=== PATIENT | male | born 1950 | race Caucasian/White ===

== ENCOUNTER 2019-03-14 21:42 | Inpatient (IN) ==
[2019-03-14] MEDS ORDERED: NITROGLYCERIN SL 0.4 MG/TAB TAB SL STA (22:10)
[2019-03-14] MEDS ORDERED: ASPIRIN 81 MG CHEW PO STA (22:10)
[2019-03-14] MEDS ORDERED: MoRPHine SULFATE 4 MG/ML 1 ML CARP\\VIAL IV STA (22:10)
[2019-03-14 22:29] LABS: Basophils # (auto) 0.03 K/uL (0-0.2); Basophils % (auto) 0.4 %; Eosinophils # (auto) 0.14 K/uL (0-0.5); Hematocrit (blood only) 42.4 % (42-52); Hemoglobin 14.8 g/dL (14.0-18.0); Immature Granulocytes # (auto) 0.02 K/uL (0.00-0.02); Immature Granulocytes % (auto) 0.3 %; Lymphocytes # (auto) 2.22 K/uL (1.2-3.4); Lymphocytes % (auto) 31.9 %; Mean Corpuscular Hgb Conc 34.9 g/dL (32-36); Mean Corpuscular Volume 91.8 fL (80-100); Mean Platelet Volume 9.1 fL (7.4-10.4); Monocytes # (auto) 0.91 K/uL (0.11-0.59); Monocytes % (auto) 13.1 %; Neutrophils # (auto) 3.63 K/uL (1.4-6.5); Neutrophils % (auto) 52.3 %; Platelet Count 190 K/uL (130-400); RDW Coefficient of Variation 12.3 % (11.5-14.5); RDW Standard Deviation 40.8 fL (36.4-46.3); Red Blood Count 4.62 M/uL (4.7-6.1); White Blood Count 6.95 K/uL (4.8-10.8)
--- NOTE | 2019-03-14 22:30 | XRay Report ---
XR chest 1V portable CLINICAL HISTORY: Atypical chest pain COMPARISON STUDY: 03/29/2012 FINDINGS: There are postsurgical changes of a midline sternotomy. The heart is borderline enlarged. T here is no focal pulmonary consolidation. There is no overt failure. There are no pleural effusions. Subtle increased basilar markings are likely atelectatic.[ IMPRESSION: No active disease in the chest. Electronically signed by: Fawad Byrd M.D. 03/14/2019 10:28 PM
[2019-03-14] MEDS ORDERED: fentaNYL citrate 100 MCG/2 ML VIAL IV STA (22:37)
[2019-03-14] MEDS ORDERED: ONDANSETRON INJ 2 MG/ML 2 ML VIAL IV STA (22:37)
[2019-03-14 22:38] LABS: iSTAT Hemoglobin 13.6 g/dl (14.0-18.0); iSTAT Ionized Calcium 1.15 mmol/l (1.12-1.32); iSTAT Potassium 3.8 mEq/L (3.3-5.0)
[2019-03-14] MEDS ORDERED: fentaNYL citrate 100 MCG/2 ML VIAL ONE (22:39)
[2019-03-14] MEDS ORDERED: ONDANSETRON INJ 2 MG/ML 2 ML VIAL ONE (22:39)
[2019-03-14] MEDS ORDERED: SODIUM CHLORIDE 0.9% 1000ML 1,000 ML IV SCH (22:45)
[2019-03-14 22:46] LABS: Alanine Aminotransferase 21 U/L (12-78); Albumin Level 3.6 gm/dl (3.4-5.0); Amylase 141 U/L (25-115); Aspartate Aminotransferase 13 U/L (15-37); BUN Creatinine Ratio 17.3 (10-20); Blood Urea Nitrogen 20 mg/dl (7-18); Calcium 9.3 mg/dl (8.5-10.1); Carbon Dioxide 25 mmol/L (21-32); Chloride 104 mmol/L (98-107); Creatinine Clr Calc Pharmacy 59.4 ml/min; Est GFR (African American) 77.5; Est GFR (Non-African American) 66.9; Glucose 188 mg/dl (70-99); Lipase 1093 U/L (73-393); Magnesium 1.9 mg/dl (1.8-2.4); Potassium 3.8 mmol/L (3.5-5.1); Sodium 136 mmol/L (136-145)
--- NOTE | 2019-03-14 22:47 | Emergency Department Note ---
History of Present Illness General Chief Complaint: Chest Pain Stated Complaint: CHEST AND BACK PAIN Time Seen by Provider: 03/14/19 22:02 History of Present Illness Maximum Pain Intensity: 8 This is a 68-year-old male that presents to the emergency department via private vehicle accompanied by with complaints of "chest and back pain". The patient states that he has a history of hypercholesterolemia, diabetes and hypertension. He also has a history of double bypass in 2003. He has a history of WA. He states that yesterday he began with some chest and back discomfort. He also notes a history of pancreatitis. He has been off of his aspirin since 11 March as he was scheduled to undergo procedure tomorrow. He states that the pain is a 6/10. He does not necessarily exertional. He points to the substernal region and epigastric region as a location of pain. Pain is worse with palpation of the abdomen. No identified alleviating factors. Home Medications Home Medications Medication Instructions Recorded Confirmed Type aspirin [Aspir-81] 81 mg PO DAILY 03/14/19 03/14/19 History canagliflozin [Invokana] 100 mg PO DAILY 03/14/19 03/14/19 History cyanocobalamin (vitamin B-12) 1,000 mcg PO DAILY 03/14/19 03/14/19 History glipizide 5 mg PO DAILY 03/14/19 03/14/19 History lisinopril 20 mg PO DAILY 03/14/19 03/14/19 History metformin 1,000 mg PO BIDM 03/14/19 03/14/19 History metoprolol tartrate 25 mg PO QPM 03/14/19 03/14/19 History metoprolol tartrate 50 mg PO QAM 03/14/19 03/14/19 History multivitamin [Multiple Vitamins] 1 tab PO DAILY 03/14/19 03/14/19 History nitroglycerin [Nitrostat] 0.4 mg SUBLINGUAL UD PRN 03/14/19 03/14/19 History pantoprazole 40 mg PO DAILY 03/14/19 03/14/19 History rosuvastatin 20 mg PO DAILY 03/14/19 03/14/19 History Allergies Allergy/AdvReac Type Severity Reaction Status Date / Time adhesive AdvReac Mild BLISTERS Verified 03/14/19 23:12 hydrochlorothiazide AdvReac Unknown HX Verified 03/14/19 23:12 PANCREATITIS Past Med/Surg History Medical History History of hypertension Hx of diabetes mellitus Hx of hypercholesterolemia Surgical History Hx of CABG Social History Preferred Language: Paraguayan Feels Safe at Home: Yes Smoking Status: Never smoker Review of Systems A total of 10 systems reviewed and were otherwise negative Physical Exam Vital Signs Vital Signs - 24 hr 03/14/19 21:44 03/14/19 22:07 03/14/19 22:24 Temperature 36.7 C Temperature Source Oral Pulse Rate 80 91 H Pulse Rate [Finger] Pulse Rhythm Regular Pulse Rhythm [Finger] Pulse Strength [Finger] Respiratory Rate 18 22 Respiratory Effort / Characteristics Non-Labored Respiratory Depth Normal Respiratory Pattern Blood Pressure 176/81 H Blood Pressure [Right Arm] Blood Pressure Mean 112 Blood Pressure Mean [Right Arm] Blood Pressure Position [Right Arm] Pulse Oximetry 94 95 Oxygen Delivery Method Room Air Room Air Room Air Oxygen Flow Rate Sepsis Recent Fever Within 48 Hours No Sepsis Action Taken by Nursing No Action Required 03/14/19 23:04 03/15/19 00:09 Temperature Temperature Source Pulse Rate Pulse Rate [Finger] 70 69 Pulse Rhythm Pulse Rhythm [Finger] Regular Regular Pulse Strength [Finger] Normal Normal Respiratory Rate 22 18 Respiratory Effort / Characteristics Non-Labored Spontaneous Non-Labored Spontaneous Respiratory Depth Normal Normal Respiratory Pattern Regular Regular Blood Pressure Blood Pressure [Right Arm] 129/59 L 112/58 L Blood Pressure Mean Blood Pressure Mean [Right Arm] 82 76 Blood Pressure Position [Right Arm] Lying Pulse Oximetry 97 96 Oxygen Delivery Method Room Air Nasal Cannula Nasal Cannula Oxygen Flow Rate 2 2 Sepsis Recent Fever Within 48 Hours Sepsis Action Taken by Nursing VITAL SIGNS - Vital signs and nursing notes were reviewed. Stable and afebrile. GENERAL -68-year-old male appearing his stated age who is in no acute distress. Communicates well with provider and answers questions appropriately. SKIN - Without rashes. No meningeal or petechial rash. No diaphoresis. HEAD - NC/AT. EYES - PERRL with EOMI bilaterally. Sclera anicteric. EARS - No deformities of external structures noted on gross examination bilaterally NOSE - Midline and without cyanosis. No epistaxis or purulent drainage noted. MOUTH/OROPHARYNX - Without perioral cyanosis. LUNGS - Chest wall symmetric without accessory muscle use, intercostals retractions, or central cyanosis. Normal vesicular breath sounds CTA B/L. No wheezes, rales, or rhonchi appreciated. CARDIAC - RRR with S1/S2. No murmur, rubs, or gallops appreciated. ABDOMEN - Abdominal contour normal without pulsations or visible masses. BS normoactive all four quadrants. There is epigastric abdominal tenderness noted on examination. No palpable masses, hepatosplenomegaly, or ascites noted. EXTREMITIES - No clubbing or peripheral cyanosis. +5/5 strength noted in UE/LE bilaterally. NEUROLOGIC - Cranial nerves II through XII grossly intact. PSYCH - A&Ox3 and cooperates fully with examiner. Pt is very pleasant and interacts well with examiner. Course Administered Medications Ioversol (Optiray 320 125ml) 119 ml IV ONCE PRN PRN Reason: Interaction Checking Stop: 03/18/19 22:50 Last Admin: 03/14/19 22:51 Dose: 119 ml Documented by: [id number] Discontinued Medications Aspirin (Aspirin Chew) 324 mg PO NOW STA Stop: 03/14/19 22:11 Last Admin: 03/14/19 22:18 Dose: 324 mg Documented by: [id number] Fentanyl Citrate (Fentanyl Citrate) 50 mcg IV NOW STA Stop: 03/14/19 22:38 Last Admin: 03/14/19 22:40 Dose: 50 mcg Documented by: [id number] Fentanyl Citrate (Fentanyl Citrate) Confirm Administered Dose 100 mcg .ROUTE .STK-MED ONE Stop: 03/14/19 22:40 Last Admin: 03/14/19 22:42 Dose: Not Given Documented by: [id number] Sodium Chloride (Nss 1000ml) 1,000 mls @ 999 mls/hr IV .Q1H1M RADHA Stop: 03/14/19 23:45 Last Infusion: 03/15/19 00:08 Dose: 0 mls/hr Documented by: [id number] Admin: 03/14/19 22:49 Dose: 999 mls/hr Documented by: [id number] Morphine Sulfate (Morphine Sulfate) 4 mg IV NOW STA Stop: 03/14/19 22:11 Last Admin: 03/14/19 22:18 Dose: 4 mg Documented by: [id number] Nitroglycerin (Nitrostat) 0.4 mg SL NOW STA Stop: 03/14/19 22:11 Last Admin: 03/14/19 22:19 Dose: 0.4 mg Documented by: [id number] Ondansetron HCl (Zofran) 4 mg IV NOW STA Stop: 03/14/19 22:38 Last Admin: 03/14/19 22:40 Dose: 4 mg Documented by: [id number] Ondansetron HCl (Zofran) Confirm Administered Dose 4 mg .ROUTE .STK-MED ONE Stop: 03/14/19 22:40 Last Admin: 03/14/19 22:42 Dose: Not Given Documented by: [id number] Medical Decision Making Laboratory Data Result diagrams: 03/14/19 22:15 03/14/19 22:15 Lab Results 03/14/19 03/14/19 03/14/19 Range/Units 22:15 22:15 22:15 WBC 6.95 (4.8-10.8) K/uL RBC 4.62 L (4.7-6.1) M/uL Hgb 14.8 (14.0-18.0) g/dL POC Hgb (14.0-18.0) g/dl Hct 42.4 (42-52) % POC Hct (42-52) % MCV 91.8 (80-100) fL MCH 32.0 (25-34) pg MCHC 34.9 (32-36) g/dL RDW Std Deviation 40.8 (36.4-46.3) fL RDW Coeff of Rodolfo 12.3 (11.5-14.5) % Plt Count 190 (130-400) K/uL MPV 9.1 (7.4-10.4) fL Immature Gran % (Auto) 0.3 % Neut % (Auto) 52.3 % Lymph % (Auto) 31.9 % Ashe % (Auto) 13.1 % Eos % (Auto) 2.0 % Baso % (Auto) 0.4 % Immature Gran # (Auto) 0.02 (0.00-0.02) K/uL Neut # (Auto) 3.63 (1.4-6.5) K/uL Lymph # (Auto) 2.22 (1.2-3.4) K/uL Ashe # (Auto) 0.91 H (0.11-0.59) K/uL Eos # (Auto) 0.14 (0-0.5) K/uL Baso # (Auto) 0.03 (0-0.2) K/uL PT 9.5 (9.0-12.0) Seconds INR 0.9 (0.9-1.1) APTT 24.3 (21.0-31.0) Seconds PTT Ratio 0.9 POC Sodium (135-144) mEq/L Sodium 136 (136-145) mmol/L POC Potassium (3.3-5.0) mEq/L Potassium 3.8 (3.5-5.1) mmol/L POC Chloride (101-112) mEq/L Chloride 104 (98-107) mmol/L Carbon Dioxide 25 (21-32) mmol/L POC Total CO2 (24-31) mEq/l Anion Gap 7.0 (3-11) POC Anion Gap (16-25) mmol/L POC BUN (7-18) mg/dl BUN 20 H (7-18) mg/dl Creatinine 1.13 (0.6-1.4) mg/dl POC Creatinine (0.6-1.3) mg/dl Est Cr Clr Drug Dosing 59.4 ml/min Est GFR ( Amer) 77.5 Est GFR (Non-Af Amer) 66.9 BUN/Creatinine Ratio 17.3 (10-20) Glucose 188 H (70-99) mg/dl POC Glucose (other) (70-99) mg/dl Calcium 9.3 (8.5-10.1) mg/dl POC Ioniz Calcium Cori (1.12-1.32) mmol/l Magnesium 1.9 (1.8-2.4) mg/dl Total Bilirubin 0.3 (0.2-1) mg/dl AST 13 L (15-37) U/L ALT 21 (12-78) U/L Alkaline Phosphatase 64 (45-117) U/L Troponin I < 0.015 (0-0.045) ng/ml Total Protein 7.5 (6.4-8.2) gm/dl Albumin 3.6 (3.4-5.0) gm/dl Globulin 3.9 (2.5-4.0) gm/dl Albumin/Globulin Ratio 0.9 (0.9-2) Amylase 141 H (25-115) U/L Lipase 1093 H (73-393) U/L Urine Color Urine Appearance (Clear) Urine pH (4.5-7.5) Ur Specific Lincoln (1.000-1.030) Urine Protein (Negative) Urine Glucose (UA) (Negative) Urine Ketones (Negative) Urine Blood (Negative) Urine Nitrite (Negative) Urine Bilirubin (Negative) Urine Urobilinogen (Negative) Ur Leukocyte Esterase (Negative) 03/14/19 03/15/19 Range/Units 22:26 00:15 WBC (4.8-10.8) K/uL RBC (4.7-6.1) M/uL Hgb (14.0-18.0) g/dL POC Hgb 13.6 L (14.0-18.0) g/dl Hct (42-52) % POC Hct 40 L (42-52) % MCV (80-100) fL MCH (25-34) pg MCHC (32-36) g/dL RDW Std Deviation (36.4-46.3) fL RDW Coeff of Rodolfo (11.5-14.5) % Plt Count (130-400) K/uL MPV (7.4-10.4) fL Immature Gran % (Auto) % Neut % (Auto) % Lymph % (Auto) % Ashe % (Auto) % Eos % (Auto) % Baso % (Auto) % Immature Gran # (Auto) (0.00-0.02) K/uL Neut # (Auto) (1.4-6.5) K/uL Lymph # (Auto) (1.2-3.4) K/uL Ashe # (Auto) (0.11-0.59) K/uL Eos # (Auto) (0-0.5) K/uL Baso # (Auto) (0-0.2) K/uL PT (9.0-12.0) Seconds INR (0.9-1.1) APTT (21.0-31.0) Seconds PTT Ratio POC Sodium 136 (135-144) mEq/L Sodium (136-145) mmol/L POC Potassium 3.8 (3.3-5.0) mEq/L Potassium (3.5-5.1) mmol/L POC Chloride 104 (101-112) mEq/L Chloride (98-107) mmol/L Carbon Dioxide (21-32) mmol/L POC Total CO2 24 (24-31) mEq/l Anion Gap (3-11) POC Anion Gap 13.0 L (16-25) mmol/L POC BUN 19 H (7-18) mg/dl BUN (7-18) mg/dl Creatinine (0.6-1.4) mg/dl POC Creatinine 1.0 (0.6-1.3) mg/dl Est Cr Clr Drug Dosing ml/min Est GFR ( Amer) Est GFR (Non-Af Amer) BUN/Creatinine Ratio (10-20) Glucose (70-99) mg/dl POC Glucose (other) 192 H (70-99) mg/dl Calcium (8.5-10.1) mg/dl POC Ioniz Calcium Croi 1.15 (1.12-1.32) mmol/l Magnesium (1.8-2.4) mg/dl Total Bilirubin (0.2-1) mg/dl AST (15-37) U/L ALT (12-78) U/L Alkaline Phosphatase (45-117) U/L Troponin I (0-0.045) ng/ml Total Protein (6.4-8.2) gm/dl Albumin (3.4-5.0) gm/dl Globulin (2.5-4.0) gm/dl Albumin/Globulin Ratio (0.9-2) Amylase (25-115) U/L Lipase (73-393) U/L Urine Color Yellow Urine Appearance Clear (Clear) Urine pH 5.0 (4.5-7.5) Ur Specific Lincoln <= 1.005 (1.000-1.030) Urine Protein Negative (Negative) Urine Glucose (UA) 3+ H (Negative) Urine Ketones Negative (Negative) Urine Blood Negative (Negative) Urine Nitrite Negative (Negative) Urine Bilirubin Negative (Negative) Urine Urobilinogen Negative (Negative) Ur Leukocyte Esterase Negative (Negative) Imaging Data Chest x-ray: Radiologist's impression: XR chest 1V portable CLINICAL HISTORY: Atypical chest pain COMPARISON STUDY: 03/29/2012 FINDINGS: There are postsurgical changes of a midline sternotomy. The heart is borderline enlarged. There is no focal pulmonary consolidation. There is no overt failure. There are no pleural effusions. Subtle increased basilar markings are likely atelectatic.[ IMPRESSION: No active disease in the chest. Electronically signed by: Fawad Byrd M.D. 03/14/2019 10:[address] scan - abdomen: Radiologist's impression: CTA ABDOMEN & PELVIS With Contrast: Mild stranding about the head and uncinate process of the pancreas may represent acute pancreatitis, correlate with lipase Abdominal aorta within limits without aneurysm or dissection Aortoiliac atherosclerotic change Celiac, SMA, renal arteries and BUTCH fill with contrast Status post cholecystectomy No bowel dilation or free air Normal caliber appendix without secondary signs Punctate non-obstructing stone upper pole left kidney Left renal cyst No free fluid Radiologist: Kyle Sierra M.D. Study ready at 23:09 and initial results transmitted at 23:43 CT scan - chest: Radiologist's impression: CTA CHEST: Thoracic aorta within limits without aneurysm or dissection or evidence of intramural hematoma Status post CABG No pericardial or pleural effusion Motion artifact without evidence of filling defect to suggest pulmonary embolism Central airways are patent without focal consolidation Basilar atelectasis Radiologist: Kyle Sierra M.D. Study ready at 23:14 and initial results transmitted at 23:40 [facility] Narrative Patient was seen and evaluated as above in room a 11b. Review was performed of nursing notes and vital signs. After obtaining a thorough history and physical examination the above work up was performed. He presents to us today with significant chest/epigastric abdominal pain and back pain. He has a significant cardiac history and is status post CABG. EKG was obtained and per my interpretation reveals sinus rhythm with first-degree AV block at a rate of 80 bpm. There is evidence of T wave inversion in leads III, aVF and V1. There is some flattening of the T waves in V2. A repeat EKG was obtained during resurgence of pain and revealed normal sinus rhythm at a rate of 71 bpm. This is similar to previous. There is no evidence of ST segment elevation myocardial infarction. QTc on both of these were 410, and 399 respectively. When compared to previous EKGs no significant change was found. Chest x-ray was negative. Given the patient's cardiac history, initial focus was to rule out cardiac etiology. He was given nitroglycerin, morphine, and aspirin. Upon evaluation after receiving these meds he became hypotensive, was diaphoretic and was pale. Although this could certainly be just from medication, given his history there was concern for possible dissection and he went to the CT scanner and underwent CTA of the chest, abdomen and pelvis. Results of these are as above. There is no dissection. There is evidence though of pancreatitis. Patient does have a history of this. He was given fluids. I do believe that further evaluation and management is warranted in the inpatient setting secondary to his pancreatitis as well as his cardiac history. Case discussed with the hospitalist. Please refer to further documentation regarding his stay. CBC reveals no leukocytosis or concerning anemia. No emergent metabolic disturbance. Troponin is negative. Amylase at 141 with lipase at 1093. Urinalysis does not reveal any evidence of infection. Case was discussed with the attending physician. I attest that I have personally reviewed the patient medication list. I attest that I have reviewed the patient's blood pressure and it was found to be elevated on arrival. GCS: 15 In the evaluation and treatment of this patient, the following differential diagnoses were considered: WA, ASC, Dysrhythmia, Angina, Mediastinitis, GERD, Esophagitis, PE, Pneumonia, pancreatitis, dissection, bronchitis, Costochondritis, Rib Fracture, Zoster. Impression & Plan Acute pancreatitis, Chest pain, Back pain, Epigastric abdominal pain, Hx of CABG, History of pancreatitis Discharge Plan Visit Data Chief Complaint: Chest Pain Stated Complaint: CHEST AND BACK PAIN ED Provider: Erick Holloway ED Midlevel Provider: M[facility] [place] Discharge Problem: Acute pancreatitis, Chest pain, Back pain, Epigastric abdominal pain, Hx of CABG, History of pancreatitis Patient Disposition: Admitted As Inpatient Condition: Good
[2019-03-14 22:51] LABS: Albumin Globulin Ratio 0.9 (0.9-2); Alkaline Phosphatase 64 U/L (45-117); Bilirubin,Total 0.3 mg/dl (0.2-1); Globulin 3.9 gm/dl (2.5-4.0); INR 0.9 (0.9-1.1); Partial Thromboplastin Ratio 0.9; Partial Thromboplastin Time 24.3 Seconds (21.0-31.0); Prothrombin Time 9.5 Seconds (9.0-12.0); Total Protein 7.5 gm/dl (6.4-8.2); Troponin I < 0.015 ng/ml (0-0.045)
[2019-03-14] MEDS ORDERED: OPTIRAY 320 125ml IV PRN (22:51)
--- NOTE | 2019-03-15 00:23 | Emergency Department Note ---
Entered by Sandee Hannah acting as a scribe for Erick Holloway ED Visit Note The patient was seen and examined by myself in conjunction with ALEX Alicea, advanced care provider. I agree with the history, physical and findings as documented. Please see the note for disposition and details. The scribe's documentation has been prepared under my direction and personally reviewed by me in its entirety. I confirm that the note above accurately reflects all work, treatment, procedures, and medical decision making performed by me.
--- NOTE | 2019-03-15 01:06 | History & Physical Report ---
Date of Service March 15, 2019 Assessment & Plan (1) Acute pancreatitis: Recurrent pancreatitis chronic systolic heart failure secondary to ischemic cardiomyopathy (TTE 45 - 50% in 2018), patient euvolemic coronary artery disease status post CABG hypertension, stable DM2 on oral meds, reasonable control at hemoglobin A1c of 7.8 last November 2018 Past tobacco abuse GMF Bowel rest IVF, analgesia GI consult RE recurrent pancreatitis Basal insulin adjusted for diet, ISS BG goal [id number], update hemoglobin A1c Prophylaxis. Lovenox subcu Full code Patient's requesting updates from providers. Ms. Leandra Cannon, contact #[phone]. History of Present Illness Chief Complaint: Chest/abdominal pain Primary Care Provider: Artur Chambers MD History obtained from patient, family, and records. Medical history significant for chronic systolic heart failure secondary to ischemic cardiomyopathy (TTE 45 - 50% in 2018),coronary artery disease status post CABG, hypertension, hyperlipidemia, DM2 on oral meds, GERD, recurrent pancreatitis. Recent confinement January 2013 for post ERCP abdominal discomfort. Yesterday afternoon patient noted achy mid chest pain going to his back associated with belching, nausea, usual loose stools. Discomfort reminiscent of pancreatitis attack. Patient had chili for lunch which is not unusual for him. No recent alcohol intake. Patient brought to the ER for evaluation. MEDICAL HISTORY: As above. SURGICAL HISTORY: CABG, Cholecystectomy, knee surgery, hernia repair, hand surgery FAMILY HISTORY: There is a family history of colon cancer and diabetes. PERSONAL AND SOCIAL HISTORY: Nonsmoker. No chronic intake of alcoholic beverages. 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 Allergies Allergy/AdvReac Type Severity Reaction Status Date / Time adhesive AdvReac Mild BLISTERS Verified 03/14/19 23:12 hydrochlorothiazide AdvReac Unknown HX Verified 03/14/19 23:12 PANCREATITIS Home Medications Home Medications Medication Instructions Recorded Confirmed Type aspirin [Aspir-81] 81 mg PO DAILY 03/14/19 03/14/19 History canagliflozin [Invokana] 100 mg PO DAILY 03/14/19 03/14/19 History cyanocobalamin (vitamin B-12) 1,000 mcg PO DAILY 03/14/19 03/14/19 History glipizide 5 mg PO DAILY 03/14/19 03/14/19 History lisinopril 20 mg PO DAILY 03/14/19 03/14/19 History metformin 1,000 mg PO BIDM 03/14/19 03/14/19 History metoprolol tartrate 25 mg PO QPM 03/14/19 03/14/19 History metoprolol tartrate 50 mg PO QAM 03/14/19 03/14/19 History multivitamin [Multiple Vitamins] 1 tab PO DAILY 03/14/19 03/14/19 History nitroglycerin [Nitrostat] 0.4 mg SUBLINGUAL UD PRN 03/14/19 03/14/19 History pantoprazole 40 mg PO DAILY 03/14/19 03/14/19 History rosuvastatin 20 mg PO DAILY 03/14/19 03/14/19 History Past Med/Surg History Medical History History of hypertension Hx of diabetes mellitus Hx of hypercholesterolemia Surgical History Hx of CABG Social History Preferred Language: Turkish Communication Ability: Effective Admin Asst Required: No Beliefs That Will Affect Care: None Current Living Situation: Spouse Feels Safe at Home: Yes Safety Concerns: Feels Safe At This Time Smoking Status: Never smoker Hx Alcohol Use: No Hx Substance Use: No Review of Systems Review of Systems: As per HPI, all 10 systems reviewed, all other ROS negative Physical Exam Physical Exam: GENERAL: Comfortable, slightly uncomfortable, no respiratory distress SKIN: Normal color, warm HEENT: Alopecia, bespectacled, pink palpebral conjunctivae, no ptosis, dry buccal mucosa NECK : Supple, no tenderness CHEST : CTA, no tenderness HEART : RRR, no obvious murmurs ABDOMEN: Some distention, epigastric tenderness EXTREMITIES : No LE swelling/tenderness, no other conspicuous deformities noted NEUROLOGIC : Coherent, no facial asymmetry, no other gross focality Results & Data Vital Signs (Past 12 Hours) Vital Signs Temp Pulse Pulse Resp BP BP Pulse Ox 03/15/19 00:09 69 18 112/58 L 96 03/14/19 23:04 70 22 129/59 L 97 03/14/19 22:24 91 H 22 95 03/14/19 21:44 36.7 C 80 18 176/81 H 94 Laboratory Results Laboratory Results WBC 6.95 K/uL (4.8-10.8) 03/14/19 22:15 RBC 4.62 M/uL (4.7-6.1) L 03/14/19 22:15 Hgb 14.8 g/dL (14.0-18.0) 03/14/19 22:15 POC Hgb 13.6 g/dl (14.0-18.0) L 03/14/19 22:26 Hct 42.4 % (42-52) 03/14/19 22:15 POC Hct 40 % (42-52) L 03/14/19 22:26 MCV 91.8 fL (80-100) 03/14/19 22:15 MCH 32.0 pg (25-34) 03/14/19 22:15 MCHC 34.9 g/dL (32-36) 03/14/19 22:15 RDW Std Deviation 40.8 fL (36.4-46.3) 03/14/19 22:15 RDW Coeff of Rodolfo 12.3 % (11.5-14.5) 03/14/19 22:15 Plt Count 190 K/uL (130-400) 03/14/19 22:15 MPV 9.1 fL (7.4-10.4) 03/14/19 22:15 Immature Gran % (Auto) 0.3 % 03/14/19 22:15 Neut % (Auto) 52.3 % 03/14/19 22:15 Lymph % (Auto) 31.9 % 03/14/19 22:15 Steele % (Auto) 13.1 % 03/14/19 22:15 Eos % (Auto) 2.0 % 03/14/19 22:15 Baso % (Auto) 0.4 % 03/14/19 22:15 Immature Gran # (Auto) 0.02 K/uL (0.00-0.02) 03/14/19 22:15 Neut # (Auto) 3.63 K/uL (1.4-6.5) 03/14/19 22:15 Lymph # (Auto) 2.22 K/uL (1.2-3.4) 03/14/19 22:15 Steele # (Auto) 0.91 K/uL (0.11-0.59) H 03/14/19 22:15 Eos # (Auto) 0.14 K/uL (0-0.5) 03/14/19 22:15 Baso # (Auto) 0.03 K/uL (0-0.2) 03/14/19 22:15 PT 9.5 Seconds (9.0-12.0) 03/14/19 22:15 INR 0.9 (0.9-1.1) 03/14/19 22:15 APTT 24.3 Seconds (21.0-31.0) 03/14/19 22:15 PTT Ratio 0.9 03/14/19 22:15 POC Sodium 136 mEq/L (135-144) 03/14/19 22:26 Sodium 136 mmol/L (136-145) 03/14/19 22:15 POC Potassium 3.8 mEq/L (3.3-5.0) 03/14/19 22:26 Potassium 3.8 mmol/L (3.5-5.1) 03/14/19 22:15 POC Chloride 104 mEq/L (101-112) 03/14/19 22:26 Chloride 104 mmol/L (98-107) 03/14/19 22:15 Carbon Dioxide 25 mmol/L (21-32) 03/14/19 22:15 POC Total CO2 24 mEq/l (24-31) 03/14/19 22:26 Anion Gap 7.0 (3-11) 03/14/19 22:15 POC Anion Gap 13.0 mmol/L (16-25) L 03/14/19 22:26 POC BUN 19 mg/dl (7-18) H 03/14/19 22:26 BUN 20 mg/dl (7-18) H 03/14/19 22:15 Creatinine 1.13 mg/dl (0.6-1.4) 03/14/19 22:15 POC Creatinine 1.0 mg/dl (0.6-1.3) 03/14/19 22:26 Est Cr Clr Drug Dosing 59.4 ml/min 03/14/19 22:15 Est GFR ( Amer) 77.5 03/14/19 22:15 Est GFR (Non-Af Amer) 66.9 03/14/19 22:15 BUN/Creatinine Ratio 17.3 (10-20) 03/14/19 22:15 Glucose 188 mg/dl (70-99) H 03/14/19 22:15 POC Glucose (other) 192 mg/dl (70-99) H 03/14/19 22:26 Calcium 9.3 mg/dl (8.5-10.1) 03/14/19 22:15 POC Ioniz Calcium Cori 1.15 mmol/l (1.12-1.32) 03/14/19 22:26 Magnesium 1.9 mg/dl (1.8-2.4) 03/14/19 22:15 Total Bilirubin 0.3 mg/dl (0.2-1) 03/14/19 22:15 AST 13 U/L (15-37) L 03/14/19 22:15 ALT 21 U/L (12-78) 03/14/19 22:15 Alkaline Phosphatase 64 U/L (45-117) 03/14/19 22:15 Troponin I < 0.015 ng/ml (0-0.045) 03/14/19 22:15 Total Protein 7.5 gm/dl (6.4-8.2) 03/14/19 22:15 Albumin 3.6 gm/dl (3.4-5.0) 03/14/19 22:15 Globulin 3.9 gm/dl (2.5-4.0) 03/14/19 22:15 Albumin/Globulin Ratio 0.9 (0.9-2) 03/14/19 22:15 Amylase 141 U/L (25-115) H 03/14/19 22:15 Lipase 1093 U/L (73-393) H 03/14/19 22:[address] chest initial read : no thoracic aortic dissection/intramural hematoma. Status post CABG. no pulmonary embolism. CT abdomen pelvis initial read: Acute pancreatitis. Status post cholecystectomy. No free fluid. EKG as per my interpretation: Rate 70, NSR, normal axis, T wave abnormalities in the inferior and anteroseptal leads
[2019-03-15 01:24] LABS: Appearance Urine Clear (Clear); Bilirubin Urine Negative (Negative); Blood Urine Negative (Negative); Color Urine Yellow; Glucose Urine UA 3+ (Negative); Ketones Urine Negative (Negative); Leukocyte Esterase Urine Negative (Negative); Nitrite Urine Negative (Negative); Protein Urine Negative (Negative); Specific Gravity Urine <= 1.005 (1.000-1.030); Urobilinogen Urine Negative (Negative)
[2019-03-15] MEDS ORDERED: CARBOHYDRATES FOR HYPOGLYCEMIA PO PRN (01:59)
[2019-03-15] MEDS ORDERED: GLUCAGON FOR INJ 1 MG VIAL SQ PRN (01:59)
[2019-03-15] MEDS ORDERED: MoRPHine SULFATE 4 MG/ML 1 ML CARP\\VIAL IV PRN (01:59)
[2019-03-15] MEDS ORDERED: DEXTROSE 50% 50 ML SYRINGE IV PRN (01:59)
[2019-03-15] MEDS ORDERED: GLUCOSE 10 TABS/TUBE PO PRN (01:59)
[2019-03-15] MEDS ORDERED: GLUCOSE 40% GEL 15 GM TUBE PO PRN (01:59)
[2019-03-15] MEDS ORDERED: INSULIN GLARGINE SOLOSTAR 100 UNITS/ML 3 ML PEN SC STA (01:59)
[2019-03-15] MEDS ORDERED: PROMETHAZINE HCL 12.5 MG in SODIUM CHLORIDE 0.9% 50 ML IV PRN (01:59)
[2019-03-15] MEDS ORDERED: INSULIN ASPART 100 UNITS/ML 3 ML PEN SC SCH (01:59)
[2019-03-15] MEDS ORDERED: LORazepam 0.25 MG/0.5 ML VIAL IV PRN (01:59)
[2019-03-15] MEDS ORDERED: TRAMADOL HCL 50 MG TABLET PO PRN (01:59)
[2019-03-15] MEDS: LACTATED RINGER'S 1,000 ML IV SCH ×3 (02:18→15:49)
[2019-03-15] MEDS ORDERED: Nursing to Pharmacy Communication ONE ×2 (02:32→23:08)
[2019-03-15] MEDS: INSULIN ASPART 100 UNITS/ML 3 ML PEN SC SCH ×3 (06:04→18:53)
[2019-03-15 06:23] LABS: Basophils # (auto) 0.02 K/uL (0-0.2); Basophils % (auto) 0.4 %; Eosinophils % (auto) 2.1 %; Hematocrit (blood only) 39.1 % (42-52); Hemoglobin 13.5 g/dL (14.0-18.0); Lymphocytes # (auto) 1.59 K/uL (1.2-3.4); Lymphocytes % (auto) 32.7 %; Mean Corpuscular Hemoglobin 31.9 pg (25-34); Mean Corpuscular Hgb Conc 34.5 g/dL (32-36); Mean Corpuscular Volume 92.4 fL (80-100); Mean Platelet Volume 9.1 fL (7.4-10.4); Monocytes % (auto) 12.3 %; Neutrophils # (auto) 2.55 K/uL (1.4-6.5); Neutrophils % (auto) 52.5 %; Platelet Count 170 K/uL (130-400); RDW Coefficient of Variation 12.3 % (11.5-14.5); RDW Standard Deviation 41.5 fL (36.4-46.3); Red Blood Count 4.23 M/uL (4.7-6.1); White Blood Count 4.86 K/uL (4.8-10.8)
[2019-03-15 06:59] LABS: Albumin Globulin Ratio 0.8 (0.9-2); BUN Creatinine Ratio 18.2 (10-20); Bilirubin,Total 0.5 mg/dl (0.2-1); Calcium 8.6 mg/dl (8.5-10.1); Creatinine Clr Calc Pharmacy 74.1 ml/min; Est GFR (African American) 100.7; Est GFR (Non-African American) 86.9; Globulin 3.8 gm/dl (2.5-4.0); Total Protein 6.8 gm/dl (6.4-8.2)
[2019-03-15 07:28] LABS: Potassium 3.9 mmol/L (3.5-5.1)
--- NOTE | 2019-03-15 07:38 | CT Scan Report ---
CT OF THE ABDOMEN WITHOUT CONTRAST AND CT ANGIOGRAPHY OF THE ABDOMEN AND PELVIS CLINICAL HISTORY: Abdominal pain radiating to back. History pancreatitis. COMPARISON STUDY: CT of the abdomen and pelvis and MRCP March 29, 2012. TECHNIQUE: Unenhanced axial images of the abdomen were obtained. Arterial phase imaging of the abdome n and pelvis was performed following intravenous injection of 119 cc Optiray 320 IV. Sagittal coronal reconstructed reviewed as well as maximal intensity projections on an independent 3-D workstation. A utomated exposure control was utilized for the study. A dose lowering technique was utilized adherin g to the principles of ALARA. FINDINGS: Please note that the chest will be reported separately. There is no abdominal aortic dissec tion or aneurysm. There is moderate plaque of the abdominal aorta and branch vessels. Arterial phase images of the liver, spleen and adrenal glands are unremarkable. There is no biliary ductal dilatatio n status post cholecystectomy. There is mild infiltration adjacent to the uncinate process of the camejo creas. No pancreatic ductal dilatation. No peripancreatic fluid collection is present. A few left debbie al cysts are present. A 3 mm left renal calculus is noted. There are no ureteral calculi. There is no hydronephrosis. There is no evidence for a bowel obstruction. The appendix is normal. No suspicious osseous lesions are noted. IMPRESSION: 1. Mild infiltration adjacent to the uncinate process of the pancreas consistent with acute pancreati tis. No peripancreatic fluid collection. No biliary ductal dilatation status post cholecystectomy. 2. No abdominal aortic dissection. Moderate atherosclerotic plaque. 3. 3 mm left renal calculus. Electronically signed by: Brandon Goode M.D. 03/15/2019 7:36 AM
--- NOTE | 2019-03-15 07:40 | CT Scan Report ---
CHEST CTA for AORTIC DISSECTION CT DOSE: HISTORY: chest pain into back, hx mi, hx pancreatitis TECHNIQUE: Multiaxial CT images of the chest were performed both before and after the intravenous adm inistration of contrast to evaluate the aorta. Maximal intensity projection images were also obtained . A dose lowering technique was utilized adhering to the principles of ALARA. COMPARISON STUDY: Chest CTA 11/14/2010. FINDINGS: Noncontrast imaging through the chest shows no evidence for an intramural hematoma within t he thoracic aorta. Normal caliber thoracic aorta with no evidence for dissection. The heart is mildly enlarged. The main pulmonary arteries are patent. Poststernotomy changes. No pleural or pericardial effusions. The esophagus is normal in course and caliber. No mediastinal or hilar lymphadenopathy. Th e central airways are patent. No pneumothorax. A small right azygos lobe is again noted. Respiratory motion artifact. A few small bibasilar linear densities consistent with subsegmental atelectasis. IMPRESSION: No evidence for an aortic dissection. Electronically signed by: Cody Kirk M.D. 03/15/2019 7:38 AM
[2019-03-15] MEDS: ACETAMINOPHEN 325 MG TAB PO PRN ×2 (09:45→15:51)
[2019-03-15] MEDS: PANTOprazole 40 MG TAB PO SCH (09:46)
[2019-03-15] MEDS: ENOXAPARIN INJ 30 MG/0.3 ML SYR SQ SCH (09:46)
[2019-03-15] MEDS: METOPROLOL TARTRATE 50 MG TAB PO SCH (09:46)
[2019-03-15] MEDS: lisinopriL 20 MG TAB PO SCH (09:47)
[2019-03-15] MEDS: MULTIVITAMIN TAB PO SCH (09:47)
--- NOTE | 2019-03-15 11:00 | Gastrointestinal Consultation ---
Date of Consultation March 15, 2019 Assessment & Plan (1) Acute pancreatitis: Pt is a 68 y/o male currently seen for acute pancreatitis w/o signs of abscess or necrosis. Hx of pancreatitis in 2011, 2012. He is s/p cholecystectomy. He underwent ERCP w biliary sphincte[place] [address] Gabriela Verde, debris found and swept in biliary duct. He did have a beer a few weeks ago, denies regular ETOH consumption, no tobacco or illicit drugs. TG 132. Wonder if acute pancreatitis is related to recent increase of his Invokana. - Continue LR IVF support - Start CL diet - Gas X prn gas/bloating - Symptomatic management with antiemetics and analgesics prn otherwise - Consider repeat ERCP to extend biliary sphincterectomy once he recovers from this episode of pancreatitis Supervising Physician Co-Signing Physician Notes I have performed a history and physical examination of this patient and reviewed the electronic medical record. Specifically, on physical examination there is minimal epigastric tenderness. Patient should follow up with Dr. Verde as an outpatient. I have discussed the case with SWAPNIL Canela. The above note reflects my findings, conclusions, and recommendations. Willie Larios MD History of Present Illness Reason for Consultation: Pancreatitis Requesting Physician: Dr. Tanvir Dhaliwal Attending Physician: Dr. Willie Larios History of Present Illness Pt is a 68 y/o male who presented to ED yesterday w c/o pain across his chest radiating downwards to epigastric area then wrapping upper abd to back. He describe pain as gassy in nature. He denies any fever, chills, n/v. He denies any changes in bowel habits. He was eating chili when this happened. He was evaluated in ED and noted to have elevated lipase w normal LFTs. CTA abd/pelvis w/o contrast showed infiltration of uncinate process of pancreas consistent w acute pancreatitis. He is s/p cholecystectomy, no signs biliary and pancreatic ductal dilation or fluid collection. Overnight he's kept NPO and started on LR IVF for pancreatitis. His abd pain is much improved. He denies any n/v. Scheller he needs to pass gas but can't seem to pass well He admits to have 1 beer a couple of weeks ago otherwise denies regular ETOH intake. He denies tobacco uses since 2003. Denies illicit drugs including marijuana. Triglyceride level 132 (11/04/18 [facility]). He did note that he was on Invokana 100mg for a while and recently dose increased to 300mg daily He did have ERCP by Dr. Gabriela Verde in 2013 for abd pain, recurrent pancreatitis (2011, 2012). Debris swept from biliary duct and biliary sphincterectomy was done. Allergies Allergy/AdvReac Type Severity Reaction Status Date / Time adhesive AdvReac Mild BLISTERS Verified 03/14/19 23:12 hydrochlorothiazide AdvReac Unknown HX Verified 03/14/19 23:12 PANCREATITIS Home Medications Home Medications Medication Instructions Recorded Confirmed Type aspirin [Aspir-81] 81 mg PO DAILY 03/14/19 03/14/19 History canagliflozin [Invokana] 100 mg PO DAILY 03/14/19 03/14/19 History cyanocobalamin (vitamin B-12) 1,000 mcg PO DAILY 03/14/19 03/14/19 History glipizide 5 mg PO DAILY 03/14/19 03/14/19 History lisinopril 20 mg PO DAILY 03/14/19 03/14/19 History metformin 1,000 mg PO BIDM 03/14/19 03/14/19 History metoprolol tartrate 25 mg PO QPM 03/14/19 03/14/19 History metoprolol tartrate 50 mg PO QAM 03/14/19 03/14/19 History multivitamin [Multiple Vitamins] 1 tab PO DAILY 03/14/19 03/14/19 History nitroglycerin [Nitrostat] 0.4 mg SUBLINGUAL UD PRN 03/14/19 03/14/19 History pantoprazole 40 mg PO DAILY 03/14/19 03/14/19 History rosuvastatin 20 mg PO DAILY 03/14/19 03/14/19 History Patient History Medical History History of hypertension Hx of diabetes mellitus Hx of hypercholesterolemia Surgical History Hx of CABG Social History Preferred Language: Paragu[place] Communication Ability: Effective 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[employer] Required: No Beliefs That Will Affect Care: None Current Living Situation: Spouse Feels Safe at Home: Yes Safety Concerns: Feels Safe At This Time Smoking Status: Never smoker Hx Alcohol Use: No Hx Substance Use: No Review of Systems Review of Systems: All systems reviewed & are unremarkable except as noted in HPI & below Physical Exam Constitutional: WD/WN, vitals as above well groomed, cooperative and comfortable Eyes: PERRL, conjunctivae normal, anicteric sclerae ENMT: external ear and nose normal, oropharynx normal Respiratory: no respiratory distress, no labored breathing and does not use accessory muscles Auscultation: + diminished lung sounds Cardiovascular: RRR, no murmur, no edema Gastrointestinal (Abdomen): normal bowel sounds, soft, nontender, no hepatosplenomegaly Skin: no rashes, warm and dry no jaundice Neurologic: Motor/Sensory: no asterixis Psychiatric: A+Ox3, euthymic affect Lymphatic: no lymphedema Results & Data Vital Signs (Past 12 Hours) Vital Signs Temp Pulse Resp BP Pulse Ox 03/15/19 07:27 36.8 C 72 18 124/66 96 03/15/19 01:53 36.6 C 68 16 145/71 H 93 03/15/19 00:09 69 18 112/58 L 96 03/14/19 23:04 70 22 129/59 L 97
--- NOTE | 2019-03-15 14:02 | Hospitalist Progress Note ---
Date of Service March 15, 2019 Assessment & Plan (1) Acute pancreatitis: Recurrent pancreatitis --CT ABD:Mild infiltration adjacent to the uncinate process of the pancreas consistent with acute pancreatitis. No peripancreatic fluid collection. No biliary ductal dilatation status post cholecystectomy. No abdominal aortic dissection. Moderate atherosclerotic plaque. 3 mm left renal calculus. --Likely pancreatitis due to Invokana --Continue IV fluids --Clear liquid diet --Consider ERCP to extend biliary sphincterotomy as per GI --Appreciate GI input --Pain control --We will discontinue Invokana upon discharge Chronic systolic heart failure H/O Ischemic cardiomyopathy No signs of exacerbation Not on any home diuretics Monitor volume status while on IV fluids H/O CAD S/P CABG Continue aspirin, metoprolol, statin, lisinopril Hypertension stable Continue current medications DM II Hold oral meds Last hemoglobin A1c 7.8 Plan to discontinue Invokana upon discharge likely causing recurrent pancreatitis Continue insulin therapy while hospitalized Monitor blood glucose levels Past tobacco abuse DVT Px: Lovenox SQ Code Status Full code Disposition Expected discharge home when medically stable Ms. Leandra Cannon, contact #[phone]. Subjective Patient is seen and examined at bedside Abdominal pain is slightly better today Denies any nausea, vomiting, diarrhea, chest pain, shortness of breath, dizziness Discussed with gastroenterology today Offers no other complaints Plan to be started on clear liquid diet today Review of Systems Review of Systems: All systems reviewed & are unremarkable except as noted in HPI & below Physical Exam Physical Exam: Physical Exam: Vitals signs as noted above General Appearance:Moderately built and nourished, no apparent distress Head: normocephalic, Atraumatic Eyes: normal inspection, EOMI Neck: supple, Trachea midline Respiratory/Chest: Decreased breath sounds, CTA Cardiovascular: S1, S2, No murmur Abdomen/GI:Soft,tender to gastric predominantly, mild voluntary guarding, bowel sounds present Extremities/Musculoskelatal:normal inspection, no edema Neurologic/Psych:AAOX3, grossly no focal neurological deficits Skin: normal color, warm Results & Data Vital Signs (Past 12 Hours) Vital Signs Temp Pulse Resp BP Pulse Ox 03/15/19 07:27 36.8 C 72 18 124/66 96 03/15/19 01:53 36.6 C 68 16 145/71 H 93 Laboratory Results Short CBC 03/14/19 03/15/19 Range/Units 22:15 05:53 WBC 6.95 4.86 (4.8-10.8) K/uL Hgb 14.8 13.5 L (14.0-18.0) g/dL Hct 42.4 39.1 L (42-52) % Plt Count 190 170 (130-400) K/uL BMP 03/14/19 03/15/19 03/15/19 22:15 05:53 07:06 Sodium 136 138 Potassium 3.8 3.9 Chloride 104 106 Carbon Dioxide 25 28 BUN 20 H 17 Creatinine 1.13 0.91 Glucose 188 H 146 H Calcium 9.3 8.6 Cardiac Enzymes 03/14/19 Range/Units 22:15 Troponin I < 0.015 (0-0.045) ng/ml Liver Function 03/14/19 03/15/19 03/15/19 Range/Units 22:15 05:53 07:06 Total Bilirubin 0.3 0.5 (0.2-1) mg/dl AST 13 L 9 L (15-37) U/L ALT 21 20 (12-78) U/L Alkaline Phosphatase 64 56 (45-117) U/L Albumin 3.6 3.0 L (3.4-5.0) gm/dl Urine 03/15/19 Range/Units 00:15 Urine Color Yellow Urine Appearance Clear (Clear) Urine pH 5.0 (4.5-7.5) Ur Specific Zirconia <= 1.005 (1.000-1.030) Urine Protein Negative (Negative) Urine Glucose (UA) 3+ H (Negative)
[2019-03-15] MEDS: METOPROLOL TARTRATE 25 MG TAB PO SCH (21:00)
[2019-03-16 07:43] LABS: Hemoglobin 14.9 g/dL (14.0-18.0); Mean Corpuscular Hemoglobin 31.8 pg (25-34); Mean Corpuscular Hgb Conc 34.7 g/dL (32-36); Mean Corpuscular Volume 91.9 fL (80-100); Mean Platelet Volume 9.4 fL (7.4-10.4); Platelet Count 169 K/uL (130-400); RDW Coefficient of Variation 12.3 % (11.5-14.5); RDW Standard Deviation 41.2 fL (36.4-46.3); Red Blood Count 4.68 M/uL (4.7-6.1); White Blood Count 4.29 K/uL (4.8-10.8)
[2019-03-16 08:23] LABS: BUN Creatinine Ratio 13.8 (10-20); Calcium 9.2 mg/dl (8.5-10.1); Creatinine Clr Calc Pharmacy 84.3 ml/min; Est GFR (African American) 107.1; Est GFR (Non-African American) 92.4; Potassium 3.8 mmol/L (3.5-5.1)
[2019-03-16] MEDS: INSULIN ASPART 100 UNITS/ML 3 ML PEN SC SCH ×4 (08:50→21:05)
[2019-03-16] MEDS: INSULIN GLARGINE SOLOSTAR 100 UNITS/ML 3 ML PEN SQ SCH (08:50)
[2019-03-16] MEDS: PANTOprazole 40 MG TAB PO SCH (08:52)
[2019-03-16] MEDS: MULTIVITAMIN TAB PO SCH (08:52)
[2019-03-16] MEDS: lisinopriL 20 MG TAB PO SCH (08:53)
[2019-03-16] MEDS: ENOXAPARIN INJ 30 MG/0.3 ML SYR SQ SCH (08:53)
[2019-03-16] MEDS: METOPROLOL TARTRATE 50 MG TAB PO SCH (08:53)
--- NOTE | 2019-03-16 09:51 | Gastroenterology Progress Note ---
Date of Service March 16, 2019 Assessment & Plan (1) Acute pancreatitis: Pt is a 68 y/o male currently seen for acute pancreatitis w/o signs of abscess or necrosis. Hx of pancreatitis in 2011, 2012. He is s/p cholecystectomy. He underwent ERCP w biliary sphincterectomy [place] [address] Tamir Verde, debris found and swept in biliary duct. He did have a beer a few weeks ago, denies regular ETOH consumption, no tobacco or illicit drugs. TG 132. Wonder if acute pancreatitis is related to recent increase of his Invokana. - Advanced to low fat, diabetic and heart healthy diet - Gas X prn gas/bloating - Symptomatic management with antiemetics and analgesics prn otherwise - Consider repeat ERCP to extend biliary sphincterectomy once he recovers from this episode of pancreatitis - Pls recall GI prn Supervising Physician Co-Signing Physician Notes I have performed a history and physical examination of this patient and reviewed the electronic medical record. Specifically, on physical examination there is no abdominal tenderness. I have discussed the case with SWAPNIL Canela. The above note reflects my findings, conclusions, and recommendations. Willie Larios MD Subjective Pt feels well, denies any abd pain, n/v, fever, chills, CP, SOB overnight. Tolerating CL diet well. IVF DC'd Review of Systems Review of Systems: All systems reviewed & are unremarkable except as noted in HPI & below Physical Exam Constitutional: WD/WN, vitals as above well groomed, cooperative and comfortable Eyes: PERRL, conjunctivae normal, anicteric sclerae ENMT: external ear and nose normal, oropharynx normal Respiratory: no respiratory distress, no labored breathing and does not use accessory muscles Auscultation: + diminished lung sounds Cardiovascular: RRR, no murmur, no edema Gastrointestinal (Abdomen): normal bowel sounds, soft, nontender, no hepatosplenomegaly Skin: no rashes, warm and dry no jaundice Psychiatric: A+Ox3, euthymic affect Lymphatic: no lymphedema Results & Data Vital Signs (Past 12 Hours) Vital Signs Temp Pulse Resp BP Pulse Ox 03/16/19 08:48 92 03/16/19 07:39 36.5 C 20 132/74 03/15/19 23:17 36.7 C 73 15 132/72 96
[2019-03-16] MEDS: METOPROLOL TARTRATE 25 MG TAB PO SCH (21:06)
--- NOTE | 2019-03-16 21:59 | Hospitalist Progress Note ---
Date of Service March 16, 2019 Assessment & Plan (1) Acute pancreatitis: Presented with epigastric/back pain. CTA of chest and abdomen negative for aortic dissection. Moderate atherosclerotic plaque of the abdominal aorta was noted. CT of abdomen demonstrated mild infiltration adjacent to the uncinate process of the pancreas consistent with acute pancreatitis. Serum lipase was 1093. Radiographic and biochemical findings felt to be consistent with acute pancreatitis. Prior history of pancreatitis, status post cholecystectomy and ERCP. GI consulted. Managed with bowel rest, IV fluids, analgesics with improvement. Advance diet as tolerated. Canagliflozin could be etiology of pancreatitis and will be discontinued. Follow-up ERCP with sphincterotomy as an outpatient recommended. (2) Coronary artery disease: History of coronary artery disease, status post CABG. No anginal symptoms. Continue aspirin, metoprolol, lisinopril, statin. (3) CHF (congestive heart failure): History of chronic left ventricular systolic heart failure secondary ischemic heart disease. Compensated. Continue lisinopril. (4) Hypertension: Continue metoprolol and lisinopril. (5) Diabetes mellitus type 2 with complications: History of diabetes mellitus type 2 managed with metformin, glipizide, and canagliflozin. Oral agents held during hospital stay. Hemoglobin A1c performed in clinic on 02/08/2019 was 7.4. Receiving Lantus/NovoLog per protocol. Fasting blood sugar today = 132. Canagliflozin could be etiology of pancreatitis and will be discontinued. Anticipate discharge to home on metformin and glipizide. Ongoing management per [facility] and PCP. (6) Dyslipidemia: Rosuvastatin currently on hold. Resume at time of discharge. (7) DVT prophylaxis: SQ enoxaparin. Ambulate. (8) Discharge planning issues: Anticipated discharge to home. Internal Medicine follow-up with Dr. Chambers. Subjective Recheck for pancreatitis and other problems. Patient seen in their room around 1330. visiting. Feels better. Epigastric pain improved, but still has some discomfort. Also feels somewhat nauseated. Patient does not feel like he is ready for discharge yet. Review of Systems: Constitutional- no fever. Cardiac- no chest pain. Pulmonary- no cough or SOB. GI- as noted above. - no urinary symptoms. Otherwise, as noted above. Physical Exam Constitutional: no acute distress Eyes: + anicteric sclerae Respiratory: no respiratory distress Auscultation: lungs clear to auscultation bilaterally Cardiovascular: Rate/Rhythm: regular rate and regular rhythm Heart Sounds: no gallop, no murmur and no cardiac rub Vessels: no JVD Extremities: no calf tenderness and no edema Gastrointestinal (Abdomen): Inspection/Auscultation: normal bowel sounds Percussion/Palpation: + abdomen tender (moderate epigastric) and abdomen soft Skin: no rashes, warm and dry Psychiatric: Orientation: alert and oriented x 3 Results & Data Vital Signs (Past 12 Hours) Vital Signs Temp Pulse Resp BP Pulse Ox 03/16/19 15:17 36.7 C 67 18 120/63 93 Laboratory Results Laboratory Results - last 24 hr 03/16/19 03/16/19 03/16/19 07:02 07:02 08:21 WBC 4.29 L RBC 4.68 L Hgb 14.9 Hct 43.0 MCV 91.9 MCH 31.8 MCHC 34.7 RDW Std Deviation 41.2 RDW Coeff of Rodolfo 12.3 Plt Count 169 MPV 9.4 Sodium 140 Potassium 3.8 Chloride 108 H Carbon Dioxide 24 Anion Gap 8.0 BUN 11 Creatinine 0.80 Est Cr Clr Drug Dosing 84.3 Est GFR ( Amer) 107.1 Est GFR (Non-Af Amer) 92.4 BUN/Creatinine Ratio 13.8 Glucose 128 H POC Glucose 132 H Calcium 9.2 Lipase 142 03/16/19 03/16/19 03/16/19 11:56 17:11 20:56 WBC RBC Hgb Hct MCV MCH MCHC RDW Std Deviation RDW Coeff of Rodolfo Plt Count MPV Sodium Potassium Chloride Carbon Dioxide Anion Gap BUN Creatinine Est Cr Clr Drug Dosing Est GFR ( Amer) Est GFR (Non-Af Amer) BUN/Creatinine Ratio Glucose POC Glucose 123 H 127 H 156 H Calcium Lipase
[2019-03-17] MEDS ORDERED: POLYETHYLENE (MIRALAX) 17 GM PACK PO PRN (07:34)
[2019-03-17] MEDS ORDERED: POLYETHYLENE (MIRALAX) 17 GM PACK PO ONE (08:00)
[2019-03-17] MEDS: INSULIN ASPART 100 UNITS/ML 3 ML PEN SC SCH ×2 (08:42→12:57)
[2019-03-17] MEDS: INSULIN GLARGINE SOLOSTAR 100 UNITS/ML 3 ML PEN SQ SCH (08:43)
[2019-03-17] MEDS: MULTIVITAMIN TAB PO SCH (08:47)
[2019-03-17] MEDS: lisinopriL 20 MG TAB PO SCH (08:47)
[2019-03-17] MEDS: PANTOprazole 40 MG TAB PO SCH (08:47)
[2019-03-17] MEDS: METOPROLOL TARTRATE 50 MG TAB PO SCH (08:47)
[2019-03-17] MEDS: ENOXAPARIN INJ 30 MG/0.3 ML SYR SQ SCH (08:48)
--- NOTE | 2019-03-17 09:31 | Gastroenterology Progress Note ---
Date of Service March 17, 2019 Assessment & Plan (1) Acute pancreatitis: Pt is a 68 y/o male currently seen for acute pancreatitis w/o signs of abscess or necrosis. Hx of pancreatitis in 2011, 2012. He is s/p cholecystectomy. He underwent ERCP w biliary sphincterectomy [place] [address] Tamir Verde, debris found and swept in biliary duct. He did have a beer a few weeks ago, denies regular ETOH consumption, no tobacco or illicit drugs. TG 132. Wonder if acute pancreatitis is related to recent increase of his Invokana. - Advanced to low fat, diabetic and heart healthy diet - Gas X prn gas/bloating - Symptomatic management with antiemetics and analgesics prn otherwise - Consider repeat ERCP to extend biliary sphincterectomy once he recovers from this episode of pancreatitis; will help assist in scheduling in 4-6 week's time - GI to sign off; pls recall GI prn Subjective Pt reports some bloating and gassiness but is passing flatus, no BMs x 3 days now. He denies any n/v, tolerating solid meals. No fever, chills, CP, SOB. Review of Systems Review of Systems: All systems reviewed & are unremarkable except as noted in HPI & below Physical Exam Constitutional: WD/WN, vitals as above well groomed, cooperative and comfortable Eyes: PERRL, conjunctivae normal, anicteric sclerae ENMT: external ear and nose normal, oropharynx normal Respiratory: normal respiratory effort, lungs clear to auscultation Auscultation: + diminished lung sounds Cardiovascular: RRR, no murmur, no edema Gastrointestinal (Abdomen): normal bowel sounds, soft, nontender, no hepatosplenomegaly Skin: no rashes, warm and dry no jaundice Psychiatric: A+Ox3, euthymic affect Lymphatic: no lymphedema Results & Data Vital Signs (Past 12 Hours) Vital Signs Temp Pulse Pulse Resp BP Pulse Ox 03/17/19 07:26 36.5 C 68 18 129/72 95 03/16/19 23:11 36.6 C 65 18 144/77 H 96
--- NOTE | 2019-03-17 12:08 | Hospitalist Progress Note ---
Date of Service March 17, 2019 Assessment & Plan (1) Acute pancreatitis: Presented with epigastric/back pain. CTA of chest and abdomen negative for aortic dissection. Moderate atherosclerotic plaque of the abdominal aorta was noted. CT of abdomen demonstrated mild infiltration adjacent to the uncinate process of the pancreas consistent with acute pancreatitis. Serum lipase was 1093. Radiographic and biochemical findings felt to be consistent with acute pancreatitis. Prior history of pancreatitis, status post cholecystectomy and ERCP. GI consulted. Managed with bowel rest, IV fluids, analgesics with improvement. Diet advanced and tolerated. Canagliflozin could be etiology of pancreatitis and will be discontinued. Follow-up ERCP with sphincterotomy as an outpatient recommended. (2) Coronary artery disease: History of coronary artery disease, status post CABG. No anginal symptoms. Continue aspirin, metoprolol, lisinopril, statin. (3) CHF (congestive heart failure): History of chronic left ventricular systolic heart failure secondary ischemic heart disease. Compensated. Continue lisinopril. (4) Hypertension: Continue metoprolol and lisinopril. (5) Diabetes mellitus type 2 with complications: History of diabetes mellitus type 2 managed with metformin, glipizide, and canagliflozin. Oral agents held during hospital stay. Hemoglobin A1c performed in clinic on 02/08/2019 was 7.4. Receiving Lantus/NovoLog per protocol. Fasting blood sugar today = 153. Canagliflozin could be etiology of pancreatitis and will be discontinued. Anticipate discharge to home on metformin and glipizide. Ongoing management per [facility] and PCP. (6) Dyslipidemia: Continue rosuvastatin. (7) DVT prophylaxis: SQ enoxaparin. Ambulate. (8) Discharge planning issues: Discharge to home. Internal Medicine follow-up with Dr. Chambers. Subjective Doing well. No abdominal pain, nausea, vomiting. Passing flatus and stool. Ready to go home. Physical Exam Constitutional: no acute distress Eyes: + anicteric sclerae Respiratory: no respiratory distress Auscultation: lungs clear to auscultation bilaterally Cardiovascular: Rate/Rhythm: regular rate and regular rhythm Heart Sounds: no gallop, no murmur and no cardiac rub Vessels: no JVD Extremities: no calf tenderness and no edema Gastrointestinal (Abdomen): normal bowel sounds, soft, nontender, no hepatosplenomegaly Skin: no rashes, warm and dry Psychiatric: Orientation: alert and oriented x 3 Results & Data Vital Signs (Past 12 Hours) Vital Signs Temp Pulse Resp BP Pulse Ox 03/17/19 07:26 36.5 C 68 18 129/72 95
--- NOTE | 2019-03-18 04:48 | Discharge Summary ---
Date of Service Date of Admission: 03/15/19 Date of Discharge: 03/17/19 Admission HPI Per Admitting Provider History obtained from patient, family, and records. Medical history significant for chronic systolic heart failure secondary to ischemic cardiomyopathy (TTE 45 - 50% in 2018),coronary artery disease status post CABG, hypertension, hyperlipidemia, DM2 on oral meds, GERD, recurrent pancreatitis. Recent confinement January 2013 for post ERCP abdominal discomfort. Yesterday afternoon patient noted achy mid chest pain going to his back associated with belching, nausea, usual loose stools. Discomfort reminiscent of pancreatitis attack. Patient had chili for lunch which is not unusual for him. No recent alcohol intake. Patient brought to the ER for evaluation. Principal Diagnosis acute pancreatitis Discharge Data Allergies Allergy/AdvReac Type Severity Reaction Status Date / Time adhesive AdvReac Mild BLISTERS Verified 03/14/19 23:12 hydrochlorothiazide AdvReac Unknown HX Verified 03/14/19 23:12 PANCREATITIS Consultations 03/14/19 23:49 ED Decision to Admit Stat 03/15/19 01:59 Consult Gastroenterology Routine Ordered Studies 03/14/19 22:37 CT angio chest dissec wo/w con Urgent 03/14/19 22:43 CT angio abdomen pelvis w con Urgent Hospital Course (1) Acute pancreatitis: Presented with epigastric/back pain. CTA of chest and abdomen negative for aortic dissection. Moderate atherosclerotic plaque of the abdominal aorta was noted. CT of abdomen demonstrated mild infiltration adjacent to the uncinate process of the pancreas consistent with acute pancreatitis. Serum lipase was 1093. Radiographic and biochemical findings consistent with acute pancreatitis. Prior history of pancreatitis, status post cholecystectomy and ERCP. GI consulted. Managed with bowel rest, IV fluids, analgesics with improvement. Diet advanced and tolerated. Canagliflozin could be etiology of pancreatitis and was discontinued. Follow-up ERCP with sphincterotomy as an outpatient recommended. (2) Coronary artery disease: History of coronary artery disease, status post CABG. No anginal symptoms. Continue aspirin, metoprolol, lisinopril, statin. (3) CHF (congestive heart failure): History of chronic left ventricular systolic heart failure secondary ischemic heart disease. Compensated. Continue lisinopril. (4) Hypertension: Continue metoprolol and lisinopril. (5) Diabetes mellitus type 2 with complications: History of diabetes mellitus type 2 managed with metformin, glipizide, and canagliflozin. Oral agents held during hospital stay. Hemoglobin A1c performed in clinic on 02/08/2019 was 7.4. Receiving Lantus/NovoLog per protocol. Fasting blood sugar day of discharge was 153. Canagliflozin could be etiology of pancreatitis and was discontinued. Discharge to home on metformin and glipizide. Ongoing management per [facility] and PCP. (6) Dyslipidemia: Continue rosuvastatin. (7) DVT prophylaxis: Received SQ enoxaparin. Ambulating. (8) Discharge planning issues: Discharged to home. Internal Medicine follow-up with Dr. Chambers. Total Time Total Time Spent Total Time Spent (In Minutes): 40 Discharge Plan Discharge Items Patient Disposition: Home - Self-Care Reason For Visit: abdominal pain Discharge Diagnosis: pancreatitis Condition on Discharge: Good Activity: Resume your previous activity Non-emergency contact: Primary Care Provider, Hospitalist and Microbiology Instructor Call non-emergency contact if: you have any medication questions, your symptoms worsen and your temperature is above 101 Follow-up/Referrals: Artur Chambers MD [Primary Care Provider] - (03/22/2019 1:00 PM Artur Chambers MD ) Diet: Carb Consistent or DM2, Heart Healthy and Low Fat Addtl Attending Provider Instructions: MEDICATION CHANGES: Stop canagliflozin (Invokana) - it can sometimes cause pancreatitis. SUMMARY OF TEST RESULTS: CT scan showed inflammation of the pancreas. There was a small kidney stone in the left kidney, but it was not causing any blockage or other problems. RECOMMENDATIONS FOR FOLLOW-UP: Continue to work with [facility] clinic for diabetes management. Check your blood sugars and keep a diary. GI team recommends follow-up ERCP to check bile duct. They will contact you with appointment. OTHER INSTRUCTIONS: Seek medical attention if you have: * temperature above 101 * chest pain or trouble breathing * abdominal pain, nausea, vomiting * diarrhea, dark stools or bloody stools * any unanswered questions or concerns Call [phone] if symptoms are severe. Please take good care of yourself. Call if you have any questions or problems. You can reach a [facility] hospitalist on duty at [facility] 24 hours a day by calling [phone]. My cell # is [phone]. Pending Studies at Discharge: No Stand-Alone Forms: Call Back Authorization, [facility], Smoking Cessation Medications and DC Order Prescriptions: Continued metformin 1,000 mg tablet 1,000 mg PO BIDM RF: 0 metoprolol tartrate 50 mg tablet 50 mg PO QAM RF: 0 aspirin [Aspir-81] 81 mg Tablet,Delayed Release (Dr/Ec) 81 mg PO DAILY RF: 0 cyanocobalamin (vitamin B-12) 1,000 mcg Tablet 1,000 mcg PO DAILY RF: 0 glipizide 5 mg tablet 5 mg PO DAILY RF: 0 lisinopril 20 mg tablet 20 mg PO DAILY RF: 0 metoprolol tartrate 50 mg tablet 25 mg PO QPM RF: 0 multivitamin [Multiple Vitamins] Tablet 1 tab PO DAILY RF: 0 nitroglycerin [Nitrostat] 0.4 mg Tablet, Sublingual 0.4 mg sublingual UD PRN (Reason: Chest Pain) RF: 0 pantoprazole 40 mg tablet,delayed release (DR/EC) 40 mg PO DAILY RF: 0 rosuvastatin 20 mg tablet 20 mg PO DAILY RF: 0 Discontinued Invokana 100 mg tablet 100 mg PO DAILY RF: 0 Discharge Orders: Discharge Order (Routine); Ordered 03/17/19 Ordered By: John Pat/Other Patient Handouts: Pancreatitis, Pancreatitis Acute Dc Admission Data Admit Date/Time: 03/15/19 01:08 Attending Provider: John Carbajal Admit Provider: Gilbert Marquez Primary Care Provider: Artur Chambers Other Providers: Gilbert Marquez ; Gabriela Verde ; Tanvir Dhaliwal Other Interventions: Discharge Summary Assessment (RN) Last Done: 03/17/19 12:18 DC Date/Time DO NOT enter until pt leaves facility: 03/17/19 13:56
== END 2019-03-17 13:56 | disposition home or self-care (01) | DRG 439 ==
LOC: ED 21:42 → 3N 03-15 01:08 → SUATTDRO 03-15 01:08 → 3N 03-15 01:46

== ENCOUNTER 2019-06-05 05:11 | Observation (INO) ==
--- OUTSIDE RECORDS SUMMARY | 2019-06-05 05:13 | External Medical Summary | Continuity of Care Document ---
:1950 Author Name Jorje Dhaliwal, Provider Address Unavailable Unavailable , Care Team Providers Name Role Phone Flaco Dhaliwal, Madan Unavailable [email or web address] [email or web address], [email or web address] Unavailable Unavailable Problems Active medical history not documented Allergies and Adverse Reactions Allergy history not documented Medications Medications not documented Procedures Procedures not documented Immunizations Immunizations not documented Plan of Treatment Planned Observations Planned Goals not documented Results No Known Results Results not documented
[2019-06-05 05:34] LABS: Basophils # (auto) 0.04 K/uL (0-0.2); Basophils % (auto) 0.6 %; Eosinophils # (auto) 0.14 K/uL (0-0.5); Hematocrit (blood only) 42.7 % (42-52); Hemoglobin 14.9 g/dL (14.0-18.0); Immature Granulocytes # (auto) 0.02 K/uL (0.00-0.02); Immature Granulocytes % (auto) 0.3 %; Lymphocytes # (auto) 2.22 K/uL (1.2-3.4); Lymphocytes % (auto) 31.4 %; Mean Corpuscular Hemoglobin 32.4 pg (25-34); Mean Corpuscular Hgb Conc 34.9 g/dL (32-36); Mean Corpuscular Volume 92.8 fL (80-100); Mean Platelet Volume 9.4 fL (7.4-10.4); Monocytes # (auto) 0.83 K/uL (0.11-0.59); Monocytes % (auto) 11.7 %; Neutrophils # (auto) 3.83 K/uL (1.4-6.5); Platelet Count 224 K/uL (130-400); RDW Coefficient of Variation 12.2 % (11.5-14.5); RDW Standard Deviation 41.1 fL (36.4-46.3); White Blood Count 7.08 K/uL (4.8-10.8)
[2019-06-05] MEDS ORDERED: HYDROmorphone INJ 1 MG/ML SYRINGE IV STA (05:36)
[2019-06-05 05:45] LABS: INR 0.9 (0.9-1.1); Prothrombin Time 9.4 Seconds (9.0-12.0)
[2019-06-05 05:52] LABS: Alanine Aminotransferase 30 U/L (12-78); Albumin Level 3.8 gm/dl (3.4-5.0); Aspartate Aminotransferase 21 U/L (15-37); BUN Creatinine Ratio 17.2 (10-20); Bilirubin Direct < 0.1 mg/dl (0-0.2); Blood Urea Nitrogen 17 mg/dl (7-18); Calcium 9.1 mg/dl (8.5-10.1); Carbon Dioxide 26 mmol/L (21-32); Chloride 106 mmol/L (98-107); Creatinine Clr Calc Pharmacy 39.1 ml/min; Est GFR (African American) 94.4; Est GFR (Non-African American) 81.5; Glucose 188 mg/dl (70-99); Lipase 212 U/L (73-393); Magnesium 1.7 mg/dl (1.8-2.4); Potassium 3.8 mmol/L (3.5-5.1); Sodium 137 mmol/L (136-145)
[2019-06-05 05:58] LABS: Alkaline Phosphatase 62 U/L (45-117); Bilirubin,Total 0.3 mg/dl (0.2-1); Total Protein 8.2 gm/dl (6.4-8.2); Troponin I < 0.015 ng/ml (0-0.045)
[2019-06-05] MEDS ORDERED: ASPIRIN CHEW 324 MG PO STA (06:18)
[2019-06-05] MEDS ORDERED: NITROGLYCERIN SL 0.4 MG/TAB TAB SL STA (06:29)
--- NOTE | 2019-06-05 06:39 | XRay Report ---
XR knee RT 3V HISTORY: 68 years-old Male right knee pain s/p exercise acute right knee pain status post trauma COMPARISON: None TECHNIQUE: 3 views of the right knee FINDINGS: Mild patellofemoral osteoarthritis. No significant degenerative changes of the medial and lateral com partment identified. No acute fracture, dislocation or loose body. Trace joint effusion. IMPRESSION: 1. Trace joint effusion without acute fracture or dislocation. 2. Mild patellofemoral osteoarthritis. ACT 112: Negative or not required by law. The above report was generated using voice recognition software. It may contain grammatical, syntax o r spelling errors. Electronically signed by: Carl Omer M.D. 06/05/2019 6:37 AM
--- NOTE | 2019-06-05 06:42 | Ultrasound Report ---
US venous doppler LE RT HISTORY: 68 years-old Male right calf pain acute pain of the right lower extremity COMPARISON: Right knee radiographs of same day TECHNIQUE: Multiple real-time sonographic images of the right lower extremity deep venous structures were obtained assessing grayscale appearance, color and spectral flow FINDINGS: Normal flow, compressibility, phasicity and augmentation of the right lower extremity deep venous str uctures. IMPRESSION: No sonographic evidence of deep venous thrombosis. ACT 112: Negative or not required by law. The above report was generated using voice recognition software. It may contain grammatical, syntax o r spelling errors. Electronically signed by: Carl Omer M.D. 06/05/2019 6:41 AM
--- NOTE | 2019-06-05 07:01 | Emergency Department Note ---
Entered by Kami Benton acting as a scribe for ED Provider Note Name: VARUN CHOW SR Age: 68 Arrives Via: Walk-In Informant: Patient CC: Chest pain HPI: The patient is a 68 year old male who arrives for evaluation of an episode of chest pain that started 1.5 hours ago. The patient states that his pain was so severe that is woke him up from his sleep. The patient states that the pain radiates across his chest and up to his neck. The patient notes that he also is nauseas and having difficulty breathing. The patient notes that he can hear his heartbeat in his ear. The patient notes that he take aspirin daily. The patient notes that he was walking on a treadmill 3 days ago and started to get right knee pain that radiated down into his calf and inner foot. The patient denies hip pain but states that his pain is exacerbated by bending his leg. ROS: See above HPI for pertinent positives & negatives. A total of 10 systems reviewed and were otherwise negative. Past Medical History:DMII, HTN, CHF, DLP, CAD Past Surgical History:CABG Family History:See Below Social History:Non smoker, lives with , no alcohol use. Home Medications:See Below Allergies:Adhesives, hctz Vitals:BP: 197/88, P: 82, RR: 19, T: 37.0 , O2 Sat: 99 on room air. Physical Exam: GENERAL: Patient is severely anxious appearing and in moderate distress. EYES: No scleral icterus, unremarkable pupils. ENT: Mucous membranes moist, no nasal congestion. NECK: No masses appreciated, nomeningismus, trachea is midline. RESPIRATORY: No dyspnea. Clear to auscultation and equal bilaterally. No wheeze, no rhonchi. CARDIOVASCULAR: Regular rate and rhythm.No murmurs, rubs, gallops appreciated. GASTROINTESTINAL: Abdomen soft, non-tender, no peritonitis.Bowel sounds positive.No masses appreciated. BACK: No midline tenderness, no CVA tenderness EXTREMITIES: Normal motion all extremities, no cyanosis, no edema. NEUROLOGIC: Alert and oriented, no acute motor or sensory deficits, no focal weakness, cranial nerves grossly intact. SKIN: No rash, no jaundice, no diaphoresis. ED Course: Prior Medical Record, Triage/Nursing Notes, Medications, Allergies reviewed by Me Vital Signs: reviewed and remarkable for HTN Labs:Reviewed and remarkable for no significant abnormalities Interventions: saline lock, nss bolus, dilaudid 1mg IV, asa 324mg Po Imaging:X ray results are stated below per my interpretation: Chest: 1 view: No infiltrate, no effusion, normal cardiac border. Knee Right: 3 view: no acute findings EKG:Per My Interpretation: Indication Chest Pain: Sinus 1st av block RBBB 82 bpm, qtc 399. No Ectopy. No Ischemia. Compared to EKG 03/14/18, no significant changes. Cardiac Monitoring: An Order was placed for continuous cardiac monitoring. The monitor shows a rate of 70 with a normal sinus rhythm. Reassessments/Times: 0531: Past medical records reviewed. The patient was evaluated in room A02. A complete history and physical exam was performed. 616: I discussed the patient's case with Dr. Queta Jackson, Hospitalist. He will evaluate the patient for further management. Blood pressure:Elevated - Referred to Hospitalist Disposition:Hospialization Differentials: Etiologies such as shingles, musculoskeletal pain, pericarditis, myocarditis, cardiac ischemia, pericardial tamponade, pneumonia, pneumothorax, pleural effusion, hemothorax, pleurisy, aortic pathology, pulmonary embolism, intra- abdominal process, DVT, arthritis amongst other pathologies. Medical Decision Makin yr old male with substernal chest pain radiating to epigastrium as well as right knee and calf pain. Knee and calf pain likely from strain with working out a few days ago. Xrays unremarkable and us doppler right leg negative for dvt. EKG similar to previous and trop negative. However pain only began in chest an hour prior to arrival, he has extensive cardiac history and I do not feel dc would be appropriate at this time. Furthermore pain started to return while here. SLNTG being given along with ASA 324mg PO. He does have history of pancreatitis and this could be that, though currently he has normal lipase. Hospitalist in to evaluate further. Impression: Substernal chest pain, Right knee pain The scribe's documentation has been prepared under my direction and personally reviewed by me in its entirety. I confirm that the note above accurately reflects all work, treatment, procedures, and medical decision making performed by me. Juan Espinoza MD Impression & Plan Substernal chest pain, Right knee pain Past Med/Surg History Medical History (Updated 06/05/19 @ 06:31 by Kami Benton) CHF (congestive heart failure) Coronary artery disease Diabetes mellitus type 2 with complications Dyslipidemia History of hypertension History of pancreatitis Hx of diabetes mellitus Hypertension Surgical History (Updated 03/18/19 @ 00:03 by Laurent Crook) Status post cholecystectomy Status post coronary artery bypass grafting Status post hernia repair Social History Preferred Language: Icelandic Communication Ability: Effective Biostatistics Professor Required: No Beliefs That Will Affect Care: None Current Living Situation: Spouse Feels Safe at Home: Yes Smoking Status: Never smoker Hx Alcohol Use: No Hx Substance Use: No Results & Data Vital Signs Vital Signs - 24 hr 06/05/19 05:23 06/05/19 05:30 06/05/19 06:00 Temperature 37.0 C Temperature Source Oral Pulse Rate 82 85 78 Pulse Rate from SpO2 Sensor 85 Respiratory Rate 19 20 20 Respiratory Depth Normal Blood Pressure 197/88 H 162/86 H 132/75 Blood Pressure Mean 124 105 98 Pulse Oximetry 99 97 96 Oxygen Delivery Method Room Air Room Air Room Air Sepsis Recent Fever Within 48 Hours No Sepsis New/Unexplained Change in Mental Status No Sepsis Action Taken by Nursing No Action Required 06/05/19 06:30 Temperature Temperature Source Pulse Rate 69 Pulse Rate from SpO2 Sensor 70 Respiratory Rate 20 Respiratory Depth Blood Pressure 145/64 H Blood Pressure Mean 101 Pulse Oximetry 92 Oxygen Delivery Method Room Air Sepsis Recent Fever Within 48 Hours Sepsis New/Unexplained Change in Mental Status Sepsis Action Taken by Nursing Laboratory Data Result diagrams: 06/05/19 05:25 06/05/19 05:25 Lab Results 06/05/19 06/05/19 06/05/19 Range/Units 05:25 05:25 05:25 WBC 7.08 (4.8-10.8) K/uL RBC 4.60 L (4.7-6.1) M/uL Hgb 14.9 (14.0-18.0) g/dL Hct 42.7 (42-52) % MCV 92.8 (80-100) fL MCH 32.4 (25-34) pg MCHC 34.9 (32-36) g/dL RDW Std Deviation 41.1 (36.4-46.3) fL RDW Coeff of Rodolfo 12.2 (11.5-14.5) % Plt Count 224 (130-400) K/uL MPV 9.4 (7.4-10.4) fL Immature Gran % (Auto) 0.3 % Neut % (Auto) 54.0 % Lymph % (Auto) 31.4 % [place] % (Auto) 11.7 % Eos % (Auto) 2.0 % Baso % (Auto) 0.6 % Immature Gran # (Auto) 0.02 (0.00-0.02) K/uL Neut # (Auto) 3.83 (1.4-6.5) K/uL Lymph # (Auto) 2.22 (1.2-3.4) K/uL [place] # (Auto) 0.83 H (0.11-0.59) K/uL Eos # (Auto) 0.14 (0-0.5) K/uL Baso # (Auto) 0.04 (0-0.2) K/uL PT 9.4 (9.0-12.0) Seconds INR 0.9 (0.9-1.1) Sodium 137 (136-145) mmol/L Potassium 3.8 (3.5-5.1) mmol/L Chloride 106 (98-107) mmol/L Carbon Dioxide 26 (21-32) mmol/L Anion Gap 5.0 (3-11) BUN 17 (7-18) mg/dl Creatinine 0.96 (0.6-1.4) mg/dl Est Cr Clr Drug Dosing 39.1 ml/min Est GFR ( Amer) 94.4 Est GFR (Non-Af Amer) 81.5 BUN/Creatinine Ratio 17.2 (10-20) Glucose 188 H (70-99) mg/dl Calcium 9.1 (8.5-10.1) mg/dl Magnesium 1.7 L (1.8-2.4) mg/dl Total Bilirubin 0.3 (0.2-1) mg/dl Direct Bilirubin < 0.1 (0-0.2) mg/dl AST 21 (15-37) U/L ALT 30 (12-78) U/L Alkaline Phosphatase 62 (45-117) U/L Troponin I < 0.015 (0-0.045) ng/ml Total Protein 8.2 (6.4-8.2) gm/dl Albumin 3.8 (3.4-5.0) gm/dl Lipase 212 (73-393) U/L Administered Medications Discontinued Medications Aspirin (Aspirin) 324 mg PO NOW STA Stop: 06/05/19 06:19 Last Admin: 06/05/19 06:22 Dose: 324 mg Documented by: [id number] Hydromorphone HCl (Dilaudid) 1 mg IV NOW STA Stop: 06/05/19 05:37 Last Admin: 06/05/19 05:43 Dose: 1 mg Documented by: [id number] Nitroglycerin (Nitrostat) 0.4 mg SL NOW STA Stop: 06/05/19 06:30 Last Admin: 06/05/19 06:33 Dose: 0.4 mg Documented by: [id number] Discharge Plan Visit Data Chief Complaint: Cardiac Assessment Stated Complaint: RT LEG AND ACROSS CHEST PAIN ED Provider: Juan Espinoza Discharge Problem: Substernal chest pain, Right knee pain Patient Disposition: Being Evaluated by Hospitalist Forms Stand Alone Forms: [facility] [place] Prescriptions Prescriptions: No Action metformin 1,000 mg tablet 1,000 mg PO BIDM RF: 0 metoprolol tartrate 50 mg tablet 50 mg PO QAM RF: 0 aspirin [Aspir-81] 81 mg Tablet,Delayed Release (Dr/Ec) 81 mg PO DAILY RF: 0 cyanocobalamin (vitamin B-12) 1,000 mcg Tablet 1,000 mcg PO DAILY RF: 0 glipizide 5 mg tablet 5 mg PO DAILY RF: 0 lisinopril 20 mg tablet 20 mg PO DAILY RF: 0 metoprolol tartrate 50 mg tablet 25 mg PO QPM RF: 0 multivitamin [Multiple Vitamins] Tablet 1 tab PO DAILY RF: 0 nitroglycerin [Nitrostat] 0.4 mg Tablet, Sublingual 0.4 mg sublingual UD PRN (Reason: Chest Pain) RF: 0 pantoprazole 40 mg tablet,delayed release (DR/EC) 40 mg PO DAILY RF: 0 rosuvastatin 20 mg tablet 20 mg PO DAILY RF: 0 sodium chloride [Gilliam Nasal] 0.65 % Aerosol,Dwight 2 spray INTRANASAL DIRECTED PRN (Reason: congestion/dryness) RF: 0 Referrals Referrals: Artur Chambers MD [Primary Care Provider] - Discharge Problem: Right knee pain Qualifiers: Chronicity: unspecified Qualified Code(s): M25.561 - Pain in right knee The scribe's documentation has been prepared under my direction and personally reviewed by me in its entirety. I confirm that the note above accurately reflects all work, treatment, procedures, and medical decision making performed by me.
--- NOTE | 2019-06-05 07:02 | History & Physical Report ---
Date of Service June 05, 2019 Assessment & Plan (1) Atypical chest pain: Right-sided chest pain not relieved by nitroglycerin Musculoskeletal component given direct reproducibility Rule out rib fracture Rule out recurrent pancreatitis given concomitant abdominal pain complaints chronic systolic heart failure secondary to ischemic cardiomyopathy (TTE 45 - 50% in 2018), patient euvolemic to dry coronary artery disease status post CABG hypertension, slightly elevated upon arrival at the ER DM2 on oral meds, suboptimal control as of recent outpatient hemoglobin A1c of 8.14 May 2019 Right knee pain secondary to exercise OBS PCU Rib x-ray series CT abdomen pelvis RE abdominal pain TTE RE chest pain Further management pending work-up results N.p.o. for now until CT abdomen pelvis results known Orthopedics consult right knee pain (Patient known to Dr. Nava) Basal insulin adjusted for n.p.o. status for now, ISS BG goal [id number] DVT prophylaxis. Lovenox subcu if no bleeding on CAT scan Full code Text document was generated using [employer] voice recognition software. It may contain grammatical or spelling errors. Kindly contact undersigned for clarification of any documentation item in question. History of Present Illness Chief Complaint: Chest pain, worsening right leg pain Primary Care Provider: Artur Chambers MD History obtained from patient, family, and records. Medical history significant for chronic systolic heart failure secondary to ischemic cardiomyopathy (TTE 45 - 50% in 2018), coronary artery disease status post CABG, hypertension, hyperlipidemia, DM2 on oral meds, GERD, recurrent pancreatitis. Recent confinement March 2019 for recurrent pancreatitis. The last week, patient increasing treadmill workout level to lose weight for better diabetes control. Patient noted right knee pain spreading throughout his right leg a few days ago. Incomplete relief with OTC NSAIDs. This morning patient noted sharp pleuritic right-sided chest discomfort with some shortness of breath. No unusual cough symptoms. Patient also noted epigastric achy discomfort. Patient not sure if abdominal pain related to chest pain. No diarrhea/constipation/uti symptoms No relief with nitroglycerin at the ER. MEDICAL HISTORY: As above. 04/2019 EGD was normal. SURGICAL HISTORY: CABG, Cholecystectomy, knee surgery, hernia repair, hand surgery FAMILY HISTORY: There is a family history of colon cancer and diabetes. PERSONAL AND SOCIAL HISTORY: Nonsmoker. No chronic intake of alcoholic beverages. 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 Allergies Allergy/AdvReac Type Severity Reaction Status Date / Time adhesive AdvReac Mild BLISTERS Verified 06/05/19 06:10 hydrochlorothiazide AdvReac Unknown HX Verified 06/05/19 06:10 PANCREATITIS Home Medications Home Medications Medication Instructions Recorded Confirmed Type aspirin [Aspir-81] 81 mg PO DAILY 03/14/19 06/05/19 History cyanocobalamin (vitamin B-12) 1,000 mcg PO DAILY 03/14/19 06/05/19 History glipizide 5 mg PO DAILY 03/14/19 06/05/19 History lisinopril 20 mg PO DAILY 03/14/19 06/05/19 History metformin 1,000 mg PO BIDM 03/14/19 06/05/19 History metoprolol tartrate 25 mg PO QPM 03/14/19 06/05/19 History metoprolol tartrate 50 mg PO QAM 03/14/19 06/05/19 History multivitamin [Multiple Vitamins] 1 tab PO DAILY 03/14/19 06/05/19 History nitroglycerin [Nitrostat] 0.4 mg SUBLINGUAL UD PRN 03/14/19 06/05/19 History pantoprazole 40 mg PO DAILY 03/14/19 06/05/19 History rosuvastatin 20 mg PO DAILY 03/14/19 06/05/19 History sodium chloride [Bradley Nasal] 2 spray INTRANASAL DIRECTED PRN 06/05/19 06/05/19 History Past Med/Surg History Medical History (Updated 06/05/19 @ 08:52 by Gilbert Marquez MD) CHF (congestive heart failure) Coronary artery disease Diabetes mellitus type 2 with complications Dyslipidemia History of hypertension History of pancreatitis Hx of diabetes mellitus Hypertension Surgical History (Updated 03/18/19 @ 00:03 by Laurent Crook) Status post cholecystectomy Status post coronary artery bypass grafting Status post hernia repair Social History Preferred Language: Mexican Communication Ability: Effective 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 Beliefs That Will Affect Care: None Current Living Situation: Spouse Other Information That Helps Us Care for You: No Feels Safe at Home: Yes Safety Concerns: Feels Safe At This Time Smoking Status: Never smoker Hx Alcohol Use: Yes Alcohol type: beer Hx Substance Use: No Review of Systems Review of Systems: As per HPI, all 10 systems reviewed, all other ROS negative Physical Exam Physical Exam: GENERAL: uncomfortable, no respiratory distress SKIN: Normal color, warm HEENT: Alopecia, pink palpebral conjunctivae, no ptosis, dry buccal mucosa NECK : Supple, short neck, no tenderness CHEST : CTA, anterior/right-sided chest wall tenderness HEART : RRR, no obvious murmurs ABDOMEN: Some distention, minimal epigastric tenderness EXTREMITIES : Right knee tenderness with some limitation in motion, no other c onspicuous deformities noted NEUROLOGIC : Coherent, no facial asymmetry, no other gross focality Results & Data Vital Signs (Past 12 Hours) Vital Signs Temp Pulse Resp BP Pulse Ox 06/05/19 06:30 69 20 145/64 H 92 06/05/19 06:00 78 20 132/75 96 06/05/19 05:30 85 20 162/86 H 97 06/05/19 05:23 37.0 C 82 19 197/88 H 99 Laboratory Results Laboratory Results WBC 7.08 K/uL (4.8-10.8) 06/05/19 05:25 RBC 4.60 M/uL (4.7-6.1) L 06/05/19 05:25 Hgb 14.9 g/dL (14.0-18.0) 06/05/19 05:25 Hct 42.7 % (42-52) 06/05/19 05:25 MCV 92.8 fL (80-100) 06/05/19 05:25 MCH 32.4 pg (25-34) 06/05/19 05:25 MCHC 34.9 g/dL (32-36) 06/05/19 05:25 RDW Std Deviation 41.1 fL (36.4-46.3) 06/05/19 05:25 RDW Coeff of Rodolfo 12.2 % (11.5-14.5) 06/05/19 05:25 Plt Count 224 K/uL (130-400) 06/05/19 05:25 MPV 9.4 fL (7.4-10.4) 06/05/19 05:25 Immature Gran % (Auto) 0.3 % 06/05/19 05:25 Neut % (Auto) 54.0 % 06/05/19 05:25 Lymph % (Auto) 31.4 % 06/05/19 05:25 [place] % (Auto) 11.7 % 06/05/19 05:25 Eos % (Auto) 2.0 % 06/05/19 05:25 Baso % (Auto) 0.6 % 06/05/19 05:25 Immature Gran # (Auto) 0.02 K/uL (0.00-0.02) 06/05/19 05:25 Neut # (Auto) 3.83 K/uL (1.4-6.5) 06/05/19 05:25 Lymph # (Auto) 2.22 K/uL (1.2-3.4) 06/05/19 05:25 [place] # (Auto) 0.83 K/uL (0.11-0.59) H 06/05/19 05:25 Eos # (Auto) 0.14 K/uL (0-0.5) 06/05/19 05:25 Baso # (Auto) 0.04 K/uL (0-0.2) 06/05/19 05:25 PT 9.4 Seconds (9.0-12.0) 06/05/19 05:25 INR 0.9 (0.9-1.1) 06/05/19 05:25 Sodium 137 mmol/L (136-145) 06/05/19 05:25 Potassium 3.8 mmol/L (3.5-5.1) 06/05/19 05:25 Chloride 106 mmol/L (98-107) 06/05/19 05:25 Carbon Dioxide 26 mmol/L (21-32) 06/05/19 05:25 Anion Gap 5.0 (3-11) 06/05/19 05:25 BUN 17 mg/dl (7-18) 06/05/19 05:25 Creatinine 0.96 mg/dl (0.6-1.4) 06/05/19 05:25 Est Cr Clr Drug Dosing 39.1 ml/min 06/05/19 05:25 Est GFR ( Amer) 94.4 06/05/19 05:25 Est GFR (Non-Af Amer) 81.5 06/05/19 05:25 BUN/Creatinine Ratio 17.2 (10-20) 06/05/19 05:25 Glucose 188 mg/dl (70-99) H 06/05/19 05:25 Calcium 9.1 mg/dl (8.5-10.1) 06/05/19 05:25 Magnesium 1.7 mg/dl (1.8-2.4) L 06/05/19 05:25 Total Bilirubin 0.3 mg/dl (0.2-1) 06/05/19 05:25 Direct Bilirubin < 0.1 mg/dl (0-0.2) 06/05/19 05:25 AST 21 U/L (15-37) 06/05/19 05:25 ALT 30 U/L (12-78) 06/05/19 05:25 Alkaline Phosphatase 62 U/L (45-117) 06/05/19 05:25 Troponin I < 0.015 ng/ml (0-0.045) 06/05/19 05:25 Total Protein 8.2 gm/dl (6.4-8.2) 06/05/19 05:25 Albumin 3.8 gm/dl (3.4-5.0) 06/05/19 05:25 Lipase 212 U/L (73-393) 06/05/19 05:25 Diagnostic Findings Chest x-ray as per my interpretation no infiltrate EKG as per my interpretation : Rate 80, NSR, 1 AVB, normal axis, T wave abnormalities inferior leads, and septal leads, NH WP Right knee x-ray: 1. Trace joint effusion without acute fracture or dislocation. 2. Mild patellofemoral osteoarthritis. Ultrasound venous RLE initial read no DVT
[2019-06-05 07:04] LABS: D Dimer 410 ug/L FEU (0-500); Partial Thromboplastin Ratio 0.9; Partial Thromboplastin Time 24.4 Seconds (21.0-31.0)
--- NOTE | 2019-06-05 07:05 | XRay Report ---
XR chest 1V portable HISTORY: 68 years-old Male Chest pain acute atypical chest pain COMPARISON: Chest radiograph 03/14/2019 TECHNIQUE: Portable AP view of the chest FINDINGS: Prior median sternotomy and CABG. Cardiomediastinal and hilar silhouettes are unchanged. Mild chronic interstitial coarsening of the lung bases. No pneumothorax, pleural effusion or overt pulmonary marcela a. No airspace consolidation typical for pneumonia. The bones appear grossly intact. IMPRESSION: No acute process. ACT 112: Negative or not required by law. The above report was generated using voice recognition software. It may contain grammatical, syntax o r spelling errors. Electronically signed by: Carl Omer M.D. 06/05/2019 7:04 AM
[2019-06-05] MEDS ORDERED: KETOROLAC TROMETHAMINE 15 MG/ML VIAL IV ONE (07:06)
[2019-06-05] MEDS ORDERED: IOVERSOL 100ml IV PRN (08:43)
[2019-06-05] MEDS ORDERED: ACETAMINOPHEN 325 MG TAB PO PRN (09:04)
[2019-06-05] MEDS ORDERED: GLUCOSE 10 TABS/TUBE PO PRN (09:04)
[2019-06-05] MEDS ORDERED: LORazepam 0.25 MG/0.5 ML VIAL IV PRN (09:04)
[2019-06-05] MEDS ORDERED: DEXTROSE 50% 50 ML SYRINGE IV PRN (09:04)
[2019-06-05] MEDS ORDERED: PROMETHAZINE HCL 12.5 MG in SODIUM CHLORIDE 0.9% 50 ML IV PRN (09:04)
[2019-06-05] MEDS ORDERED: GLUCAGON FOR INJ 1 MG VIAL SQ PRN (09:04)
[2019-06-05] MEDS ORDERED: CARBOHYDRATES FOR HYPOGLYCEMIA PO PRN (09:04)
[2019-06-05] MEDS ORDERED: GLUCOSE 40% GEL 15 GM TUBE PO PRN (09:04)
[2019-06-05] MEDS ORDERED: TRAMADOL HCL 50 MG TABLET PO PRN (09:04)
[2019-06-05] MEDS ORDERED: INSULIN GLARGINE SOLOSTAR 100 UNITS/ML 3 ML PEN SC STA (09:04)
--- NOTE | 2019-06-05 09:06 | CT Scan Report ---
ABDOMEN AND PELVIS CT WITH IV CONTRAST CT DOSE: 644.56 mGy.cm HISTORY: Acute generalized abdominal pain abd pain TECHNIQUE: Multiaxial CT images of the abdomen and pelvis were performed following the IV administrat ion of 94 cc of Optiray 320, A dose lowering technique was utilized adhering to the principles of [place] CHARLIE. COMPARISON STUDY: CT abdomen and pelvis 03/14/2019, 03/29/2012 FINDINGS: Prior median sternotomy. Mild cardiomegaly with papillary muscle calcifications of the left ventricle . Coronary artery calcifications are also noted. Left greater than right bibasilar opacities suggest scarring/atelectasis. There is no pneumatosis or pneumoperitoneum. The spleen, pancreas and adrenal g lands are unremarkable. Cholecystectomy. No biliary ductal dilation. Mild intrahepatic pneumobilia, l ikely secondary to prior sphincterotomy. Liver is otherwise unremarkable. Patent hepatic and portal v eins. Mild nonspecific bilateral perinephric stranding. Probable cyst of the interpolar left kidney posteri perfecto, 2.3 cm. 10 mm hypodensity of the superior pole left kidney also suggests probable cyst. 4 x 2 m m calculus of the left ureterovesicular junction is noted without significant associated obstructive uropathy. The right kidney and ureter are unremarkable. Mild urinary bladder wall thickening with par tial distention. Extensive mixed plaque of the aorta without aneurysm. Unremarkable IVC. No adenopath y. Suggestion of a tiny hiatal hernia with mild distal esophageal wall thickening. No bowel obstruction or bowel wall thickening. Terminal ileum and appendix are unremarkable. Heterogeneous increased densi ty tissue measuring up to 2.3 x 1.8 cm is noted within the periumbilical tissues suggestive of prior hernia repair. Degenerative changes of the spine, pelvis and hips. Transitional lumbosacral anatomy. IMPRESSION: 1. 4 x 2 mm calculus of the left ureterovesicular junction without associated appreciable obstructive uropathy. 2. No bowel obstruction or bowel wall thickening. Normal appendix. 3. Cholecystectomy with mild pneumobilia suggestive of prior sphincterotomy. 4. Additional findings as above. ACT 112: Negative or not required by law. The above report was generated using voice recognition software. It may contain grammatical, syntax o r spelling errors. Electronically signed by: Carl Omer M.D. 06/05/2019 9:04 AM
--- NOTE | 2019-06-05 09:08 | XRay Report ---
XR ribs RT min 2V HISTORY: 68 years-old Male R cp acute right-sided chest pain COMPARISON: CT abdomen and pelvis of same day, chest radiograph 06/05/2019 TECHNIQUE: 5 views of the right ribs FINDINGS: Prior median sternotomy. Cholecystectomy. Contrast noted within the bilateral renal collecting system s. No acute displaced rib fracture identified. IMPRESSION: No acute displaced rib fracture. ACT 112: Negative or not required by law. The above report was generated using voice recognition software. It may contain grammatical, syntax o r spelling errors. Electronically signed by: Carl Omer M.D. 06/05/2019 9:06 AM
[2019-06-05] MEDS ORDERED: MoRPHine SULFATE 2 MG/ML CARP IV PRN (09:27)
[2019-06-05] MEDS: ENOXAPARIN INJ 30 MG/0.3 ML SYR SQ SCH (10:20)
[2019-06-05] MEDS: lisinopriL 20 MG TAB PO SCH (10:21)
[2019-06-05] MEDS: METOPROLOL TARTRATE 50 MG TAB PO SCH (10:22)
[2019-06-05] MEDS: ROSUVASTATIN CALCIUM 20 MG TAB PO SCH (10:23)
[2019-06-05] MEDS: MULTIVITAMIN TAB PO SCH (10:23)
[2019-06-05] MEDS: PANTOprazole 40 MG TAB PO SCH (10:24)
[2019-06-05] MEDS: ASPIRIN 81 MG ECTAB PO SCH (10:35)
[2019-06-05] MEDS: NSS + 20MEQ KCL 20 MEQ/1,000 ML BAG IV SCH (11:39)
[2019-06-05] MEDS: INSULIN ASPART 100 UNITS/ML 3 ML PEN SC SCH ×3 (12:26→21:14)
--- NOTE | 2019-06-05 12:55 | Electrocardiogram Report ---
Test Reason : Blood Pressure : / mmHG Vent. Rate : 082 BPM Atrial Rate : 082 BPM P-R Int : 232 ms QRS Dur : 108 ms QT Int : 342 ms P-R-T Axes : 048 079 000 degrees QTc Int : 399 ms Sinus rhythm with 1st degree A-V block Non-specific intra-ventricular conduction delay T wave abnormality, consider inferior ischemia Abnormal ECG When compared with ECG of 14-MAR-2019 23:00, No significant change was found Confirmed by Mason Bravo ([id number]) on 06/05/2019 12:55:04 PM Referred By: REFERRED SELF Confirmed By:Mason Bravo
[2019-06-05 14:46] LABS: Appearance Urine Clear (Clear); Bilirubin Urine Negative (Negative); Blood Urine Negative (Negative); Color Urine Yellow; Glucose Urine UA Trace (Negative); Ketones Urine Negative (Negative); Leukocyte Esterase Urine Negative (Negative); Nitrite Urine Negative (Negative); Protein Urine Negative (Negative); Specific Gravity Urine > 1.045 (1.000-1.030); Urobilinogen Urine Negative (Negative)
--- NOTE | 2019-06-05 17:00 | Communication Note ---
Date of Service: June 05, 2019 seen resting in bedside chair, comfortable reports discomfort was in the RUQ, now completely resolved denies nausea, chest pain, SOB, palpitations, dizziness no other symptoms Lipase negative CT abdomen: no pancreatitis RIb xray: no fracture trop negative x 2 EKG no acute ischemia Echo: no change compared to 2018 Atypical chest pain: -- Right-sided chest pain not relieved by nitroglycerin -- Musculoskeletal component given direct reproducibility continue to monitor Adebayo Lim MD
[2019-06-05] MEDS ORDERED: METOPROLOL TARTRATE 25 MG TAB PO SCH (21:00)
[2019-06-06 07:10] LABS: Basophils # (auto) 0.03 K/uL (0-0.2); Basophils % (auto) 0.6 %; Eosinophils # (auto) 0.14 K/uL (0-0.5); Eosinophils % (auto) 2.7 %; Hematocrit (blood only) 39.6 % (42-52); Hemoglobin 13.8 g/dL (14.0-18.0); Lymphocytes # (auto) 1.81 K/uL (1.2-3.4); Lymphocytes % (auto) 35.2 %; Mean Corpuscular Hemoglobin 31.8 pg (25-34); Mean Corpuscular Hgb Conc 34.8 g/dL (32-36); Mean Corpuscular Volume 91.2 fL (80-100); Mean Platelet Volume 9.3 fL (7.4-10.4); Monocytes # (auto) 0.62 K/uL (0.11-0.59); Monocytes % (auto) 12.1 %; Neutrophils # (auto) 2.54 K/uL (1.4-6.5); Neutrophils % (auto) 49.4 %; Platelet Count 204 K/uL (130-400); RDW Coefficient of Variation 12.2 % (11.5-14.5); RDW Standard Deviation 41.1 fL (36.4-46.3); Red Blood Count 4.34 M/uL (4.7-6.1); White Blood Count 5.14 K/uL (4.8-10.8)
[2019-06-06] MEDS: MULTIVITAMIN TAB PO SCH (07:29)
[2019-06-06] MEDS: ROSUVASTATIN CALCIUM 20 MG TAB PO SCH (07:29)
[2019-06-06] MEDS: ASPIRIN 81 MG ECTAB PO SCH (07:29)
[2019-06-06] MEDS: lisinopriL 20 MG TAB PO SCH (07:30)
[2019-06-06] MEDS: METOPROLOL TARTRATE 50 MG TAB PO SCH (07:30)
[2019-06-06 07:36] LABS: BUN Creatinine Ratio 16.3 (10-20); Calcium 8.6 mg/dl (8.5-10.1); Est GFR (Non-African American) 90.6; Potassium 3.9 mmol/L (3.5-5.1)
[2019-06-06] MEDS: ENOXAPARIN INJ 30 MG/0.3 ML SYR SQ SCH (08:12)
[2019-06-06] MEDS: INSULIN ASPART 100 UNITS/ML 3 ML PEN SC SCH ×3 (08:14→17:14)
[2019-06-06] MEDS: PANTOprazole 40 MG TAB PO SCH (08:16)
[2019-06-06] MEDS ORDERED: INSULIN GLARGINE SOLOSTAR 100 UNITS/ML 3 ML PEN SC SCH (09:00)
[2019-06-06] MEDS: NSS + 20MEQ KCL 20 MEQ/1,000 ML BAG IV SCH (09:53)
--- NOTE | 2019-06-06 11:12 | Consultation Report ---
DATE OF CONSULTATION: 06/06/2019 ORTHOPEDIC CONSULT HISTORY OF PRESENT ILLNESS: The patient is a 68-year-old gentleman admitted for atypical chest pain by the Medicine Service. He is currently being worked up for this, but also had complaints of right knee pain. An Orthopedics consult was asked for. The patient states his knee pain began on , 06/02/2019. He states he did his usual walking on his treadmill at home without incident. He denies a change in his walking routine. He states his knee was somewhat sore that day and evening; however, when he woke up Thursday morning, he had significant pain and disability with weightbearing. He states he did not observe any significant swelling about the knee. He is treated locally at home until his admission to the hospital yesterday. Currently, he is lying in bed, in no acute distress. He is alert and oriented. He does state that he had a knee arthroscopy by Dr. Nava in approximately 1999. He does not recall exactly what was done, but just called it a "cleanup job." PHYSICAL EXAMINATION: He has no effusion. He has full range of motion. He has no pain about the hip or groin with log rolling. He has greater medial joint line tenderness than lateral joint line tenderness. He has pain with hyperflexion about the knee. X-RAYS: X-rays were reviewed and showed no acute abnormality and no significant degenerative changes. ASSESSMENT: A 68-year-old male with 4 days of right knee pain, which seems to be improving with local treatment of moist heat and pain medications. PLAN: Above discussed with the patient. I told him if he feels it is getting better, nothing needs to be done at this time. Also, we could consider an intra-articular corticosteroid injection. I also told him if he continues to have pain and disability, he should call Dr. Nava for an appointment as an outpatient and possible consideration for MRI to rule out medial meniscus tear. The patient states at this time his knee pain appears to be improving and he would rather just wait and see how it does before committing to an injection. I told him if it worsens prior to his discharge, again consideration for corticosteroid injection. Otherwise, follow up with Dr. Nava as needed. Attending addendum: Patient seen and examined, agree with above assessment and plan. Patient pain significantly improved and will continue with conservative treatments at this time. Will contact office for follow up appointment if symptoms persist or worsen. Thank you for the consultation BELTRAN
[2019-06-06] MEDS ORDERED: Nursing to Pharmacy Communication ONE (16:21)
--- NOTE | 2019-06-08 13:16 | Hospitalist Progress Note ---
Date of Service delayed entry date of service 06/06/19 June 08, 2019 Assessment & Plan (1) Atypical chest pain: Right-sided chest pain not relieved by nitroglycerin Musculoskeletal component given direct reproducibility coronary artery disease status post CABG - Lipase negative CT abdomen: no pancreatitis RIb xray: no fracture trop negative x 2 EKG no acute ischemia Echo: no change compared to 2018 - likely costochondritis pain improving Tramadol PRN prescribed ff up with PCP in 1 week chronic systolic heart failure secondary to ischemic cardiomyopathy (TTE 45 - 50% in 2018), patient euvolemic to dry - euvolemic hypertension - continue usual medications DM2 on oral meds, suboptimal control as of recent outpatient hemoglobin A1c of 8.14 May 2019 - continue ff up with PCP Right knee pain secondary to exercise - knee xray: IMPRESSION: 1. Trace joint effusion without acute fracture or dislocation. 2. Mild patellofemoral osteoarthritis. - Doppler US: no DVT - evaluated by Ortho no intervention recommended Disposition d/c home ff up with PCP in 1 week plan of care discussed with patient and his at length all questions answered he is understanding, agreeable, comfortable with the plan of care Adebayo Lim MD Admission and Anticipated Discharge Date Admission Date: June 05, 2019 Subjective ff up for chest pain seen resting in bed, comfortable, sitting up ,in good spirits states discomfort is located in the lower costochondral region, sharp but pain is much better no dyspnea, palpitations, dizziness no other symptoms states he is ready and would like to be discharged Review of Systems Review of Systems: All systems reviewed & are unremarkable except as noted in HPI & below Physical Exam Physical Exam: General- oriented x 3, not in distress, speaks in sentences with no effort or accessory muscle use Head- atraumatic Eyes- PERRL, EOMI, anicteric ENT- oropharynx clear Neck- supple, no JVD, no adenopathy, no thyromegaly; carotids +2/2, no bruits appreciated Lungs- clear to auscultation bilaterally, no rales/wheezes Heart- normal rate, regular rhythm; no murmur, no gallop, no rub appreciated (+) mild tenderness on palpation, right lower costochondral region Abdomen- normal bowel sounds, nondistended, soft, nontender, no masses or hepatosplenomegaly Extremities- no pretibial edema, no calf tenderness; peripheral pulses intact Neuro- alert, oriented x 3; CN 2-12 grossly intact; motor 5/5 bilaterally;sensation 100% on all extremities; no other gross focal neurologic deficits Skin- warm & dry Results & Data ([facility]) Laboratory Results all noted and reviewed
--- NOTE | 2019-06-08 13:20 | Discharge Summary ---
Date of Service June 08, 2019 Admission HPI Per Admitting Provider History obtained from patient, family, and records. Medical history significant for chronic systolic heart failure secondary to ischemic cardiomyopathy (TTE 45 - 50% in 2018), coronary artery disease status post CABG, hypertension, hyperlipidemia, DM2 on oral meds, GERD, recurrent pancreatitis. Recent confinement March 2019 for recurrent pancreatitis. The last week, patient increasing treadmill workout level to lose weight for better diabetes control. Patient noted right knee pain spreading throughout his right leg a few days ago. Incomplete relief with OTC NSAIDs. This morning patient noted sharp pleuritic right-sided chest discomfort with some shortness of breath. No unusual cough symptoms. Patient also noted epigastric achy discomfort. Patient not sure if abdominal pain related to chest pain. No diarrhea/constipation/uti symptoms No relief with nitroglycerin at the ER. MEDICAL HISTORY: As above. 04/2019 EGD was normal. SURGICAL HISTORY: CABG, Cholecystectomy, knee surgery, hernia repair, hand surgery FAMILY HISTORY: There is a family history of colon cancer and diabetes. PERSONAL AND SOCIAL HISTORY: Nonsmoker. No chronic intake of alcoholic beverages. 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 Admission Exam Per Admitting Provider GENERAL: uncomfortable, no respiratory distress SKIN: Normal color, warm HEENT: Alopecia, pink palpebral conjunctivae, no ptosis, dry buccal mucosa NECK : Supple, short neck, no tenderness CHEST : CTA, anterior/right-sided chest wall tenderness HEART : RRR, no obvious murmurs ABDOMEN: Some distention, minimal epigastric tenderness EXTREMITIES : Right knee tenderness with some limitation in motion, no other conspicuous deformities noted NEUROLOGIC : Coherent, no facial asymmetry, no other gross focality Principal Diagnosis RIGHT SIDED CHEST PAIN Discharge Exam General- oriented x 3, not in distress, speaks in sentences with no effort or accessory muscle use Head- atraumatic Eyes- PERRL, EOMI, anicteric ENT- oropharynx clear Neck- supple, no JVD, no adenopathy, no thyromegaly; carotids +2/2, no bruits appreciated Lungs- clear to auscultation bilaterally, no rales/wheezes Heart- normal rate, regular rhythm; no murmur, no gallop, no rub appreciated (+) mild tenderness on palpation, right lower costochondral region Abdomen- normal bowel sounds, nondistended, soft, nontender, no masses or hepatosplenomegaly Extremities- no pretibial edema, no calf tenderness; peripheral pulses intact Neuro- alert, oriented x 3; CN 2-12 grossly intact; motor 5/5 bilaterally;sensation 100% on all extremities; no other gross focal neurologic deficits Skin- warm & dry Discharge Data Allergies Allergy/AdvReac Type Severity Reaction Status Date / Time adhesive AdvReac Mild BLISTERS Verified 06/05/19 06:10 hydrochlorothiazide AdvReac Unknown HX Verified 06/05/19 06:10 PANCREATITIS Consultations 06/05/19 06:17 ED Decision to Admit Stat 06/05/19 08:13 Consult Orthopedic Surgery Routine Ordered Studies CXR: FINDINGS: Prior median sternotomy and CABG. Cardiomediastinal and hilar silhouettes are unchanged. Mild chronic interstitial coarsening of the lung bases. No pneumothorax, pleural effusion or overt pulmonary edema. No airspace consolidation typical for pneumonia. The bones appear grossly intact. IMPRESSION: No acute process. 06/05/19 05:36 US venous doppler LE RT Urgent IMPRESSION: No sonographic evidence of deep venous thrombosis. 06/05/19 07:11 CT abd pelvis IV con only Urgent COMPARISON STUDY: CT abdomen and pelvis 03/14/2019, 03/29/2012 FINDINGS: Prior median sternotomy. Mild cardiomegaly with papillary muscle calcifications of the left ventricle. Coronary artery calcifications are also noted. Left greater than right bibasilar opacities suggest scarring/atelectasis. There is no pneumatosis or pneumoperitoneum. The spleen, pancreas and adrenal glands are unremarkable. Cholecystectomy. No biliary ductal dilation. Mild intrahepatic pneumobilia, likely secondary to prior sphincterotomy. Liver is otherwise unremarkable. Patent hepatic and portal veins. Mild nonspecific bilateral perinephric stranding. Probable cyst of the interpolar left kidney posteriorly, 2.3 cm. 10 mm hypodensity of the superior pole left kidney also suggests probable cyst. 4 x 2 mm calculus of the left ureterovesicular junction is noted without significant associated obstructive uropathy. The right kidney and ureter are unremarkable. Mild urinary bladder wall thickening with partial distention. Extensive mixed plaque of the aorta without aneurysm. Unremarkable IVC. No adenopathy. Suggestion of a tiny hiatal hernia with mild distal esophageal wall thickening. No bowel obstruction or bowel wall thickening. Terminal ileum and appendix are unremarkable. Heterogeneous increased density tissue measuring up to 2.3 x 1.8 cm is noted within the periumbilical tissues suggestive of prior hernia repair. Degenerative changes of the spine, pelvis and hips. Transitional lumbosacral anatomy. IMPRESSION: 1. 4 x 2 mm calculus of the left ureterovesicular junction without associated appreciable obstructive uropathy. 2. No bowel obstruction or bowel wall thickening. Normal appendix. 3. Cholecystectomy with mild pneumobilia suggestive of prior sphincterotomy. 4. Additional findings as above. Hospital Course (1) Atypical chest pain: Right-sided chest pain not relieved by nitroglycerin Musculoskeletal component given direct reproducibility coronary artery disease status post CABG - Lipase negative CT abdomen: no pancreatitis RIb xray: no fracture trop negative x 2 EKG no acute ischemia Echo: no change compared to 2018 - likely costochondritis pain improving Tramadol PRN prescribed ff up with PCP in [address] Findings - please refer to full report as noted above - Mild nonspecific bilateral perinephric stranding. Probable cyst of the interpolar left kidney posteriorly, 2.3 cm. 10 mm hypodensity of the superior pole left kidney also suggests probable cyst. 4 x 2 mm calculus of the left ureterovesicular junction is noted without significant associated obstructive uropathy. The right kidney and ureter are unremarkable. Mild urinary bladder wall thickening with partial distention. - further work up and follow up as outpatient chronic systolic heart failure secondary to ischemic cardiomyopathy (TTE 45 - 50% in 2018), patient euvolemic to dry - euvolemic hypertension - continue usual medications DM2 on oral meds, suboptimal control as of recent outpatient hemoglobin A1c of 8.14 May 2019 - continue ff up with PCP Right knee pain secondary to exercise - knee xray: IMPRESSION: 1. Trace joint effusion without acute fracture or dislocation. 2. Mild patellofemoral osteoarthritis. - Doppler US: no DVT - evaluated by Ortho no intervention recommended Disposition d/c home ff up with PCP in 1 week plan of care discussed with patient and his at length all questions answered they are understanding, agreeable, comfortable with the plan of care Adebayo Lim MD Total Time Total Time Spent Total Time Spent (In Minutes): >30 minutes Discharge Plan Discharge Items Patient Disposition: Home - Self-Care Reason For Visit: cp Discharge Diagnosis: Right-sided chest pain, likely costochondritis Activity: As commented below Activity Comment: Resume activity as tolerated, no heavy exertion Lifting: Wait until after follow-up appointment Exercise/Sports: Wait until after follow-up appointment Driving/Machine Use: No driving until reevaluated and allowed by primary care physician, no driving while taking tramadol Non-emergency contact: Primary Care Provider Call non-emergency contact if: you have any medication questions, your symptoms worsen, your pain is not controlled, your pain is worsening, your pain is unusual for you, your pain is concerning for you and you have a fever Follow-up/Referrals: Artur Chambers MD [Primary Care Provider] - 06/10/19 8:20 am Diet: Carb Consistent or DM2 and Heart Healthy Addtl Attending Provider Instructions: Your new medication is tramadol for pain. Do not drive if you are taking tramadol. Because you received IV contrast dye, do not take metformin today and tomorrow. Resume taking metformin on Thursday, June 08, 2019. Stay well-hydrated. Drink plenty of water every day. Call your primary care physician or return to the ER immediately if with worsening of symptoms. Please follow-up with primary care physician Dr. Dilcia Demarco on Monday June 10, 2019 at 8:00am. Pending Studies at Discharge: No Stand-Alone Forms: My [facility] [employer], Smoking Cessation Medications and DC Order Prescriptions: New tramadol 50 mg Tablet 25 - 50 mg PO Q4H PRN (Reason: pain) Qty: 14 RF: 0 Continued metoprolol tartrate 50 mg tablet 50 mg PO QAM RF: 0 aspirin [Aspir-81] 81 mg Tablet,Delayed Release (Dr/Ec) 81 mg PO DAILY RF: 0 cyanocobalamin (vitamin B-12) 1,000 mcg Tablet 1,000 mcg PO DAILY RF: 0 glipizide 5 mg tablet 5 mg PO DAILY RF: 0 lisinopril 20 mg tablet 20 mg PO DAILY RF: 0 metoprolol tartrate 50 mg tablet 25 mg PO QPM RF: 0 multivitamin [Multiple Vitamins] Tablet 1 tab PO DAILY RF: 0 nitroglycerin [Nitrostat] 0.4 mg Tablet, Sublingual 0.4 mg sublingual UD PRN (Reason: Chest Pain) RF: 0 pantoprazole 40 mg tablet,delayed release (DR/EC) 40 mg PO DAILY RF: 0 rosuvastatin 20 mg tablet 20 mg PO DAILY RF: 0 sodium chloride [[place] Nasal] 0.65 % Aerosol,[place] 2 spray INTRANASAL DIRECTED PRN (Reason: congestion/dryness) RF: 0 metformin 1,000 mg tablet 1,000 mg PO BIDM Qty: 0 RF: 0 Discharge Orders: Discharge Order (Routine); Ordered 06/06/19 Ordered By: Adebayo Lim Admission Data Admit Date/Time: 06/05/19 07:10 Attending Provider: Adebayo Lim Admit Provider: Gilbert Marquez Primary Care Provider: Artur Chambers Other Providers: Gilbert Marquez ; Arnoldo Nava Other Interventions: Discharge Summary Assessment (RN) Last Done: 06/06/19 17:48 DC Date/Time DO NOT enter until pt leaves facility: 06/06/19 17:58
== END 2019-06-06 17:58 | disposition home or self-care (01) ==
LOC: ED 05:11 → 2S 05:11

== ENCOUNTER 2019-08-16 16:38 | Inpatient (IN) ==
[2019-08-16] MEDS ORDERED: ONDANSETRON INJ 2 MG/ML 2 ML VIAL IV STA (17:03)
[2019-08-16] MEDS ORDERED: PANTOprazole 40 MG in SYRINGE 0 ML IV ONE (17:03)
--- NOTE | 2019-08-16 17:12 | Emergency Department Note ---
Impression & Plan Pancreatitis, Abdominal pain ED Provider Note NAME: VARUN CHOW SR AGE: 69 SEX: M : 1950 ARRIVES VIA: Walk-In INFORMANT: Patient, ED PROVIDER(S): Willie Bautista DO CHIEF COMPLAINT: Epigastric pain HPI: The patient is a 69-year-old male who has a history of pancreatitis who presented to the emergency department for an evaluation of epigastric pain. The patient describes active epigastric pain which began today. He is also noticed some epigastric pain over the last few days. The patient does have a history of pancreatitis. He also has a history of diabetes. Initially it was thought that his medications for diabetes were causing his epigastric pain. The patient states that he began having problems with pancreatitis proximally 4 years ago. He has no definite cause for his pancreatitis. He denies having history of gallbladder problems. The patient denies having any heavy alcohol use. He does drink alcohol occasionally. He denies having any chest pain but does complain of epigastric pain which goes to his back. He denies having any hematemesis or melena. His pain is moderate to severe. The pain is worsened with any food or movement. The patient did not see his family doctor for this discomfort. ROS: See above HPI for pertinent positives & negatives. A total of 10 systems reviewed and were otherwise negative. PAST MEDICAL HISTORY: See Below PAST SURGICAL HISTORY: See Below FAMILY HISTORY: See Below SOCIAL HISTORY: See Below HOME MEDICATIONS: See Below ALLERGIES: See Below VITALS: See Below PHYSICAL EXAMINATION: GENERAL: Patient is awake alert in no acute distress patient is resting comfortably and showing no signs of anxiety EYES: The conjunctivae are clear. The pupils are round and reactive. EARS, NOSE, MOUTH AND THROAT: The nose is without any evidence of any deformity. Mucous membranes are moist. Tongue is midline. NECK: The neck is nontender and supple. RESPIRATORY: Normal respiratory effort is noted there is no evidence of wheezing rhonchi or rales CARDIOVASCULAR: Regular rate and rhythm noted there no murmurs rubs or gallops normal S1 normal S2. GASTROINTESTINAL: The abdomen is moderately distended and diffusely tender. There is specific tenderness in epigastric region but no guarding or rigidity. MUSCULOSKELETAL/EXTREMITIES: There is no evidence of gross deformity full range of motion is noted in the hips and shoulders. SKIN: There is no obvious evidence of any rash. There are no petechiae, pallor or cyanosis noted. NEUROLOGIC: Patient is awake alert and oriented x3 strength is symmetric patellar reflexes are 2+ bilaterally MEDICAL DECISION MAKING: The patient is a 69-year-old male who presented to the emergency department for an evaluation of epigastric pain. The patient has a history of pancreatitis. He has had similar episodes in the past. The patient was having nausea but no vomiting at this time. He was treated with IV fluids IV pain medication and IV antiemetics. He was also treated with IV proton pump inhibitors. On subsequent reevaluation he was only having minimal pain relief. His lipase was normal and for this reason further radiographic studies were obtained including a CT the abdomen and pelvis. The CT did show signs of pancreatitis and I do feel this fits with the patient's overall clinical condition. Because he was having very little pain relief with my interventions [facility] have agreed to evaluate the patient in the emergency department for further management and disposition. The patient was agreeable with this plan. Triage Nursing notes reviewed. Prior medical records reviewed Vital Signs: reviewed and remarkable for no significant abnormalities Differential diagnosis: Etiologies such as appendicitis, diverticulitis, obstruction, inflammatory bowel disease, renal colic, PUD, biliary pathology, pancreatitis, mesenteric ischemia, aortic pathology, infections, genitourinary, UTI, perforated viscus, as well as others were entertained. ER treatment provided: See below Diagnostics interpreted by me: ECG: EKG was obtained in the emergency department. My interpretation is sinus rhythm at 87 bpm. PVCs were noted. There was diffuse T wave abnormalities noted. An incomplete right bundle branch block pattern was suggested. This was compared to a tracing from June 042019. No significant change was noted. Cardiac Monitoring: An order was placed for continuous cardiac monitoring. The m onitor shows a rate of 88 with sinus rhythm. Laboratory studies: As stated above and show below. Imaging studies: See below Consultation(s): 1830: I discussed this case with Dr. Choudhary who [facility] He is agreed to evaluate the patient in the emergency department for further management and disposition. 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 Beliefs That Will Affect Care: None Current Living Situation: Spouse Feels Safe at Home: Yes Smoking Status: Never smoker Hx Alcohol Use: Yes Alcohol type: beer Hx Substance Use: No Allergies Allergies Allergy/AdvReac Type Severity Reaction Status Date / Time adhesive AdvReac Mild BLISTERS Verified 08/16/19 18:06 hydrochlorothiazide AdvReac Unknown Pancreatitis Verified 08/16/19 18:06 history Home Meds Home Medications Medication Instructions Recorded Confirmed aspirin [Aspir-81] 81 mg PO DAILY 03/14/19 08/16/19 cyanocobalamin (vitamin B-12) 1,000 mcg PO DAILY 03/14/19 08/16/19 glipizide 10 mg PO BIDM 03/14/19 08/16/19 lisinopril 20 mg PO DAILY 03/14/19 08/16/19 metoprolol tartrate 25 mg PO QPM 03/14/19 08/16/19 metoprolol tartrate 50 mg PO QAM 03/14/19 08/16/19 multivitamin [Multiple Vitamins] 1 tab PO DAILY 03/14/19 08/16/19 nitroglycerin [Nitrostat] 0.4 mg SUBLINGUAL DIRECTED PRN 03/14/19 08/16/19 rosuvastatin 20 mg PO DAILY 03/14/19 08/16/19 sodium chloride [Phelps Nasal] 2 spray INTRANASAL DIRECTED PRN 06/05/19 08/16/19 Previous Rx's Medication Instructions Recorded metformin 1,000 mg PO BIDM #0 tab 06/06/19 Results & Data (ED) Vital Signs Vital Signs - 24 hr 08/16/19 16:40 08/16/19 17:11 08/16/19 19:00 Temperature 37.1 C Temperature Source Oral Pulse Rate 92 H Pulse Rate [Right Finger] 84 Respiratory Rate 20 16 Respiratory Depth Normal Blood Pressure 173/82 H Blood Pressure [Right Arm] 162/87 H Blood Pressure Mean 112 Blood Pressure Mean [Right Arm] 112 Blood Pressure Position [Right Arm] Lying Pulse Oximetry 93 97 98 Oxygen Delivery Method Room Air Room Air Room Air Sepsis Recent Fever Within 48 Hours No Sepsis New/Unexplained Change in Mental Status No Sepsis Action Taken by Nursing No Action Required Home Medications Current Medication List: was personally reviewed by me Laboratory Data Attestation: I reviewed the patient's lab results. Result diagrams: 08/16/19 17:10 08/16/19 17:10 Lab Results 08/16/19 08/16/19 08/16/19 Range/Units 17:10 17:10 18:21 WBC 7.72 (4.8-10.8) K/uL RBC 4.32 L (4.7-6.1) M/uL Hgb 13.9 L (14.0-18.0) g/dL Hct 39.8 L (42-52) % MCV 92.1 (80-100) fL MCH 32.2 (25-34) pg MCHC 34.9 (32-36) g/dL RDW Std Deviation 41.3 (36.4-46.3) fL RDW Coeff of Rodolfo 12.2 (11.5-14.5) % Plt Count 212 (130-400) K/uL MPV 9.6 (7.4-10.4) fL Immature Gran % (Auto) 0.3 % Neut % (Auto) 65.4 % Lymph % (Auto) 21.9 % [place] % (Auto) 10.2 % Eos % (Auto) 1.9 % Baso % (Auto) 0.3 % Immature Gran # (Auto) 0.02 (0.00-0.02) K/uL Neut # (Auto) 5.05 (1.4-6.5) K/uL Lymph # (Auto) 1.69 (1.2-3.4) K/uL [place] # (Auto) 0.79 H (0.11-0.59) K/uL Eos # (Auto) 0.15 (0-0.5) K/uL Baso # (Auto) 0.02 (0-0.2) K/uL Sodium 137 (136-145) mmol/L Potassium 3.8 (3.5-5.1) mmol/L Chloride 105 (98-107) mmol/L Carbon Dioxide 25 (21-32) mmol/L Anion Gap 7.0 (3-11) BUN 17 (7-18) mg/dl Creatinine 1.03 (0.6-1.4) mg/dl Est Cr Clr Drug Dosing 65.1 ml/min Est GFR ( Amer) 86.1 Est GFR (Non-Af Amer) 74.3 BUN/Creatinine Ratio 16.2 (10-20) Glucose 215 H (70-99) mg/dl Calcium 8.8 (8.5-10.1) mg/dl Total Bilirubin 0.3 (0.2-1) mg/dl AST 15 (15-37) U/L ALT 26 (12-78) U/L Alkaline Phosphatase 69 (45-117) U/L Troponin I < 0.015 (0-0.045) ng/ml Total Protein 7.7 (6.4-8.2) gm/dl Albumin 3.6 (3.4-5.0) gm/dl Globulin 4.1 H (2.5-4.0) gm/dl Albumin/Globulin Ratio 0.9 (0.9-2) Lipase 164 (73-393) U/L Urine Color Yellow Urine Appearance Cloudy A (Clear) Urine pH 6.0 (4.5-7.5) Ur Specific [place] 1.011 (1.000-1.030) Urine Protein Negative (Negative) Urine Glucose (UA) 1+ H (Negative) Urine Ketones Negative (Negative) Urine Blood Negative (Negative) Urine Nitrite Negative (Negative) Urine Bilirubin Negative (Negative) Urine Urobilinogen Negative (Negative) Ur Leukocyte Esterase Negative (Negative) Urine WBC (Auto) 0 (0-5) /hpf Urine RBC (Auto) 0-4 (0-4) /hpf U Hyaline Cast (Auto) 0 (0-5) /lpf U Epithel Cells (Auto) 0-5 (0-5) /lpf Urine Bacteria (Auto) Negative (Negative) Administered Medications Ioversol (Optiray 320 100ml) 94 ml IV ONCE PRN PRN Reason: Interaction Checking Stop: 08/20/19 19:08 Last Admin: 08/16/19 19:10 Dose: 94 ml Documented by: [id number] Morphine Sulfate (Morphine Sulfate) 4 mg IV Q15M PRN PRN Reason: Pain Stop: 08/30/19 17:02 Last Admin: 08/16/19 19:55 Dose: 4 mg Documented by: [id number] Admin: 08/16/19 17:44 Dose: 4 mg Documented by: [id number] Discontinued Medications Pantoprazole Sodium 40 mg/ (Syringe) 10 mls @ 5 mls/min IV NOW ONE Stop: 08/16/19 17:04 Last Admin: 08/16/19 18:11 Dose: 5 mls/min Documented by: [id number] Sodium Chloride (Nss 1000ml) 1,000 mls @ 999 mls/hr IV .Q1H1M RADHA Stop: 08/16/19 18:15 Last Infusion: 08/16/19 18:42 Dose: 0 mls/hr Documented by: [id number] Admin: 08/16/19 17:44 Dose: 999 mls/hr Documented by: [id number] Ondansetron HCl (Zofran) 4 mg IV NOW STA Stop: 08/16/19 17:04 Last Admin: 08/16/19 17:44 Dose: 4 mg Documented by: [id number] Imaging Data Radiologist's Impression: CT OF THE ABDOMEN AND PELVIS WITH CONTRAST CLINICAL HISTORY: Epigastric pain. COMPARISON STUDY: CT of the abdomen and pelvis June 05, 2019. KUB performed earlier today. TECHNIQUE: Following IV administration of 94 mL of Optiray-320, axial images of the abdomen and pelvis were obtained from the lung bases to the proximal femurs. Images were reviewed in the axial, sagittal, and coronal planes. IV contrast was administered without complication. Automated exposure control was utilized for the study. A dose lowering technique was utilized adhering to the principles of ALARA. CT DOSE: 748.07 mGycm FINDINGS: No pneumatosis, free air or portal venous gas is present. There is no biliary ductal dilatation status post cholecystectomy. A few left renal cysts are noted. There is no hydronephrosis. Note is made of mild infiltration adjacent to the uncinate process of the pancreas. No peripancreatic fluid colle ction is present. No pancreatic ductal dilatation. No pancreatic lesion is identified by CT. Major vasculature is patent. Caliber and wall thickness of small and large bowel are normal. The appendix is normal. There are no suspicious osseous lesions. No lymphadenopathy is present. There are postoper ative findings suggestive of umbilical hernia repair. A small amount of fluid is noted. The postoperative appearance is unchanged. IMPRESSION: 1. Mild infiltration adjacent to the uncinate process of the pancreas suggestive of acute pancreatitis. No peripancreatic fluid collection. 2. No biliary ductal dilatation status post cholecystectomy. 3. Normal appendix. No bowel obstruction. ACT 112: Negative or not required by law. Electronically signed by: Brandon Goode M.D. 08/16/2019 7:39 PM Dictated: 08/16/191930 Transcribed: 08/16/191930 XR chest 1V portable CLINICAL HISTORY: Pain. COMPARISON STUDY: Chest radiograph and right rib series June 05, 2019. FINDINGS: Lung volumes are normal. Lungs are clear. There is no pneumothorax or pleural effusion. Mild cardiomegaly is unchanged. Mediastinal contours are normal. There is no evidence for pulmonary edema. Blunting of left costophrenic angle is chronic. IMPRESSION: No acute cardiopulmonary findings. No change in appearance of the chest. ACT 112: Negative or not required by law. Electronically signed by: Brandon Goode M.D. 08/16/2019 5:32 PM Dictated: 08/16/191720 Transcribed: 08/16/191720 XR KUB/Abdomen 1 view CLINICAL HISTORY: Epigastric pain COMPARISON STUDY: No previous studies for comparison. FINDINGS: There are surgical clips in the right upper quadrant consistent with a prior cholecystectomy. There is no pathologic bowel dilatation. There are no calcifications suspicious for renal calculi. Pelvic basin calcifications likely represent phleboliths. IMPRESSION: Nonobstructive bowel gas pattern. ACT 112: Negative or not required by law. Electronically signed by: Fawad Byrd M.D. 08/16/2019 5:33 PM Dictated: 08/16/19 173 Transcribed: 08/16/191731 Blood Pressure Blood Pressure Findings: Elevated blood pressure Blood Pressure Disposition: further management by hospitalist Discharge Plan Visit Data Chief Complaint: Abdominal Pain Stated Complaint: ABD PAIN, PANCREATITIS ED Provider: Willie Bautista Discharge Problem: Pancreatitis, Abdominal pain Patient Disposition: Being Evaluated by Hospitalist Condition: Good Forms Stand Alone Forms: [facility] Prescriptions Prescriptions: No Action metoprolol tartrate 50 mg tablet 50 mg PO QAM RF: 0 aspirin [Aspir-81] 81 mg Tablet,Delayed Release (Dr/Ec) 81 mg PO DAILY RF: 0 cyanocobalamin (vitamin B-12) 1,000 mcg Tablet 1,000 mcg PO DAILY RF: 0 glipizide 5 mg tablet 10 mg PO BIDM RF: 0 lisinopril 20 mg tablet 20 mg PO DAILY RF: 0 metoprolol tartrate 50 mg tablet 25 mg PO QPM RF: 0 multivitamin [Multiple Vitamins] Tablet 1 tab PO DAILY RF: 0 nitroglycerin [Nitrostat] 0.4 mg Tablet, Sublingual 0.4 mg sublingual DIRECTED PRN (Reason: Chest Pain) RF: 0 rosuvastatin 20 mg tablet 20 mg PO DAILY RF: 0 sodium chloride [Phelps Nasal] 0.65 % Aerosol,[place] 2 spray INTRANASAL DIRECTED PRN (Reason: Nasal Congestion/Dryness) RF: 0 metformin 1,000 mg tablet 1,000 mg PO BIDM Qty: 0 RF: 0 Referrals Referrals: Artur Chambers MD [Primary Care Provider] -
[2019-08-16] MEDS ORDERED: SODIUM CHLORIDE 0.9% 1000ML 1,000 ML IV SCH (17:15)
[2019-08-16 17:20] LABS: Basophils # (auto) 0.02 K/uL (0-0.2); Basophils % (auto) 0.3 %; Eosinophils # (auto) 0.15 K/uL (0-0.5); Eosinophils % (auto) 1.9 %; Hematocrit (blood only) 39.8 % (42-52); Hemoglobin 13.9 g/dL (14.0-18.0); Immature Granulocytes # (auto) 0.02 K/uL (0.00-0.02); Immature Granulocytes % (auto) 0.3 %; Lymphocytes # (auto) 1.69 K/uL (1.2-3.4); Lymphocytes % (auto) 21.9 %; Mean Corpuscular Hemoglobin 32.2 pg (25-34); Mean Corpuscular Hgb Conc 34.9 g/dL (32-36); Mean Corpuscular Volume 92.1 fL (80-100); Mean Platelet Volume 9.6 fL (7.4-10.4); Monocytes # (auto) 0.79 K/uL (0.11-0.59); Monocytes % (auto) 10.2 %; Neutrophils # (auto) 5.05 K/uL (1.4-6.5); Neutrophils % (auto) 65.4 %; Platelet Count 212 K/uL (130-400); RDW Coefficient of Variation 12.2 % (11.5-14.5); RDW Standard Deviation 41.3 fL (36.4-46.3); Red Blood Count 4.32 M/uL (4.7-6.1); White Blood Count 7.72 K/uL (4.8-10.8)
--- NOTE | 2019-08-16 17:33 | XRay Report ---
XR chest 1V portable CLINICAL HISTORY: Pain. COMPARISON STUDY: Chest radiograph and right rib series June 05, 2019. FINDINGS: Lung volumes are normal. Lungs are clear. There is no pneumothorax or pleural effusion. Mil d cardiomegaly is unchanged. Mediastinal contours are normal. There is no evidence for pulmonary marcela a. Blunting of left costophrenic angle is chronic. IMPRESSION: No acute cardiopulmonary findings. No change in appearance of the chest. ACT 112: Negative or not required by law. Electronically signed by: Brandon Goode M.D. 08/16/2019 5:32 PM
--- NOTE | 2019-08-16 17:34 | XRay Report ---
XR KUB/Abdomen 1 view CLINICAL HISTORY: Epigastric pain COMPARISON STUDY: No previous studies for comparison. FINDINGS: There are surgical clips in the right upper quadrant consistent with a prior cholecystectom y. There is no pathologic bowel dilatation. There are no calcifications suspicious for renal calculi. Pelvic basin calcifications likely represent phleboliths. IMPRESSION: Nonobstructive bowel gas pattern. ACT 112: Negative or not required by law. Electronically signed by: Fawad Byrd M.D. 08/16/2019 5:33 PM
[2019-08-16 17:43] LABS: Alanine Aminotransferase 26 U/L (12-78); Albumin Level 3.6 gm/dl (3.4-5.0); Aspartate Aminotransferase 15 U/L (15-37); BUN Creatinine Ratio 16.2 (10-20); Blood Urea Nitrogen 17 mg/dl (7-18); Calcium 8.8 mg/dl (8.5-10.1); Carbon Dioxide 25 mmol/L (21-32); Chloride 105 mmol/L (98-107); Creatinine Clr Calc Pharmacy 65.1 ml/min; Est GFR (African American) 86.1; Est GFR (Non-African American) 74.3; Glucose 215 mg/dl (70-99); Lipase 164 U/L (73-393); Potassium 3.8 mmol/L (3.5-5.1); Sodium 137 mmol/L (136-145)
[2019-08-16] MEDS: MoRPHine SULFATE 4 MG/ML 1 ML CARP\\VIAL IV PRN ×3 (17:44→21:18)
[2019-08-16 17:48] LABS: Albumin Globulin Ratio 0.9 (0.9-2); Alkaline Phosphatase 69 U/L (45-117); Bilirubin,Total 0.3 mg/dl (0.2-1); Globulin 4.1 gm/dl (2.5-4.0); Total Protein 7.7 gm/dl (6.4-8.2); Troponin I < 0.015 ng/ml (0-0.045)
[2019-08-16 18:32] LABS: Appearance Urine Cloudy (Clear); Bacteria Urine Automated Negative (Negative); Bilirubin Urine Negative (Negative); Blood Urine Negative (Negative); Cast Urine Automated 0 /lpf (0-5); Color Urine Yellow; Epithelial Cell Urine Auto 0-5 /lpf (0-5); Glucose Urine UA 1+ (Negative); Ketones Urine Negative (Negative); Leukocyte Esterase Urine Negative (Negative); Nitrite Urine Negative (Negative); Protein Urine Negative (Negative); RBC Urine Automated 0-4 /hpf (0-4); Specific Gravity Urine 1.011 (1.000-1.030); Urobilinogen Urine Negative (Negative); WBC Urine Automated 0 /hpf (0-5)
[2019-08-16] MEDS ORDERED: IOVERSOL 100ml IV PRN (19:09)
--- NOTE | 2019-08-16 19:40 | CT Scan Report ---
CT OF THE ABDOMEN AND PELVIS WITH CONTRAST CLINICAL HISTORY: Epigastric pain. COMPARISON STUDY: CT of the abdomen and pelvis June 05, 2019. KUB performed earlier today. TECHNIQUE: Following IV administration of 94 mL of Optiray-320, axial images of the abdomen and pelvi s were obtained from the lung bases to the proximal femurs. Images were reviewed in the axial, sagitt al, and coronal planes. IV contrast was administered without complication. Automated exposure contro l was utilized for the study. A dose lowering technique was utilized adhering to the principles of A DENISE. CT DOSE: 748.07 mGycm FINDINGS: No pneumatosis, free air or portal venous gas is present. There is no biliary ductal dilata tion status post cholecystectomy. A few left renal cysts are noted. There is no hydronephrosis. Note is made of mild infiltration adjacent to the uncinate process of the pancreas. No peripancreatic flui d collection is present. No pancreatic ductal dilatation. No pancreatic lesion is identified by CT. M ajor vasculature is patent. Caliber and wall thickness of small and large bowel are normal. The appen jorge is normal. There are no suspicious osseous lesions. No lymphadenopathy is present. There are post operative findings suggestive of umbilical hernia repair. A small amount of fluid is noted. The posto perative appearance is unchanged. IMPRESSION: 1. Mild infiltration adjacent to the uncinate process of the pancreas suggestive of acute pancreatiti s. No peripancreatic fluid collection. 2. No biliary ductal dilatation status post cholecystectomy. 3. Normal appendix. No bowel obstruction. ACT 112: Negative or not required by law. Electronically signed by: Brandon Goode M.D. 08/16/2019 7:39 PM
--- NOTE | 2019-08-16 21:25 | History & Physical Report ---
Date of Service August 16, 2019 Assessment & Plan (1) Pancreatitis: -Patient presented with abdominal pain, epigastric/upper abdominal quadrants -History of recurrent pancreatitis, etiology unclear -Currently lipase negative however CT abdomen findings consistent with pancreatitis -Patient denies any significant alcohol consumption, says he had a drink on Thursday -Status post cholecystectomy -Received 1 L of normal saline in the emergency room and IV morphine -We will keep patient n.p.o. except for medications -We will give LR at 150 cc/h due to history of CHF, will closely monitor fluid status -Pain control (2) Coronary artery disease: (3) CHF (congestive heart failure): -Patient has a history of CAD, acute inferior TX with right ventricular involvement in 2003, complicated by V. fib cardiac arrest, status post coronary artery bypass in 2003 -Follows with Dr. Nando Roach -Last echo obtained in June 2019 when patient presented here with an atypical chest pain -Last echo did not show significant change from prior done in 2018, EF about 50%, abnormal septal wall motion consistent with postoperative state. Moderate hypokinesis of the basal inferior and inferoseptal mehta and mid inferior wall. Grade 1 diastolic dysfunction. Mild aortic regurg and mild mitral regurg. -Patient does not take any diuretics, denies any history of fluid overload -We will closely watch fluid status, as we need to treat pancreatitis with IV fluids -Currently patient denies any chest pain, shortness of breath, dizziness or palpitations -We will monitor on telemetry (4) Hypertension: -For now we will hold lisinopril (5) Diabetes mellitus type 2 in obese: -At home on metformin and glipizide -Recently glipizide dose was increased due to hemoglobin A1c not being at goal -We will hold oral medications, and will start SSI -We will continue to closely monitor (6) Dyslipidemia: -For now will hold statin DVT prophylaxis: SCDs and ambulation CODE STATUS : Full code Disposal: Likely home in next 2 days History of Present Illness Chief Complaint: Abdominal pain Primary Care Provider: Artur Chambers MD 69-year-old gentleman with history of diabetes mellitus type 2 (not on insulin), CAD with old inferior TX, status post CABG in 2003, CHF, hypertension, recurrent pancreatitis, who presents with abdominal pain. Evaluation in the ED included CT of the abdomen which was consistent with mild pancreatitis, lipase negative. Patient denies any chest pain, shortness of breath, nausea or vomiting, palpitations, dizziness. He denies any fevers or chills. Troponin was also obtained in ED and was negative, UA negative. Chest x-ray unremarkable. Pt states that his abdominal pain started few days ago but at that time he thought that he may be just pulled a muscle because he was moving heavier things. However then his pain was getting worse and more centralized in his abdomen and it felt like his previous episodes of pancreatitis, says that at t his time he wanted to come earlier so it would not get worse. He received 1 L of normal saline in ED and also IV morphine. He states that his pain is still quite bothersome. He is little frustrated as there seems to be no etiology to his pancreatitis known. He reports having a drink on Thursday but denies any regular or heavy alcohol use. He is status post cholecystectomy. He follows with Dr. Verde with GI. For his cardiac history, he follows with Dr. Nando Roach. He was recently admitted to the hospital due to atypical chest pain, at that time he was evaluated and echocardiogram was obtained, echo at that time was essentially unchanged from previous in 2007. Patient denies any history of fluid overload/shortness of breath due to CHF. Allergies Allergy/AdvReac Type Severity Reaction Status Date / Time adhesive AdvReac Mild BLISTERS Verified 08/16/19 18:06 hydrochlorothiazide AdvReac Unknown Pancreatitis Verified 08/16/19 18:06 history Home Medications Home Medications Medication Instructions Recorded Confirmed Type aspirin [Aspir-81] 81 mg PO DAILY 03/14/19 08/16/19 History cyanocobalamin (vitamin B-12) 1,000 mcg PO DAILY 03/14/19 08/16/19 History glipizide 10 mg PO BIDM 03/14/19 08/16/19 History lisinopril 20 mg PO DAILY 03/14/19 08/16/19 History metoprolol tartrate 25 mg PO QPM 03/14/19 08/16/19 History metoprolol tartrate 50 mg PO QAM 03/14/19 08/16/19 History multivitamin [Multiple Vitamins] 1 tab PO DAILY 03/14/19 08/16/19 History nitroglycerin [Nitrostat] 0.4 mg SUBLINGUAL DIRECTED PRN 12/09/19 05/12/20 History rosuvastatin 20 mg PO DAILY 03/14/19 08/16/19 History sodium chloride [[place] Nasal] 2 spray INTRANASAL DIRECTED PRN 06/05/19 08/16/19 History metformin 1,000 mg PO BIDM #0 tab 06/06/19 08/16/19 Rx Past Med/Surg History Medical History CHF (congestive heart failure) Coronary artery disease Diabetes mellitus type 2 with complications Dyslipidemia History of hypertension History of pancreatitis Hx of diabetes mellitus Hypertension Surgical History Status post cholecystectomy Status post coronary artery bypass grafting Status post hernia repair Family History (Updated 08/16/19 @ 21:28 by Jose Guadalupe Teran MD) Other Colorectal cancer Diabetes Social History Preferred Language: Fijian Communication Ability: Effective Roving Marker Required: No Beliefs That Will Affect Care: None Current Living Situation: Spouse Feels Safe at Home: Yes Smoking Status: Never smoker Hx Alcohol Use: Yes Alcohol type: beer Hx Substance Use: No Review of Systems Review of Systems: All systems reviewed & are unremarkable except as noted in HPI & below Constitutional: no fever and no chills Eyes: no problem reported Ear, Nose, Mouth, Throat: no problem reported Respiratory: no cough, no dyspnea and no pain on inspiration Cardiovascular: no chest pain and no palpitations Gastrointestinal: + abdominal pain (epigastric, upper abdom. quadrants); no nausea, no vomiting, no diarrhea/loose stools, no blood in stools and no melena Genitourinary: no problem reported Musculoskeletal: no problem reported Integumentary: no problem reported Neurologic: no problem reported Psychiatric: no problem reported Endocrine: no problem reported Hematologic / Lymphatic: no problem reported Allergy / Immunological: no problem reported Physical Exam Physical Exam: Elderly male lying in bed, in mild distress due to abdominal pain, breathing comfortably on room air Constitutional: WD/WN, vitals as above + acute distress (Mild distress due to pain) Eyes: PERRL, conjunctivae normal, anicteric sclerae EOM intact bilaterally ENMT: external ear and nose normal, oropharynx normal Neck: normal visual inspection Supple Respiratory: normal respiratory effort, lungs clear to auscultation no cough Auscultation: no crackles, no rales, no rhonchi and no wheezes Cardiovascular: RRR, no murmur, no edema Chest (Breasts): Chest: normal inspection of chest Gastrointestinal (Abdomen): Inspection/Auscultation: abdomen normal to inspection and normal bowel sounds; abdomen not distended Percussion/Palpation: + abdomen tender (To palpation in upper abdominal quadrants) and abdomen soft; no guarding and abdomen not rigid Musculoskeletal: no cyanosis or clubbing, extremities motor strength 5/5 Head/Neck/Chest: normocephalic, head atraumatic and neck supple Extremities: extremities normal to inspection Skin: no rashes, warm and dry Neurologic: PERRL, EOMI, accommodation nl, no face palsy, no dysarthria moves all extremities; no focal motor deficits Psychiatric: A+Ox3, euthymic affect Genitourinary: no CVA tenderness Lymphatic: no cervical or axillary lymphadenopathy Results & Data Results & Data ([facility]) Vital Signs (Past 12 Hours) Vital Signs Temp Pulse Pulse Resp BP BP Pulse Ox 08/16/19 19:00 84 16 162/87 H 98 08/16/19 17:11 97 08/16/19 16:40 37.1 C 92 H 20 173/82 H 93 Laboratory Results 08/16/19 08/16/19 08/16/19 Range/Units 18:21 17:10 17:10 WBC 7.72 (4.8-10.8) K/uL RBC 4.32 L (4.7-6.1) M/uL Hgb 13.9 L (14.0-18.0) g/dL Hct 39.8 L (42-52) % MCV 92.1 (80-100) fL MCH 32.2 (25-34) pg MCHC 34.9 (32-36) g/dL RDW Std Deviation 41.3 (36.4-46.3) fL RDW Coeff of Rodolfo 12.2 (11.5-14.5) % Plt Count 212 (130-400) K/uL MPV 9.6 (7.4-10.4) fL Immature Gran % (Auto) 0.3 % Neut % (Auto) 65.4 % Lymph % (Auto) 21.9 % [place] % (Auto) 10.2 % Eos % (Auto) 1.9 % Baso % (Auto) 0.3 % Immature Gran # (Auto) 0.02 (0.00-0.02) K/uL Neut # (Auto) 5.05 (1.4-6.5) K/uL Lymph # (Auto) 1.69 (1.2-3.4) K/uL [place] # (Auto) 0.79 H (0.11-0.59) K/uL Eos # (Auto) 0.15 (0-0.5) K/uL Baso # (Auto) 0.02 (0-0.2) K/uL Sodium 137 (136-145) mmol/L Potassium 3.8 (3.5-5.1) mmol/L Chloride 105 (98-107) mmol/L Carbon Dioxide 25 (21-32) mmol/L Anion Gap 7.0 (3-11) BUN 17 (7-18) mg/dl Creatinine 1.03 (0.6-1.4) mg/dl Est Cr Clr Drug Dosing 65.1 ml/min Est GFR ( Amer) 86.1 Est GFR (Non-Af Amer) 74.3 BUN/Creatinine Ratio 16.2 (10-20) Glucose 215 H (70-99) mg/dl Calcium 8.8 (8.5-10.1) mg/dl Total Bilirubin 0.3 (0.2-1) mg/dl AST 15 (15-37) U/L ALT 26 (12-78) U/L Alkaline Phosphatase 69 (45-117) U/L Troponin I < 0.015 (0-0.045) ng/ml Total Protein 7.7 (6.4-8.2) gm/dl Albumin 3.6 (3.4-5.0) gm/dl Globulin 4.1 H (2.5-4.0) gm/dl Albumin/Globulin Ratio 0.9 (0.9-2) Lipase 164 (73-393) U/L Urine Color Yellow Urine Appearance Cloudy A (Clear) Urine pH 6.0 (4.5-7.5) Ur Specific [place] 1.011 (1.000-1.030) Urine Protein Negative (Negative) Urine Glucose (UA) 1+ H (Negative) Urine Ketones Negative (Negative) Urine Blood Negative (Negative) Urine Nitrite Negative (Negative) Urine Bilirubin Negative (Negative) Urine Urobilinogen Negative (Negative) Ur Leukocyte Esterase Negative (Negative) Urine WBC (Auto) 0 (0-5) /hpf Urine RBC (Auto) 0-4 (0-4) /hpf U Hyaline Cast (Auto) 0 (0-5) /lpf U Epithel Cells (Auto) 0-5 (0-5) /lpf Urine Bacteria (Auto) Negative (Negative) Diagnostic Findings CXR:IMPRESSION: No acute cardiopulmonary findings. No change in appearance of the chest. KUB:IMPRESSION: Nonobstructive bowel gas pattern. CT abdomen pelvis:IMPRESSION: 1. Mild infiltration adjacent to the uncinate process of the pancreas suggestive of acute pancreatitis. No peripancreatic fluid collection. 2. No biliary ductal dilatation status post cholecystectomy. 3. Normal appendix. No bowel obstruction. (1) Pancreatitis Acute pancreatitis complication: unspecified Chronicity: acute Pancreatitis type: unspecified pancreatitis type Qualified Code(s): K85.90 - Acute pancreatitis without necrosis or infection, unspecified
[2019-08-16] MEDS ORDERED: MoRPHine SULFATE 2 MG/ML CARP IV PRN ×2 (21:37→22:32)
[2019-08-16] MEDS ORDERED: GLUCOSE 10 TABS/TUBE PO PRN (22:32)
[2019-08-16] MEDS ORDERED: CARBOHYDRATES FOR HYPOGLYCEMIA PO PRN (22:32)
[2019-08-16] MEDS ORDERED: GLUCOSE 40% GEL 15 GM TUBE PO PRN (22:32)
[2019-08-16] MEDS ORDERED: NITROGLYCERIN SL 0.4 MG/TAB TAB SL PRN (22:32)
[2019-08-16] MEDS ORDERED: DEXTROSE 50% 50 ML SYRINGE IV PRN (22:32)
[2019-08-16] MEDS ORDERED: GLUCAGON FOR INJ 1 MG VIAL SQ PRN (22:32)
[2019-08-16] MEDS ORDERED: LACTATED RINGER'S 1,000 ML IV SCH (22:32)
[2019-08-16] MEDS: LACTATED RINGER'S 1,000 ML IV SCH (23:54)
[2019-08-17] MEDS: LACTATED RINGER'S 1,000 ML IV SCH ×2 (06:44→13:39)
[2019-08-17] MEDS: ASPIRIN 81 MG ECTAB PO SCH (08:43)
[2019-08-17] MEDS: METOPROLOL TARTRATE 50 MG TAB PO SCH (08:43)
[2019-08-17] MEDS ORDERED: ACETAMINOPHEN 325 MG TAB PO ONE (08:45)
[2019-08-17] MEDS: INSULIN ASPART 100 UNITS/ML 3 ML PEN SC SCH ×4 (09:41→21:21)
[2019-08-17] MEDS ORDERED: ACETAMINOPHEN 325 MG TAB PO PRN (09:46)
--- NOTE | 2019-08-17 16:25 | Electrocardiogram Report ---
Test Reason : Blood Pressure : / mmHG Vent. Rate : 087 BPM Atrial Rate : 087 BPM P-R Int : 214 ms QRS Dur : 110 ms QT Int : 350 ms P-R-T Axes : 060 081 002 degrees QTc Int : 421 ms Sinus rhythm with 1st degree A-V block with occasional Premature ventricular complexes and Fusion com plexes Incomplete right bundle branch block T wave abnormality, consider inferior ischemia Abnormal ECG When compared with ECG of 05-JUN-2019 05:23, Fusion complexes are now Present Premature ventricular complexes are now Present Confirmed by Russel Calhoun ([id number]) on 08/17/2019 4:25:11 PM Referred By: REFERRED SELF Confirmed By:Russel Calhoun
--- NOTE | 2019-08-17 16:25 | Hospitalist Progress Note ---
Date of Service August 17, 2019 Assessment & Plan (1) Pancreatitis: acute pancreatitis -Patient presented with abdominal pain, epigastric/upper abdominal quadrants -History of recurrent pancreatitis, etiology unclear -Patient denies any significant alcohol consumption, says he had a drink on Thursday on admission lipase level normal CT abdomen findings consistent with pancreatitis -Status post cholecystectomy -GI symptoms has improved , ordered for clears will advance diet to low fat in am (2) Coronary artery disease: (3) CHF (congestive heart failure): -Chronic diastolic heart failure ( HFpEF ) no evidence of decompensation Patient has a history of CAD, acute inferior TX with right ventricular involvement in 2004, complicated by V. fib cardiac arrest, status post coronary artery bypass in 2003 -Follows with Dr. Nando Roach -Last echo obtained in June 2019 when patient presented here with an atypical chest pain -Last echo did not show significant change from prior done in 2018, EF about 50%, abnormal septal wall motion consistent with postoperative state. Moderate hypokinesis of the basal inferior and inferoseptal mehta and mid inferior wall. Grade 1 diastolic dysfunction. Mild aortic regurg and mild mitral regurg. - given IV fluid for acute pancreatitis follow vol status (4) Hypertension: -resume lisinopril (5) Diabetes mellitus type 2 in obese: -At home on metformin and glipizide -Recently glipizide dose was increased due to hemoglobin A1c not being at goal -We will hold oral medications, and will start SSI -We will continue to closely monitor (6) Dyslipidemia: -For now will hold statin DVT prophylaxis: SCDs and ambulation CODE STATUS : Full code Disposal: Likely home tomorrow if tolerating diet Admission and Anticipated Discharge Date Admission Date: August 16, 2019 Subjective no complain of abdominal pain no nausea or vomiting diet advanced to clears Review of Systems Review of Systems: All systems reviewed & are unremarkable except as noted in HPI & below Gastrointestinal: no abdominal pain, no nausea and no vomiting Physical Exam Constitutional: WD/WN, vitals as above Eyes: PERRL, conjunctivae normal, anicteric sclerae ENMT: external ear and nose normal, oropharynx normal Neck: trachea midline, no thyromegaly Respiratory: normal respiratory effort, lungs clear to auscultation Cardiovascular: RRR, no murmur, no edema Gastrointestinal (Abdomen): Percussion/Palpation: abdomen soft; abdomen nontender Musculoskeletal: no cyanosis or clubbing, extremities motor strength 5/5 Skin: no rashes, warm and dry Neurologic: PERRL, EOMI, accommodation nl, no face palsy, no dysarthria Psychiatric: A+Ox3, euthymic affect Results & Data Results & Data ([facility]) Vital Signs (Past 12 Hours) Vital Signs Temp Pulse Pulse Resp BP Pulse Ox 08/17/19 14:57 36.5 C 78 20 130/68 96 08/17/19 11:19 36.7 C 69 20 111/63 92 08/17/19 07:30 36.9 C 80 20 114/64 93 08/17/19 07:18 73 08/17/19 04:56 85 (1) Pancreatitis Acute pancreatitis complication: unspecified Chronicity: acute Pancreatitis type: unspecified pancreatitis type Qualified Code(s): K85.90 - Acute pancreatitis without necrosis or infection, unspecified
[2019-08-17] MEDS ORDERED: METOPROLOL TARTRATE 25 MG TAB PO SCH (21:00)
[2019-08-18] MEDS: INSULIN ASPART 100 UNITS/ML 3 ML PEN SC SCH ×2 (08:52→13:22)
[2019-08-18] MEDS: ASPIRIN 81 MG ECTAB PO SCH (08:53)
[2019-08-18] MEDS: METOPROLOL TARTRATE 50 MG TAB PO SCH (08:53)
[2019-08-18] MEDS ORDERED: lisinopriL 20 MG TAB PO SCH (09:00)
[2019-08-18] MEDS ORDERED: MULTIVITAMIN TAB PO SCH (09:00)
--- NOTE | 2019-08-18 12:53 | Hospitalist Progress Note ---
Date of Service August 18, 2019 Assessment & Plan (1) Pancreatitis: acute pancreatitis etiology unknown / pt asked to stop taking statin : < 1% association with pancreatits GI symptoms has resolved able to tolerate solid diet -Patient presented with abdominal pain, epigastric/upper abdominal quadrants -History of recurrent pancreatitis, etiology unclear -Patient denies any significant alcohol consumption, says he had a drink on Thursday on admission lipase level normal CT abdomen findings consistent with pancreatitis -Status post cholecystectomy follows with [facility] GI team , (2) Coronary artery disease: (3) CHF (congestive heart failure): -Chronic diastolic heart failure ( HFpEF ) no evidence of decompensation Patient has a history of CAD, acute inferior [place] with right ventricular involvement in 2003, complicated by V. fib cardiac arrest, status post coronary artery bypass in 2003 -Follows with Dr. Nando Roach -Last echo obtained in June 2019 when patient presented here with an atypical chest pain -no significant change from prior done in 2018, EF about 50%, abnormal septal wall motion consistent with postoperative state. Moderate hypokinesis of the basal inferior and inferoseptal mehta and mid inferior wall. Grade 1 diastolic dysfunction. Mild aortic regurg and mild mitral regurg. - given IV fluid for acute pancreatitis ; IVF d/isidra as pt is able to tolerate diet stable vol status (4) Hypertension: -on lisinopril (5) Diabetes mellitus type 2 in obese: -At home on metformin and glipizide -Recently glipizide dose was increased due to hemoglobin A1c not being at goal (6) Dyslipidemia: d/c statin for possible cause of pancreatitis ( < 1% association ) DVT prophylaxis: SCDs and ambulation CODE STATUS : Full code Disposal: stable to be discharged home today Admission and Anticipated Discharge Date Admission Date: August 16, 2019 Subjective feels fine diet advanced to low fat -finished lunch with no GI symptoms no abdominal pain or discomfort stable to be discharged home today Review of Systems Review of Systems: All systems reviewed & are unremarkable except as noted in HPI & below Gastrointestinal: no abdominal pain, no nausea and no vomiting Physical Exam Constitutional: WD/WN, vitals as above Eyes: PERRL, conjunctivae normal, anicteric sclerae ENMT: external ear and nose normal, oropharynx normal Neck: trachea midline, no thyromegaly Respiratory: normal respiratory effort, lungs clear to auscultation Cardiovascular: RRR, no murmur, no edema Gastrointestinal (Abdomen): Percussion/Palpation: abdomen soft; abdomen nontender Musculoskeletal: no cyanosis or clubbing, extremities motor strength 5/5 Skin: no rashes, warm and dry Neurologic: PERRL, EOMI, accommodation nl, no face palsy, no dysarthria Psychiatric: A+Ox3, euthymic affect Results & Data Results & Data ([facility]) Vital Signs (Past 12 Hours) Vital Signs Temp Pulse Pulse Resp BP Pulse Ox 08/18/19 12:08 36.9 C 65 18 154/74 H 95 08/18/19 07:19 91 H 08/18/19 07:17 36.8 C 70 18 140/45 L 96 08/18/19 05:31 37.0 C 81 21 156/73 H 95 08/18/19 00:58 68 (1) Pancreatitis Acute pancreatitis complication: unspecified Chronicity: acute Pancreatitis type: unspecified pancreatitis type Qualified Code(s): K85.90 - Acute pancreatitis without necrosis or infection, unspecified
--- NOTE | 2019-08-18 13:01 | Discharge Summary ---
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 Evaluation in the ED included CT of the abdomen which was consistent with mild pancreatitis, lipase negative. Patient denies any chest pain, shortness of breath, nausea or vomiting, palpitations, dizziness. He denies any fevers or chills. Troponin was also obtained in ED and was negative, UA negative. Chest x-ray unremarkable. Pt states that his abdominal pain started few days ago but at that time he thought that he may be just pulled a muscle because he was moving heavier things. However then his pain was getting worse and more centralized in his abdomen and it felt like his previous episodes of pancreatitis, says that at this time he wanted to come earlier so it would not get worse. He received 1 L of normal saline in ED and also IV morphine. He states that his pain is still quite bothersome. He is little frustrated as there seems to be no etiology to his pancreatitis known. He reports having a drink on Thursday but denies any regular or heavy alcohol use. He is status post cholecystectomy. He follows with Dr. Verde with GI. For his cardiac history, he follows with Dr. Nando Roach. He was recently admitted to the hospital due to atypical chest pain, at that time he was evaluated and echocardiogram was obtained, echo at that time was essentially unchanged from previous in 2007. Patient denies any history of fluid overload/shortness of breath due to CHF. Principal Diagnosis ACUTE PANCREATITIS Discharge Exam Constitutional WD/WN, vitals as above Eyes PERRL, conjunctivae normal, anicteric sclerae ENMT external ear and nose normal, oropharynx normal Neck trachea midline, no thyromegaly Respiratory normal respiratory effort, lungs clear to auscultation Cardiovascular RRR, no murmur, no edema Gastrointestinal (Abdomen) Percussion/Palpation: abdomen soft; abdomen nontender Musculoskeletal no cyanosis or clubbing, extremities motor strength 5/5 Skin no rashes, warm and dry Neurologic PERRL, EOMI, accommodation nl, no face palsy, no dysarthria Psychiatric A+Ox3, euthymic affect Discharge Data Allergies Allergy/AdvReac Type Severity Reaction Status Date / Time adhesive AdvReac Mild BLISTERS Verified 08/16/19 18:06 hydrochlorothiazide AdvReac Unknown Pancreatitis Verified 08/16/19 18:06 history Consultations 08/16/19 20:25 ED Decision to Admit Stat Ordered Studies 08/16/19 18:43 CT abd pelvis IV con only Stat Hospital Course (1) Pancreatitis: acute pancreatitis etiology unknown / pt asked to stop taking statin : < 1% association with pancreatits GI symptoms has resolved able to tolerate solid diet -Patient presented with abdominal pain, epigastric/upper abdominal quadrants -History of recurrent pancreatitis, etiology unclear -Patient denies any significant alcohol consumption, says he had a drink on Thursday on admission lipase level normal CT abdomen findings consistent with pancreatitis -Status post cholecystectomy follows with [facility] GI team , (2) Coronary artery disease: (3) CHF (congestive heart failure): -Chronic diastolic heart failure ( HFpEF ) no evidence of decompensation Patient has a history of CAD, acute inferior GA with right ventricular involvement in 2003, complicated by V. fib cardiac arrest, status post coronary artery bypass in 2003 -Follows with Dr. Nando Roach -Last echo obtained in June 2019 when patient presented here with an atypical chest pain -no significant change from prior done in 2018, EF about 50%, abnormal septal wall motion consistent with postoperative state. Moderate hypokinesis of the basal inferior and inferoseptal mehta and mid inferior wall. Grade 1 diastolic dysfunction. Mild aortic regurg and mild mitral regurg. - given IV fluid for acute pancreatitis ; IVF d/isidra as pt is able to tolerate diet stable vol status (4) Hypertension: -on lisinopril (5) Diabetes mellitus type 2 in obese: -At home on metformin and glipizide -Recently glipizide dose was increased due to hemoglobin A1c not being at goal (6) Dyslipidemia: d/c statin for possible cause of pancreatitis ( < 1% association ) DVT prophylaxis: SCDs and ambulation CODE STATUS : Full code Disposal: stable to be discharged home today Total Time Total Time Spent Total Time Spent (In Minutes): 35 MINS Total Time Includes: Examination of the Patient, Discharge Planning and Medication Reconciliation Discharge Plan Discharge Items Patient Disposition: Home - Self-Care Reason For Visit: PANCREATITIS Discharge Diagnosis: ACUTE PANCREATITIS Condition on Discharge: Good Activity: Resume your previous activity Non-emergency contact: Primary Care Provider Call non-emergency contact if: you have any medication questions Follow-up/Referrals: Artur Chambers MD [Primary Care Provider] - 08/23/19 10:45 am Diet: Low Fat Addtl Attending Provider Instructions: DO NOT TAKE ROSUVASTATIN THERE IS LESS THAN < 1% ASSOCIATION WITH THIS MEDICATION WITH PANCREATITIS Pending Studies at Discharge: No Stand-Alone Forms: My [facility], Smoking Cessation Medications and DC Order Prescriptions: Continued metoprolol tartrate 50 mg tablet 50 mg PO QAM RF: 0 aspirin [Aspir-81] 81 mg Tablet,Delayed Release (Dr/Ec) 81 mg PO DAILY RF: 0 cyanocobalamin (vitamin B-12) 1,000 mcg Tablet 1,000 mcg PO DAILY RF: 0 glipizide 5 mg tablet 10 mg PO BIDM RF: 0 lisinopril 20 mg tablet 20 mg PO DAILY RF: 0 metoprolol tartrate 50 mg tablet 25 mg PO QPM RF: 0 multivitamin [Multiple Vitamins] Tablet 1 tab PO DAILY RF: 0 nitroglycerin [Nitrostat] 0.4 mg Tablet, Sublingual 0.4 mg sublingual DIRECTED PRN (Reason: Chest Pain) RF: 0 sodium chloride [[place] Nasal] 0.65 % Aerosol,[place] 2 spray INTRANASAL DIRECTED PRN (Reason: Nasal Congestion/Dryness) RF: 0 metformin 1,000 mg tablet 1,000 mg PO BIDM Qty: 0 RF: 0 Discontinued rosuvastatin 20 mg tablet 20 mg PO DAILY RF: 0 Discharge Orders: Discharge Order (Routine); Ordered 08/18/19 Ordered By: Karla Elam Admission Data Admit Date/Time: 08/16/19 21:25 Attending Provider: Karla Elam Admit Provider: Jose Guadalupe Teran Primary Care Provider: Artur Chambers Other Providers: Gilbert Marquez Other Interventions: Discharge Summary Assessment (RN) Last Done: 08/18/19 12:57
== END 2019-08-18 14:01 | disposition home or self-care (01) | DRG 439 ==
LOC: ED 16:38 → 2N 21:25

== ENCOUNTER 2020-03-06 19:02 | Inpatient (IN) ==
[2020-03-06] MEDS ORDERED: MoRPHine SULFATE 10 MG/ML CARP/VIAL IV STA (19:29)
[2020-03-06] MEDS ORDERED: ONDANSETRON INJ 2 MG/ML 2 ML VIAL IV STA (19:29)
[2020-03-06] MEDS ORDERED: SODIUM CHLORIDE 0.9% 1000ML 1,000 ML IV SCH (19:30)
[2020-03-06] MEDS ORDERED: MoRPHine SULFATE 4 MG/ML 1 ML CARP\\VIAL ONE (19:34)
--- NOTE | 2020-03-06 19:36 | Emergency Department Note ---
History of Present Illness General Chief complaint: Abdominal Pain Stated complaint: BACK AND ABDOMINAL PAIN Time Seen by Provider: 03/06/20 19:16 Source: patient Mode of arrival: ambulatory Limitations: no limitations History of Present Illness Provider complaint: upper abdominal pain Onset (ago): hour(s) Radiation: back and abdomen Severity: moderate Pain Consistency: + constant Maximum Pain Intensity: 10 Quality: + constant Relieved By: + none Exacerbated By: + none Associated symptoms: no chest pain, no fever/chills and no nausea/vomiting Treatments prior to arrival: none This is a 69-year-old male who presents due to worsening upper abdominal pain that began this afternoon. Patient states symptoms feel similar to 3 previous episodes of pancreatitis. Patient has had a prior cholecystectomy, denies use of alcohol, and has had prior ERCP with sphincterotomy according to the EMR. Patient states he has not had an episode since August of this year. Patient denies any recent change in diet or medication. Patient states he began having some mild left flank pain 4 to 5 days ago which she thought was from moving his bSafe tree to decorate for the holidays. States then this afternoon the p ain radiated around and came across his upper abdomen from the left upper quadrant to the right upper quadrant. Patient states due to this worsening pain and it feeling similar to prior episodes of pancreatitis he came to the emergency room. Patient denies fevers or chills, nausea or vomiting, change in bowel or bladder function. Patient denies any URI symptoms. Patient states the pain does make it feel like it slightly difficult to breathe. Patient denies cough, chest pain. Pt seen during a time of high acuity and national emergency pandemic while wearing PPE. Home Medications Medication Instructions Recorded Confirmed Type cyanocobalamin (vitamin B-12) 1,000 mcg PO QAM 03/14/19 03/06/20 History lisinopril 20 mg PO QAM 03/14/19 03/06/20 History metoprolol tartrate 75 mg PO BID 03/14/19 03/06/20 History multivitamin [Multiple Vitamins] 1 tab PO QAM 03/14/19 03/06/20 History nitroglycerin [Nitrostat] 0.4 mg SUBLINGUAL DIRECTED PRN 03/14/19 03/06/20 History sodium chloride [Foot Of Ten Nasal] 2 spray INTRANASAL DIRECTED PRN 06/05/19 03/06/20 History metformin 1,000 mg PO BIDM #0 tab 06/06/19 03/06/20 Rx aspirin [Aspirin Low Dose] 81 mg PO QAM 03/06/20 03/06/20 History glipizide See Rx Instructions .ROUTE .COMPLEX 03/06/20 03/06/20 History Allergies Allergy/AdvReac Type Severity Reaction Status Date / Time adhesive AdvReac Mild BLISTERS Verified 03/06/20 22:18 hydrochlorothiazide AdvReac Unknown Pancreatitis Verified 03/06/20 22:18 history pantoprazole AdvReac Unknown HX Verified 03/06/20 22:18 PANCREATITIS rosuvastatin [From Crestor] AdvReac Unknown HX Verified 03/06/20 22:18 PANCREATITIS Past Med/Surg History Medical History (Updated 03/08/20 @ 23:33 by Bianca Puckett DO) CHF (congestive heart failure) Euvolemia noted on cardio visit 09/19 Coronary artery disease s/p CO and Vfib arrest 2003 s/p CABG x 2 2003 Diabetes mellitus type 2 with complications On oral meds Dyslipidemia GERD (gastroesophageal reflux disease) History of pancreatitis Hypertension Myocardial Infarction 06/16/2003, complicated by Vfib arrest. S/P CABG (DAVILA-LAD, SVG-PDA) Follows with Dr. Roach ([facility]). Surgical History History of colonoscopy History of ERCP History of esophagogastroduodenoscopy (EGD) Status post cholecystectomy Status post coronary artery bypass grafting 2 VESSELS-06/2003 Status post hernia repair Family History Mother Diabetes Brother Colorectal cancer Social History Smoking Status: Never smoker Second Hand Exposure: No; Do You Dip or Chew Tobacco: No; Tobacco Cessation Education Requested by Patient: No Hx Alcohol Use: Yes Alcohol type: beer Hx Substance Use: No Preferred Language: Icelandic Communication Ability: Effective Chemistry Tutor Required: No Beliefs That Will Affect Care: None marital status: Current Living Situation: Spouse Other Information That Helps Us Care for You: No Feels Safe at Home: Yes Safety Concerns: Feels Safe At This Time Assistive Devices: None Review of Systems See HPI for pertinent positives & negatives. and A total of 10 systems reviewed and were otherwise negative Physical Exam Vital Signs Vital Signs - 24 hr 03/06/20 19:07 03/06/20 21:10 Temperature 37.1 C Temperature Source Oral Pulse Rate 88 74 Pulse Rate from SpO2 Sensor 74 Respiratory Rate 18 22 Respiratory Effort / Characteristics Non-Labored Respiratory Depth Normal Blood Pressure 179/88 H 146/77 H Blood Pressure Mean 118 94 Pulse Oximetry 97 94 Oxygen Delivery Method Room Air Sepsis Recent Fever Within 48 Hours No Sepsis New/Unexplained Change in Mental Status No Sepsis Action Taken by Nursing No Action Required GENERAL: alert, uncomfortable appearing, well nourished, no distress, non-toxic EYE EXAM: normal conjunctiva, PERRL and EOM's grossly intact OROPHARYNX: no exudate, no erythema, lips, buccal mucosa, and tongue normal and mucous membranes are moist NECK: supple, no nuchal rigidity, no adenopathy, non-tender LUNGS: Clear to auscultation. Normal chest wall mechanics, no w/r/r HEART: no murmurs, S1 normal and S2 normal ABDOMEN: abdomen soft, epigastric and bilateral costal margin tenderness with palpation, normo-active bowel sounds, no masses, no rebound or guarding. BACK: Back is symmetrical on inspection and there is no deformity, no midline tenderness, no CVA tenderness. SKIN: no rashes and no bruising UPPER EXTREMITIES: upper extremities are grossly normal. FROM, nml pulses b/l. LOWER EXTREMITIES: No pitting edema. FROM, nml pulses b/l. NEURO EXAM: Normal sensorium, cranial nerves II-XII grossly intact, normal speech, no gross weakness of arms, no gross weakness of legs. Gross sensation intact. Course Course 2144: Patient updated on results. I did offer patient discharged with pain medication, nausea medication, on a clear liquid diet. Patient states given the amount of pain he is having and that the pain medication does not seem to hold him for long enough, he does not feel he could safely go home with enough pain control. We again discussed potential etiology, patient denies any use of alcohol, denies any recent use of NSAIDs, denies any other dietary changes. 2199: Discussed with Dr. Mccoy. Administered Medications Discontinued Medications Aspirin (Aspirin 81 Mg Ectab) [facility] [place] Stop: 04/06/20 08:59 Last Admin: 12/03/20 08:56 Dose: 81 mg Documented by: [id number] Admin: 03/07/20 09:08 Dose: 81 mg Documented by: [id number] Cyanocobalamin (Cyanocobalamin 500 Mcg Tablet (Vitamin B-12)) 1,000 mcg PO QAM [facility] [place] Stop: 04/06/20 08:59 Last Admin: 03/08/20 08:56 Dose: 1,000 mcg Documented by: [id number] Admin: 03/07/20 09:08 Dose: 1,000 mcg Documented by: [id number] Hydromorphone HCl (Hydromorphone Inj 0.5 Mg/0.5 Ml Syr) 0.5 mg IV Q3H PRN PRN Reason: Pain Stop: 03/21/20 02:09 Last Admin: 03/07/20 07:19 Dose: 0.5 mg Documented by: [id number] Hydromorphone HCl (Hydromorphone Inj 0.5 Mg/0.5 Ml Syr) Confirm Administered Dose 0.5 mg .ROUTE .STK-MED ONE Stop: 03/07/20 02:16 Last Admin: 03/07/20 02:16 Dose: 0.5 mg Documented by: [id number] Sodium Chloride (Nss 1000ml) 1,000 mls @ 125 mls/hr IV .Q8H RADHA Stop: 04/05/20 19:29 Last Infusion: 03/06/20 22:00 Dose: 0 mls/hr Documented by: [id number] Admin: 03/06/20 19:43 Dose: 125 mls/hr Documented by: [id number] Magnesium Sulfate/Dextrose (Magnesium Sulfate / D5w) 1 gm in 100 mls @ 100 mls/hr IV NOW STA Stop: 03/06/20 21:39 Last Infusion: 03/06/20 22:05 Dose: 0 mls/hr Documented by: [id number] Admin: 03/06/20 21:12 Dose: 100 mls/hr Documented by: [id number] Acetaminophen (Ofirmev) 1,000 mg in 100 mls @ 400 mls/hr IV NOW STA Stop: 03/06/20 21:27 Last Infusion: 03/06/20 22:05 Dose: 0 mls/hr Documented by: [id number] Admin: 03/06/20 21:25 Dose: 400 mls/hr Documented by: [id number] Famotidine 20 mg/ Syringe 5 mls @ 2.5 mls/min IV BID [facility] [place] Stop: 04/06/20 08:59 Last Admin: 03/08/20 09:02 Dose: 2.5 mls/min Documented by: [id number] Admin: 03/07/20 20:34 Dose: 2.5 mls/min Documented by: [id number] Admin: 03/07/20 09:08 Dose: 2.5 mls/min Documented by: [id number] Lactated Ringer's (Lr) 1,000 mls @ 50 mls/hr IV .Q20H [facility] [place] Stop: 04/06/20 02:09 Last Infusion: 03/08/20 14:51 Dose: 0 mls/hr Documented by: [id number] Admin: 03/08/20 10:54 Dose: 125 mls/hr Documented by: [id number] Infusion: 03/08/20 10:54 Dose: 125 mls/hr Documented by: [id number] Admin: 03/08/20 02:54 Dose: 125 mls/hr Documented by: [id number] Infusion: 03/08/20 02:54 Dose: 125 mls/hr Documented by: [id number] Admin: 03/07/20 19:05 Dose: 125 mls/hr Documented by: [id number] Infusion: 03/07/20 19:05 Dose: 125 mls/hr Documented by: [id number] Infusion: 03/07/20 17:29 Dose: 125 mls/hr Documented by: [id number] Infusion: 03/07/20 16:29 Dose: 0 mls/hr Documented by: [id number] Admin: 03/07/20 10:09 Dose: 125 mls/hr Documented by: [id number] Infusion: 03/07/20 10:09 Dose: 125 mls/hr Documented by: [id number] Admin: 03/07/20 02:50 Dose: 125 mls/hr Documented by: [id number] Insulin Aspart (Insulin Aspart 100 Units/Ml 3 Ml Pen) 0 units SC Q6 [facility] [place] Stop: 04/06/20 05:59 Last Admin: 03/07/20 18:20 Dose: 1 units Documented by: [id number] Cosigned by: [id number] Admin: 03/07/20 13:06 Dose: Not Given Documented by: [id number] Cosigned by: [id number] Admin: 03/07/20 06:11 Dose: Not Given Documented by: [id number] Cosigned by: [id number] Insulin Aspart (Insulin Aspart 100 Units/Ml 3 Ml Pen) 0 units SC ACHS [facility] [place] Stop: 04/06/20 20:59 Last Admin: 03/08/20 13:28 Dose: 2 units Documented by: [id number] Cosigned by: [id number] Admin: 03/08/20 09:00 Dose: 4 units Documented by: [id number] Cosigned by: [id number] Admin: 03/07/20 20:41 Dose: 1 units Documented by: [id number] Cosigned by: [id number] Ioversol (Ioversol 100ml) 93 ml IV ONCE ONE Stop: 03/06/20 20:39 Last Admin: 03/06/20 20:38 Dose: 1 ml Documented by: [id number] Lisinopril (Lisinopril 20 Mg Tab) 20 mg PO QAM [facility] [place] Stop: 04/06/20 08:59 Last Admin: 03/08/20 08:56 Dose: 20 mg Documented by: [id number] Admin: 03/07/20 09:08 Dose: 20 mg Documented by: [id number] Metoprolol Tartrate (Metoprolol Tartrate 25 Mg Tab) 75 mg PO BID [facility] [place] Stop: 04/06/20 08:59 Last Admin: 03/08/20 08:56 Dose: 75 mg Documented by: [id number] Admin: 03/07/20 20:34 Dose: 75 mg Documented by: [id number] Admin: 03/07/20 09:08 Dose: 75 mg Documented by: [id number] Morphine Sulfate (Morphine Sulfate 10 Mg/Ml Carp/Vial) 6 mg IV NOW STA Stop: 03/06/20 19:30 Last Admin: 03/06/20 19:43 Dose: 6 mg Documented by: [id number] Morphine Sulfate (Morphine Sulfate 4 Mg/Ml 1 Ml Carp\Vial) Confirm Administered Dose 4 mg .ROUTE .STK-MED ONE Stop: 03/06/20 19:35 Last Admin: 03/06/20 19:43 Dose: Not Given Documented by: [id number] Morphine Sulfate (Morphine Sulfate 2 Mg/Ml Carp) Confirm Administered Dose 2 mg .ROUTE .STK-MED ONE Stop: 03/06/20 19:36 Last Admin: 03/06/20 20:20 Dose: Not Given Documented by: [id number] Morphine Sulfate (Morphine Sulfate 4 Mg/Ml 1 Ml Carp\Vial) 4 mg IV NOW STA Stop: 03/06/20 21:14 Last Admin: 03/06/20 21:25 Dose: 4 mg Documented by: [id number] Morphine Sulfate (Morphine Sulfate 2 Mg/Ml Carp) 2 mg IV Q3H PRN PRN Reason: Pain Stop: 03/21/20 09:47 Last Admin: 03/07/20 19:11 Dose: 2 mg Documented by: [id number] Admin: 03/07/20 14:11 Dose: 2 mg Documented by: [id number] Admin: 03/07/20 10:10 Dose: 2 mg Documented by: [id number] Multivitamins (Multivitamin Tab) 1 tab PO QAM RADHA Stop: 04/06/20 08:59 Last Admin: 03/08/20 08:56 Dose: 1 tab Documented by: [id number] Admin: 03/07/20 09:08 Dose: 1 tab Documented by: [id number] Ondansetron HCl (Ondansetron Inj 2 Mg/Ml 2 Ml Vial) 4 mg IV NOW STA Stop: 03/06/20 19:30 Last Admin: 03/06/20 19:43 Dose: 4 mg Documented by: [id number] Ondansetron HCl (Ondansetron Inj 2 Mg/Ml 2 Ml Vial) 4 mg IV Q6H PRN PRN Reason: Nausea Stop: 04/06/20 02:09 Last Admin: 03/07/20 14:11 Dose: 4 mg Documented by: [id number] Medical Decision Making Differential Diagnosis Differential diagnoses includes but is not limited to gastritis, peptic ulcer disease, GERD, gallbladder disease, pancreatitis, small bowel obstruction, acute coronary syndrome, pericarditis, ischemic bowel, irritable bowel disease, irritable bowel syndrome, appendicitis, diverticulitis, malignancy, hernia, urinary tract infection, torsion, [/ectopic (if female)], perforation, trauma, infectious. Medical Records Attestation: I reviewed the patient's medical records. Home Medications Current Medication List: was personally reviewed by me Laboratory Data Attestation: I reviewed the patient's lab results. Result diagrams: 03/08/20 06:28 03/08/20 06:28 Lab Results 03/06/20 03/06/20 03/06/20 Range/Units 19:27 19:27 19:27 WBC 9.01 (4.8-10.8) K/uL RBC 4.18 L (4.7-6.1) M/uL Hgb 13.4 L (14.0-18.0) g/dL Hct 38.9 L (42-52) % MCV 93.1 (80-100) fL MCH 32.1 (25-34) pg MCHC 34.4 (32-36) g/dL RDW Std Deviation 41.8 (36.4-46.3) fL RDW Coeff of Rodolfo 12.3 (11.5-14.5) % Plt Count 221 (130-400) K/uL MPV 9.6 (7.4-10.4) fL Immature Gran % (Auto) 0.1 % Neut % (Auto) 63.9 % Lymph % (Auto) 22.6 % [place] % (Auto) 11.0 % Eos % (Auto) 2.1 % Baso % (Auto) 0.3 % Neut # (Auto) 5.75 (1.4-6.5) K/uL Lymph # (Auto) 2.04 (1.2-3.4) K/uL [place] # (Auto) 0.99 H (0.11-0.59) K/uL Eos # (Auto) 0.19 (0-0.5) K/uL Baso # (Auto) 0.03 (0-0.2) K/uL Immature Gran # (Auto) 0.01 (0.00-0.02) K/uL PT 10.0 (9.0-12.0) Seconds INR 0.9 (0.9-1.1) Sodium 138 (136-145) mmol/L Potassium 4.0 (3.5-5.1) mmol/L Chloride 106 (98-107) mmol/L Carbon Dioxide 26 (21-32) mmol/L Anion Gap 6.0 (3-11) BUN 22 H (7-18) mg/dl Creatinine 0.97 (0.6-1.4) mg/dl Est Cr Clr Drug Dosing 69.6 ml/min Est GFR ( Amer) 92.6 Est GFR (Non-Af Amer) 79.9 BUN/Creatinine Ratio 22.2 H (10-20) Glucose 180 H (70-99) mg/dl Lactate (0.4-2.0) mmol/L Calcium 9.1 (8.5-10.1) mg/dl Magnesium 1.7 L (1.8-2.4) mg/dl Total Bilirubin 0.2 (0.2-1) mg/dl AST 14 L (15-37) U/L ALT 25 (12-78) U/L Alkaline Phosphatase 73 (45-117) U/L Troponin I < 0.015 (0-0.045) ng/ml Total Protein 7.7 (6.4-8.2) gm/dl Albumin 3.5 (3.4-5.0) gm/dl Globulin 4.2 H (2.5-4.0) gm/dl Albumin/Globulin Ratio 0.8 L (0.9-2) Lipase 450 H (73-393) U/L SARS-CoV-2 Ag (Rapid) (Negative) 03/06/20 03/06/20 Range/Units 21:21 22:27 WBC (4.8-10.8) K/uL RBC (4.7-6.1) M/uL Hgb (14.0-18.0) g/dL Hct (42-52) % MCV (80-100) fL MCH (25-34) pg MCHC (32-36) g/dL RDW Std Deviation (36.4-46.3) fL RDW Coeff of Rodolfo (11.5-14.5) % Plt Count (130-400) K/uL MPV (7.4-10.4) fL Immature Gran % (Auto) % Neut % (Auto) % Lymph % (Auto) % [place] % (Auto) % Eos % (Auto) % Baso % (Auto) % Neut # (Auto) (1.4-6.5) K/uL Lymph # (Auto) (1.2-3.4) K/uL [place] # (Auto) (0.11-0.59) K/uL Eos # (Auto) (0-0.5) K/uL Baso # (Auto) (0-0.2) K/uL Immature Gran # (Auto) (0.00-0.02) K/uL PT (9.0-12.0) Seconds INR (0.9-1.1) Sodium (136-145) mmol/L Potassium (3.5-5.1) mmol/L Chloride (98-107) mmol/L Carbon Dioxide (21-32) mmol/L Anion Gap (3-11) BUN (7-18) mg/dl Creatinine (0.6-1.4) mg/dl Est Cr Clr Drug Dosing ml/min Est GFR ( Amer) Est GFR (Non-Af Amer) BUN/Creatinine Ratio (10-20) Glucose (70-99) mg/dl Lactate 1.4 (0.4-2.0) mmol/L Calcium (8.5-10.1) mg/dl Magnesium (1.8-2.4) mg/dl Total Bilirubin (0.2-1) mg/dl AST (15-37) U/L ALT (12-78) U/L Alkaline Phosphatase (45-117) U/L Troponin I (0-0.045) ng/ml Total Protein (6.4-8.2) gm/dl Albumin (3.4-5.0) gm/dl Globulin (2.5-4.0) gm/dl Albumin/Globulin Ratio (0.9-2) Lipase (73-393) U/L SARS-CoV-2 Ag (Rapid) Negative (Negative) Imaging Data Radiologist's Impression: ABDOMEN AND PELVIS CT WITH IV CONTRAST CT DOSE: 550.89 mGy.cm HISTORY: Acute upper abdominal pain in patient with history of pancreatitis upper abd pain, hx pancreatitis TECHNIQUE: Multiaxial CT images of the abdomen and pelvis were performed following the IV administration of 93 cc of Optiray 320, A dose lowering technique was utilized adhering to the principles of ALARA. COMPARISON STUDY: CT abdomen and pelvis 08/16/2019 FINDINGS: Cardiomegaly. Coronary artery and papillary muscle calcifications. Prior median sternotomy. Mild subsegmental scarring/atelectasis of the left lung base. No pneumatosis or pneumoperitoneum. The spleen and adrenal glands are unremarkable. Cholecystectomy. Probable hepatic steatosis. Patency of the hepatic and portal veins. There is mild interstitial and peripancreatic stranding involving the uncinate process and pancreatic tail. No peripancreatic fluid collection. No pancreatic ductal dilation or lesion identified. Cysts of the posterior interpolar left kidney, 2.6 cm. No hydronephrosis. Unremarkable urinary bladder. Prostate is upper limits of normal in size. Mixed plaque of the abdominal aorta without aneurysm. There is no adenopathy. No bowel obstruction or bowel wall thickening. Terminal ileum and appendix are unremarkable. Postoperative changes of prior umbilical hernia repair unchanged small amount of periumbilical fluid. Unremarkable soft tissues. Bones appear intact. No acute fracture or suspicious bone lesion. Transitional lumbosacral anatomy. IMPRESSION: 1. Findings compatible with subtle acute uncomplicated pancreatitis. No pancreatic ductal dilation or peripancreatic fluid collection. 2. No bowel obstruction or bowel wall thickening. Normal appendix. 3. Cholecystectomy. ACT 112: Negative or not required by law. The above report was generated using voice recognition software. It may contain grammatical, syntax or spelling errors. Electronically signed by: Carl Omer M.D. 03/06/2020 9:17 PM Blood Pressure Blood Pressure Findings: Elevated blood pressure Blood Pressure Disposition: further management by hospitalist MDM Narrative Pt here with abdominal pain similar to prior episodes of pancreatitis. No clear etiology of prior episodes and pt states several medications were considered. Labs sent and pt sent for CT imaging. Mild elevation of lipase but other labs reassuring. Ct did show evidence of mild pancreatitis. Pt received several doses of pain medication. I did offer discharge home with close f/u with pain and nausea meds on a clear liquid diet and pt declined stating he feels unsafe doing this because of how much pain he is having and knowing how his prior courses with this have gone. VS stable. Case discussed with hospitalist. No evidence of sepsis, gi bleed, infarction, or pseudocyst. An order was placed for continuous cardiac monitoring. The monitor shows a rate of 80_ with _normal sinus rhythm. Impression & Plan Abdominal pain, Pancreatitis Discharge Plan Visit Data Chief Complaint: Abdominal Pain Stated Complaint: BACK AND ABDOMINAL PAIN ED Provider: Bianca Puckett Discharge Problem: Abdominal pain, Pancreatitis Patient Disposition: Admitted As Inpatient Discharge Instructions Interventions: ED Discharge Assessment Last Done: 03/07/20 01:27 Discharge Problem: Abdominal pain Qualifiers: Abdominal location: upper abdomen, unspecified Qualified Code(s): R10.10 - Upper abdominal pain, unspecified Pancreatitis Qualifiers: Chronicity: acute Pancreatitis type: unspecified pancreatitis type Acute pancreatitis complication: no infection or necrosis Qualified Code(s): K85.90 - Acute pancreatitis without necrosis or infection, unspecified
[2020-03-06] MEDS: MoRPHine SULFATE 2 MG/ML CARP ONE ×2 (19:43→20:20)
[2020-03-06 19:46] LABS: Basophils # (auto) 0.03 K/uL (0-0.2); Basophils % (auto) 0.3 %; Eosinophils # (auto) 0.19 K/uL (0-0.5); Eosinophils % (auto) 2.1 %; Hematocrit (blood only) 38.9 % (42-52); Hemoglobin 13.4 g/dL (14.0-18.0); Immature Granulocytes # (auto) 0.01 K/uL (0.00-0.02); Immature Granulocytes % (auto) 0.1 %; Lymphocytes # (auto) 2.04 K/uL (1.2-3.4); Lymphocytes % (auto) 22.6 %; Mean Corpuscular Hemoglobin 32.1 pg (25-34); Mean Corpuscular Hgb Conc 34.4 g/dL (32-36); Mean Corpuscular Volume 93.1 fL (80-100); Mean Platelet Volume 9.6 fL (7.4-10.4); Monocytes # (auto) 0.99 K/uL (0.11-0.59); Neutrophils # (auto) 5.75 K/uL (1.4-6.5); Neutrophils % (auto) 63.9 %; Platelet Count 221 K/uL (130-400); RDW Coefficient of Variation 12.3 % (11.5-14.5); RDW Standard Deviation 41.8 fL (36.4-46.3); Red Blood Count 4.18 M/uL (4.7-6.1); White Blood Count 9.01 K/uL (4.8-10.8)
[2020-03-06 19:57] LABS: INR 0.9 (0.9-1.1)
[2020-03-06 20:09] LABS: Alanine Aminotransferase 25 U/L (12-78); Albumin Level 3.5 gm/dl (3.4-5.0); Aspartate Aminotransferase 14 U/L (15-37); BUN Creatinine Ratio 22.2 (10-20); Blood Urea Nitrogen 22 mg/dl (7-18); Calcium 9.1 mg/dl (8.5-10.1); Carbon Dioxide 26 mmol/L (21-32); Chloride 106 mmol/L (98-107); Creatinine Clr Calc Pharmacy 69.6 ml/min; Est GFR (African American) 92.6; Est GFR (Non-African American) 79.9; Glucose 180 mg/dl (70-99); Lipase 450 U/L (73-393); Magnesium 1.7 mg/dl (1.8-2.4); Sodium 138 mmol/L (136-145)
[2020-03-06 20:14] LABS: Albumin Globulin Ratio 0.8 (0.9-2); Alkaline Phosphatase 73 U/L (45-117); Bilirubin,Total 0.2 mg/dl (0.2-1); Globulin 4.2 gm/dl (2.5-4.0); Total Protein 7.7 gm/dl (6.4-8.2); Troponin I < 0.015 ng/ml (0-0.045)
[2020-03-06] MEDS ORDERED: IOVERSOL 100ml IV ONE (20:38)
[2020-03-06] MEDS ORDERED: MAGNESIUM SULFATE / D5W 1 GM/100 ML BAG IV STA (20:40)
[2020-03-06] MEDS ORDERED: MoRPHine SULFATE 4 MG/ML 1 ML CARP\\VIAL IV STA (21:13)
[2020-03-06] MEDS ORDERED: ACETAMINOPHEN 1,000 MG/100 ML VIAL IV STA (21:13)
--- NOTE | 2020-03-06 21:18 | CT Scan Report ---
ABDOMEN AND PELVIS CT WITH IV CONTRAST CT DOSE: 550.89 mGy.cm HISTORY: Acute upper abdominal pain in patient with history of pancreatitis upper abd pain, hx pancr eatitis TECHNIQUE: Multiaxial CT images of the abdomen and pelvis were performed following the IV administrat ion of 93 cc of Optiray 320, A dose lowering technique was utilized adhering to the principles of [place] CHARLIE. COMPARISON STUDY: CT abdomen and pelvis 08/16/2019 FINDINGS: Cardiomegaly. Coronary artery and papillary muscle calcifications. Prior median sternotomy. Mild subs egmental scarring/atelectasis of the left lung base. No pneumatosis or pneumoperitoneum. The spleen a nd adrenal glands are unremarkable. Cholecystectomy. Probable hepatic steatosis. Patency of the hepat ic and portal veins. There is mild interstitial and peripancreatic stranding involving the uncinate p rocess and pancreatic tail. No peripancreatic fluid collection. No pancreatic ductal dilation or lesi on identified. Cysts of the posterior interpolar left kidney, 2.6 cm. No hydronephrosis. Unremarkable urinary bladde r. Prostate is upper limits of normal in size. Mixed plaque of the abdominal aorta without aneurysm. There is no adenopathy. No bowel obstruction or bowel wall thickening. Terminal ileum and appendix are unremarkable. Postoper ative changes of prior umbilical hernia repair unchanged small amount of periumbilical fluid. Unremar kable soft tissues. Bones appear intact. No acute fracture or suspicious bone lesion. Transitional lainey mbosacral anatomy. IMPRESSION: 1. Findings compatible with subtle acute uncomplicated pancreatitis. No pancreatic ductal dilation or peripancreatic fluid collection. 2. No bowel obstruction or bowel wall thickening. Normal appendix. 3. Cholecystectomy. ACT 112: Negative or not required by law. The above report was generated using voice recognition software. It may contain grammatical, syntax o r spelling errors. Electronically signed by: Carl Omer M.D. 03/06/2020 9:17 PM
[2020-03-07] MEDS ORDERED: ACETAMINOPHEN 325 MG TAB PO PRN (02:10)
[2020-03-07] MEDS ORDERED: ONDANSETRON INJ 2 MG/ML 2 ML VIAL IV PRN (02:10)
[2020-03-07] MEDS ORDERED: SODIUM CHLORIDE 0.65% NA SOLN 45 ML (OCEAN) PRN (02:10)
[2020-03-07] MEDS ORDERED: HYDROmorphone INJ 0.5 MG/0.5 ML SYR IV PRN (02:10)
[2020-03-07] MEDS ORDERED: NITROGLYCERIN SL 0.4 MG/TAB TAB SL PRN (02:10)
[2020-03-07] MEDS ORDERED: HYDROmorphone INJ 0.5 MG/0.5 ML SYR ONE (02:15)
--- NOTE | 2020-03-07 02:17 | History and Physical Report ---
DATE OF ADMISSION: 03/06/2020 CHIEF COMPLAINT: Abdominal pain. HISTORY OF PRESENT ILLNESS: A 69-year-old male with past medical history significant for recurrent pancreatitis, history of type 2 diabetes, CAD status post CABG in 2003, history of diastolic CHF, hypertension, vitamin B12 deficiency, nonallergic rhinitis, hyperlipidemia, GERD, who comes because of abdominal pain. The patient says prior to , he noticed some left flank pain. He thought because of his trying to put a Gayathri tree, he must have pulled a muscle, but today the pain was radiating into the upper abdomen and is radiating to his ribs, lower part of ribcage, and he thought it is mostly pancreatitis coming back and he came to the hospital. When he came in, pain was 10/10 in severity. No nausea, vomiting. When he was having pain, he was short of breath. He thought there was one point in the chest where he also had pain. With the pain medication, the chest pain got resolved. He still has mild discomfort in the abdomen. His CAT scan is showing again pancreatitis and lipase levels are 450. Currently resting comfortably and hemodynamically stable. 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 Denies any headache. No blurred visions, no earache, no loss of sense of smell or taste. Appetite is good. No diarrhea or constipation, no blood in stools or black stools. Normal bladder movements. No swelling in the legs, no rash. ALLERGIES: ADHESIVES, HYDROCHLOROTHIAZIDE, PROTONIX, CRESTOR. PAST MEDICAL HISTORY: As mentioned above. PAST SURGICAL HISTORY: CABG, colonoscopy, EGD with endoscopic ultrasounds, multiple ERCPs, knee arthroscopy, laparoscopic cholecystectomy, repair of inguinal hernia, repair of index and middle finger of left hand tendon sheath incision, umbilical hernia repair. MEDICATIONS: The patient is on aspirin 81 mg p.o. daily, cyanocobalamin 1000 mcg p.o. daily, glipizide 10 mg before breakfast and 20 mg before dinner as directed, lisinopril 20 mg p.o. daily, metformin 1000 mg p.o. b.i.d., metoprolol 75 mg p.o. b.i.d., multivitamins 1 tablet p.o. a.m., nitroglycerin 0.4 mg sublingual p.r.n., sodium chloride nasal spray as directed. FAMILY HISTORY: Significant for brother had colon cancer, father had of unknown cancer at age of 44, mother had diabetes. SOCIAL HISTORY: . No smoking. Snuffs tobacco for many years. Alcohol rarely. No drug use. REVIEW OF SYSTEMS: As per HPI. Rest of the review of systems negative. PHYSICAL EXAMINATION: GENERAL: The patient is of moderate build, not in acute distress. VITAL SIGNS: Temperature 37.1, pulse 67, respiratory rate 18, blood pressure 142/89, oxygen 94% on room air. HEENT: Pupils equal, round, and reactive to light. Oral mucosa moist. NECK: No neck masses seen. CARDIOVASCULAR: S1, S2 heard. Regular rate and rhythm. No murmur, no gallop. RESPIRATORY SYSTEM: Normal AP diameter. No accessory muscle use. No wheezing, no crackles. ABDOMEN: Soft. Mild right upper quadrant, epigastric abdominal discomfort. No guarding, no rigidity, no distention. CENTRAL NERVOUS SYSTEM: Cranial nerves II-XII grossly intact, nonfocal. EXTREMITIES: No edema, no erythema. LABORATORY DATA: WBC 9, hemoglobin 13.4, hematocrit 38.9, platelets 221. PT 10, INR 0.9. Sodium 138, potassium 4, chloride 106, bicarbonate 26, BUN 22, creatinine 0.9, serum glucose 180, lactate 1.4, calcium 9.1, magnesium 1.7, total bilirubin 0.2, AST 14, ALT 25, alkaline phosphatase 73, troponin I less than 0.015. Lipase 450, SARS-CoV-2 rapid test negative. IMAGING DATA: CT of the abdomen and pelvis shows finding compatible with subtle acute uncomplicated pancreatitis. No pancreatic ductal dilatation or peripancreatic fluid collection. No bowel obstruction. Cholecystectomy. EKG: Shows sinus rhythm with first-degree AV block at a rate of 81, no acute ST changes seen. ASSESSMENT AND PLAN: This is a 69-year-old male who presents with recurrent acute pancreatitis. 1. Recurrent acute pancreatitis, the fourth episode of this year, last was in August. He had an ERCP done in September of 2019. At that time, prior biliary sphincterotomy, appeared stenosed and narrowed . Again, biliary sphincterotomy was performed and biliary tree was swept and sludge was found. Since then, he is doing okay. Again this episode happened. Some of the medications were also changed last admission. We will keep him n.p.o., IV fluids at 125 mL per hour as the patient has a history of congestive heart failure. IV pain meds p.r.n., IV antiemetics p.r.n. Consult GI in the a.m. for further recommendations. 2. History of coronary artery disease status post coronary artery bypass graft. Continue home medication of beta blockers, statin, aspirin, and lisinopril. 3. Diabetes. Holding his glipizide and metformin. Placed on insulin sliding scale. Follow the blood sugar. Currently n.p.o. 4. Diastolic congestive heart failure, not on any diuretics. Getting fluids. Will monitor for any volume overload. 5. Hyperlipidemia. Continue statin. 6. Deep vein thrombosis prophylaxis, sequential compression devices. DISPOSITION: Closely monitor in the medical floor. Level 1 full code. MTDD
[2020-03-07] MEDS ORDERED: DEXTROSE 50% 50 ML SYRINGE IV PRN (02:45)
[2020-03-07] MEDS ORDERED: CARBOHYDRATES FOR HYPOGLYCEMIA PO PRN (02:45)
[2020-03-07] MEDS ORDERED: GLUCOSE 40% GEL 15 GM TUBE PO PRN (02:45)
[2020-03-07] MEDS ORDERED: GLUCOSE 10 TABS/TUBE PO PRN (02:45)
[2020-03-07] MEDS ORDERED: GLUCAGON FOR INJ 1 MG VIAL IM PRN (02:45)
[2020-03-07] MEDS: LACTATED RINGER'S 1,000 ML IV SCH ×3 (02:50→19:05)
[2020-03-07] MEDS: INSULIN ASPART 100 UNITS/ML 3 ML PEN SC SCH ×4 (06:11→20:41)
[2020-03-07 06:22] LABS: Basophils # (auto) 0.03 K/uL (0-0.2); Basophils % (auto) 0.4 %; Eosinophils # (auto) 0.16 K/uL (0-0.5); Eosinophils % (auto) 2.2 %; Hematocrit (blood only) 36.9 % (42-52); Hemoglobin 12.6 g/dL (14.0-18.0); Immature Granulocytes # (auto) 0.01 K/uL (0.00-0.02); Immature Granulocytes % (auto) 0.1 %; Lymphocytes # (auto) 1.91 K/uL (1.2-3.4); Lymphocytes % (auto) 26.5 %; Mean Corpuscular Hemoglobin 32.3 pg (25-34); Mean Corpuscular Hgb Conc 34.1 g/dL (32-36); Mean Corpuscular Volume 94.6 fL (80-100); Mean Platelet Volume 9.4 fL (7.4-10.4); Monocytes # (auto) 0.88 K/uL (0.11-0.59); Monocytes % (auto) 12.2 %; Neutrophils # (auto) 4.22 K/uL (1.4-6.5); Neutrophils % (auto) 58.6 %; Platelet Count 206 K/uL (130-400); RDW Coefficient of Variation 12.5 % (11.5-14.5); White Blood Count 7.21 K/uL (4.8-10.8)
[2020-03-07 06:39] LABS: BUN Creatinine Ratio 21.5 (10-20); Creatinine Clr Calc Pharmacy 76.9 ml/min; Est GFR (African American) 102.8; Est GFR (Non-African American) 88.7; Magnesium 1.9 mg/dl (1.8-2.4); Potassium 4.4 mmol/L (3.5-5.1)
--- NOTE | 2020-03-07 08:49 | Gastrointestinal Consultation ---
Date of Consultation March 07, 2020 Assessment & Plan (1) Pancreatitis: 69 year old male w/ history of T2DM, dyslipidemia, HTN, GERD, recurrent pancreatitis, CAD w/ prior ID in 2003 complicated by VFib cardiac arrest s/p CABG 2003 admitted through the ED w/ abdominal pain He uses ETOH in moderation, about 4-6 beers in the past 1 month time frame Otherwise denies regular ETOH intake. No tobacco use since early . Noillicit drugs including marijuana. No new meds Triglyceride level 132 in 2018. He did have ERCP by Dr. Gabriela Verde in 2012, 2019 - debris swept from biliary duct and biliary sphincterectomy was done, thought his recurrent panc was related to SOD. NPO LR 150/200 mL/hr but watch closely for s/s of fluid overload Antietmics PRN Analgesia PRN Strict ETOH cessation Check triglycerides Medications - Metformin (class-3) - Lisinopril (class-3) Will discuss with Dr. Verde given prior ERCP for SOD Thank you for allowing us to participate in the care of this patient. Please call with any acute changes, questions or concerns. Please see addendum below with additional recommendation from my supervising physician. Supervising Physician Co-Signing Physician Notes I have seen and examined the patient and discussed the management with Cecille. 69 yo male admitted with pancreatitis, prior ercp done by Dr. Verde with a sphincterotomy. Still with mild abdominal pain. Denies recent etoh use, taking some type of supplement with bee something in it for allergies he states for the last 1 month. Continue with IV fluids for now, and obtain an mrcp. History of Present Illness Reason for Consultation: pancreatitis Requesting Physician: Isra Attending Physician: Tanvir Dhaliwal MD History of Present Illness 69 year old male w/ history of T2DM, dyslipidemia, HTN, GERD, recurrent pancreatitis, CAD w/ prior ID in 2003 complicated by VFib cardiac arrest s/p CABG 2003 admitted through the ED w/ abdominal pain - GI asked to evaluate for pancreatitis. Pt was seen and evaluated, chart reviewed. Endorses onset of pain about 1-2 weeks ago. Was doing some labor around the house and thought he had pulled a muscle at first. However, the pain had persisted and yesterday became more severe and identical to prior episodes of pancreatitis. RUQ in location to start w/ radiation to his back followed by a bandlike discomfort. Constant. Worse at random. There has been no nausea/vomiting. No worsening GERD. Denies black/bloody stools. He uses ETOH in moderation, about 4-6 beers in the past 1 month time frame Otherwise denies regular ETOH intake. No tobacco use since early . Noillicit drugs including marijuana. No new meds Triglyceride level 132 in 2019. He did have ERCP by Dr. Gabriela Verde in 2012, 2019 for abd pain, recurrent pancreatitis (2011, 2012, 2018). Debris swept from biliary duct and biliary sphincterectomy was done, thought his recurrent panc was related to SOD. Lipase 450 Liver function tests normal CTAP 2019: Findings compatible with subtle acute uncomplicated pancreatitis. No pancreatic ductal dilation or peripancreatic fluid collection. No bowel obstruction or bowel wall thickening. Normal appendix. Cholecystectomy. ERCP 2019: Prior biliary sphincterotomy appeared stenosed or narrowed. - The examination was suspicious for sludge. - A biliary sphincterotomy was performed. - The biliary tree was swept and sludge was found. - Indomethacin given to decrease risk of post-ERCP pancreatitis. EGD 2019: No endoscopic esophageal abnormality to explain patient's dysphagia. Esophagus dilated to 54 Fr. - Z-line regular, 38 cm from the incisors. - Normal stomach. - Normal examined duodenum. - No specimens collected EUS 2019: There was no sign of significant pathology in the ampulla. - There was no sign of significant pathology in the common bile duct. - Hyperechoic material suggestive of air was visualized in the common bile duct. - There was abnormal echogenicity in the visualized portion of the liver. This was hyperechoic. Tissue has not been obtained. However, the endosonographic appearance is consistent with fatty infiltration. - Pancreatic parenchymal abnormalities consisting of diffuse echogenicity were noted in the entire pancreas. - Endosonographic images of the left adrenal gland were unremarkable. - No specimens collected Colonoscopy 2017: Granularity in the transverse colon. Biopsied. EGD 2018: No endoscopic esophageal abnormality to explain patient's dysphagia. Esophagus dilated to 54 Fr today. - Small hiatal hernia. - Normal stomach. - Normal examined duodenum. - No specimens collected. ERCP 2012: The major papilla appeared normal. - Biliary papillary stenosis, benign. Allergies Allergy/AdvReac Type Severity Reaction Status Date / Time adhesive AdvReac Mild BLISTERS Verified 03/06/20 22:18 hydrochlorothiazide AdvReac Unknown Pancreatitis Verified 03/06/20 22:18 history pantoprazole AdvReac Unknown HX Verified 03/06/20 22:18 PANCREATITIS rosuvastatin [From Crestor] AdvReac Unknown HX Verified 03/06/20 22:18 PANCREATITIS Home Medications Medication Instructions Recorded Confirmed Type cyanocobalamin (vitamin B-12) 1,000 mcg PO QAM 03/14/19 03/06/20 History lisinopril 20 mg PO QAM 03/14/19 03/06/20 History metoprolol tartrate 75 mg PO BID 03/14/19 03/06/20 History multivitamin [Multiple Vitamins] 1 tab PO QAM 03/14/19 03/06/20 History nitroglycerin [Nitrostat] 0.4 mg SUBLINGUAL DIRECTED PRN 03/14/19 03/06/20 History sodium chloride [[place] Nasal] 2 spray INTRANASAL DIRECTED PRN 06/05/19 03/06/20 History metformin 1,000 mg PO BIDM #0 tab 06/06/19 03/06/20 Rx aspirin [Aspirin Low Dose] 81 mg PO QAM 03/06/20 03/06/20 History glipizide See Rx Instructions .ROUTE .COMPLEX 03/06/20 03/06/20 History Patient History Medical History CHF (congestive heart failure) Euvolemia noted on cardio visit 09/19 Coronary artery disease s/p ID and Vfib arrest 2003 s/p CABG x 2 2003 Diabetes mellitus type 2 with complications On oral meds Dyslipidemia GERD (gastroesophageal reflux disease) History of pancreatitis Hypertension Myocardial Infarction 06/16/2003, complicated by Vfib arrest. S/P CABG (DAVILA-LAD, SVG-PDA) Follows with Dr. Roach ([facility] Surgical History History of colonoscopy History of ERCP History of esophagogastroduodenoscopy (EGD) Status post cholecystectomy Status post coronary artery bypass grafting 2 VESSELS-06/2003 Status post hernia repair Family History Mother Diabetes Brother Colorectal cancer Social History Smoking Status: Never smoker Second Hand Exposure: No; Do You Dip or Chew Tobacco: No; Tobacco Cessation Education Requested by Patient: No Hx Alcohol Use: Yes Alcohol type: beer Hx Substance Use: No Preferred Language: Macanese Communication Ability: Effective First Assistant Required: No Beliefs That Will Affect Care: None marital status: Current Living Situation: Spouse Other Information That Helps Us Care for You: No Feels Safe at Home: Yes Safety Concerns: Feels Safe At This Time Assistive Devices: None Review of Systems Constitutional: no fever, no chills and no fatigue Respiratory: no cough and no dyspnea Cardiovascular: no chest pain and no dyspnea Gastrointestinal: + abdominal pain; no nausea, no coffee ground emesis, no blood in stools and no melena Physical Exam Constitutional: WD/WN, vitals as above Neck: trachea midline Respiratory: normal respiratory effort; no respiratory distress and no labored breathing Cardiovascular: RRR, no murmur, no edema Gastrointestinal (Abdomen): Inspection/Auscultation: abdomen not distended Percussion/Palpation: + abdomen tender and abdomen soft; no guarding and abdomen not rigid Skin: no rashes, warm and dry Results & Data ([facility]) Vital Signs (Past 12 Hours) Vital Signs Temp Pulse Pulse Resp BP BP Pulse Ox 03/07/20 07:15 36.6 C 69 18 133/72 94 03/07/20 01:55 36.4 C L 75 18 149/72 H 95 03/07/20 01:20 59 L 14 140/85 91 03/07/20 01:10 53 L 14 93 03/07/20 01:00 63 16 93 03/07/20 00:50 58 L 15 92 03/07/20 00:40 59 L 17 92 03/07/20 00:30 58 L 15 93 03/07/20 00:20 60 16 90 03/07/20 00:10 58 L 14 93 03/07/20 00:00 59 L 17 92 03/06/20 23:50 60 16 91 03/06/20 23:40 67 18 94 03/06/20 23:30 59 L 15 92 03/06/20 23:20 61 17 93 03/06/20 23:10 59 L 16 93 03/06/20 23:00 60 16 93 03/06/20 22:50 61 17 92 03/06/20 22:40 62 19 92 03/06/20 22:30 57 L 17 93 03/06/20 22:20 59 L 21 92 03/06/20 22:18 64 20 92 03/06/20 22:17 66 24 142/89 H 95 03/06/20 21:10 74 22 146/77 H 94 Laboratory Results 03/07/20 03/07/20 03/07/20 Range/Units 06:08 06:00 06:00 WBC (4.8-10.8) K/uL RBC (4.7-6.1) M/uL Hgb (14.0-18.0) g/dL Hct (42-52) % MCV (80-100) fL MCH (25-34) pg MCHC (32-36) g/dL RDW Std Deviation (36.4-46.3) fL RDW Coeff of Rodolfo (11.5-14.5) % Plt Count (130-400) K/uL MPV (7.4-10.4) fL Immature Gran % (Auto) % Neut % (Auto) % Lymph % (Auto) % [place] % (Auto) % Eos % (Auto) % Baso % (Auto) % Neut # (Auto) (1.4-6.5) K/uL Lymph # (Auto) (1.2-3.4) K/uL [place] # (Auto) (0.11-0.59) K/uL Eos # (Auto) (0-0.5) K/uL Baso # (Auto) (0-0.2) K/uL Immature Gran # (Auto) (0.00-0.02) K/uL PT (9.0-12.0) Seconds INR (0.9-1.1) Sodium 139 (136-145) mmol/L Potassium 4.4 (3.5-5.1) mmol/L Chloride 107 (98-107) mmol/L Carbon Dioxide 28 (21-32) mmol/L Anion Gap 3.0 (3-11) BUN 19 H (7-18) mg/dl Creatinine 0.87 (0.6-1.4) mg/dl Est Cr Clr Drug Dosing 76.9 ml/min Est GFR ( Amer) 102.8 Est GFR (Non-Af Amer) 88.7 BUN/Creatinine Ratio 21.5 H (10-20) Glucose 113 H (70-99) mg/dl POC Glucose 113 H (70-99) mg/dl Estimat Average Glucose Pending Hemoglobin A1c Pending Lactate (0.4-2.0) mmol/L Calcium 9.0 (8.5-10.1) mg/dl Magnesium 1.9 (1.8-2.4) mg/dl Total Bilirubin (0.2-1) mg/dl AST (15-37) U/L ALT (12-78) U/L Alkaline Phosphatase (45-117) U/L Troponin I (0-0.045) ng/ml Total Protein (6.4-8.2) gm/dl Albumin (3.4-5.0) gm/dl Globulin (2.5-4.0) gm/dl Albumin/Globulin Ratio (0.9-2) Lipase (73-393) U/L SARS-CoV-2 Ag (Rapid) (Negative) 03/07/20 03/06/20 03/06/20 Range/Units 06:00 22:27 21:21 WBC 7.21 (4.8-10.8) K/uL RBC 3.90 L (4.7-6.1) M/uL Hgb 12.6 L (14.0-18.0) g/dL Hct 36.9 L (42-52) % MCV 94.6 (80-100) fL MCH 32.3 (25-34) pg MCHC 34.1 (32-36) g/dL RDW Std Deviation 43.0 (36.4-46.3) fL RDW Coeff of Rodolfo 12.5 (11.5-14.5) % Plt Count 206 (130-400) K/uL MPV 9.4 (7.4-10.4) fL Immature Gran % (Auto) 0.1 % Neut % (Auto) 58.6 % Lymph % (Auto) 26.5 % [place] % (Auto) 12.2 % Eos % (Auto) 2.2 % Baso % (Auto) 0.4 % Neut # (Auto) 4.22 (1.4-6.5) K/uL Lymph # (Auto) 1.91 (1.2-3.4) K/uL [place] # (Auto) 0.88 H (0.11-0.59) K/uL Eos # (Auto) 0.16 (0-0.5) K/uL Baso # (Auto) 0.03 (0-0.2) K/uL Immature Gran # (Auto) 0.01 (0.00-0.02) K/uL PT (9.0-12.0) Seconds INR (0.9-1.1) Sodium (136-145) mmol/L Potassium (3.5-5.1) mmol/L Chloride (98-107) mmol/L Carbon Dioxide (21-32) mmol/L Anion Gap (3-11) BUN (7-18) mg/dl Creatinine (0.6-1.4) mg/dl Est Cr Clr Drug Dosing ml/min Est GFR ( Amer) Est GFR (Non-Af Amer) BUN/Creatinine Ratio (10-20) Glucose (70-99) mg/dl POC Glucose (70-99) mg/dl Estimat Average Glucose Hemoglobin A1c Lactate 1.4 (0.4-2.0) mmol/L Calcium (8.5-10.1) mg/dl Magnesium (1.8-2.4) mg/dl Total Bilirubin (0.2-1) mg/dl AST (15-37) U/L ALT (12-78) U/L Alkaline Phosphatase (45-117) U/L Troponin I (0-0.045) ng/ml Total Protein (6.4-8.2) gm/dl Albumin (3.4-5.0) gm/dl Globulin (2.5-4.0) gm/dl Albumin/Globulin Ratio (0.9-2) Lipase (73-393) U/L SARS-CoV-2 Ag (Rapid) Negative (Negative) 03/06/20 03/06/20 03/06/20 Range/Units 19:27 19:27 19:27 WBC 9.01 (4.8-10.8) K/uL RBC 4.18 L (4.7-6.1) M/uL Hgb 13.4 L (14.0-18.0) g/dL Hct 38.9 L (42-52) % MCV 93.1 (80-100) fL MCH 32.1 (25-34) pg MCHC 34.4 (32-36) g/dL RDW Std Deviation 41.8 (36.4-46.3) fL RDW Coeff of Rodolfo 12.3 (11.5-14.5) % Plt Count 221 (130-400) K/uL MPV 9.6 (7.4-10.4) fL Immature Gran % (Auto) 0.1 % Neut % (Auto) 63.9 % Lymph % (Auto) 22.6 % [place] % (Auto) 11.0 % Eos % (Auto) 2.1 % Baso % (Auto) 0.3 % Neut # (Auto) 5.75 (1.4-6.5) K/uL Lymph # (Auto) 2.04 (1.2-3.4) K/uL [place] # (Auto) 0.99 H (0.11-0.59) K/uL Eos # (Auto) 0.19 (0-0.5) K/uL Baso # (Auto) 0.03 (0-0.2) K/uL Immature Gran # (Auto) 0.01 (0.00-0.02) K/uL PT 10.0 (9.0-12.0) Seconds INR 0.9 (0.9-1.1) Sodium 138 (136-145) mmol/L Potassium 4.0 (3.5-5.1) mmol/L Chloride 106 (98-107) mmol/L Carbon Dioxide 26 (21-32) mmol/L Anion Gap 6.0 (3-11) BUN 22 H (7-18) mg/dl Creatinine 0.97 (0.6-1.4) mg/dl Est Cr Clr Drug Dosing 69.6 ml/min Est GFR ( Amer) 92.6 Est GFR (Non-Af Amer) 79.9 BUN/Creatinine Ratio 22.2 H (10-20) Glucose 180 H (70-99) mg/dl POC Glucose (70-99) mg/dl Estimat Average Glucose Hemoglobin A1c Lactate (0.4-2.0) mmol/L Calcium 9.1 (8.5-10.1) mg/dl Magnesium 1.7 L (1.8-2.4) mg/dl Total Bilirubin 0.2 (0.2-1) mg/dl AST 14 L (15-37) U/L ALT 25 (12-78) U/L Alkaline Phosphatase 73 (45-117) U/L Troponin I < 0.015 (0-0.045) ng/ml Total Protein 7.7 (6.4-8.2) gm/dl Albumin 3.5 (3.4-5.0) gm/dl Globulin 4.2 H (2.5-4.0) gm/dl Albumin/Globulin Ratio 0.8 L (0.9-2) Lipase 450 H (73-393) U/L SARS-CoV-2 Ag (Rapid) (Negative)
[2020-03-07] MEDS: MULTIVITAMIN TAB PO SCH (09:08)
[2020-03-07] MEDS: lisinopril 20 MG TAB PO SCH (09:08)
[2020-03-07] MEDS: ASPIRIN 81 MG ECTAB PO SCH (09:08)
[2020-03-07] MEDS: FAMOTIDINE 20 MG in SYRINGE 3 ML IV SCH ×2 (09:08→20:34)
[2020-03-07] MEDS: METOPROLOL TARTRATE 25 MG TAB PO SCH ×2 (09:08→20:34)
[2020-03-07] MEDS: CYANOCOBALAMIN 500 MCG TABLET (VITAMIN B-12) PO SCH (09:08)
[2020-03-07] MEDS ORDERED: oxyCODONE/ACETAMINOPHEN 5mg/325mg TAB PO PRN (09:22)
[2020-03-07 09:28] LABS: Estimated Average Glucose 169 mg/dl; Hemoglobin A1C 7.5 % (4.5-5.6)
[2020-03-07] MEDS: MoRPHine SULFATE 2 MG/ML CARP IV PRN ×3 (10:10→19:11)
--- NOTE | 2020-03-07 12:59 | Electrocardiogram Report ---
Test Reason : Blood Pressure : / mmHG Vent. Rate : 081 BPM Atrial Rate : 081 BPM P-R Int : 220 ms QRS Dur : 104 ms QT Int : 378 ms P-R-T Axes : 064 080 038 degrees QTc Int : 439 ms Sinus rhythm with 1st degree A-V block Otherwise normal ECG When compared with ECG of 16-AUG-2019 16:45, Fusion complexes are no longer Present Premature ventricular complexes are no longer Present Confirmed by Tristan Miranda ([id number]) on 03/07/2020 12:58:44 PM Referred By: REFERRED SELF Confirmed By:Dinesh Miarnda
--- NOTE | 2020-03-07 17:57 | Magnetic Resonance Report ---
MRCP CLINICAL HISTORY: Recurrent pancreatitis. COMPARISON STUDY: Abdominal CT dated 03/06/2020. TECHNIQUE: Abdominal MRCP is performed utilizing various T2-weighted sequences in the axial coronal p lanes. 3-D reformats are created and assessed. IV contrast was not administered for this examination. FINDINGS: The gallbladder is surgically absent. There is no intra or extrahepatic biliary ductal dilatation. Th e common bile duct is normal in caliber measuring up to 5 mm diameter. No filling defects are seen to suggest choledocholithiasis. The pancreatic duct is normal in caliber. Pancreas divisum is suspected (best seen on coronal MRCP image #50). The liver is enlarged measuring 18.7 cm in length. Steatosis was shown by CT. The unenhanced spleen a nd adrenal glands are grossly normal. The kidneys demonstrate mild cortical atrophy and are without h ydronephrosis. A 2.6 cm cyst is noted in the left kidney. The abdominal aorta is normal in caliber. T here is no abdominal ascites. A small hiatal hernia is noted. No bowel obstruction is seen. The pancr eas is normal in size. Mild stranding and trace fluid are seen around the pancreatic tail. This is co nsistent with mild acute pancreatitis. There are 2 subcentimeter cystic lesions in the body of the pa ncreas which measure up to 8 mm. These are best seen on coronal high-resolution MRCP images #32 and # 42. 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 The heart is enlarged. Midline sternotomy wires ar e noted. There is no pleural effusion. The bony structures are intact as imaged. IMPRESSION: 1. The gallbladder is surgically absent. 2. No choledocholithiasis. 3. Suspect pancreas divisum. 4. There is evidence of mild acute pancreatitis involving the pancreatic tail. 5. Additional findings as above. Electronically signed by: Demetrius Hurd M.D. 03/07/2020 5:55 PM
[2020-03-07] MEDS ORDERED: Nursing to Pharmacy Communication SCH (19:15)
--- NOTE | 2020-03-07 20:32 | Hospitalist Progress Note ---
Date of Service March 07, 2020 Assessment & Plan (1) Pancreatitis: Patient is a 69-year-old male with history of recurrent pancreatitis presents with abdominal pain. Recurrent acute pancreatitis S/P biliary sphincterotomy -CT ABD:Findings compatible with subtle acute uncomplicated pancreatitis. No pancreatic ductal dilation or peripancreatic fluid collection. No bowel obstruction or bowel wall thickening. Normal appendix. Cholecystectomy. -MRCP: The gallbladder is surgically absent. No choledocholithiasis. Suspect pancreas divisum. There is evidence of mild acute pancreatitis involving the pancreatic tail. -Advised complete cessation of alcohol use -Continue IV fluids Pain control Appreciate GI input Advance diet as tolerated Coronary artery disease S/P CABG Continue aspirin, metoprolol,Lisinopril DM II Hold p.o. medications Continue insulin therapy while hospitalized Monitor BGs Diastolic congestive heart failure Not on any diuretics at home Monitor volume status Dyslipidemia Previously on Crestor Crestor discontinued secondary to possible cause for pancreatitis during prior admission DVT Px: SCDs CODE STATUS Full code Disposition Expected discharge home when medically stable Admission and Anticipated Discharge Date Admission Date: March 06, 2020 Subjective Patient is seen and examined at bedside Complains of epigastric abdominal pain Denies nausea, vomiting, dizziness, chest pain, shortness of breath Discussed with gastroenterology today Offers no other complaints Review of Systems Review of Systems: All systems reviewed & are unremarkable except as noted in HPI & below Physical Exam Physical Exam: Physical Exam: Vitals signs as noted above General Appearance:Moderately built and nourished, no apparent distress Head: normocephalic, Atraumatic Eyes: normal inspection, EOMI, PERRL Neck: supple, Trachea midline Respiratory/Chest: Normal breath sounds, CTA, No accessory muscle use Cardiovascular: S1, S2, No murmur Abdomen/GI:Soft, Epigastric tender, Bowel sounds present Extremities/Musculoskelatal:normal inspection, no edema Neurologic/Psych:AAOX3, grossly no focal neurological deficits Skin: normal color, warm Results & Data Results & Data ([facility]) Vital Signs (Past 12 Hours) Vital Signs Temp Pulse Resp BP Pulse Ox 03/07/20 15:40 36.9 C 85 20 134/75 94 03/07/20 14:17 83 20 172/82 H 95 Laboratory Results Short CBC 03/07/20 Range/Units 06:00 WBC 7.21 (4.8-10.8) K/uL Hgb 12.6 L (14.0-18.0) g/dL Hct 36.9 L (42-52) % Plt Count 206 (130-400) K/uL BMP 03/07/20 06:00 Sodium 139 Potassium 4.4 Chloride 107 Carbon Dioxide 28 BUN 19 H Creatinine 0.87 Glucose 113 H Calcium 9.0
[2020-03-08] MEDS: LACTATED RINGER'S 1,000 ML IV SCH ×2 (02:54→10:54)
[2020-03-08 06:59] LABS: Hematocrit (blood only) 37.4 % (42-52); Hemoglobin 12.6 g/dL (14.0-18.0); Mean Corpuscular Hemoglobin 31.6 pg (25-34); Mean Corpuscular Hgb Conc 33.7 g/dL (32-36); Mean Corpuscular Volume 93.7 fL (80-100); Mean Platelet Volume 9.6 fL (7.4-10.4); Platelet Count 205 K/uL (130-400); RDW Coefficient of Variation 12.1 % (11.5-14.5); RDW Standard Deviation 41.2 fL (36.4-46.3); Red Blood Count 3.99 M/uL (4.7-6.1); White Blood Count 6.28 K/uL (4.8-10.8)
[2020-03-08 07:35] LABS: BUN Creatinine Ratio 12.9 (10-20); Calcium 9.1 mg/dl (8.5-10.1); Creatinine Clr Calc Pharmacy 86.9 ml/min; Est GFR (African American) 108.1; Est GFR (Non-African American) 93.2; Magnesium 1.8 mg/dl (1.8-2.4)
--- NOTE | 2020-03-08 08:33 | Gastroenterology Progress Note ---
Date of Service March 08, 2020 Assessment & Plan (1) Pancreatitis: 69 year old male w/ history of T2DM, dyslipidemia, HTN, GERD, recurrent pancreatitis, CAD w/ prior MA in 2004 complicated by VFib cardiac arrest s/p CABG 2003 admitted through the ED w/ abdominal pain He uses ETOH in moderation, about 4-6 beers in the past 1 month time frame Otherwise denies regular ETOH intake. No tobacco use since early . Noillicit drugs including marijuana. No new meds Triglyceride level 132 in 2018. He did have ERCP by Dr. Gabriela Verde in 2012, 2019 - debris swept from biliary duct and biliary sphincterectomy was done, thought his recurrent panc was related to SOD. MRCP yesterday w/ question of pancreatic divisum. Clinically improving, less abd pain, tolerating clears and has not required narcotic analgesia since yesterday at 1900. Clear liquids this AM --> if tolerating can advance to low fat diet LR 150/200 mL/hr but watch closely for s/s of fluid overload, can D/C if tolerating diet today Antietmics PRN Analgesia PRN Strict ETOH cessation Check triglycerides Medications - Metformin (class-3) - Lisinopril (class-3) Will update Dr. Verde via TT given prior ERCP for SOD, MR for ?panc div and IPMN Thank you for allowing us to participate in the care of this patient. Please call with any acute changes, questions or concerns. Please see addendum below with additional recommendation from my supervising physician. Admission and Anticipated Discharge Date Admission Date: March 06, 2020 Supervising Physician Co-Signing Physician Notes I have seen and examined the patient and discussed the management with SWAPNIL Flower. Pain improving. PE unchanged - well nourished male looking more alert today, soft nt nd +bs, Labs reviewed Agree with further plan of care as per Cecille's assessment and plan. Subjective Pt was seen and evaluated, chart reviewed. Abd pain improving Has not required analgesia since 7 pm Mild upper pain, fullness No nausea, vomiting. Feels constipated, requesting prune juice. MRCP: gallbladder is surgically absent. No choledocholithiasis. Suspect pancreas divisum. ?IPMN There is evidence of mild acute pancreatitis involving the pancreatic tail. Review of Systems Constitutional: no fever, no chills and no fatigue Respiratory: no cough and no dyspnea Cardiovascular: no chest pain Gastrointestinal: + abdominal pain (improving) Physical Exam Constitutional: well developed and well nourished; no acute distress and not ill appearing Neck: trachea midline Respiratory: normal respiratory effort Gastrointestinal (Abdomen): Inspection/Auscultation: normal bowel sounds Percussion/Palpation: abdomen soft; no guarding and abdomen not rigid Skin: no rashes, warm and dry Results & Data ([facility]) Vital Signs (Past 12 Hours) Vital Signs Temp Pulse Pulse Resp BP Pulse Ox 03/08/20 08:20 36.7 C 83 16 152/69 H 93 03/07/20 23:40 36.7 C 82 18 152/71 H 94 03/07/20 20:31 89 150/76 H
[2020-03-08] MEDS: CYANOCOBALAMIN 500 MCG TABLET (VITAMIN B-12) PO SCH (08:56)
[2020-03-08] MEDS: lisinopril 20 MG TAB PO SCH (08:56)
[2020-03-08] MEDS: MULTIVITAMIN TAB PO SCH (08:56)
[2020-03-08] MEDS: METOPROLOL TARTRATE 25 MG TAB PO SCH (08:56)
[2020-03-08] MEDS: ASPIRIN 81 MG ECTAB PO SCH (08:56)
[2020-03-08] MEDS: INSULIN ASPART 100 UNITS/ML 3 ML PEN SC SCH ×2 (09:00→13:28)
[2020-03-08] MEDS: FAMOTIDINE 20 MG in SYRINGE 3 ML IV SCH (09:02)
--- NOTE | 2020-03-08 14:46 | Hospitalist Progress Note ---
Date of Service March 08, 2020 Assessment & Plan (1) Pancreatitis: Patient is a 69-year-old male with history of recurrent pancreatitis presents with abdominal pain. Recurrent acute pancreatitis S/P biliary sphincterotomy -CT ABD:Findings compatible with subtle acute uncomplicated pancreatitis. No pancreatic ductal dilation or peripancreatic fluid collection. No bowel obstruction or bowel wall thickening. Normal appendix. Cholecystectomy. -MRCP: The gallbladder is surgically absent. No choledocholithiasis. Suspect pancreas divisum. There is evidence of mild acute pancreatitis involving the pancreatic tail. -Advised complete cessation of alcohol use -Received IV fluids Pain control Appreciate GI input Tolerated low-fat diet Abdominal pain resolved Counseled to avoid alcohol use Plan for ERCP as outpatient with Dr. Verde Coronary artery disease S/P CABG Continue aspirin, metoprolol,Lisinopril DM II Hold p.o. medications Continue insulin therapy while hospitalized Monitor BGs Diastolic congestive heart failure Not on any diuretics at home Monitor volume status Dyslipidemia Previously on Crestor Crestor discontinued secondary to possible cause for pancreatitis during prior admission DVT Px: SCDs CODE STATUS Full code Disposition Plan to discharge home today. Admission and Anticipated Discharge Date Admission Date: March 06, 2020 Subjective Patient is seen and examined at bedside States feeling much better today Abdominal pain resolved Tolerated low-fat diet Discussed with gastroenterology today Denies chest pain, shortness of been, dizziness, nausea Offers no other complaints Review of Systems Review of Systems: All systems reviewed & are unremarkable except as noted in HPI & below Physical Exam Physical Exam: Physical Exam: Vitals signs as noted above General Appearance:Moderately built and nourished, no apparent distress Head: normocephalic, Atraumatic Eyes: normal inspection, EOMI Neck: supple, Trachea midline Respiratory/Chest: Normal breath sounds, CTA, No accessory muscle use Cardiovascular: S1, S2, No murmur Abdomen/GI:Soft, non tender, Bowel sounds present Extremities/Musculoskelatal:normal inspection, no edema Neurologic/Psych:AAOX3, grossly no focal neurological deficits Skin: normal color, warm Results & Data Results & Data ([facility]) Vital Signs (Past 12 Hours) Vital Signs Temp Pulse Resp BP Pulse Ox 03/08/20 08:20 36.7 C 83 16 152/69 H 93 Laboratory Results Short CBC 03/08/20 Range/Units 06:28 WBC 6.28 (4.8-10.8) K/uL Hgb 12.6 L (14.0-18.0) g/dL Hct 37.4 L (42-52) % Plt Count 205 (130-400) K/uL [facility] 03/08/20 06:28 Sodium 138 Potassium 4.0 Chloride 107 Carbon Dioxide 26 BUN 10 D Creatinine 0.77 Glucose 128 H Calcium 9.1
--- NOTE | 2020-03-08 15:00 | Discharge Summary ---
Date of Service March 08, 2020 Admission HPI Per Admitting Provider CHIEF COMPLAINT: Abdominal pain. HISTORY OF PRESENT ILLNESS: A 69-year-old male with past medical history significant for recurrent pancreatitis, history of type 2 diabetes, CAD status post CABG in 2003, history of diastolic CHF, hypertension, vitamin B12 deficiency, nonallergic rhinitis, hyperlipidemia, GERD, who comes because of abdominal pain. The patient says prior to , he noticed some left flank pain. 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 When he came in, pain was 10/10 in severity. No nausea, vomiting. When he was having pain, he was short of breath. He thought there was one point in the chest where he also had pain. With the pain medication, the chest pain got resolved. He still has mild discomfort in the abdomen. His CAT scan is showing again pancreatitis and lipase levels are 450. Currently resting comfortably and hemodynamically stable. 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 Denies any headache. No blurred visions, no earache, no loss of sense of smell or taste. Appetite is good. No diarrhea or constipation, no blood in stools or black stools. Normal bladder movements. No swelling in the legs, no rash. Admission Exam Per Admitting Provider PHYSICAL EXAMINATION: GENERAL: The patient is of moderate build, not in acute distress. VITAL SIGNS: Temperature 37.1, pulse 67, respiratory rate 18, blood pressure 142/89, oxygen 94% on room air. HEENT: Pupils equal, round, and reactive to light. Oral mucosa moist. NECK: No neck masses seen. CARDIOVASCULAR: S1, S2 heard. Regular rate and rhythm. No murmur, no gallop. RESPIRATORY SYSTEM: Normal AP diameter. No accessory muscle use. No wheezing, no crackles. ABDOMEN: Soft. Mild right upper quadrant, epigastric abdominal discomfort. No guarding, no rigidity, no distention. CENTRAL NERVOUS SYSTEM: Cranial nerves II-XII grossly intact, nonfocal. EXTREMITIES: No edema, no erythema. Principal Diagnosis Recurrent pancreatitis Discharge Data Allergies Allergy/AdvReac Type Severity Reaction Status Date / Time adhesive AdvReac Mild BLISTERS Verified 03/06/20 22:18 hydrochlorothiazide AdvReac Unknown Pancreatitis Verified 03/06/20 22:18 history pantoprazole AdvReac Unknown HX Verified 03/06/20 22:18 PANCREATITIS rosuvastatin [From Crestor] AdvReac Unknown HX Verified 03/06/20 22:18 PANCREATITIS Consultations 03/06/20 22:05 ED Decision to Admit Stat 03/07/20 02:10 Consult Case Management - Discharge Planning Routine 03/07/20 08:00 Consult Gastroenterology Routine Procedures Performed CT ABD: Cardiomegaly. Coronary artery and papillary muscle calcifications. Prior median sternotomy. Mild subsegmental scarring/atelectasis of the left lung base. No pneumatosis or pneumoperitoneum. The spleen and adrenal glands are unremarkable. Cholecystectomy. Probable hepatic steatosis. Patency of the hepatic and portal veins. There is mild interstitial and peripancreatic stranding involving the uncinate process and pancreatic tail. No peripancreatic fluid collection. No pancreatic ductal dilation or lesion identified. Cysts of the posterior interpolar left kidney, 2.6 cm. No hydronephrosis. Unremarkable urinary bladder. Prostate is upper limits of normal in size. Mixed plaque of the abdominal aorta without aneurysm. There is no adenopathy. No bowel obstruction or bowel wall thickening. Terminal ileum and appendix are unremarkable. Postoperative changes of prior umbilical hernia repair unchanged small amount of periumbilical fluid. Unremarkable soft tissues. Bones appear intact. No acute fracture or suspicious bone lesion. Transitional lumbosacral anatomy. MRCP: he gallbladder is surgically absent. There is no intra or extrahepatic biliary ductal dilatation. The common bile duct is normal in caliber measuring up to 5 mm diameter. No filling defects are seen to suggest choledocholithiasis. The pancreatic duct is normal in caliber. Pancreas divisum is suspected (best seen on coronal MRCP image #50). The liver is enlarged measuring 18.7 cm in length. Steatosis was shown by CT. The unenhanced spleen and adrenal glands are grossly normal. The kidneys demonstrate mild cortical atrophy and are without hydronephrosis. A 2.6 cm cyst is noted in the left kidney. The abdominal aorta is normal in caliber. There is no abdominal ascites. A small hiatal hernia is noted. No bowel obstruction is seen. The pancreas is normal in size. Mild stranding and trace fluid are seen around the pancreatic tail. This is consistent with mild acute pancreatitis. There are 2 subcentimeter cystic lesions in the body of the pancreas which measure up to 8 mm. These are best seen on coronal high-resolution MRCP images #32 and #42. 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 The heart is enlarged. Midline sternotomy wires are noted. There is no pleural effusion. The bony structures are intact as imaged. Ordered Studies 03/06/20 19:29 CT abd pelvis IV con only Stat 03/07/20 10:27 MR MRCP Routine Hospital Course (1) Pancreatitis: Patient is a 69-year-old male with history of recurrent pancreatitis presents with abdominal pain. Recurrent acute pancreatitis S/P biliary sphincterotomy -CT ABD:Findings compatible with subtle acute uncomplicated pancreatitis. No pancreatic ductal dilation or peripancreatic fluid collection. No bowel obstruction or bowel wall thickening. Normal appendix. Cholecystectomy. -MRCP: The gallbladder is surgically absent. No choledocholithiasis. Suspect pancreas divisum. There is evidence of mild acute pancreatitis involving the pancreatic tail. -Advised complete cessation of alcohol use -Received IV fluids Pain control Appreciate GI input Tolerated low-fat diet Abdominal pain resolved Counseled to avoid alcohol use Plan for ERCP as outpatient with Dr. Verde Coronary artery disease S/P CABG Continue aspirin, metoprolol,Lisinopril DM II Hold p.o. medications Continue insulin therapy while hospitalized Monitor BGs Diastolic congestive heart failure Not on any diuretics at home Monitor volume status Dyslipidemia Previously on Crestor Crestor discontinued secondary to possible cause for pancreatitis during prior admission DVT Px: SCDs CODE STATUS Full code Disposition Plan to discharge home today. Total Time Total Time Spent Total Time Spent (In Minutes): 40 minutes Total Time Includes: Examination of the Patient, Discharge Planning, Medication Reconciliation, Communication With Other Providers and Other Discharge Plan Discharge Items Patient Disposition: Home - Self-Care Reason For Visit: ABDOMINAL PAIN Discharge Diagnosis: Recurrent pancreatitis Activity: Resume your previous activity Exercise/Sports: Gradually increase as tolerated Non-emergency contact: Primary Care Provider and Engagement Manager Call non-emergency contact if: you have any medication questions, your symptoms worsen, your pain is not controlled, your pain is worsening, your pain is unusual for you, your pain is concerning for you and you have a fever Follow-up/Referrals: Artur Chambers MD [Primary Care Provider] - 03/13/20 9:00 am Diet: Carb Consistent or DM2 and Low Fat Addtl Attending Provider Instructions: Follow-up with your primary care physician Dr. 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 Discussed with your primary care physician for alternative medications if you have recurrence of pancreatitis again. Seek immediate medical attention if your symptoms reoccur or worsen Pending Studies at Discharge: No Stand-Alone Forms: My [facility] Medications and DC Order Prescriptions: Continued cyanocobalamin (vitamin B-12) 1,000 mcg Tablet 1,000 mcg PO QAM RF: 0 lisinopril 20 mg tablet 20 mg PO QAM RF: 0 metoprolol tartrate 50 mg tablet 75 mg PO BID RF: 0 multivitamin [Multiple Vitamins] Tablet 1 tab PO QAM RF: 0 nitroglycerin [Nitrostat] 0.4 mg Tablet, Sublingual 0.4 mg sublingual DIRECTED PRN (Reason: Chest Pain) RF: 0 sodium chloride [Saline Nasal] 0.65 % Aerosol,[place] 2 spray INTRANASAL DIRECTED PRN (Reason: Nasal Congestion/Dryness) RF: 0 metformin 1,000 mg tablet 1,000 mg PO BIDM Qty: 0 RF: 0 aspirin [Aspirin Low Dose] 81 mg Tablet,Delayed Release (Dr/Ec) 81 mg PO QAM RF: 0 glipizide 5 mg tablet See Rx Instructions .ROUTE .COMPLEX RF: 0 Discharge Orders: Discharge Order (Routine); Ordered 03/08/20 Ordered By: Tanvir Pat/Other Patient Handouts: Managing Type 2 Diabetes Admission Data Admit Date/Time: 03/06/20 23:56 Attending Provider: Tanvir Dhaliwal Admit Provider: Micah Mccoy Primary Care Provider: Artur Chambers Other Providers: Micah Mccoy ; Lisa Yo ; Abbey Marinelli ; Hussein Matthew ; Kaitlyn Valdez ; Balta Olivares ; Gabriela Verde ; Tariq Wolff ; Willie Larios ; Aly Stewart ; Cecille Ibarra ; Maday Hutton ; Jaclyn Wong ; Katie Rush ; Shan Bhagat Other Interventions: Discharge Summary Assessment (RN) Last Done: 03/08/20 15:10
== END 2020-03-08 17:22 | disposition home or self-care (01) | DRG 439 ==
LOC: ED 19:02 → 3N 23:56

== ENCOUNTER 2020-08-09 08:40 | Inpatient (IN) ==
[2020-08-09] MEDS ORDERED: SODIUM CHLORIDE 0.9% 500 ML IV STA (08:51)
[2020-08-09] MEDS ORDERED: ONDANSETRON INJ 2 MG/ML 2 ML VIAL IV STA (08:51)
[2020-08-09] MEDS ORDERED: fentaNYL citrate 100 MCG/2 ML VIAL IV PRN (08:51)
--- NOTE | 2020-08-09 09:10 | Emergency Department Note ---
History of Present Illness General Chief complaint: Abdominal Pain Stated complaint: SEVERE ABDOMINAL PAIN/HAD PROC DONE [place] Time Seen by Provider: 08/09/20 08:53 Source: patient Mode of arrival: ambulatory Limitations: no limitations History of Present Illness Provider complaint: Epigastric abdominal pain Maximum Pain Intensity: 9 This is a 70-year-old male who presents to the ED with a chief complaint of epigastric abdominal pain. The patient had retrograde cholangiopancreatography and stent placement yesterday at [facility] by Shivam Townsend DO. Shortly after the patient arrived home, he began having some epigastric abdominal pain that worsened this morning. It radiates into his back. He denies any nausea or vomiting. No fevers. He states this feels like previous pancreatitis. Home Medications Medication Instructions Recorded Confirmed Type cyanocobalamin (vitamin B-12) 1,000 mcg PO QAM 03/14/19 08/09/20 History lisinopril 20 mg PO QAM 03/14/19 08/09/20 History metoprolol tartrate 75 mg PO BID 03/14/19 08/09/20 History multivitamin [Multiple Vitamins] 1 tab PO QAM 03/14/19 08/09/20 History nitroglycerin [Nitrostat] 0.4 mg SUBLINGUAL DIRECTED PRN 03/14/19 08/09/20 History sodium chloride [[place] Nasal] 2 spray INTRANASAL DIRECTED PRN 06/05/19 08/09/20 History metformin 1,000 mg PO BIDM #0 tab 06/06/19 08/09/20 Rx aspirin [Aspirin Low Dose] 81 mg PO QAM 03/06/20 08/09/20 History glipizide 10 - 20 mg PO DIRECTED 03/06/20 08/09/20 History rosuvastatin 5 mg PO DAILY 08/09/20 08/09/20 History Allergies Allergy/AdvReac Type Severity Reaction Status Date / Time adhesive AdvReac Mild BLISTERS Verified 08/09/20 10:09 acetaminophen [From Percocet] AdvReac Unknown Constipatio Unverified 08/09/20 10:09 n canagliflozin [From Invokana] AdvReac Unknown HX Unverified 08/09/20 10:09 PANCREATITIS hydrochlorothiazide AdvReac Unknown Pancreatitis Verified 08/09/20 10:09 history oxycodone [From Percocet] AdvReac Unknown Constipatio Unverified 08/09/20 10:09 n pantoprazole AdvReac Unknown HX Verified 08/09/20 10:09 PANCREATITIS rosuvastatin [From Crestor] AdvReac Unknown HX Verified 08/09/20 10:09 PANCREATITIS Past Med/Surg History Medical History Asthma A CHILD CHF (congestive heart failure) Preserved LV systolic function per cardio Coronary artery disease s/p CT and Vfib arrest 2003 s/p CABG x 2 2003 Diabetes mellitus, type 2 Dyslipidemia GERD (gastroesophageal reflux disease) History of pancreatitis Hypertension Myocardial Infarction 06/16/2003, complicated by Vfib arrest. S/P CABG (DAVILA-LAD, SVG-PDA) Follows with Dr. Roach ([facility] 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 Beliefs That Will Affect Care: None marital status: Current Living Situation: Spouse Feels Safe at Home: Yes Assistive Devices: None Review of Systems A total of 10 systems reviewed and were otherwise negative Physical Exam Vital Signs Vital Signs - 24 hr 08/09/20 08:44 08/09/20 09:15 Temperature 36.4 C L Temperature Source Temporal Artery Scan Pulse Rate 76 Pulse Rhythm Regular Pulse Strength Normal Respiratory Rate 20 Respiratory Effort / Characteristics Non-Labored Spontaneous Respiratory Depth Normal Respiratory Pattern Regular Blood Pressure 179/70 H Blood Pressure Mean 106 Blood Pressure Position Sitting Pulse Oximetry 98 96 Oxygen Delivery Method Room Air Room Air Sepsis Recent Fever Within 48 Hours No Sepsis New/Unexplained Change in Mental Status No Sepsis Action Taken by Nursing No Action Required CONSTITUTIONAL/VITAL SIGNS: Reviewed / noted above. GENERAL: Non-toxic in appearance. INTEGUMENTARY: Warm, dry, and [place]. HEAD: Normocephalic. EYES: without scleral icterus or trauma. ENT/OROPHARYNX: clear and moist. LYMPHADENOPATHY/NECK: Is supple without lymphadenopathy or meningismus. RESPIRATORY: Lungs clear and equal. CARDIOVASCULAR: Regular rate and rhythm. GI/ABDOMEN: Soft and tender in epigastric area. No organomegaly or pulsatile mass. No rebound or guarding. Normal bowel sounds. EXTREMITIES: Warm and well perfused. BACK: No CVA tenderness. NEUROLOGICAL: Intact without focal deficits. PSYCHIATRIC: normal affect. MUSCULOSKELETAL: Normally developed with good muscle tone. TRIAGE NURSING DOCUMENTATION REVIEWED. Course Administered Medications Fentanyl Citrate (Fentanyl Citrate 100 Mcg/2 Ml Vial) 50 mcg IV Q15M PRN PRN Reason: Pain Stop: 08/23/20 08:50 Last Admin: 08/09/20 09:32 Dose: 50 mcg Documented by: [id number] Discontinued Medications Sodium Chloride (Nss) 500 mls @ 999 mls/hr IV .Q31M STA Stop: 08/09/20 09:21 Last Infusion: 08/09/20 10:24 Dose: 0 mls/hr Documented by: [id number] Admin: 08/09/20 09:32 Dose: 999 mls/hr Documented by: [id number] Ioversol (Optiray 300 100ml) 89 ml IV ONCE ONE Stop: 08/09/20 10:03 Last Admin: 08/09/20 10:02 Dose: 89 ml Documented by: [id number] Ondansetron HCl (Ondansetron Inj 2 Mg/Ml 2 Ml Vial) 4 mg IV NOW STA Stop: 08/09/20 08:52 Last Admin: 08/09/20 09:32 Dose: 4 mg Documented by: [id number] Medical Decision Making Differential Diagnosis Differential considered: pancreatitis, hepatitis, acute cholecystitis, AAA, UTI, pyelonephritis, kidney stones, appendicitis, diverticulitis, shingles, bowel obstruction, mesenteric ischemia, intussusception,hernia, testicular torsion. Medical Records Attestation: I reviewed the patient's medical records. Home Medications Current Medication List: was personally reviewed by me Laboratory Data Attestation: I reviewed the patient's lab results. Result diagrams: 08/09/20 09:22 08/09/20 09:22 Lab Results 0508/09/20 08/09/20 Range/Units 09:22 09:22 09:22 WBC 9.30 (4.8-10.8) K/uL RBC 4.02 L (4.7-6.1) M/uL Hgb 12.7 L (14.0-18.0) g/dL Hct 37.1 L (42-52) % MCV 92.3 (80-100) fL MCH 31.6 (25-34) pg MCHC 34.2 (32-36) g/dL RDW Std Deviation 42.1 (36.4-46.3) fL RDW Coeff of Rodolfo 12.4 (11.5-14.5) % Plt Count 212 (130-400) K/uL MPV 9.3 (7.4-10.4) fL Immature Gran % (Auto) 0.2 % Neut % (Auto) 70.5 % Lymph % (Auto) 18.7 % Payne % (Auto) 9.7 % Eos % (Auto) 0.8 % Baso % (Auto) 0.1 % Neut # (Auto) 6.56 H (1.4-6.5) K/uL Lymph # (Auto) 1.74 (1.2-3.4) K/uL Payne # (Auto) 0.90 H (0.11-0.59) K/uL Eos # (Auto) 0.07 (0-0.5) K/uL Baso # (Auto) 0.01 (0-0.2) K/uL Immature Gran # (Auto) 0.02 (0.00-0.02) K/uL PT 9.5 (9.0-12.0) Seconds INR 0.9 (0.9-1.1) Sodium 142 (136-145) mmol/L Potassium 3.6 (3.5-5.1) mmol/L Chloride 111 H (98-107) mmol/L Carbon Dioxide 26 (21-32) mmol/L Anion Gap 5.0 (3-11) BUN 15 (7-18) mg/dl Creatinine 0.83 (0.6-1.4) mg/dl Est Cr Clr Drug Dosing 80.8 ml/min Est GFR ( Amer) 104.1 Est GFR (Non-Af Amer) 89.8 BUN/Creatinine Ratio 18.5 (10-20) Glucose 144 H (70-99) mg/dl Calcium 8.3 L (8.5-10.1) mg/dl Total Bilirubin 0.5 (0.2-1) mg/dl AST 12 L (15-37) U/L ALT 27 (12-78) U/L Alkaline Phosphatase 55 (45-117) U/L Troponin I < 0.015 (0-0.045) ng/ml Total Protein 6.9 (6.4-8.2) gm/dl Albumin 3.2 L (3.4-5.0) gm/dl Globulin 3.7 (2.5-4.0) gm/dl Albumin/Globulin Ratio 0.9 (0.9-2) Lipase 9724 H (73-393) U/L Imaging Data Radiologist's Impression: Abdomen/Pelvis CT 08/09/20 08:51 CT SCAN OF THE ABDOMEN AND PELVIS WITH IV CONTRAST CLINICAL HISTORY: Epigastric abdominal pain. Reported history of pancreatic stent. COMPARISON STUDY: Abdominal CT dated 03/06/2020. TECHNIQUE: Following the IV administration of 89 cc of Optiray 300, CT scan of the abdomen and pelvis is performed from the lung bases to the proximal femora. Images are reviewed in the axial, sagittal, and coronal planes. IV contrast was administered without complication. A dose lowering technique was utilized adhering to the principles of ALARA. CT DOSE: 887.16 mGycm FINDINGS: Lung bases: The patient is status post midline sternotomy. The heart is mildly enlarged and without pericardial effusion. The coronary arteries are densely calcified. There is a tiny hiatal hernia. The lung bases are clear noting dependent atelectasis. Liver: The contrast-enhanced liver is enlarged, measuring 18.9 cm in length. The liver demonstrates diffusely diminished attenuation consistent with steatosis. There is no intrahepatic biliary ductal dilatation. The hepatic veins and portal veins are patent. Gallbladder: Surgically absent noting clips in the gallbladder fossa. Spleen: Normal in size and attenuation. Pancreas: There is mild glandular atrophy of the pancreas. There is fortunato pancreatic inflammatory stranding and trace fluid consistent with acute pancreatitis. The gland enhances homogeneously. The duct is normal in caliber. A stent is present within the pancreatic head extending into the duodenum. No organized peripancreatic fluid collection is identified. The splenic vein is patent. Adrenal glands: Unremarkable. Kidneys: The contrast enhanced kidneys demonstrate mild cortical atrophy and are without hydronephrosis. The kidneys enhance symmetrically. There is a 2.6 cm left renal cyst. Additional subcentimeter cortical hypodensities also likely represent cysts but are too small for definitive characterization. Abdominal vasculature: The abdominal aorta is normal in course and caliber n oting advanced atherosclerotic calcification. Bowel: There is no bowel obstruction. Mild duodenal wall thickening is likely related to adjacent pancreatitis. The appendix is well-visualized and normal. Peritoneum: There is no intraperitoneal free air or abdominal ascites. There is evidence of previous umbilical hernia repair. Lymphadenopathy: None. Pelvic viscera: The prostate gland is diminutive and heterogeneous. The bladder is normal as visualized. Skeletal structures: There is mild lumbosacral spondylosis. No lytic or blastic lesions are seen. IMPRESSION: 1. Findings are consistent with acute pancreatitis. Correlate with clinical findings and serum amylase/lipase levels. 2. The gland enhances homogeneously and there is no peripancreatic fluid collection. 3. A stent extends from the pancreatic head into the duodenum. 4. Mild duodenal wall thickening is likely related to adjacent pancreatitis. 5. The liver is mildly enlarged and steatotic. 6. Cardiomegaly with advanced coronary artery calcification. 7. Additional findings as above. ACT 112: Negative or not required by law. Electronically signed by: Demetrius Hurd M.D. 08/09/2020 10:36 AM Chest X-Ray 08/09/20 08:51 XR chest 1V portable CLINICAL HISTORY: Pain, radiating to the abdomen. COMPARISON STUDY: 08/16/2019 FINDINGS: The heart is borderline enlarged. There are postsurgical changes of midline sternotomy. There is no failure. There is no focal pulmonary consolidation. There are no pleural effusions. There is no pneumo peritoneum. There are minimal left basilar atelectatic changes.[ IMPRESSION: No active disease in the chest. ACT 112: Negative or not required by law. Electronically signed by: Fawad Byrd M.D. 08/09/2020 9:13 AM ECG Data Attestation: I personally reviewed and interpreted this ECG as follows: Indication: + abdominal pain Rate (beats per minute): 71 ECG Intervals/blocks: + First degree AV block and + Normal QT-c ECG ST segments: no ST elevation ECG Findings: no PVCs MDM Narrative Patient presents with epigastric abdominal pain after a retrograde cholangiopancreatography and stent placement yesterday at [facility]. He states it feels like pancreatitis. His vital signs reveal hypertension. Twelve-lead EKG reveals a sinus rhythm at a rate of 71. CBC and chemistry panel was unremarkable. Lipase is 9721. Chest x-ray did not show acute process. CT scan of the abdomen pelvis shows findings suggestive of acute pancreatitis. The patient was told the results of the test. He was given some IV fluids via normal saline as well as IV Zofran and IV fentanyl. Pain. I did speak with GI, Dr. Up from [facility]. He recommends the patient can stay at [facility] for medical management. He recommends lactated Ringer's at 250 cc/h and DVT prophylaxis and then possibly advance to clear liquids once the patient's symptoms improved in the next day or 2. He does not feel the patient needs to be transferred to [place] for this only requires medical management. Impression & Plan Pancreatitis Discharge Plan Visit Data Chief Complaint: Abdominal Pain Stated Complaint: SEVERE ABDOMINAL PAIN/HAD PROC DONE IN [place] ED Provider: Adis Lee Discharge Problem: Pancreatitis Patient Disposition: Being Evaluated by Hospitalist Forms Stand Alone Forms: My [facility] Prescriptions Prescriptions: No Action cyanocobalamin (vitamin B-12) 1,000 mcg Tablet 1,000 mcg PO QAM RF: 0 lisinopril 20 mg tablet 20 mg PO QAM RF: 0 metoprolol tartrate 50 mg tablet 75 mg PO BID RF: 0 multivitamin [Multiple Vitamins] Tablet 1 tab PO QAM RF: 0 nitroglycerin [Nitrostat] 0.4 mg Tablet, Sublingual 0.4 mg sublingual DIRECTED PRN (Reason: Chest Pain) RF: 0 sodium chloride [Haviland Nasal] 0.65 % Aerosol,Chauncey 2 spray INTRANASAL DIRECTED PRN (Reason: Nasal Congestion/Dryness) RF: 0 metformin 1,000 mg tablet 1,000 mg PO BIDM Qty: 0 RF: 0 aspirin [Aspirin Low Dose] 81 mg Tablet,Delayed Release (Dr/Ec) 81 mg PO QAM RF: 0 glipizide 5 mg tablet 10 - 20 mg PO DIRECTED RF: 0 rosuvastatin 5 mg tablet 5 mg PO DAILY RF: 0 Referrals Referrals: Artur Chambers MD [Primary Care Provider] - Discharge Problem: Pancreatitis Qualifiers: Chronicity: acute Pancreatitis type: other Acute pancreatitis complication: no infection or necrosis Qualified Code(s): K85.80 - Other acute pancreatitis without necrosis or infection
--- NOTE | 2020-08-09 09:14 | XRay Report ---
XR chest 1V portable CLINICAL HISTORY: Pain, radiating to the abdomen. COMPARISON STUDY: 08/16/2019 FINDINGS: The heart is borderline enlarged. There are postsurgical changes of midline sternotomy. The re is no failure. There is no focal pulmonary consolidation. There are no pleural effusions. There is no pneumo peritoneum. There are minimal left basilar atelectatic changes.[ IMPRESSION: No active disease in the chest. ACT 112: Negative or not required by law. Electronically signed by: Fawad Byrd M.D. 08/09/2020 9:13 AM
[2020-08-09 09:34] LABS: Basophils # (auto) 0.01 K/uL (0-0.2); Basophils % (auto) 0.1 %; Eosinophils # (auto) 0.07 K/uL (0-0.5); Eosinophils % (auto) 0.8 %; Hematocrit (blood only) 37.1 % (42-52); Hemoglobin 12.7 g/dL (14.0-18.0); Immature Granulocytes # (auto) 0.02 K/uL (0.00-0.02); Immature Granulocytes % (auto) 0.2 %; Lymphocytes # (auto) 1.74 K/uL (1.2-3.4); Lymphocytes % (auto) 18.7 %; Mean Corpuscular Hemoglobin 31.6 pg (25-34); Mean Corpuscular Hgb Conc 34.2 g/dL (32-36); Mean Corpuscular Volume 92.3 fL (80-100); Mean Platelet Volume 9.3 fL (7.4-10.4); Monocytes % (auto) 9.7 %; Neutrophils # (auto) 6.56 K/uL (1.4-6.5); Neutrophils % (auto) 70.5 %; Platelet Count 212 K/uL (130-400); RDW Coefficient of Variation 12.4 % (11.5-14.5); RDW Standard Deviation 42.1 fL (36.4-46.3); Red Blood Count 4.02 M/uL (4.7-6.1)
[2020-08-09 09:43] LABS: INR 0.9 (0.9-1.1); Prothrombin Time 9.5 Seconds (9.0-12.0)
[2020-08-09 09:54] LABS: Alanine Aminotransferase 27 U/L (12-78); Albumin Level 3.2 gm/dl (3.4-5.0); Aspartate Aminotransferase 12 U/L (15-37); BUN Creatinine Ratio 18.5 (10-20); Blood Urea Nitrogen 15 mg/dl (7-18); Calcium 8.3 mg/dl (8.5-10.1); Carbon Dioxide 26 mmol/L (21-32); Chloride 111 mmol/L (98-107); Creatinine Clr Calc Pharmacy 80.8 ml/min; Est GFR (African American) 104.1; Est GFR (Non-African American) 89.8; Glucose 144 mg/dl (70-99); Potassium 3.6 mmol/L (3.5-5.1); Sodium 142 mmol/L (136-145)
[2020-08-09 09:59] LABS: Albumin Globulin Ratio 0.9 (0.9-2); Alkaline Phosphatase 55 U/L (45-117); Bilirubin,Total 0.5 mg/dl (0.2-1); Globulin 3.7 gm/dl (2.5-4.0); Lipase 9724 U/L (73-393); Total Protein 6.9 gm/dl (6.4-8.2); Troponin I < 0.015 ng/ml (0-0.045)
[2020-08-09] MEDS ORDERED: OPTIRAY 300 100mL IV ONE (10:02)
--- NOTE | 2020-08-09 10:38 | CT Scan Report ---
CT SCAN OF THE ABDOMEN AND PELVIS WITH IV CONTRAST CLINICAL HISTORY: Epigastric abdominal pain. Reported history of pancreatic stent. COMPARISON STUDY: Abdominal CT dated 03/06/2020. TECHNIQUE: Following the IV administration of 89 cc of Optiray 300, CT scan of the abdomen and pelvi s is performed from the lung bases to the proximal femora. Images are reviewed in the axial, sagittal , and coronal planes. IV contrast was administered without complication. A dose lowering technique wa s utilized adhering to the principles of ALARA. CT DOSE: 887.16 mGycm FINDINGS: Lung bases: The patient is status post midline sternotomy. The heart is mildly enlarged and without p ericardial effusion. The coronary arteries are densely calcified. There is a tiny hiatal hernia. The lung bases are clear noting dependent atelectasis. Liver: The contrast-enhanced liver is enlarged, measuring 18.9 cm in length. The liver demonstrates d iffusely diminished attenuation consistent with steatosis. There is no intrahepatic biliary ductal di latation. The hepatic veins and portal veins are patent. Gallbladder: Surgically absent noting clips in the gallbladder fossa. Spleen: Normal in size and attenuation. Pancreas: There is mild glandular atrophy of the pancreas. There is peripancreatic inflammatory stran ding and trace fluid consistent with acute pancreatitis. The gland enhances homogeneously. The duct i s normal in caliber. A stent is present within the pancreatic head extending into the duodenum. No or ganized peripancreatic fluid collection is identified. The splenic vein is patent. Adrenal glands: Unremarkable. Kidneys: The contrast enhanced kidneys demonstrate mild cortical atrophy and are without hydronephros is. The kidneys enhance symmetrically. There is a 2.6 cm left renal cyst. Additional subcentimeter co rtical hypodensities also likely represent cysts but are too small for definitive characterization. Abdominal vasculature: The abdominal aorta is normal in course and caliber noting advanced atheroscle rotic calcification. Bowel: There is no bowel obstruction. Mild duodenal wall thickening is likely related to adjacent camejo creatitis. The appendix is well-visualized and normal. Peritoneum: There is no intraperitoneal free air or abdominal ascites. There is evidence of previous umbilical hernia repair. Lymphadenopathy: None. Pelvic viscera: The prostate gland is diminutive and heterogeneous. The bladder is normal as visualiz ed. Skeletal structures: There is mild lumbosacral spondylosis. No lytic or blastic lesions are seen. IMPRESSION: 1. Findings are consistent with acute pancreatitis. Correlate with clinical findings and serum amylas e/lipase levels. 2. The gland enhances homogeneously and there is no peripancreatic fluid collection. 3. A stent extends from the pancreatic head into the duodenum. 4. Mild duodenal wall thickening is likely related to adjacent pancreatitis. 5. The liver is mildly enlarged and steatotic. 6. Cardiomegaly with advanced coronary artery calcification. 7. Additional findings as above. ACT 112: Negative or not required by law. Electronically signed by: Demetrius Hurd M.D. 08/09/2020 10:36 AM
[2020-08-09] MEDS ORDERED: LACTATED RINGER'S 1,000 ML IV ONE (11:08)
--- NOTE | 2020-08-09 11:29 | Electrocardiogram Report ---
Test Reason : Blood Pressure : / mmHG Vent. Rate : 071 BPM Atrial Rate : 071 BPM P-R Int : 248 ms QRS Dur : 106 ms QT Int : 358 ms P-R-T Axes : 049 079 -10 degrees QTc Int : 389 ms Sinus rhythm with 1st degree A-V block Possible Anterior infarct , age undetermined T wave abnormality, consider inferior ischemia Abnormal ECG When compared with ECG of 06-MAR-2020 19:39, No significant change Confirmed by Roldan Ott ([id number]) on 08/09/2020 11:29:04 AM Referred By: REFERRED SELF Confirmed By:Roldan Ott
--- NOTE | 2020-08-09 11:38 | History & Physical Report ---
Date of Service August 09, 2020 Assessment & Plan (1) Acute pancreatitis after endoscopic retrograde cholangiopancreatography ( ERCP): This is a 70-year-old male with PMH of recurrent pancreatitis, status post ERCP yesterday, CAD status post, CABG x 2 in 2003, type 2 diabetes, hyperlipidemia, chronic diastolic dysfunction, GERD and other medical problems listed below who presents with epigastric pain starting late last evening presents with acute pancreatitis. Underwent ERCP procedure at [place] yesterday in setting of recurrent pancreatitis and pancreatic divisum Presenting this morning with acute pancreatitis clinically and on CT abd/pelvis. Lipase 9,724 Case discussed with aviation mechanic GI from [facility] who recommended conservative mgmt with LR @250 ml/hr if able to tolerate - will decrease to 150ml/hr due to history of diastolic heart failure and monitor volume status closely Bowel rest with possible reintroduction of liquids tomorrow Pain control, antiemetics Case discussed with our GI service (2) Diabetes mellitus type 2 in obese: Hold home agents SSI while in-patient BSG AC HS (3) Coronary artery disease: Status post CABG x2 in 2003 Epigastric pain extending into chest, consistent with pancreatitis but does carry significant h/o CAD EKG with SR with 1st degree block, TWI in III Initial troponin negative Will continue to trend troponin, monitor on tele and repeat EKG in AM Continue aspirin, lisinopril, metoprolol, statin (4) Chronic diastolic heart failure: Appears euvolemic. CXR in AM to assess volume status after IVF in setting of pancreatitis. Continue metoprolol DVT Ppx: SQ heparin Code status: FULL PCP: Trish Dispo: Admitted to [facility] tele Patient seen in collaboration with Dr. Teran. Please see addendum. History of Present Illness Chief Complaint: Epigastric pain Primary Care Provider: Artur Chambers MD This is a 70-year-old male with PMH of recurrent pancreatitis, status post ERCP yesterday, CAD status post, CABG x 2 in 2003, type 2 diabetes, hyperlipidemia, chronic diastolic dysfunction, GERD and other medical problems listed below who presents with epigastric pain starting late last evening. Underwent ERCP procedure at [place] yesterday in setting of recurrent pancreatitis with repeat attempt at ERCP with minor duct sphincterotomy for pancreatic divisum. History of cholecystectomy in the past. Has abstained from alcohol completely since March 2020. [place] well initially following procedure and ate chicken noodle soup and chips in the evening and then developed LUQ and epigastric pain that is sharp and constant with radiation across to RUQ. Denies nausea or vomiting. No fever, chills, lightheadedness, SOB, dysuria, diarrhea or constipation. Took his metoprolol this morning EAR FLAP BINDER. Allergies Allergy/AdvReac Type Severity Reaction Status Date / Time adhesive AdvReac Mild BLISTERS Verified 08/09/20 10:09 acetaminophen [From Percocet] AdvReac Unknown Constipatio Unverified 08/09/20 10:09 n canagliflozin [From Invokana] AdvReac Unknown HX Unverified 08/09/20 10:09 PANCREATITIS hydrochlorothiazide AdvReac Unknown Pancreatitis Verified 08/09/20 10:09 history oxycodone [From Percocet] AdvReac Unknown Constipatio Unverified 08/09/20 10:09 n pantoprazole AdvReac Unknown HX Verified 08/09/20 10:09 PANCREATITIS rosuvastatin [From Crestor] AdvReac Unknown HX Verified 08/09/20 10:09 PANCREATITIS Home Medications Medication Instructions Recorded Confirmed Type cyanocobalamin (vitamin B-12) 1,000 mcg PO QAM 03/14/19 08/09/20 History lisinopril 20 mg PO QAM 03/14/19 08/09/20 History metoprolol tartrate 75 mg PO BID 03/14/19 08/09/20 History multivitamin [Multiple Vitamins] 1 tab PO QAM 03/14/19 08/09/20 History nitroglycerin [Nitrostat] 0.4 mg SUBLINGUAL DIRECTED PRN 03/14/19 08/09/20 History sodium chloride [[place] Nasal] 2 spray INTRANASAL DIRECTED PRN 06/05/19 08/09/20 History metformin 1,000 mg PO BIDM #0 tab 06/06/19 08/09/20 Rx aspirin [Aspirin Low Dose] 81 mg PO QAM 03/06/20 08/09/20 History glipizide 10 - 20 mg PO DIRECTED 03/06/20 08/09/20 History rosuvastatin 5 mg PO DAILY 08/09/20 08/09/20 History Past Med/Surg History Medical History (Updated 08/09/20 @ 12:42 by Shawna Raman PA-C) Asthma A CHILD CHF (congestive heart failure) Preserved LV systolic function per cardio Chronic diastolic heart failure Coronary artery disease s/p [place] and Vfib arrest 2003 s/p CABG x 2 2003 Diabetes mellitus, type 2 Dyslipidemia GERD (gastroesophageal reflux disease) History of pancreatitis Hypertension Myocardial Infarction 06/16/2003, complicated by Vfib arrest. S/P CABG (DAVILA-LAD, SVG-PDA) Follows with Dr. Roach ([facility] Surgical History History of colonoscopy History of ERCP History of esophagogastroduodenoscopy (EGD) History of knee surgery RIGHT-BONE SPUR/TEAR REPAIR Status post cholecystectomy Status post coronary artery bypass grafting 2 VESSELS-06/2003 Status post hernia repair Family History Mother Diabetes Brother Colorectal cancer Diabetes Social History Smoking Status: Never smoker Second Hand Exposure: No; Hx Alcohol Use: Yes Alcohol type: beer Hx Substance Use: No Preferred Language: Swedish Communication Ability: Effective Attending Ambulatory Care Required: No Beliefs That Will Affect Care: None marital status: Current Living Situation: Spouse Feels Safe at Home: Yes Safety Concerns: Feels Safe At This Time Assistive Devices: None Review of Systems Review of Systems: At least ten systems reviewed and negative except as noted in the HPI. Physical Exam Physical Exam: General Appearance: WD/WN, vitals as above, NAD, sitting up in bed, pleasant, conversing easily Head: normocephalic, atraumatic Eyes: normal inspection, PERRL, conjunctivae normal, anicteric sclerae ENT: external ear and nose normal, oropharynx normal Neck: normal visual inspection, trachea midline, no thyromegaly Respiratory: normal respiratory effort, scattered wheezing bilaterally, no rales or rhonchi. No accessory muscle use Cardiovascular: regular rate, rhythm, no murmur, normal peripheral pulses, no BLE edema. Vessels: no JVD Chest: normal inspection of chest Abdomen/GI: normal bowel sounds, soft, LUQ and RUQ TTP, no guarding, no hepatosplenomegaly Extremities/Musculoskeletal: no cyanosis or clubbing, extremities motor strength 5/5 Neurologic: PERRL, EOMI, accommodation nl, no face palsy, no dysarthria, CN's II-XI intact bilaterally and moves all extremities Psychiatric: A+Ox3, euthymic affect Skin: no rashes, normal color, warm/dry Results & Data Results & Data ([facility] [place]) Vital Signs (Past 12 Hours) Vital Signs Temp Pulse Resp BP Pulse Ox 08/09/20 11:27 69 18 133/73 100 08/09/20 09:15 96 08/09/20 08:44 36.4 C L 76 20 179/70 H 98 Laboratory Results Short CBC 08/09/20 Range/Units 09:22 WBC 9.30 (4.8-10.8) K/uL Hgb 12.7 L (14.0-18.0) g/dL Hct 37.1 L (42-52) % Plt Count 212 (130-400) K/uL BMP 08/09/20 09:22 Sodium 142 Potassium 3.6 Chloride 111 H Carbon Dioxide 26 BUN 15 Creatinine 0.83 Glucose 144 H Calcium 8.3 L Cardiac Enzymes 08/09/20 Range/Units 09:22 Troponin I < 0.015 (0-0.045) ng/ml Liver Function 08/09/20 Range/Units 09:22 Total Bilirubin 0.5 (0.2-1) mg/dl AST 12 L (15-37) U/L ALT 27 (12-78) U/L Alkaline Phosphatase 55 (45-117) U/L Albumin 3.2 L (3.4-5.0) gm/dl Diagnostic Findings Abdomen/Pelvis CT 08/09/20 08:51 CT SCAN OF THE ABDOMEN AND PELVIS WITH IV CONTRAST CLINICAL HISTORY: Epigastric abdominal pain. Reported history of pancreatic stent. COMPARISON STUDY: Abdominal CT dated 03/06/2020. TECHNIQUE: Following the IV administration of 89 cc of Optiray 300, CT scan of the abdomen and pelvis is performed from the lung bases to the proximal femora. Images are reviewed in the axial, sagittal, and coronal planes. IV contrast was administered without complication. A dose lowering technique was utilized adhering to the principles of ALARA. CT DOSE: 887.16 mGycm FINDINGS: Lung bases: The patient is status post midline sternotomy. The heart is mildly enlarged and without pericardial effusion. The coronary arteries are densely calcified. There is a tiny hiatal hernia. The lung bases are clear noting dependent atelectasis. Liver: The contrast-enhanced liver is enlarged, measuring 18.9 cm in length. The liver demonstrates diffusely diminished attenuation consistent with steatosis. There is no intrahepatic biliary ductal dilatation. The hepatic veins and portal veins are patent. Gallbladder: Surgically absent noting clips in the gallbladder fossa. Spleen: Normal in size and attenuation. Pancreas: There is mild glandular atrophy of the pancreas. There is peripancreatic inflammatory stranding and trace fluid consistent with acute pancreatitis. The gland enhances homogeneously. The duct is normal in caliber. A stent is present within the pancreatic head extending into the duodenum. No organized peripancreatic fluid collection is identified. The splenic vein is patent. Adrenal glands: Unremarkable. Kidneys: The contrast enhanced kidneys demonstrate mild cortical atrophy and are without hydronephrosis. The kidneys enhance symmetrically. There is a 2.6 cm left renal cyst. Additional subcentimeter cortical hypodensities also likely represent cysts but are too small for definitive characterization. Abdominal vasculature: The abdominal aorta is normal in course and caliber noting advanced atherosclerotic calcification. Bowel: There is no bowel obstruction. Mild duodenal wall thickening is likely related to adjacent pancreatitis. The appendix is well-visualized and normal. Peritoneum: There is no intraperitoneal free air or abdominal ascites. There is evidence of previous umbilical hernia repair. Lymphadenopathy: None. Pelvic viscera: The prostate gland is diminutive and heterogeneous. The bladder is normal as visualized. Skeletal structures: There is mild lumbosacral spondylosis. No lytic or blastic lesions are seen. IMPRESSION: 1. Findings are consistent with acute pancreatitis. Correlate with clinical findings and serum amylase/lipase levels. 2. The gland enhances homogeneously and there is no peripancreatic fluid collection. 3. A stent extends from the pancreatic head into the duodenum. 4. Mild duodenal wall thickening is likely related to adjacent pancreatitis. 5. The liver is mildly enlarged and steatotic. 6. Cardiomegaly with advanced coronary artery calcification. 7. Additional findings as above. ACT 112: Negative or not required by law. Electronically signed by: Demetrius Hurd M.D. 08/09/2020 10:36 AM Chest X-Ray 08/09/20 08:51 XR chest 1V portable CLINICAL HISTORY: Pain, radiating to the abdomen. COMPARISON STUDY: 08/16/2019 FINDINGS: The heart is borderline enlarged. There are postsurgical changes of midline sternotomy. There is no failure. There is no focal pulmonary consolidation. There are no pleural effusions. There is no pneumo peritoneum. There are minimal left basilar atelectatic changes.[ IMPRESSION: No active disease in the chest. ACT 112: Negative or not required by law. Electronically signed by: Fawad Byrd M.D. 08/09/2020 9:13 AM ECG Rhythm: sinus rhythm Findings: + 1st degree AV block and + T-wave inversion (Inferior) Supervising Physician Co-Signing Physician Notes Patient seen and examined by me, care coordinated with Shawna Raman PA-C, please refer to her note above for further detail. Patient is a 70-year-old male, with history of recurrent pancreatitis, follows with Dr. Verde from GI. Hx of CAD, CHF, MD type 2. Pt underwent ERCP yesterday in [place] (Dr. Townsend) and stent was placed in the major pancreatic duct at that time, pt now presents with abdominal pain, lipase of [address] scan consistent with pancreatitis. He was started on IV fluids and case was discussed with Dr. Up from [place] and ED provider. Currently pt is lying in bed, in mild distress due to epigastric pain. He is alert and oriented answering questions appropriately. Lungs are mostly clear to auscultation however there is very mild wheezing. No crackles. Abdomen is obese, soft, tender to palpation in epigastric area, left upper quadrant area and radiating to the right upper quadrant area. There is no lower extremity edema. skin is warm, dry, well-perfused. We will continue IV fluids, will closely monitor fluid status. Antiemetics, pain management. GI consulted for further recommendations. MD Shannan
[2020-08-09 12:24] LABS: Influenza A virus by PCR Negative (Neg); Influenza B virus by PCR Negative (Neg); RSV by PCR Negative (Neg); SARS CoV2 RNA(COVID-19) InHosp NEGATIVE (Negative)
[2020-08-09] MEDS ORDERED: ALBUT/IPRATROP 3MG/0.5MG NEB 3 ML VIAL NEB ONE (13:10)
[2020-08-09] MEDS ORDERED: POLYETHYLENE (MIRALAX) 17 GM PACK PO PRN (13:26)
[2020-08-09] MEDS ORDERED: ALBUT/IPRATROP 3MG/0.5MG NEB 3 ML VIAL NEB PRN (13:26)
[2020-08-09] MEDS ORDERED: DEXTROSE 50% 50 ML SYRINGE IV PRN (13:27)
[2020-08-09] MEDS ORDERED: GLUCOSE 40% GEL 15 GM TUBE PO PRN (13:27)
[2020-08-09] MEDS ORDERED: GLUCAGON FOR INJ 1 MG VIAL SQ PRN (13:27)
[2020-08-09] MEDS ORDERED: CARBOHYDRATES FOR HYPOGLYCEMIA PO PRN (13:27)
[2020-08-09] MEDS ORDERED: GLUCOSE 10 TABS/TUBE PO PRN (13:27)
--- NOTE | 2020-08-09 13:27 | Gastrointestinal Consultation ---
Date of Consultation August 09, 2020 Assessment & Plan (1) Acute pancreatitis after endoscopic retrograde cholangiopancreatography (ERCP): LR Hydration Follow LFTs, Lipase, CBC, CMP daily. Supervising Physician Co-Signing Physician Notes Attg add: Pt with chronc panc, divisum, s/p ERCP yesterday with major PD sphincterotomy and stent, failed attempt at minor sphincterotomy, now admit with Post ERCP pancreatitis. Non toxic appearing, WBC 9, BUN 15, no hemoconcentration. CT shows peripanc edema. Plan hydration, analgesia, diet as tolerated. History of Present Illness Reason for Consultation: Pancreatitis Requesting Physician: Shawna Raman PA-C/Dr. Teran Attending Physician: Jose Guadalupe Teran MD History of Present Illness Mr. Chet Cannon is a 70 yr old male pt of Dr. 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 He carries a hx of prior ERCP's by Dr. Gabriela Verde: 2012, 2019. He underwent ERCP by Dr. Townsend in [place] yesterday with sphincterotomy and stenting of the major pancreatic duct but failed cannulation of the minor papilla. At home yesterday, after the procedure, he developed upper abd pain that is typical of his episodes of pancreatitis. The pain persisted, becoming severe around 11PM, with nausea and some mild dizziness. He presented to the ED early this morning. On arrival, CT with IV contrast is suggestive of pancreatitis. Lipase is elevated at 9724. Cr is 0.8. Hb is 12.7. WBC and LFTs are normal. He is passing gas and passed a BM this morning. He has not had vomiting, diarrhea, fevers, sweats. He is seen and examined while resting in bed and describes pain across the upper abdomen, radiating to the back, between the shoulder blades. He is awake, alert, oriented and hemodynamically stable. Allergies Allergy/AdvReac Type Severity Reaction Status Date / Time adhesive AdvReac Mild BLISTERS Verified 08/09/20 10:09 acetaminophen [From Percocet] AdvReac Unknown Constipatio Unverified 08/09/20 10:09 n canagliflozin [From Invokana] AdvReac Unknown HX Unverified 08/09/20 10:09 PANCREATITIS hydrochlorothiazide AdvReac Unknown Pancreatitis Verified 08/09/20 10:09 history oxycodone [From Percocet] AdvReac Unknown Constipatio Unverified 08/09/20 10:09 n pantoprazole AdvReac Unknown HX Verified 08/09/20 10:09 PANCREATITIS rosuvastatin [From Crestor] AdvReac Unknown HX Verified 08/09/20 10:09 PANCREATITIS Home Medications Medication Instructions Recorded Confirmed Type cyanocobalamin (vitamin B-12) 1,000 mcg PO QAM 03/14/19 08/09/20 History lisinopril 20 mg PO QAM 03/14/19 08/09/20 History metoprolol tartrate 75 mg PO BID 03/14/19 08/09/20 History multivitamin [Multiple Vitamins] 1 tab PO QAM 03/14/19 08/09/20 History nitroglycerin [Nitrostat] 0.4 mg SUBLINGUAL DIRECTED PRN 03/14/19 08/09/20 History sodium chloride [[place] Nasal] 2 spray INTRANASAL DIRECTED PRN 06/05/19 08/09/20 History metformin 1,000 mg PO BIDM #0 tab 06/06/19 08/09/20 Rx aspirin [Aspirin Low Dose] 81 mg PO QAM 03/06/20 08/09/20 History glipizide 10 - 20 mg PO DIRECTED 03/06/20 08/09/20 History rosuvastatin 5 mg PO DAILY 08/09/20 08/09/20 History Patient History Medical History (Updated 08/09/20 @ 12:42 by Shawna Raman PA-C) Asthma A CHILD CHF (congestive heart failure) Preserved LV systolic function per cardio Chronic diastolic heart failure Coronary artery disease s/p CO and Vfib arrest 2003 s/p CABG x 2 2003 Diabetes mellitus, type 2 Dyslipidemia GERD (gastroesophageal reflux disease) History of pancreatitis Hypertension Myocardial Infarction 06/16/2003, complicated by Vfib arrest. S/P CABG (DAVILA-LAD, SVG-PDA) Follows with Dr. Roach ([facility]). Surgical History History of colonoscopy History of ERCP History of esophagogastroduodenoscopy (EGD) History of knee surgery RIGHT-BONE SPUR/TEAR REPAIR Status post cholecystectomy Status post coronary artery bypass grafting 2 VESSELS-06/2003 Status post hernia repair Family History Mother Diabetes Brother Colorectal cancer Diabetes Social History Smoking Status: Never smoker Second Hand Exposure: No; Hx Alcohol Use: Yes Alcohol type: beer Hx Substance Use: No Preferred Language: Nepalese Communication Ability: Effective Chemical Engineering Technologist Required: No Beliefs That Will Affect Care: None marital status: Current Living Situation: Spouse Feels Safe at Home: Yes Safety Concerns: Feels Safe At This Time Assistive Devices: None Review of Systems Review of Systems: ROS: Gen: + mild dizziness, now resolved. Denies weakness, fevers, weight loss Eyes: No eye redness, or pain, no recent vision changes Resp: No SOB, no cough Cardio: No palpitations/irregular beats, no chest pain GI: See HPI, otherwise (-) : Denies pain on urination Skin: No jaundice, itching or new rashes Physical Exam Constitutional: WD/WN, vitals as above Eyes: PERRL, conjunctivae normal, anicteric sclerae ENMT: external ear and nose normal, oropharynx normal Neck: trachea midline, no thyromegaly Respiratory: normal respiratory effort, lungs clear to auscultation Cardiovascular: RRR, no murmur, no edema Gastrointestinal (Abdomen): Inspection/Auscultation: + abdomen distended (mildly) Percussion/Palpation: + abdomen tender (diffusely upper abd more than lower abdomen) and + guarding; abdomen not rigid Musculoskeletal: no cyanosis or clubbing, extremities motor strength 5/5 Skin: no rashes, warm and dry Neurologic: PERRL, EOMI, accommodation nl, no face palsy, no dysarthria Psychiatric: A+Ox3, euthymic affect Lymphatic: no cervical or axillary lymphadenopathy Results & Data ([facility]) Vital Signs (Past 12 Hours) Vital Signs Temp Pulse Resp BP Pulse Ox 08/09/20 13:01 69 18 153/93 H 99 08/09/20 12:30 58 L 18 165/75 H 99 08/09/20 12:00 61 18 151/78 H 98 08/09/20 11:31 64 18 120/78 98 08/09/20 11:27 69 18 133/73 100 08/09/20 09:15 96 08/09/20 08:44 36.4 C L 76 20 179/70 H 98 Laboratory Results WBC 12.7, Hb 12.7, Hct 37.1, Platelets 212, Na 142, K 3.6, BUN 15, Cr 0.83, glucose 144. COVID (-). Diagnostic Findings CT abd/pelvis with IV contrast 08/09/20: 1. Findings are consistent with acute pancreatitis. Correlate with clinical findings and serum amylase/lipase levels. 2. The gland enhances homogeneously and there is no peripancreatic fluid collection. 3. A stent extends from the pancreatic head into the duodenum. 4. Mild duodenal wall thickening is likely related to adjacent pancreatitis. 5. The liver is mildly enlarged and steatotic. 6. Cardiomegaly with advanced coronary artery calcification. 7. Additional findings as above. ERCP 08/08/20: - Failed cannulation of minor papilla despite numerous attempts with clever cut sphincterotome and 3-4-5 tapered catheter as well as externsion of pre-cut minor papilla sphincterotomy. - The ventral pancreatic duct was able to be cannulated. Pancreatogram demonstrating evidence of incomplete divisum with contrast opacifying the minor duct. - A pancreatic duct stricture was found in the region of the confluence of the ventral and dorsal pancreatic ducts. - Major pancreatic duct orifice sphincterotomy performed followed by attempted passage of both 7 F tapered tip dilator and 4 mm dilating balloon both of which failed to be advanced beyond the pancreatic head - One 5 Fr x 3 cm plastic ventral pancreatic duct stent was placed. - Methylene blue with contrast was injected into the pancreatic duct to opacify the dorsal duct. Contrast with dye was seen emanating from the minor papilla orifice. The minor duct was still unable to be cannulated.
--- NOTE | 2020-08-09 13:44 | XRay Report ---
XR chest 1V portable CLINICAL HISTORY: eval volume status COMPARISON STUDY: Chest radiograph August 09, 2020 at 8:56 AM. FINDINGS: There are median sternotomy wires and mediastinal surgical clips. Note is made of moderate cardiomegaly without evidence for pulmonary edema. Minimal left basilar opacity favors atelectasis an d epicardial fat pad. IMPRESSION: No acute cardiopulmonary findings. ACT 112: Negative or not required by law. Electronically signed by: Brandon Goode M.D. 08/09/2020 1:43 PM
[2020-08-09] MEDS: HYDROmorphone INJ 0.5 MG/0.5 ML SYR IV PRN ×2 (14:43→20:17)
[2020-08-09 14:58] LABS: Appearance Urine Clear (Clear); Bilirubin Urine Negative (Negative); Blood Urine Negative (Negative); Color Urine Yellow; Glucose Urine UA Negative (Negative); Ketones Urine Negative (Negative); Leukocyte Esterase Urine Negative (Negative); Nitrite Urine Negative (Negative); Protein Urine Negative (Negative); Specific Gravity Urine > 1.045 (1.000-1.030); Urobilinogen Urine Negative (Negative); pH Urine 7.5 (4.5-7.5)
[2020-08-09] MEDS: INSULIN ASPART 100 UNITS/ML 3 ML PEN SC SCH ×2 (16:59→21:48)
[2020-08-10] MEDS: HYDROmorphone INJ 0.5 MG/0.5 ML SYR IV PRN (02:26)
[2020-08-10 06:31] LABS: Hematocrit (blood only) 36.3 % (42-52); Hemoglobin 12.8 g/dL (14.0-18.0); Mean Corpuscular Hemoglobin 32.6 pg (25-34); Mean Corpuscular Hgb Conc 35.3 g/dL (32-36); Mean Corpuscular Volume 92.4 fL (80-100); Mean Platelet Volume 9.3 fL (7.4-10.4); Platelet Count 209 K/uL (130-400); RDW Coefficient of Variation 12.5 % (11.5-14.5); RDW Standard Deviation 42.8 fL (36.4-46.3); Red Blood Count 3.93 M/uL (4.7-6.1); White Blood Count 8.27 K/uL (4.8-10.8)
[2020-08-10] MEDS ORDERED: NITROGLYCERIN SL 0.4 MG/TAB TAB SL STA (06:41)
--- NOTE | 2020-08-10 06:43 | Communication Note ---
Date of Service: August 10, 2020 Notified by RN of patient complaints of chest tightness over pancreatitis pain. Some shortness of breath. No relief with nitroglycerin. SBO 160s EKG as per my interpretation:Rate 90, NSR, normal axis, T wave inversion inferior leads, and septal leads, PVCs AP Chest pain Likely extension of pancreatitis pain Anxiety contributory Uncontrolled BP Analgesia, anxiolytic as needed Resume Lopressor Follow troponin Resume home aspirin for secondary CAD prevention Will relay to AM provider.
[2020-08-10] MEDS ORDERED: NITROGLYCERIN SL 0.4 MG/TAB TAB SL PRN ×2 (06:47→09:48)
[2020-08-10 07:13] LABS: Albumin Globulin Ratio 0.9 (0.9-2); Albumin Level 3.1 gm/dl (3.4-5.0); BUN Creatinine Ratio 11.4 (10-20); Bilirubin,Total 0.6 mg/dl (0.2-1); Est GFR (African American) 112.9; Est GFR (Non-African American) 97.4; Globulin 3.6 gm/dl (2.5-4.0); Total Protein 6.7 gm/dl (6.4-8.2)
[2020-08-10] MEDS ORDERED: LORazepam 0.25 MG/0.5 ML VIAL IV PRN (07:27)
[2020-08-10] MEDS: MoRPHine SULFATE 4 MG/ML 1 ML CARP\\VIAL IV PRN ×4 (07:29→23:35)
[2020-08-10] MEDS: METOPROLOL TARTRATE 25 MG TAB PO SCH ×3 (07:29→20:28)
[2020-08-10] MEDS ORDERED: LACTATED RINGER'S 1,000 ML IV ONE (08:50)
--- NOTE | 2020-08-10 08:56 | Gastroenterology Progress Note ---
Date of Service August 10, 2020 Assessment & Plan (1) Acute pancreatitis after endoscopic retrograde cholangiopancreatography ( ERCP): LR Hydration Will start clear liquids po. Follow LFTs, Lipase, CBC, CMP daily. Admission and Anticipated Discharge Date Admission Date: August 09, 2020 Supervising Physician Co-Signing Physician Notes I performed a history and physical examination of the patient today, including specifically on physical exam - soft abdomen. I have discussed the patient's management with the advanced practitioner. Please refer to the nurse practitioner's note for the documented findings and plan of care. Labs improved. Start PO Clear liquid diet and can decrease the rate of IV fluids in view of his CHF. Recall GI if needed. Subjective Hx of acute, recurrent pancreatitis. Admitted yesterday with pancreatitis after ERCP with failed attempt at minor papillary sphincterotomy in [place] yesterday. Had severe pain before arrival then much improved by yesterday afternoon but then had chest pain from 6 AM to 8AM that is typical of his pancreatitis pain. EKG was completed w/o evidence of an event. Pain much improved with morphine IV. Belching. No flatus this morning. Upper abd moderately tender and BS are active on exam. Hb 12.7->12.8. Cr 0.83->0.68 Feels thirsty. Review of Systems Review of Systems: ROS: Gen: + mild dizziness, now resolved. Denies weakness, fevers, weight loss Eyes: No eye redness, or pain, no recent vision changes Resp: No SOB, no cough Cardio: + lower chest pressure moderately painful this morning. See HPI. No palpitations/irregular beats GI: See HPI, otherwise (-) : Denies pain on urination Skin: No jaundice, itching or new rashes Physical Exam Constitutional: WD/WN, vitals as above Eyes: PERRL, conjunctivae normal, anicteric sclerae ENMT: external ear and nose normal, oropharynx normal Neck: trachea midline, no thyromegaly Respiratory: normal respiratory effort, lungs clear to auscultation Cardiovascular: RRR, no murmur, no edema Gastrointestinal (Abdomen): Inspection/Auscultation: + abdomen distended (mildly) and normal bowel sounds Percussion/Palpation: + abdomen tender (diffusely upper abd more than lower abdomen) and + guarding; abdomen not rigid Musculoskeletal: no cyanosis or clubbing, extremities motor strength 5/5 Skin: no rashes, warm and dry Neurologic: PERRL, EOMI, accommodation nl, no face palsy, no dysarthria Psychiatric: A+Ox3, euthymic affect Lymphatic: no cervical or axillary lymphadenopathy Results & Data ([facility]) Vital Signs (Past 12 Hours) Vital Signs Temp Pulse Pulse Pulse Resp BP BP 08/10/20 07:29 36.9 C 87 16 166/73 H 08/10/20 07:24 102 H 18 166/71 H 08/10/20 07:00 103 H 08/10/20 06:42 36.4 C L 87 20 169/71 H 08/10/20 03:17 37.1 C 89 18 139/67 08/10/20 00:27 79 08/09/20 22:51 37.2 C 83 18 122/57 L Pulse Ox 08/10/20 07:29 95 08/10/20 07:24 95 08/10/20 07:00 08/10/20 06:42 91 08/10/20 03:17 91 08/10/20 00:27 08/09/20 22:51 90 Laboratory Results WBC 8.27, Hb 12.8, Hct 36.3, Plts 209, Na 139, K 4.0, Cl 109, CO2 25, BUN 8, Cr0.68 Diagnostic Findings CXR 08/09/20: The heart is borderline enlarged. There are postsurgical changes of midline sternotomy. There is no failure. There is no focal pulmonary consolidation. There are no pleural effusions. There is no pneumo peritoneum. There are minimal left basilar atelectatic changes.[No acute cardiopulmonary findings. 09/10/20 - results pending. CT w IV contrast: 1. Findings are consistent with acute pancreatitis. Correlate with clinical findings and serum amylase/lipase levels. 2. The gland enhances homogeneously and there is no peripancreatic fluid collection. 3. A stent extends from the pancreatic head into the duodenum. 4. Mild duodenal wall thickening is likely related to adjacent pancreatitis. 5. The liver is mildly enlarged and steatotic. 6. Cardiomegaly with advanced coronary artery calcification. 7. Additional findings as above.
[2020-08-10] MEDS ORDERED: LACTATED RINGER'S 250 ML IV ONE (08:59)
[2020-08-10] MEDS ORDERED: LACTATED RINGER'S 1,000 ML IV SCH (09:00)
[2020-08-10] MEDS: ASPIRIN 81 MG ECTAB PO SCH (09:10)
--- NOTE | 2020-08-10 09:15 | XRay Report ---
XR chest 1V portable HISTORY: 70 years-old Male sob acute shortness of breath COMPARISON: Chest radiograph 08/09/2020 TECHNIQUE: Portable AP view of the chest FINDINGS: Cardiac silhouette is enlarged. Prior median sternotomy and CABG. Azygos lobe and fissure. No pneumot horax, large pleural effusion or overt pulmonary edema. Unchanged blunting of the left costophrenic a ngle with left lung base opacities suggestive of atelectasis with prominent epicardial fat pad. Bones appear grossly intact. IMPRESSION: No acute process. ACT 112: Negative or not required by law. The above report was generated using voice recognition software. It may contain grammatical, syntax o r spelling errors. Electronically signed by: Emiliano Omer M.D. 08/10/2020 9:14 AM
[2020-08-10] MEDS: POLYETHYLENE (MIRALAX) 17 GM PACK PO SCH (09:19)
--- NOTE | 2020-08-10 09:24 | Electrocardiogram Report ---
Test Reason : Blood Pressure : / mmHG Vent. Rate : 090 BPM Atrial Rate : 090 BPM P-R Int : 194 ms QRS Dur : 100 ms QT Int : 346 ms P-R-T Axes : 046 086 011 degrees QTc Int : 423 ms Sinus rhythm with Premature atrial complexes with Aberrant conduction Cannot rule out Anterior infarct (cited on or before 09-AUG-2020) T wave abnormality, consider inferior ischemia Abnormal ECG When compared with ECG of 09-AUG-2020 08:53, Aberrant conduction is now Present TX interval has decreased Confirmed by Chai Montenegro ([id number]) on 08/10/2020 9:24:05 AM Referred By: REFERRED SELF Confirmed By:Chai Montenegro
[2020-08-10] MEDS: INSULIN ASPART 100 UNITS/ML 3 ML PEN SC SCH ×4 (09:46→20:53)
[2020-08-10] MEDS: LACTATED RINGER'S 1,000 ML IV SCH ×2 (10:46→18:22)
[2020-08-10] MEDS: traMADol HCL 50 MG TABLET PO PRN (10:46)
[2020-08-10] MEDS: FAMOTIDINE 20 MG in SYRINGE 3 ML IV SCH (10:48)
[2020-08-10] MEDS: lisinopril 20 MG TAB PO SCH (10:48)
[2020-08-10] MEDS: ONDANSETRON INJ 2 MG/ML 2 ML VIAL IV PRN (12:05)
--- NOTE | 2020-08-10 14:27 | Hospitalist Progress Note ---
Date of Service August 10, 2020 Assessment & Plan (1) Acute pancreatitis after endoscopic retrograde cholangiopancreatography ( ERCP): Patient is a 70 yr male with H/O Recurrent pancreatitis, status post ERCP yesterday, CAD status post, CABG x 2 in 2003, type 2 diabetes, hyperlipidemia, chronic diastolic dysfunction, GERD and other medical problems listed below who presents with Acute pancreatitis. Recurrent Pancreatitis Chronic pancreatitis, divisum Had ERCP on 08/09/20 at [facility], --major PD sphincterotomy and stent placement; unsuccessful minor sphincterotomy --CT ABD:Findings are consistent with acute pancreatitis. Correlate with clinical findings and serum amylase/lipase levels. The gland enhances homogeneously and there is no peripancreatic fluid collection. A stent extends from the pancreatic head into the duodenum. Mild duodenal wall thickening is likely related to adjacent pancreatitis. The liver is mildly enlarged and steatotic. Cardiomegaly with advanced coronary artery calcification. --Lipase: 9724> 5149 --Continue IV fluids -Monitor volume status given history of CHF -Appreciate GI input -Clear liquid diet today (2) Diabetes mellitus type 2 in obese: Hold PO medications Last HbA1c 7.5 Continue insulin therapy while hospitalized Monitor BGS (3) Coronary artery disease: CAD S/P CABG x2 in 2003 Troponin negative Continue aspirin, lisinopril, metoprolol Patient currently not taking statin due to pancreatitis (4) Chronic diastolic heart failure: Monitor volume status while on IV fluids Continue home medication DVT Px: Lovenox SQ Code status: FULL CODE Disposition: Expect to discharge home when stable Admission and Anticipated Discharge Date Admission Date: August 09, 2020 Subjective Patient is seen and examined at bedside States having epigastric pain Denies chest pain, dyspnea, dizziness, nausea Offers no other complaints Review of Systems Review of Systems: All systems reviewed & are unremarkable except as noted in HPI & below Physical Exam Physical Exam: Physical Exam: Vitals signs as noted above General Appearance:Moderately built and nourished, no apparent distress Head: normocephalic, Atraumatic Eyes: normal inspection, EOMI Neck: supple, Trachea midline Respiratory/Chest: Normal breath sounds, CTA Cardiovascular: S1, S2, No murmur Abdomen/GI:Soft, Epigastric tender, mildly distended, Bowel sounds present Extremities/Musculoskeletal:normal inspection, no edema Neurologic/Psych:AAOX3, grossly no focal neurological deficits Skin: normal color, warm Results & Data Results & Data ([facility]) Vital Signs (Past 12 Hours) Vital Signs Temp Pulse Pulse Pulse Resp BP BP 08/10/20 11:27 36.8 C 79 16 156/67 H 08/10/20 10:47 81 165/74 H 08/10/20 07:29 36.9 C 87 16 166/73 H 08/10/20 07:24 102 H 18 166/71 H 08/10/20 07:00 103 H 08/10/20 06:42 36.4 C L 87 20 169/71 H 08/10/20 03:17 37.1 C 89 18 139/67 Pulse Ox 08/10/20 11:27 93 08/10/20 10:47 08/10/20 07:29 95 08/10/20 07:24 95 08/10/20 07:00 08/10/20 06:42 91 08/10/20 03:17 91 Laboratory Results Short CBC 08/10/20 Range/Units 06:14 WBC 8.27 (4.8-10.8) K/uL Hgb 12.8 L (14.0-18.0) g/dL Hct 36.3 L (42-52) % Plt Count 209 (130-400) K/uL BMP 08/10/20 06:14 Sodium 139 Potassium 4.0 Chloride 109 H Carbon Dioxide 25 BUN 8 D Creatinine 0.68 Glucose 146 H Calcium 8.0 L Cardiac Enzymes 08/09/20 08/09/20 08/10/20 Range/Units 15:20 20:52 06:14 Troponin I < 0.015 < 0.015 < 0.015 (0-0.045) ng/ml Liver Function 08/10/20 Range/Units 06:14 Total Bilirubin 0.6 (0.2-1) mg/dl AST 10 L (15-37) U/L ALT 25 (12-78) U/L Alkaline Phosphatase 65 (45-117) U/L Albumin 3.1 L (3.4-5.0) gm/dl Urine 08/09/20 Range/Units 13:32 Urine Color Yellow Urine Appearance Clear (Clear) Urine pH 7.5 (4.5-7.5) Ur Specific [place] > 1.045 H (1.000-1.030) Urine Protein Negative (Negative) Urine Glucose (UA) Negative (Negative)
[2020-08-11] MEDS: LACTATED RINGER'S 1,000 ML IV SCH ×4 (00:08→17:53)
[2020-08-11] MEDS: MoRPHine SULFATE 4 MG/ML 1 ML CARP\\VIAL IV PRN ×3 (05:31→19:39)
[2020-08-11] MEDS: ONDANSETRON INJ 2 MG/ML 2 ML VIAL IV PRN ×2 (05:35→19:44)
[2020-08-11 06:02] LABS: Hemoglobin 12.4 g/dL (14.0-18.0); Mean Corpuscular Hemoglobin 31.7 pg (25-34); Mean Corpuscular Hgb Conc 34.4 g/dL (32-36); Mean Corpuscular Volume 92.1 fL (80-100); Mean Platelet Volume 9.2 fL (7.4-10.4); Platelet Count 194 K/uL (130-400); RDW Coefficient of Variation 12.4 % (11.5-14.5); RDW Standard Deviation 41.8 fL (36.4-46.3); Red Blood Count 3.91 M/uL (4.7-6.1); White Blood Count 10.65 K/uL (4.8-10.8)
[2020-08-11 06:29] LABS: Albumin Level 2.8 gm/dl (3.4-5.0); BUN Creatinine Ratio 9.9 (10-20); Calcium 8.5 mg/dl (8.5-10.1); Creatinine Clr Calc Pharmacy 89.4 ml/min; Est GFR (African American) 109.1; Est GFR (Non-African American) 94.1; Magnesium 1.6 mg/dl (1.8-2.4); Potassium 3.9 mmol/L (3.5-5.1)
[2020-08-11 06:35] LABS: Albumin Globulin Ratio 0.7 (0.9-2); Bilirubin,Total 1.2 mg/dl (0.2-1); Globulin 3.9 gm/dl (2.5-4.0); Total Protein 6.7 gm/dl (6.4-8.2)
[2020-08-11] MEDS: lisinopril 20 MG TAB PO SCH (08:06)
[2020-08-11] MEDS: ASPIRIN 81 MG ECTAB PO SCH (08:06)
[2020-08-11] MEDS: METOPROLOL TARTRATE 25 MG TAB PO SCH ×2 (08:06→21:02)
[2020-08-11] MEDS: FAMOTIDINE 20 MG in SYRINGE 3 ML IV SCH (08:06)
[2020-08-11] MEDS: POLYETHYLENE (MIRALAX) 17 GM PACK PO SCH (08:07)
[2020-08-11] MEDS: ENOXAPARIN INJ 40 MG/0.4 ML SYR SQ SCH (08:07)
[2020-08-11] MEDS: INSULIN ASPART 100 UNITS/ML 3 ML PEN SC SCH ×4 (09:06→21:03)
[2020-08-11] MEDS: MAGNESIUM SULFATE / D5W 1 GM/100 ML BAG IV SCH ×2 (09:07→11:12)
[2020-08-11] MEDS ORDERED: DOCUSATE SODIUM 100 MG CAP PO PRN (12:27)
--- NOTE | 2020-08-11 17:12 | Hospitalist Progress Note ---
Date of Service August 11, 2020 Assessment & Plan (1) Acute pancreatitis after endoscopic retrograde cholangiopancreatography ( ERCP): Patient is a 70 yr male with H/O Recurrent pancreatitis, status post ERCP yesterday, CAD status post, CABG x 2 in 2003, type 2 diabetes, hyperlipidemia, chronic diastolic dysfunction, GERD and other medical problems listed below who presents with Acute pancreatitis. Recurrent Pancreatitis Chronic pancreatitis, divisum Had ERCP on 08/09/20 at [facility], --major PD sphincterotomy and stent placement; unsuccessful minor sphincterotomy --CT ABD:Findings are consistent with acute pancreatitis. Correlate with clinical findings and serum amylase/lipase levels. The gland enhances homogeneously and there is no peripancreatic fluid collection. A stent extends from the pancreatic head into the duodenum. Mild duodenal wall thickening is likely related to adjacent pancreatitis. The liver is mildly enlarged and steatotic. Cardiomegaly with advanced coronary artery calcification. --Lipase: 9724> 5149>916 --Continue IV fluids -Monitor volume status given history of CHF -Appreciate GI input -Advance diet as tolerated Hypomagnesemia Replace electrolytes as needed (2) Diabetes mellitus type 2 in obese: Hold PO medications Last HbA1c 7.5 Continue insulin therapy while hospitalized Monitor BGS (3) Coronary artery disease: CAD S/P CABG x2 in 2003 Troponin negative Continue aspirin, lisinopril, metoprolol Patient currently not taking statin due to pancreatitis (4) Chronic diastolic heart failure: Monitor volume status while on IV fluids Continue home medication DVT Px: Lovenox SQ Code status: FULL CODE Disposition: Expect to discharge home when stable Admission and Anticipated Discharge Date Admission Date: August 09, 2020 Subjective Patient is seen and examined at bedside Abdominal pain better today States having nausea but no vomiting Reports having constipation Tolerating clear liquid diet Denies chest pain, dyspnea, dizziness, nausea Review of Systems Review of Systems: All systems reviewed & are unremarkable except as noted in HPI & below Physical Exam Physical Exam: Physical Exam: Vitals signs as noted above General Appearance:Moderately built and nourished, no apparent distress Head: normocephalic, Atraumatic Eyes: normal inspection, EOMI Neck: supple, Trachea midline Respiratory/Chest: Normal breath sounds, CTA Cardiovascular: S1, S2, No murmur Abdomen/GI:Soft, Epigastric tender, mildly distended, Bowel sounds present Extremities/Musculoskeletal:normal inspection, no edema Neurologic/Psych:AAOX3, grossly no focal neurological deficits Skin: normal color, warm Results & Data Results & Data ([facility]) Vital Signs (Past 12 Hours) Vital Signs Temp Pulse Pulse Pulse Resp BP Pulse Ox 08/11/20 15:00 36.7 C 87 83 16 172/78 H 94 08/11/20 11:15 37.1 C 82 16 160/67 H 92 08/11/20 08:05 91 H 164/72 H 08/11/20 07:00 91 H 95 H 18 166/75 H 91 Laboratory Results Short CBC 08/11/20 Range/Units 05:45 WBC 10.65 (4.8-10.8) K/uL Hgb 12.4 L (14.0-18.0) g/dL Hct 36.0 L (42-52) % Plt Count 194 (130-400) K/uL BMP 08/11/20 05:45 Sodium 134 L Potassium 3.9 Chloride 103 Carbon Dioxide 24 BUN 7 Creatinine 0.74 Glucose 153 H Calcium 8.5 Liver Function 08/11/20 Range/Units 05:45 Total Bilirubin 1.2 H D (0.2-1) mg/dl AST 11 L (15-37) U/L ALT 24 (12-78) U/L Alkaline Phosphatase 72 (45-117) U/L Albumin 2.8 L (3.4-5.0) gm/dl
[2020-08-11] MEDS: traMADol HCL 50 MG TABLET PO PRN (21:02)
[2020-08-12] MEDS: LACTATED RINGER'S 1,000 ML IV SCH ×3 (00:52→20:18)
[2020-08-12] MEDS: lisinopril 20 MG TAB PO SCH (08:06)
[2020-08-12] MEDS: METOPROLOL TARTRATE 25 MG TAB PO SCH ×2 (08:06→20:18)
[2020-08-12] MEDS: ENOXAPARIN INJ 40 MG/0.4 ML SYR SQ SCH (08:06)
[2020-08-12] MEDS: FAMOTIDINE 20 MG in SYRINGE 3 ML IV SCH (08:06)
[2020-08-12] MEDS: ASPIRIN 81 MG ECTAB PO SCH (08:07)
[2020-08-12] MEDS: INSULIN ASPART 100 UNITS/ML 3 ML PEN SC SCH ×4 (08:08→20:19)
[2020-08-12] MEDS: POLYETHYLENE (MIRALAX) 17 GM PACK PO SCH (08:09)
[2020-08-12 08:12] LABS: BUN Creatinine Ratio 10.9 (10-20); Calcium 9.2 mg/dl (8.5-10.1); Creatinine Clr Calc Pharmacy 91.8 ml/min; Est GFR (African American) 110.3; Est GFR (Non-African American) 95.2; Magnesium 1.8 mg/dl (1.8-2.4); Potassium 3.4 mmol/L (3.5-5.1)
[2020-08-12] MEDS ORDERED: POTASSIUM CHLORIDE PWD 20 MEQ PACK PO ONE (08:41)
--- NOTE | 2020-08-12 16:31 | Hospitalist Progress Note ---
Date of Service August 12, 2020 Assessment & Plan (1) Acute pancreatitis after endoscopic retrograde cholangiopancreatography ( ERCP): Patient is a 70 yr male with H/O Recurrent pancreatitis, status post ERCP yesterday, CAD status post, CABG x 2 in 2003, type 2 diabetes, hyperlipidemia, chronic diastolic dysfunction, GERD and other medical problems listed below who presents with Acute pancreatitis. Recurrent Pancreatitis Chronic pancreatitis, divisum Had ERCP on 08/09/20 at [facility], --major PD sphincterotomy and stent placement; unsuccessful minor sphincterotomy --CT ABD:Findings are consistent with acute pancreatitis. Correlate with clinical findings and serum amylase/lipase levels. The gland enhances homogeneously and there is no peripancreatic fluid collection. A stent extends from the pancreatic head into the duodenum. Mild duodenal wall thickening is likely related to adjacent pancreatitis. The liver is mildly enlarged and steatotic. Cardiomegaly with advanced coronary artery calcification. --Lipase: 9724> 5149>916 --Decrease IV fluids -Monitor volume status given history of CHF -Appreciate GI input -Advance to regular diet today Hypomagnesemia Hypokalemia Replace electrolytes as needed (2) Diabetes mellitus type 2 in obese: Hold PO medications Last HbA1c 7.5 Continue insulin therapy while hospitalized Monitor BGS (3) Coronary artery disease: CAD S/P CABG x2 in 2003 Troponin negative Continue aspirin, lisinopril, metoprolol Patient currently not taking statin due to pancreatitis (4) Chronic diastolic heart failure: Monitor volume status while on IV fluids Continue home medication DVT Px: Lovenox SQ Code status: FULL CODE Disposition: Expect to discharge home when stable Admission and Anticipated Discharge Date Admission Date: August 09, 2020 Subjective Patient is seen and examined at bedside Abdominal pain continues to improve States having nausea overnight but currently resolved Constipation resolved as well No other complaints Denies chest pain, dyspnea, dizziness, nausea Review of Systems Review of Systems: All systems reviewed & are unremarkable except as noted in HPI & below Results & Data Results & Data ([facility]) Vital Signs (Past 12 Hours) Vital Signs Temp Pulse Pulse Resp BP Pulse Ox 08/12/20 14:42 77 08/12/20 14:00 36.7 C 93 H 20 137/64 94 08/12/20 11:00 37.0 C 71 18 158/76 H 96 08/12/20 07:04 76 08/12/20 07:00 37.0 C 80 18 154/73 H 94 Laboratory Results [facility] 08/12/20 07:14 Sodium 139 Potassium 3.4 L Chloride 105 Carbon Dioxide 25 BUN 8 Creatinine 0.72 Glucose 148 H Calcium 9.2
[2020-08-12] MEDS: traMADol HCL 50 MG TABLET PO PRN (19:04)
[2020-08-12] MEDS ORDERED: ACETAMINOPHEN 325 MG TAB PO PRN (20:43)
[2020-08-12] MEDS ORDERED: diphenhydrAMINE Capsule 25 MG CAP PO ONE (20:45)
[2020-08-13 07:29] LABS: BUN Creatinine Ratio 14.2 (10-20); Calcium 9.1 mg/dl (8.5-10.1); Creatinine Clr Calc Pharmacy 86.9 ml/min; Est GFR (African American) 107.3; Est GFR (Non-African American) 92.6; Magnesium 1.7 mg/dl (1.8-2.4); Potassium 3.6 mmol/L (3.5-5.1)
[2020-08-13] MEDS: ASPIRIN 81 MG ECTAB PO SCH (07:58)
[2020-08-13] MEDS: METOPROLOL TARTRATE 25 MG TAB PO SCH (07:58)
[2020-08-13] MEDS: lisinopril 20 MG TAB PO SCH (07:58)
[2020-08-13] MEDS: POLYETHYLENE (MIRALAX) 17 GM PACK PO SCH (07:59)
[2020-08-13] MEDS: ENOXAPARIN INJ 40 MG/0.4 ML SYR SQ SCH (07:59)
[2020-08-13] MEDS: FAMOTIDINE 20 MG in SYRINGE 3 ML IV SCH (08:01)
[2020-08-13] MEDS: INSULIN ASPART 100 UNITS/ML 3 ML PEN SC SCH ×2 (08:01→12:11)
[2020-08-13] MEDS ORDERED: MAGNESIUM SULFATE / D5W 1 GM/100 ML BAG IV ONE (08:30)
[2020-08-13] MEDS ORDERED: MAGNESIUM CHLORIDE 64MG DELAYED REL TAB PO SCH (09:00)
[2020-08-13] MEDS: LACTATED RINGER'S 1,000 ML IV SCH (12:24)
--- NOTE | 2020-08-13 12:26 | Hospitalist Progress Note ---
Date of Service August 13, 2020 Assessment & Plan (1) Acute pancreatitis after endoscopic retrograde cholangiopancreatography (ERCP): Patient is a 70 yr male with H/O Recurrent pancreatitis, status post ERCP yesterday, CAD status post, CABG x 2 in 2003, type 2 diabetes, hyperlipidemia, chronic diastolic dysfunction, GERD and other medical problems listed below who presents with Acute pancreatitis. Recurrent Pancreatitis Chronic pancreatitis, divisum Had ERCP on 08/09/20 at [facility], --major PD sphincterotomy and stent placement; unsuccessful minor sphincterotomy --CT ABD:Findings are consistent with acute pancreatitis. Correlate with clinical findings and serum amylase/lipase levels. The gland enhances homogeneously and there is no peripancreatic fluid collection. A stent extends from the pancreatic head into the duodenum. Mild duodenal wall thickening is likely related to adjacent pancreatitis. The liver is mildly enlarged and steatotic. Cardiomegaly with advanced coronary artery calcification. --Lipase: 9724> 5149>916 --Received IV fluids -Monitor volume status given history of CHF -Appreciate GI input -Tolerataed regular diet today -Advised to follow-up with GI as outpatient Hypomagnesemia Hypokalemia Replace electrolytes as needed (2) Diabetes mellitus type 2 in obese: Hold PO medications Last HbA1c 7.5 Continue insulin therapy while hospitalized Monitor BGS (3) Coronary artery disease: CAD S/P CABG x2 in 2003 Troponin negative Continue aspirin, lisinopril, metoprolol Patient currently not taking statin due to pancreatitis (4) Chronic diastolic heart failure: Monitor volume status while on IV fluids Continue home medication DVT Px: Lovenox SQ Code status: FULL CODE Disposition: Home Admission and Anticipated Discharge Date Admission Date: August 09, 2020 Subjective Patient is seen and examined at bedside Abdominal pain resolved Tolerating regular diet No new complaints Denies chest pain, dyspnea, dizziness, nausea Review of Systems Review of Systems: All systems reviewed & are unremarkable except as noted in HPI & below Physical Exam Physical Exam: Physical Exam: Vitals signs as noted above General Appearance:Moderately built and nourished, no apparent distress Head: normocephalic, Atraumatic Eyes: normal inspection, EOMI Neck: supple, Trachea midline Respiratory/Chest: Normal breath sounds, CTA Cardiovascular: S1, S2, No murmur Abdomen/GI:Soft, Epigastric tender, mildly distended, Bowel sounds present Extremities/Musculoskeletal:normal inspection, no edema Neurologic/Psych:AAOX3, grossly no focal neurological deficits Skin: normal color, warm Results & Data Results & Data ([facility]) Vital Signs (Past 12 Hours) Vital Signs Temp Pulse Pulse Resp BP BP Pulse Ox 08/13/20 11:00 36.8 C 72 20 171/80 H 95 08/13/20 07:17 63 08/13/20 06:51 36.7 C 81 18 178/84 H 95 08/13/20 02:58 36.8 C 70 18 167/75 H 94 Laboratory Results [facility] 08/13/20 06:46 Sodium 140 Potassium 3.6 Chloride 107 Carbon Dioxide 27 BUN 11 Creatinine 0.77 Glucose 162 H Calcium 9.1
--- NOTE | 2020-08-13 14:31 | Discharge Summary ---
Date of Service August 13, 2020 Admission HPI Per Admitting Provider This is a 70-year-old male with PMH of recurrent pancreatitis, status post ERCP yesterday, CAD status post, CABG x 2 in 2003, type 2 diabetes, hyperlipidemia, chronic diastolic dysfunction, GERD and other medical problems listed below who presents with epigastric pain starting late last evening. Underwent ERCP procedure at [place] yesterday in setting of recurrent pancreatitis with repeat attempt at ERCP with minor duct sphincterotomy for pancreatic divisum. History of cholecystectomy in the past. Has abstained from alcohol completely since March 2020. [place] well initially following procedure and ate chicken noodle soup and chips in the evening and then developed LUQ and epigastric pain that is sharp and constant with radiation across to RUQ. Denies nausea or vomiting. No fever, chills, lightheadedness, SOB, dysuria, diarrhea or constipation. 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 Principal Diagnosis Recurrent Pancreatitis Chronic pancreatitis, divisum Hypomagnesemia Hypokalemia Discharge Data Allergies Allergy/AdvReac Type Severity Reaction Status Date / Time adhesive AdvReac Mild BLISTERS Verified 08/09/20 10:09 canagliflozin [From Invokana] AdvReac Unknown HX Unverified 08/09/20 10:09 PANCREATITIS hydrochlorothiazide AdvReac Unknown Pancreatitis Verified 08/09/20 10:09 history oxycodone [From Percocet] AdvReac Unknown Constipatio Unverified 08/09/20 10:09 n pantoprazole AdvReac Unknown HX Verified 08/09/20 10:09 PANCREATITIS rosuvastatin [From Crestor] AdvReac Unknown HX Verified 08/09/20 10:09 PANCREATITIS Consultations 08/09/20 11:22 ED Decision to Admit Stat 08/09/20 13:23 Consult Gastroenterology Routine Procedures Performed -CT ABD:Findings are consistent with acute pancreatitis. Correlate with clinical findings and serum amylase/lipase levels. The gland enhances homogeneously and there is no peripancreatic fluid collection. A stent extends from the pancreatic head into the duodenum. Mild duodenal wall thickening is likely related to adjacent pancreatitis. The liver is mildly enlarged and steatotic. Cardiomegaly with advanced coronary artery calcification. Ordered Studies 08/09/20 08:51 CT abd pelvis IV con only Stat Hospital Course (1) Acute pancreatitis after endoscopic retrograde cholangiopancreatography (ERCP): Patient is a 70 yr male with H/O Recurrent pancreatitis, status post ERCP yesterday, CAD status post, CABG x 2 in 2003, type 2 diabetes, hyperlipidemia, chronic diastolic dysfunction, GERD and other medical problems listed below who presents with Acute pancreatitis. Recurrent Pancreatitis Chronic pancreatitis, divisum Had ERCP on 08/09/20 at [facility], --major PD sphincterotomy and stent placement; unsuccessful minor sphincterotomy --CT ABD:Findings are consistent with acute pancreatitis. Correlate with clinical findings and serum amylase/lipase levels. The gland enhances homogeneously and there is no peripancreatic fluid collection. A stent extends from the pancreatic head into the duodenum. Mild duodenal wall thickening is likely related to adjacent pancreatitis. The liver is mildly enlarged and steatotic. Cardiomegaly with advanced coronary artery calcification. --Lipase: 9724> 5149>916 --Received IV fluids -Monitor volume status given history of CHF -Appreciate GI input -Tolerataed regular diet today -Advised to follow-up with GI as outpatient Hypomagnesemia Hypokalemia Replace electrolytes as needed (2) Diabetes mellitus type 2 in obese: Hold PO medications Last HbA1c 7.5 Continue insulin therapy while hospitalized Monitor BGS (3) Coronary artery disease: CAD S/P CABG x2 in 2003 Troponin negative Continue aspirin, lisinopril, metoprolol Patient currently not taking statin due to pancreatitis (4) Chronic diastolic heart failure: Monitor volume status while on IV fluids Continue home medication DVT Px: Lovenox SQ Code status: FULL CODE Disposition: Home Total Time Total Time Spent Total Time Spent (In Minutes): 41 minutes Total Time Includes: Examination of the Patient, Discharge Planning, Medication Reconciliation, Communication With Other Providers and Other Discharge Plan Discharge Items Patient Disposition: Home - Self-Care Reason For Visit: ACUTE PANCREATITIS, S/P ERCP YESTERDAY Discharge Diagnosis: Recurrent Pancreatitis Chronic pancreatitis, divisum Hypomagnesemia Hypokalemia Activity: Per Instructions section Exercise/Sports: Gradually increase as tolerated Non-emergency contact: Primary Care Provider and 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 Chambers in 1 week Follow-up with your management rep Dr. Bhagat in 1-2 week as advised Seek immediate medical attention if your symptoms reoccur or worsen Please take all medications as instructed on discharge list below. Please call if you have any questions or problems. You can reach a [facility] hospitalist on duty at [facility] 24 hours a day by calling [phone] Pending Studies at Discharge: No Stand-Alone Forms: My [facility], Smoking Cessation Medications and DC Order Prescriptions: New magnesium chloride [Mag 64] 64 mg Tablet,Delayed Release (Dr/Ec) 64 mg PO BID Qty: 30 RF: 0 Continued cyanocobalamin (vitamin B-12) 1,000 mcg Tablet 1,000 mcg PO QAM RF: 0 lisinopril 20 mg tablet 20 mg PO QAM RF: 0 metoprolol tartrate 50 mg tablet 75 mg PO BID RF: 0 multivitamin [Multiple Vitamins] Tablet 1 tab PO QAM RF: 0 nitroglycerin [Nitrostat] 0.4 mg Tablet, Sublingual 0.4 mg sublingual DIRECTED PRN (Reason: Chest Pain) RF: 0 sodium chloride [[place] Nasal] 0.65 % Aerosol,[place] 2 spray INTRANASAL DIRECTED PRN (Reason: Nasal Congestion/Dryness) RF: 0 metformin 1,000 mg tablet 1,000 mg PO BIDM Qty: 0 RF: 0 aspirin [Aspirin Low Dose] 81 mg Tablet,Delayed Release (Dr/Ec) 81 mg PO QAM RF: 0 glipizide 5 mg tablet 10 - 20 mg PO DIRECTED RF: 0 rosuvastatin 5 mg tablet 5 mg PO DAILY RF: 0 Discharge Orders: Discharge Order (Routine); Ordered 08/13/20 Ordered By: Tanvir Dhaliwal Admission Data Admit Date/Time: 08/09/20 12:47 Attending Provider: Tanvir Dhaliwal Admit Provider: Jose Guadalupe Teran Primary Care Provider: Artur Chambers Other Providers: Jose Guadalupe Teran ; Tariq Wolff Other Interventions: Discharge Summary Assessment (RN) Last Done: 08/13/20 13:11
--- NOTE | 2020-08-13 14:32 | Discharge Summary ---
Date of Service August 13, 2020 Admission HPI Per Admitting Provider This is a 70-year-old male with PMH of recurrent pancreatitis, status post ERCP yesterday, CAD status post, CABG x 2 in 2003, type 2 diabetes, hyperlipidemia, chronic diastolic dysfunction, GERD and other medical problems listed below who presents with epigastric pain starting late last evening. Underwent ERCP procedure at [place] yesterday in setting of recurrent pancreatitis with repeat attempt at ERCP with minor duct sphincterotomy for pancreatic divisum. History of cholecystectomy in the past. Has abstained from alcohol completely since March 2020. [place] well initially following procedure and ate chicken noodle soup and chips in the evening and then developed LUQ and epigastric pain that is sharp and constant with radiation across to RUQ. Denies nausea or vomiting. No fever, chills, lightheadedness, SOB, dysuria, diarrhea or constipation. 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 Admission Exam Per Admitting Provider Physical Exam Physical Exam: General Appearance: WD/WN, vitals as above, NAD, sitting up in bed, pleasant, conversing easily Head: normocephalic, atraumatic Eyes: normal inspection, PERRL, conjunctivae normal, anicteric sclerae ENT: external ear and nose normal, oropharynx normal Neck: normal visual inspection, trachea midline, no thyromegaly Respiratory: normal respiratory effort, scattered wheezing bilaterally, no rales or rhonchi. No accessory muscle use Cardiovascular: regular rate, rhythm, no murmur, normal peripheral pulses, no BLE edema. Vessels: no JVD Chest: normal inspection of chest Abdomen/GI: normal bowel sounds, soft, LUQ and RUQ TTP, no guarding, no hepatosplenomegaly Extremities/Musculoskeletal: no cyanosis or clubbing, extremities motor strength 5/5 Neurologic: PERRL, EOMI, accommodation nl, no face palsy, no dysarthria, CN's II-XI intact bilaterally and moves all extremities Psychiatric: A+Ox3, euthymic affect Skin: no rashes, normal color, warm/dry Principal Diagnosis Recurrent Pancreatitis Chronic pancreatitis, divisum Hypomagnesemia Hypokalemia Discharge Data Allergies Allergy/AdvReac Type Severity Reaction Status Date / Time adhesive AdvReac Mild BLISTERS Verified 08/09/20 10:09 canagliflozin [From Invokana] AdvReac Unknown HX Unverified 08/09/20 10:09 PANCREATITIS hydrochlorothiazide AdvReac Unknown Pancreatitis Verified 08/09/20 10:09 history oxycodone [From Percocet] AdvReac Unknown Constipatio Unverified 08/09/20 10:09 n pantoprazole AdvReac Unknown HX Verified 08/09/20 10:09 PANCREATITIS rosuvastatin [From Crestor] AdvReac Unknown HX Verified 08/09/20 10:09 PANCREATITIS Consultations 08/09/20 11:22 ED Decision to Admit Stat 08/09/20 13:23 Consult Gastroenterology Routine Procedures Performed -CT ABD:Findings are consistent with acute pancreatitis. Correlate with clinical findings and serum amylase/lipase levels. The gland enhances homogeneously and there is no peripancreatic fluid collection. A stent extends from the pancreatic head into the duodenum. Mild duodenal wall thickening is likely related to adjacent pancreatitis. The liver is mildly enlarged and steatotic. Cardiomegaly with advanced coronary artery calcification. Ordered Studies 08/09/20 08:51 CT abd pelvis IV con only Stat Hospital Course (1) Acute pancreatitis after endoscopic retrograde cholangiopancreatography (ERCP): Patient is a 70 yr male with H/O Recurrent pancreatitis, status post ERCP yesterday, CAD status post, CABG x 2 in 2003, type 2 diabetes, hyperlipidemia, chronic diastolic dysfunction, GERD and other medical problems listed below who presents with Acute pancreatitis. Recurrent Pancreatitis Chronic pancreatitis, divisum Had ERCP on 08/09/20 at [facility], --major PD sphincterotomy and stent placement; unsuccessful minor sphincterotomy --CT ABD:Findings are consistent with acute pancreatitis. Correlate with clinical findings and serum amylase/lipase levels. The gland enhances homogeneously and there is no peripancreatic fluid collection. A stent extends from the pancreatic head into the duodenum. Mild duodenal wall thickening is likely related to adjacent pancreatitis. The liver is mildly enlarged and steatotic. Cardiomegaly with advanced coronary artery calcification. --Lipase: 9724> 5149>916 --Received IV fluids -Monitor volume status given history of CHF -Appreciate GI input -Tolerataed regular diet today -Advised to follow-up with GI as outpatient Hypomagnesemia Hypokalemia Replace electrolytes as needed (2) Diabetes mellitus type 2 in obese: Hold PO medications Last HbA1c 7.5 Continue insulin therapy while hospitalized Monitor BGS (3) Coronary artery disease: CAD S/P CABG x2 in 2003 Troponin negative Continue aspirin, lisinopril, metoprolol Patient currently not taking statin due to pancreatitis (4) Chronic diastolic heart failure: Monitor volume status while on IV fluids Continue home medication DVT Px: Lovenox SQ Code status: FULL CODE Disposition: Home Total Time Total Time Spent Total Time Spent (In Minutes): 41 minutes Discharge Plan Discharge Items Patient Disposition: Home - Self-Care Reason For Visit: ACUTE PANCREATITIS, S/P ERCP YESTERDAY Discharge Diagnosis: Recurrent Pancreatitis Chronic pancreatitis, divisum Hypomagnesemia Hypokalemia Activity: Per Instructions section Exercise/Sports: Gradually increase as tolerated Non-emergency contact: Primary Care Provider and Box 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 Chambers in 1 week Follow-up with your patient accounting representative Dr. Bhagat in 1-2 week as advised Seek immediate medical attention if your symptoms reoccur or worsen Please take all medications as instructed on discharge list below. Please call if you have any questions or problems. You can reach a [facility] hospitalist on duty at [facility] 24 hours a day by calling [phone] Pending Studies at Discharge: No Stand-Alone Forms: My [facility], Smoking Cessation Medications and DC Order Prescriptions: New magnesium chloride [Mag 64] 64 mg Tablet,Delayed Release (Dr/Ec) 64 mg PO BID Qty: 30 RF: 0 Continued cyanocobalamin (vitamin B-12) 1,000 mcg Tablet 1,000 mcg PO QAM RF: 0 lisinopril 20 mg tablet 20 mg PO QAM RF: 0 metoprolol tartrate 50 mg tablet 75 mg PO BID RF: 0 multivitamin [Multiple Vitamins] Tablet 1 tab PO QAM RF: 0 nitroglycerin [Nitrostat] 0.4 mg Tablet, Sublingual 0.4 mg sublingual DIRECTED PRN (Reason: Chest Pain) RF: 0 sodium chloride [[place] Nasal] 0.65 % Aerosol,[place] 2 spray INTRANASAL DIRECTED PRN (Reason: Nasal Congestion/Dryness) RF: 0 metformin 1,000 mg tablet 1,000 mg PO BIDM Qty: 0 RF: 0 aspirin [Aspirin Low Dose] 81 mg Tablet,Delayed Release (Dr/Ec) 81 mg PO QAM RF: 0 glipizide 5 mg tablet 10 - 20 mg PO DIRECTED RF: 0 rosuvastatin 5 mg tablet 5 mg PO DAILY RF: 0 Discharge Orders: Discharge Order (Routine); Ordered 08/13/20 Ordered By: Tanvir Dhaliwla Admission Data Admit Date/Time: 08/09/20 12:47 Attending Provider: Tanvir Dhaliwal Admit Provider: Jose Guadalupe Teran Primary Care Provider: Artur Chambers Other Providers: Jose Guadalupe Teran ; Tariq Wolff Other Interventions: Discharge Summary Assessment (RN) Last Done: 08/13/20 13:11
== END 2020-08-13 13:36 | disposition home or self-care (01) | DRG 439 ==
LOC: ED 08:40 → 2N 12:47 → SUATTDRO 12:47 → 2N 13:11

== ENCOUNTER 2024-06-08 22:47 | Inpatient (IN) ==
--- NOTE | 2024-06-08 23:04 | Emergency Department Note ---
Impression & Plan Acute pancreatitis, Elevated lipase, Acute dyspnea, Rhinovirus infection ED Provider Note HISTORY OF PRESENT ILLNESS: Patient is a 73-year-old male presenting with right upper quadrant abdominal pain. Reports that pain started at 1800 this evening. He locates the pain to the epigastric and right upper quadrant and states the pain radiates around his right upper flank and into his right upper back. He reports nausea but denies any vomiting. Denies any diarrhea. He reports this feels similar to his previous episodes of pancreatitis. Denies any fevers. He has an abdominal surgical history significant for hernia repair and cholecystectomy. He reports that he has been on prednisone, amoxicillin and azithromycin recently after having an upper respiratory infection. He states he only has a few pills left of his antibiotics. Denies any dysuria or hematuria. He denies any chest pain. He does report feeling short of breath with his upper respiratory infection has had a cough productive of a white sputum. Patient currently rates his right upper quadrant abdominal pain is 10 out of 10 and reports he tried taking a Tylenol PM earlier this evening with little relief in his symptoms. ROS: as above PHYSICAL EXAM: Constitutional: Patient appears in no acute distress. HENT: Head: Normocephalic and atraumatic. Eyes: EOMI, PERRL Mouth/Throat: Mucous membranes moist. Neck: Trachea midline. Neck supple. Cardiovascular: RRR, No murmurs, rubs or gallops. Intact distal pulses. Pulmonary/Chest: No respiratory distress. Breath sounds clear and equal bilaterally. No wheezes or rales. Abdominal: Abdomen soft, no rebound or guarding. RUQ and epigastric TTP Musculoskeletal: No edema, tenderness or deformity noted. Skin: Warm and dry. No rash, erythema, pallor or cyanosis Psychiatric: Appropriate mood and affect for situation. Neurological: Alert and keenly responsive. CN II-XII grossly intact, moving all extremities equally and fully. MDM: - Vitals signs showed hypertension and tachycardia. - History obtained via patient. History as above. - Chronic conditions affecting care: CAD (s/p CABG); CHF; DM-2 - Differential diagnoses include, but are not limited to: Biliary colic; cholangitis; cholecystitis; hepatitis; right lower lobe pneumonia; pulmonary embolism; pyelonephritis; herpes zoster; perforated duodenal ulcer - Order placed for continuous cardiac monitoring. At this time, monitor showed rate of 68 bpm with normal sinus rhythm, per my interpretation. - External medical records reviewed. Discharge summary dated 08/13/2020 was reviewed. Patient was admitted that time for recurrent pancreatitis. - EKG image interpreted by myself showed normal sinus rhythm. Rate 79 bpm. QT 358. No acute ischemic changes. - Laboratory workup interpreted by myself showed normal WBC; normal PT/INR; stable electrolytes; normal troponin; normal AST/ALT; elevated lipase (124); normal total bilirubin - Patient given 1L NS, 4 mg IV zofran and 4 mg IV morphine on arrival for symptoms. Pain initially abated but then came back around 2:05 AM and he was requesting more pain medication. He was given additional 4 mg IV morphine. - CT abdomen/pelvis with IV contrast showed "status of cholecystectomy with pneumobilia. Right hepatic lobe has a small hypodense lesion in segment V." - CXR image reviewed by myself is negative for pneumonia, per my interpretation. - Given patient's recurrent pain, will admit to hospitalist service. - Viral respiratory panel positive for rhinovirus/enterovirus infection. - Discussion was had with test case developer about patient's case and need for admission - Hospitalist, Dr. Marquez, consulted for admission - Patient admitted to [facility] hospitalist service for further evaluation and management. ASSESSMENT AND PLAN: Diagnosis: Acute pancreatitis; elevated lipase; acute dyspnea; rhinovirus infection Plan: admit Past Med/Surg History Problem List (Updated 06/09/24 @ 02:09 by Ailyn Jones MD) Rhinovirus infection (Acute) Acute dyspnea (Acute) Elevated lipase (Acute) Acute pancreatitis (Acute) Chronic diastolic heart failure Acute pancreatitis after endoscopic retrograde cholangiopancreatography (ERCP) Diabetes mellitus type 2 in obese CHF (congestive heart failure) Preserved LV systolic function per cardio Hypertension Dyslipidemia Coronary artery disease s/p ID and Vfib arrest 2003 s/p CABG x 2 2003 Medical History Asthma A CHILD CHF (congestive heart failure) Preserved LV systolic function per cardio Chronic diastolic heart failure Coronary artery disease s/p ID and Vfib arrest 2004 s/p CABG x 2 2003 Diabetes mellitus, type 2 Dyslipidemia GERD (gastroesophageal reflux disease) History of pancreatitis Hypertension Myocardial Infarction 06/16/2003, complicated by Vfib arrest. S/P CABG (DAVILA-LAD, SVG-PDA) Follows with Dr. Roach ([facility]). 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 Beliefs That Will Affect Care: None marital status: Current Living Situation: Spouse Feels Safe at Home: Yes Assistive Devices: None Allergies Allergies Allergy/AdvReac Type Severity Reaction Status Date / Time adhesive AdvReac Mild BLISTERS Verified 06/11/22 10:18 canagliflozin [From Invokana] AdvReac Unknown HX Unverified 06/11/22 10:18 PANCREATITIS hydrochlorothiazide AdvReac Unknown Pancreatitis Verified 06/11/22 10:18 history oxycodone [From Percocet] AdvReac Unknown Constipatio Unverified 06/11/22 10:18 n pantoprazole AdvReac Unknown HX Verified 06/11/22 10:18 PANCREATITIS rosuvastatin [From Crestor] AdvReac Unknown HX Verified 06/11/22 10:18 PANCREATITIS Home Meds Home Medications Medication Instructions Recorded Confirmed cyanocobalamin (vitamin B-12) 1,000 mcg PO QAM 03/14/19 06/11/22 1,000 mcg tablet lisinopril 20 mg tablet 20 mg PO QAM 03/14/19 06/11/22 metoprolol tartrate 50 mg tablet 75 mg PO BID 03/14/19 06/11/22 multivitamin (Multiple Vitamins 1 tab PO QAM 03/14/19 06/11/22 tablet) nitroglycerin 0.4 mg sublingual 0.4 mg sublingual DIRECTED PRN 03/14/19 06/11/22 tablet (Nitrostat) Chest Pain aspirin 81 mg tablet,delayed 81 mg PO QAM 03/06/20 06/11/22 release (Martin Low Dose Aspirin) glipizide 5 mg tablet 10 mg PO BIDM 03/06/20 06/11/22 insulin glargine 100 unit/mL (3 17 unit subcut QAM 06/11/22 06/11/22 mL) subcutaneous pen (Lantus Solostar U-100 Insulin) rosuvastatin 10 mg tablet 10 mg PO DAILY 06/11/22 06/11/22 Previous Rx's Medication Instructions Recorded metformin 1,000 mg tablet 1,000 mg PO BIDM #0 tabs 06/06/19 oxycodone 5 mg tablet 5 mg PO Q6H PRN pain #15 tabs 12/24/21 Results & Data (ED) Vital Signs Vital Signs - 24 hr 06/08/24 22:49 06/08/24 23:12 06/08/24 23:18 Temperature 36.7 C Temperature Source Temporal Artery Scan Pulse Rate 94 H Pulse Rate [Apical] 74 Respiratory Rate 18 16 Blood Pressure 196/85 H Blood Pressure [Right Arm] 157/74 H Blood Pressure Mean 122 Blood Pressure Mean [Right Arm] 101 Blood Pressure Position Sitting Pulse Oximetry 94 95 94 Oxygen Delivery Method Room Air Room Air Room Air Sepsis Recent Fever Within 48 Hours No Sepsis New/Unexplained Change in Mental Status No Sepsis Action Taken by Nursing No Action Required 06/08/24 23:22 06/09/24 00:30 06/09/24 01:00 Temperature Temperature Source Pulse Rate 79 Pulse Rate [Apical] 70 68 Respiratory Rate 16 16 Blood Pressure Blood Pressure [Right Arm] 119/63 118/59 L Blood Pressure Mean Blood Pressure Mean [Right Arm] 81 78 Blood Pressure Position Pulse Oximetry 92 93 Oxygen Delivery Method Room Air Room Air Sepsis Recent Fever Within 48 Hours Sepsis New/Unexplained Change in Mental Status Sepsis Action Taken by Nursing 06/09/24 01:30 Temperature Temperature Source Pulse Rate Pulse Rate [Apical] 68 Respiratory Rate 16 Blood Pressure Blood Pressure [Right Arm] 124/61 Blood Pressure Mean Blood Pressure Mean [Right Arm] 82 Blood Pressure Position Pulse Oximetry 93 Oxygen Delivery Method Room Air Sepsis Recent Fever Within 48 Hours Sepsis New/Unexplained Change in Mental Status Sepsis Action Taken by Nursing Laboratory Data 06/08/24 23:12 06/08/24 23:12 Lab Results 06/08/24 06/08/24 Range/Units 23:12 23:14 WBC 10.08 (4.8-10.8) K/ul RBC 4.69 L (4.70-6.10) M/uL Hgb 15.0 (14.0-18.0) g/dl Hct 42.4 (42.0-52.0) % MCV 90.4 (80.0-100.0) fL MCH 32.0 (25.0-34.0) pg MCHC 35.4 (32.0-36.0) g/dL RDW Std Deviation 39.2 (36.4-46.3) fL RDW Coeff of Rodolfo 11.9 (11.5-14.5) % Plt Count 247 (130-400) K/uL MPV 9.2 L (9.4-12.4) fL Immature Gran % (Auto) 0.2 % Neut % (Auto) 63.8 % Lymph % (Auto) 24.6 % Garden % (Auto) 9.3 % Eos % (Auto) 1.7 % Baso % (Auto) 0.4 % Neut # (Auto) 6.43 (1.40-6.50) K/uL Lymph # (Auto) 2.48 (1.20-3.40) K/uL Garden # (Auto) 0.94 H (0.11-0.59) K/uL Eos # (Auto) 0.17 (0.00-0.50) K/uL Baso # (Auto) 0.04 (0.00-0.20) K/uL Immature Gran # (Auto) 0.02 (0.01-0.20) K/uL PT 10.3 (9.0-12.0) Seconds INR 0.9 (0.9-1.1) Sodium 137 (136-145) mmol/L Potassium 4.0 (3.5-5.1) mmol/L Chloride 103 (98-107) mmol/L Carbon Dioxide 28 (21-32) mmol/L Anion Gap 6 (3-11) BUN 15 (6-23) mg/dl Creatinine 0.98 (0.6-1.4) mg/dl Est Cr Clr Drug Dosing 66.3 ml/min eGFR 81.93 BUN/Creatinine Ratio 15.3 (10-20) Glucose 96 (70-99(Fasting)) mg/dl Lactate 0.8 (0.4-2.0) mmol/L Calcium 9.8 (8.6-10.3) mg/dl Total Bilirubin 0.5 (0.2-1.0) mg/dl AST 15 (13-39) U/L ALT 19 (7-52) U/L Alkaline Phosphatase 69 (34-104) U/L Troponin I High Sens 4.9 (0-20) pg/ml Total Protein 7.6 (6.0-8.3) gm/dl Albumin 4.1 (3.4-5.0) gm/dl Globulin 3.5 (2.5-4.0) gm/dl Albumin/Globulin Ratio 1.2 (0.9-2) Lipase 124 H (11-82) U/L Adenovirus (PCR) Not Detected (NotDetected) B. pertussis DNA (PCR) Not Detected (NotDetected) B.parapertussis DNA PCR Not Detected (NotDetected) C. pneumoniae DNA (PCR) Not Detected (NotDetected) Coronavirus OC43 (PCR) Not Detected (NotDetected) Coronavirus HKU1 (PCR) Not Detected (NotDetected) Coronavirus 229E (PCR) Not Detected (NotDetected) SARS-CoV-2 (PCR) Not Detected (NotDetected) Coronavirus NL63 (PCR) Not Detected (NotDetected) Human Metapneumovir PCR Not Detected (NotDetected) Influenza Type A (PCR) Not Detected (NotDetected) Influenza Type B (PCR) Not Detected (NotDetected) M. pneumoniae (PCR) Not Detected (NotDetected) Parainfluenza 1 (PCR) Not Detected (NotDetected) Parainfluenza 2 (PCR) Not Detected (NotDetected) Parainfluenza 3 (PCR) Not Detected (NotDetected) Parainfluenza 4 (PCR) Not Detected (NotDetected) RSV (PCR) Not Detected (NotDetected) Entero/Rhino (PCR) DETECTED A (NotDetected) Administered Medications Discontinued Medications Sodium Chloride (Nss) 500 mls @ 999 mls/hr IV .Q31M ONE Stop: 06/08/24 23:30 Last Infusion: 06/08/24 23:41 Dose: Infused Documented By: Admin: 06/08/24 23:10 Dose: 999 mls/hr Documented By: FRANCIS Ioversol (Optiray 320 100ml) 100 ml IV ONCE ONE Stop: 06/08/24 23:54 Last Admin: 06/08/24 23:54 Dose: 93 ml Documented By: KAVEH Morphine Sulfate (Morphine Sulfate 4 Mg/Ml 1 Ml Carp\\Vial) 4 mg IV NOW STA Stop: 06/08/24 23:01 Last Admin: 06/08/24 23:09 Dose: 4 mg Documented By: FRANCIS Morphine Sulfate (Morphine Sulfate 4 Mg/Ml 1 Ml Carp\\Vial) 4 mg IV NOW STA Stop: 06/09/24 02:03 Last Admin: 06/09/24 02:06 Dose: 4 mg Documented By: FRANCIS Ondansetron HCl (Ondansetron Inj 2 Mg/Ml 2 Ml Vial) 4 mg IV NOW STA Stop: 06/08/24 23:01 Last Admin: 06/08/24 23:09 Dose: 4 mg Documented By: AN Imaging Data Radiologist's Impression: Chest X-Ray 06/08/24 22:53 EXAM: XR chest 1V portable CLINICAL HISTORY: shortness of breath TECHNIQUE: Radiograph of chest was acquired. COMPARISON: none FINDINGS: The lungs are clear and well-expanded with no pulmonary infiltrate or pleural effusion. The cardiomediastinal silhouette is within normal limits. No acute osseous abnormality. Sternal sutures in situ. IMPRESSION: 1. No acute cardiopulmonary disease. Electronically signed by Gino Brown 06-09-2024 01:28 AM Abdomen/Pelvis CT 06/08/24 23:00 EXAM: CT abd pelvis IV con only CLINICAL HISTORY: RUQ and epigastric abd pain TECHNIQUE: Contrast-enhanced CT of the abdomen and pelvis was performed, with the following protocol: axial images with, and reconstructed coronal and sagittal images. Intravenous contrast was administered. One of the following dose reduction techniques was utilized for this exam: Automated exposure control, adjustment of the mA and/or kV according to patient size, and use of iterative reconstruction. COMPARISON: None. FINDINGS: Abdomen: Liver: Normal in size, shape, and density. A small, non-enhancing hypodense right hepatic lesion measuring 1.5x1.3 cm. Hepatic vasculature and biliary ducts are unremarkable. Gallbladder and Biliary System: The gallbladder is surgically removed. Pneumobilia was noted, more on the left lobe, no significant dilatation of intrahepatic biliary dilatation. The common bile duct is normal in caliber without dilation. Pancreas: Pancreatic head, body, and tail are visualized and appear normal in size and density. No pancreatic masses or calcifications were noted. The pancreatic duct is not dilated. Spleen: Normal in size, shape, and density. No splenic lesions or masses were identified. Appendix: The appendix is normal in size without fortunato appendiceal fat stranding, and without an appendicolith. No evidence of appendiceal abscess or perforation. Kidneys and Adrenal Glands: Both kidneys are normal in size, shape, and position. Cortical thickness is within normal limits. No renal calculi or hydronephrosis. Well defined left cortical renal cyst noted. Adrenal glands are unremarkable with no evidence of masses or hyperplasia. Pelvis: Urinary Bladder: Normal in contour and wall thickness. No intraluminal lesions identified. Prostate: Normal in size and contour. No focal lesions or masses identified. Seminal Vesicles: Normal in size and appearance. No abnormalities noted. Rectum and Sigmoid Colon: Normal wall thickness and no evidence of mass. Peritoneal and Retroperitoneal Structures: No free fluid or abnormal fluid collections were identified within the abdomen or pelvis. No lymphadenopathy was noted. Bowel: The visualized bowel loops are normal in caliber and appearance. No evidence of bowel obstruction or wall thickening. Bones and Soft Tissues: Pelvic bones and soft tissues are unremarkable. No fractures or abnormal masses were identified. IMPRESSION: - Status of cholecystectomy with pneumobilia. Clinical correlation and further assessment are advised. - The right hepatic lobe has a small hypodense lesion in segment V. It can be focal fatty infiltration. Suggest further assessment. Electronically signed by Suman Castro 06-09-2024 02:00 AM Discharge Plan Visit Data Chief Complaint: Abdominal Pain Stated Complaint: ABD PAIN,?PANCREATITIS,CHEST PAIN ED Provider: Ailyn Jones Discharge Problem: Acute pancreatitis, Elevated lipase, Acute dyspnea, Rhinovirus infection Forms Stand Alone Forms: My [employer] Prescriptions Prescriptions: No Action cyanocobalamin (vitamin B-12) 1,000 mcg Tablet 1,000 mcg PO QAM lisinopril 20 mg tablet 20 mg PO QAM metoprolol tartrate 50 mg tablet 75 mg PO BID Rx Instructions: TAKE ONE AND ONE HALF TABLETS TWICE DAILY multivitamin [Multiple Vitamins] Tablet 1 tab PO QAM nitroglycerin [Nitrostat] 0.4 mg Tablet, Sublingual 0.4 mg sublingual DIRECTED PRN (Reason: Chest Pain) Rx Instructions: PLACE ONE TABLET UNDER THE TONGUE EVERY 5 MINUTES FOR UP TO 3 DOSES OVER 15 MINUTES IF NEEDED FOR CHEST PAIN metformin 1,000 mg tablet 1,000 mg PO BIDM Qty: 0 0RF Rx Instructions: TAKE THIS MEDICATION WITH MORNING AND EVENING MEAL aspirin [Martin Low Dose Aspirin] 81 mg Tablet,Delayed Release (Dr/Ec) 81 mg PO QAM glipizide 5 mg tablet 10 mg PO BIDM Rx Instructions: TAKE TWO TABLETS (10 MG) BEFORE BREAKFAST AND 2 TABLETS (10 MG) BEFORE EVENING MEAL oxycodone 5 mg tablet 5 mg PO Q6H PRN (Reason: pain) Qty: 15 0RF rosuvastatin 10 mg tablet 10 mg PO DAILY insulin glargine [Lantus Solostar U-100 Insulin] 100 unit/mL (3 mL) insulin pen 17 unit SUBCUT QAM Referrals Referrals: Artur Chambers MD [Primary Care Provider] -
[2024-06-08] MEDS: ONDANSETRON INJ 2 MG/ML 2 ML VIAL IV STA (23:09)
[2024-06-08] MEDS: MoRPHine SULFATE 4 MG/ML 1 ML CARP\\VIAL IV STA (23:09)
[2024-06-08] MEDS: SODIUM CHLORIDE 0.9% 500 ML IV ONE (23:10)
[2024-06-08 23:38] LABS: Basophils # (auto) 0.04 K/uL (0.00-0.20); Basophils % (auto) 0.4 %; Eosinophils # (auto) 0.17 K/uL (0.00-0.50); Eosinophils % (auto) 1.7 %; Hematocrit (blood only) 42.4 % (42.0-52.0); Immature Granulocytes # (auto) 0.02 K/uL (0.01-0.20); Immature Granulocytes % (auto) 0.2 %; Lymphocytes # (auto) 2.48 K/uL (1.20-3.40); Lymphocytes % (auto) 24.6 %; Mean Corpuscular Hgb Conc 35.4 g/dL (32.0-36.0); Mean Corpuscular Volume 90.4 fL (80.0-100.0); Mean Platelet Volume 9.2 fL (9.4-12.4); Monocytes # (auto) 0.94 K/uL (0.11-0.59); Monocytes % (auto) 9.3 %; Neutrophils # (auto) 6.43 K/uL (1.40-6.50); Neutrophils % (auto) 63.8 %; Platelet Count 247 K/uL (130-400); RDW Coefficient of Variation 11.9 % (11.5-14.5); RDW Standard Deviation 39.2 fL (36.4-46.3); Red Blood Count 4.69 M/uL (4.70-6.10); White Blood Count 10.08 K/ul (4.8-10.8)
[2024-06-08 23:46] LABS: Albumin Globulin Ratio 1.2 (0.9-2); Albumin Level 4.1 gm/dl (3.4-5.0); BUN Creatinine Ratio 15.3 (10-20); Bilirubin,Total 0.5 mg/dl (0.2-1.0); Calcium 9.8 mg/dl (8.6-10.3); Creatinine Clr Calc Pharmacy 66.3 ml/min; Globulin 3.5 gm/dl (2.5-4.0); Total Protein 7.6 gm/dl (6.0-8.3)
[2024-06-08 23:53] LABS: Troponin I High Sensitivity 4.9 pg/ml (0-20)
[2024-06-08] MEDS: OPTIRAY 320 100ml IV ONE (23:54)
[2024-06-08 23:57] LABS: INR 0.9 (0.9-1.1); Prothrombin Time 10.3 Seconds (9.0-12.0)
[2024-06-09 00:16] LABS: Adenovirus PCR Not Detected (NotDetected); Bordetella parapertussis PCR Not Detected (NotDetected); Bordetella pertussis PCR Not Detected (NotDetected); Chlamydia pneumoniae PCR Not Detected (NotDetected); Coronavirus 229E PCR Not Detected (NotDetected); Coronavirus CoV-2 (COVID19)PCR Not Detected (NotDetected); Coronavirus HKU1 PCR Not Detected (NotDetected); Coronavirus NL63 PCR Not Detected (NotDetected); Coronavirus OC43PCR Not Detected (NotDetected); Human Metapneumovirus PCR Not Detected (NotDetected); Influenza A PCR Not Detected (NotDetected); Influenza B PCR Not Detected (NotDetected); Mycoplasma pneumoniae PCR Not Detected (NotDetected); Parainfluenza Virus 1 PCR Not Detected (NotDetected); Parainfluenza Virus 2 PCR Not Detected (NotDetected); Parainfluenza Virus 3 PCR Not Detected (NotDetected); Parainfluenza Virus 4 PCR Not Detected (NotDetected); Respiratory Syncytial VirusPCR Not Detected (NotDetected); Rhinovirus/Enterovirus PCR DETECTED (NotDetected)
--- NOTE | 2024-06-09 01:28 | XRay Report ---
EXAM: XR chest 1V portable CLINICAL HISTORY: shortness of breath TECHNIQUE: Radiograph of chest was acquired. COMPARISON: none FINDINGS: The lungs are clear and well-expanded with no pulmonary infiltrate or pleural effusion. The cardiomediastinal silhouette is within normal limits. No acute osseous abnormality. Sternal sutures in situ. IMPRESSION: 1. No acute cardiopulmonary disease. Electronically signed by Gino Brown 06-09-2024 01:28 AM
--- NOTE | 2024-06-09 02:00 | CT Scan Report ---
EXAM: CT abd pelvis IV con only CLINICAL HISTORY: RUQ and epigastric abd pain TECHNIQUE: Contrast-enhanced CT of the abdomen and pelvis was performed, with the following protocol: axial images with, and reconstructed coronal and sagittal images. Intravenous contrast was administered. One of the following dose reduction techniques was utilized for this exam: Automated exposure control, adjustment of the mA and/or kV according to patient size, and use of iterative reconstruction. COMPARISON: None. FINDINGS: Abdomen: Liver: Normal in size, shape, and density. A small, non-enhancing hypodense right hepatic lesion measuring 1.5x1.3 cm. Hepatic vasculature and biliary ducts are unremarkable. Gallbladder and Biliary System: The gallbladder is surgically removed. Pneumobilia was noted, more on the left lobe, no significant dilatation of intrahepatic biliary dilatation. The common bile duct is normal in caliber without dilation. Pancreas: Pancreatic head, body, and tail are visualized and appear normal in size and density. No pancreatic masses or calcifications were noted. The pancreatic duct is not dilated. Spleen: Normal in size, shape, and density. No splenic lesions or masses were identified. Appendix: The appendix is normal in size without fortunato appendiceal fat stranding, and without an appendicolith. No evidence of appendiceal abscess or perforation. Kidneys and Adrenal Glands: Both kidneys are normal in size, shape, and position. Cortical thickness is within normal limits. No renal calculi or hydronephrosis. Well defined left cortical renal cyst noted. Adrenal glands are unremarkable with no evidence of masses or hyperplasia. Pelvis: Urinary Bladder: Normal in contour and wall thickness. No intraluminal lesions identified. Prostate: Normal in size and contour. No focal lesions or masses identified. Seminal Vesicles: Normal in size and appearance. No abnormalities noted. Rectum and Sigmoid Colon: Normal wall thickness and no evidence of mass. Peritoneal and Retroperitoneal Structures: No free fluid or abnormal fluid collections were identified within the abdomen or pelvis. No lymphadenopathy was noted. Bowel: The visualized bowel loops are normal in caliber and appearance. No evidence of bowel obstruction or wall thickening. Bones and Soft Tissues: Pelvic bones and soft tissues are unremarkable. No fractures or abnormal masses were identified. IMPRESSION: - Status of cholecystectomy with pneumobilia. Clinical correlation and further assessment are advised. - The right hepatic lobe has a small hypodense lesion in segment V. It can be focal fatty infiltration. Suggest further assessment. Electronically signed by Suman Castro 06-09-2024 02:00 AM
[2024-06-09] MEDS: MoRPHine SULFATE 4 MG/ML 1 ML CARP\\VIAL IV STA (02:06)
[2024-06-09] MEDS ORDERED: LORazepam 0.5 MG TAB PO PRN (02:20)
[2024-06-09] MEDS ORDERED: ACETAMINOPHEN 325 MG TAB PO PRN (02:20)
[2024-06-09] MEDS: LACTATED RINGER'S 1,000 ML IV STA (02:47)
[2024-06-09] MEDS ORDERED: GLUCOSE 10 TAB/TUBE PO PRN (03:01)
[2024-06-09] MEDS ORDERED: DEXTROSE 50% 50 ML SYRINGE IV PRN (03:01)
[2024-06-09] MEDS ORDERED: CARBOHYDRATES FOR HYPOGLYCEMIA PO PRN (03:01)
[2024-06-09] MEDS ORDERED: GLUCOSE 40% GEL 15 GM TUBE PO PRN (03:01)
[2024-06-09] MEDS ORDERED: GLUCAGON FOR INJ 1 MG VIAL SQ PRN (03:01)
[2024-06-09] MEDS: INSULIN ASPART PER UNIT CHARGE SC SCH (03:22)
--- NOTE | 2024-06-09 03:55 | History & Physical Report ---
Date of Service June 09, 2024 Assessment & Plan (1) Acute pancreatitis: Plan: Recurrent pancreatitis History of pancreatic divisum as per records chronic systolic heart failure secondary to ischemic cardiomyopathy (EF 45, 2020), patient euvolemic to dry coronary artery disease status post CABG history of VF hypertension, stable hyperlipidemia, on statin Rx DM2 insulin requiring, suboptimal control as of recent hemoglobin A1c of 8.09 March 2024 hx NAFLD Rhinovirus infection, month-long cough symptoms status post antibiotic/steroid Rx Diarrhea rule out C. difficile given recent antibiotic Rx Admit to medical Bowel rest IVF, analgesia GI consult RE recurrent pancreatitis Supportive management for protracted viral illness Stool C. difficile Basal bolus insulin adjusted for clear liquid diet, ISS BG goal [id number] DVT prophylaxis. Lovenox subcu Full code Patient's requesting updates from providers. Ms. Leandra Cannon, contact #[phone]. Text document was generated using [employer] voice recognition software. It may contain grammatical or spelling errors. Kindly contact undersigned for clarification of any documentation item in question. Admission and Anticipated Discharge Date Admission Date: June 09, 2024 History of Present Illness Chief Complaint: Abdominal pain Primary Care Provider: Artur Chambers MD History obtained from patient and records. Medical history significant for chronic systolic heart failure secondary to ischemic cardiomyopathy (EF 45, 2020), coronary artery disease status post CABG, history of VF, hypertension, hyperlipidemia, DM2 insulin requiring, NAFLD, GERD, recurrent pancreatitis, pancreatic divisum as per records. Last confinement August 2020 for recurrent pancreatitis following outpatient ERCP. Patient with 1 month history of cough symptoms, choking spells associated with achy right-sided chest pain, SOB symptoms. Outpatient COVID-19, influenza, RSV test negative. Patient completed outpatient prednisone and antibiotic Rx. Cough symptoms productive of white sputum not any worse as per patient. Last night, patient noted achy epigastric pain going to his right back reminiscent of pancreatitis attack. No recent EtOH or fatty food intake intake No fever, no chills. Loose watery stools at home. MEDICAL HISTORY: As above. SURGICAL HISTORY: CABG, Cholecystectomy, knee surgery, hernia repair, hand surgery FAMILY HISTORY: colon cancer, DM PERSONAL AND SOCIAL HISTORY: Nonsmoker. No chronic intake of alcoholic beverages. 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 Allergies Allergy/AdvReac Type Severity Reaction Status Date / Time adhesive AdvReac Mild BLISTERS Verified 06/09/24 02:23 canagliflozin [From Invokana] AdvReac Unknown HX Verified 06/09/24 02:23 PANCREATITIS hydrochlorothiazide AdvReac Unknown Pancreatitis Verified 06/09/24 02:23 history oxycodone [From Percocet] AdvReac Unknown Constipatio Verified 06/09/24 02:23 n pantoprazole AdvReac Unknown HX Verified 06/09/24 02:23 PANCREATITIS rosuvastatin [From Crestor] AdvReac Unknown HX Verified 06/09/24 02:23 PANCREATITIS Home Medications Medication Instructions Recorded Confirmed Type cyanocobalamin (vitamin B-12) 1,000 mcg PO QAM 03/14/19 06/09/24 History 1,000 mcg tablet lisinopril 20 mg tablet 20 mg PO QAM 03/14/19 06/09/24 History metoprolol tartrate 50 mg tablet 75 mg PO BID 03/14/19 06/09/24 History multivitamin (Multiple Vitamins 1 tab PO QAM 03/14/19 06/09/24 History tablet) nitroglycerin 0.4 mg sublingual 0.4 mg sublingual DIRECTED PRN 03/14/19 06/09/24 History tablet (Nitrostat) Chest Pain aspirin 81 mg tablet,delayed 81 mg PO QAM 03/06/20 06/09/24 History release (Martin Low Dose Aspirin) insulin glargine 100 unit/mL (3 20 unit subcut QAM 06/11/22 06/09/24 History mL) subcutaneous pen (Lantus Solostar U-100 Insulin) rosuvastatin 10 mg tablet 10 mg PO DAILY 06/11/22 06/09/24 History albuterol sulfate 90 mcg/actuation 2 puff inhalation Q4 PRN Wheezing 06/09/24 06/09/24 History aerosol inhaler coenzyme Q10 100 mg capsule (Co 100 mg PO DAILY 06/09/24 06/09/24 History Q-10) fluticasone propionate 50 2 spray intranasal QAM 06/09/24 06/09/24 History mcg/actuation nasal spray,suspension insulin aspart U-100 100 unit/mL See Rx Instructions .Route .COMPLEX 06/09/24 06/09/24 History (3 mL) subcutaneous pen (Novolog FlexPen U-100 Insulin aspart) loratadine 10 mg tablet 10 mg PO HS 06/09/24 06/09/24 History metformin 1,000 mg tablet 500 mg PO BIDM 06/09/24 06/09/24 History mv-mn-folic 200 mcg-vit K 15 1 cap PO BID 06/09/24 06/09/24 History mcg-lutein 5 mg-zeaxanthin 1 mg capsule (PreserVision AREDS 2 Plus Multivit) sodium chloride 0.65 % nasal spray 2 spray intranasal USEASDIRECTD 06/09/24 06/09/24 History PRN nasal dryness or congestion Past Med/Surg History Problem List (Updated 06/09/24 @ 02:09 by Ailyn Jones MD) Rhinovirus infection (Acute) Acute dyspnea (Acute) Elevated lipase (Acute) Acute pancreatitis (Acute) Chronic diastolic heart failure Acute pancreatitis after endoscopic retrograde cholangiopancreatography (ERCP) Diabetes mellitus type 2 in obese CHF (congestive heart failure) Preserved LV systolic function per cardio Hypertension Dyslipidemia Coronary artery disease s/p [place] and Vfib arrest 2003 s/p CABG x 2 2003 Medical History Asthma A CHILD CHF (congestive heart failure) Preserved LV systolic function per cardio Chronic diastolic heart failure Coronary artery disease s/p [place] and Vfib arrest 2004 s/p CABG x 2 2003 Diabetes mellitus, type 2 Dyslipidemia GERD (gastroesophageal reflux disease) History of pancreatitis Hypertension Myocardial Infarction 06/16/2003, complicated by Vfib arrest. S/P CABG (DAVILA-LAD, SVG-PDA) Follows with Dr. Roach ([facility]). Surgical History History of colonoscopy History of ERCP History of esophagogastroduodenoscopy (EGD) History of knee surgery RIGHT-BONE SPUR/TEAR REPAIR Status post cholecystectomy Status post coronary artery bypass grafting 2 VESSELS-06/2003 Status post hernia repair Family History Mother Diabetes Brother Colorectal cancer Diabetes Social History Smoking Status: Never smoker Second Hand Exposure: No; Do You Dip or Chew Tobacco: No (QUIT 2003); Hx Alcohol Use: No Hx Substance Use: No Preferred Language: Hungarian Communication Ability: Effective Residence Manager Required: No Beliefs That Will Affect Care: None marital status: Current Living Situation: Spouse Feels Safe at Home: Yes Assistive Devices: Glasses Review of Systems Review of Systems: As per HPI, all other systems reviewed and negative Physical Exam Physical Exam: GENERAL: Comfortable, slightly uncomfortable, pleasant, obese, no respiratory distress SKIN: Normal color, warm HEENT: Alopecia, bespectacled, pink palpebral conjunctivae, no ptosis, dry buccal mucosa NECK : Supple, no tenderness CHEST : CTA, no tenderness HEART : RRR, no obvious murmurs ABDOMEN: Some distention, epigastric tenderness EXTREMITIES : No LE swelling/tenderness, no other conspicuous deformities noted NEUROLOGIC : Coherent, no facial asymmetry, no other gross focality Results & Data Results & Data Vital Signs (Past 12 Hours) Vital Signs Temp Pulse Pulse Resp BP BP Pulse Ox 06/09/24 03:01 36.8 C 67 16 125/61 95 06/09/24 02:30 70 16 126/65 97 06/09/24 02:15 87 L 06/09/24 02:00 68 16 136/71 94 06/09/24 01:30 68 16 124/61 93 06/09/24 01:00 68 16 118/59 L 93 06/09/24 00:30 70 16 119/63 92 06/08/24 23:22 79 06/08/24 23:18 74 16 157/74 H 94 06/08/24 23:12 95 06/08/24 22:49 36.7 C 94 H 18 196/85 H 94 O2 Del Method O2 Flow Rate 06/09/24 03:01 Nasal Cannula 2 06/09/24 02:30 Room Air 06/09/24 02:15 Room Air, Nasal Cannula 06/09/24 02:00 Room Air 06/09/24 01:30 Room Air 06/09/24 01:00 Room Air 06/09/24 00:30 Room Air 06/08/24 23:22 06/08/24 23:18 Room Air 06/08/24 23:12 Room Air 06/08/24 22:49 Room Air Laboratory Results Laboratory Results WBC 10.08 K/ul (4.8-10.8) 06/08/24 23:12 RBC 4.69 M/uL (4.70-6.10) L 06/08/24 23:12 Hgb 15.0 g/dl (14.0-18.0) 06/08/24 23:12 Hct 42.4 % (42.0-52.0) 06/08/24 23:12 MCV 90.4 fL (80.0-100.0) 06/08/24 23:12 MCH 32.0 pg (25.0-34.0) 06/08/24 23:12 MCHC 35.4 g/dL (32.0-36.0) 06/08/24 23:12 RDW Std Deviation 39.2 fL (36.4-46.3) 06/08/24 23:12 RDW Coeff of Rodolfo 11.9 % (11.5-14.5) 06/08/24 23:12 Plt Count 247 K/uL (130-400) 06/08/24 23:12 MPV 9.2 fL (9.4-12.4) L 06/08/24 23:12 Immature Gran % (Auto) 0.2 % 06/08/24 23:12 Neut % (Auto) 63.8 % 06/08/24 23:12 Lymph % (Auto) 24.6 % 06/08/24 23:12 Norman % (Auto) 9.3 % 06/08/24 23:12 Eos % (Auto) 1.7 % 06/08/24 23:12 Baso % (Auto) 0.4 % 06/08/24 23:12 Neut # (Auto) 6.43 K/uL (1.40-6.50) 06/08/24 23:12 Lymph # (Auto) 2.48 K/uL (1.20-3.40) 06/08/24 23:12 Norman # (Auto) 0.94 K/uL (0.11-0.59) H 06/08/24 23:12 Eos # (Auto) 0.17 K/uL (0.00-0.50) 06/08/24 23:12 Baso # (Auto) 0.04 K/uL (0.00-0.20) 06/08/24 23:12 Immature Gran # (Auto) 0.02 K/uL (0.01-0.20) 06/08/24 23:12 PT 10.3 Seconds (9.0-12.0) 06/08/24 23:12 INR 0.9 (0.9-1.1) 06/08/24 23:12 Sodium 137 mmol/L (136-145) 06/08/24 23:12 Potassium 4.0 mmol/L (3.5-5.1) 06/08/24 23:12 Chloride 103 mmol/L (98-107) 06/08/24 23:12 Carbon Dioxide 28 mmol/L (21-32) 06/08/24 23:12 Anion Gap 6 (3-11) 06/08/24 23:12 BUN 15 mg/dl (6-23) 06/08/24 23:12 Creatinine 0.98 mg/dl (0.6-1.4) 06/08/24 23:12 Est Cr Clr Drug Dosing 66.3 ml/min 06/08/24 23:12 eGFR 81.93 06/08/24 23:12 BUN/Creatinine Ratio 15.3 (10-20) 06/08/24 23:12 Glucose 96 mg/dl (70-99(Fasting)) 06/08/24 23:12 POC Glucose 96 mg/dl (70-99) 06/09/24 02:19 Lactate 0.8 mmol/L (0.4-2.0) 06/08/24 23:12 Calcium 9.8 mg/dl (8.6-10.3) 06/08/24 23:12 Total Bilirubin 0.5 mg/dl (0.2-1.0) 06/08/24 23:12 AST 15 U/L (13-39) 06/08/24 23:12 ALT 19 U/L (7-52) 06/08/24 23:12 Alkaline Phosphatase 69 U/L (34-104) 06/08/24 23:12 Troponin I High Sens 4.9 pg/ml (0-20) 06/08/24 23:12 Total Protein 7.6 gm/dl (6.0-8.3) 06/08/24 23:12 Albumin 4.1 gm/dl (3.4-5.0) 06/08/24 23:12 Globulin 3.5 gm/dl (2.5-4.0) 06/08/24 23:12 Albumin/Globulin Ratio 1.2 (0.9-2) 06/08/24 23:12 Lipase 124 U/L (11-82) H 06/08/24 23:12 Adenovirus (PCR) Not Detected (NotDetected) 06/08/24 23:14 B. pertussis DNA (PCR) Not Detected (NotDetected) 06/08/24 23:14 B.parapertussis DNA PCR Not Detected (NotDetected) 06/08/24 23:14 C. pneumoniae DNA (PCR) Not Detected (NotDetected) 06/08/24 23:14 Coronavirus OC43 (PCR) Not Detected (NotDetected) 06/08/24 23:14 Coronavirus HKU1 (PCR) Not Detected (NotDetected) 06/08/24 23:14 Coronavirus 229E (PCR) Not Detected (NotDetected) 06/08/24 23:14 SARS-CoV-2 (PCR) Not Detected (NotDetected) 06/08/24 23:14 Coronavirus NL63 (PCR) Not Detected (NotDetected) 06/08/24 23:14 Human Metapneumovir PCR Not Detected (NotDetected) 06/08/24 23:14 Influenza Type A (PCR) Not Detected (NotDetected) 06/08/24 23:14 Influenza Type B (PCR) Not Detected (NotDetected) 06/08/24 23:14 M. pneumoniae (PCR) Not Detected (NotDetected) 06/08/24 23:14 Parainfluenza 1 (PCR) Not Detected (NotDetected) 06/08/24 23:14 Parainfluenza 2 (PCR) Not Detected (NotDetected) 06/08/24 23:14 Parainfluenza 3 (PCR) Not Detected (NotDetected) 06/08/24 23:14 Parainfluenza 4 (PCR) Not Detected (NotDetected) 06/08/24 23:14 RSV (PCR) Not Detected (NotDetected) 06/08/24 23:14 Entero/Rhino (PCR) DETECTED (NotDetected) A 06/08/24 23:14 Impressions Chest X-Ray 06/08/24 22:53 EXAM: XR chest 1V portable CLINICAL HISTORY: shortness of breath TECHNIQUE: Radiograph of chest was acquired. COMPARISON: none FINDINGS: The lungs are clear and well-expanded with no pulmonary infiltrate or pleural effusion. The cardiomediastinal silhouette is within normal limits. No acute osseous abnormality. Sternal sutures in situ. IMPRESSION: 1. No acute cardiopulmonary disease. Electronically signed by Stephanie Gino 06-09-2024 01:28 AM Abdomen/Pelvis CT 06/08/24 23:00 EXAM: CT abd pelvis IV con only CLINICAL HISTORY: RUQ and epigastric abd pain TECHNIQUE: Contrast-enhanced CT of the abdomen and pelvis was performed, with the following protocol: axial images with, and reconstructed coronal and sagittal images. Intravenous contrast was administered. One of the following dose reduction techniques was utilized for this exam: Automated exposure control, adjustment of the mA and/or kV according to patient size, and use of iterative reconstruction. COMPARISON: None. FINDINGS: Abdomen: Liver: Normal in size, shape, and density. A small, non-enhancing hypodense right hepatic lesion measuring 1.5x1.3 cm. Hepatic vasculature and biliary ducts are unremarkable. Gallbladder and Biliary System: The gallbladder is surgically removed. Pneumobilia was noted, more on the left lobe, no significant dilatation of intrahepatic biliary dilatation. The common bile duct is normal in caliber without dilation. Pancreas: Pancreatic head, body, and tail are visualized and appear normal in size and density. No pancreatic masses or calcifications were noted. The pancreatic duct is not dilated. Spleen: Normal in size, shape, and density. No splenic lesions or masses were identified. Appendix: The appendix is normal in size without fortunato appendiceal fat stranding, and without an appendicolith. No evidence of appendiceal abscess or perforation. Kidneys and Adrenal Glands: Both kidneys are normal in size, shape, and position. Cortical thickness is within normal limits. No renal calculi or hydronephrosis. Well defined left cortical renal cyst noted. Adrenal glands are unremarkable with no evidence of masses or hyperplasia. Pelvis: Urinary Bladder: Normal in contour and wall thickness. No intraluminal lesions identified. Prostate: Normal in size and contour. No focal lesions or masses identified. Seminal Vesicles: Normal in size and appearance. No abnormalities noted. Rectum and Sigmoid Colon: Normal wall thickness and no evidence of mass. Peritoneal and Retroperitoneal Structures: No free fluid or abnormal fluid collections were identified within the abdomen or pelvis. No lymphadenopathy was noted. Bowel: The visualized bowel loops are normal in caliber and appearance. No evidence of bowel obstruction or wall thickening. Bones and Soft Tissues: Pelvic bones and soft tissues are unremarkable. No fractures or abnormal masses were identified. IMPRESSION: - Status of cholecystectomy with pneumobilia. Clinical correlation and further assessment are advised. - The right hepatic lobe has a small hypodense lesion in segment V. It can be focal fatty infiltration. Suggest further assessment. Electronically signed by Suman Castro 06-09-2024 02:00 AM Diagnostic Findings EKG as per my interpretation :Rate 80, NSR, normal axis, septal infarct, T wave flattening inferior leads Code Status & VTE Plan VTE Prophylaxis Plan VTE Prophylaxis will be ordered: Yes
[2024-06-09] MEDS: MoRPHine SULFATE 4 MG/ML 1 ML CARP\\VIAL IV PRN (05:32)
[2024-06-09 05:46] LABS: Appearance Urine Clear (Clear); Bilirubin Urine Negative (Negative); Blood Urine Negative (Negative); Color Urine Yellow; Glucose Urine UA Negative (Negative); Ketones Urine Negative (Negative); Leukocyte Esterase Urine Negative (Negative); Nitrite Urine Negative (Negative); Protein Urine Negative (Negative); Specific Gravity Urine 1.022 (1.000-1.030); Urobilinogen Urine Negative (Negative)
--- NOTE | 2024-06-09 08:16 | Electrocardiogram Report ---
Test Reason : Blood Pressure : */* mmHG Vent. Rate : 79 BPM Atrial Rate : 79 BPM P-R Int : 218 ms QRS Dur : 102 ms QT Int : 358 ms P-R-T Axes : 42 71 46 degrees QTcB Int : 410 ms Sinus rhythm with 1st degree A-V block Possible Old Septal infarct (cited on or before 09-Aug-2020) Abnormal ECG When compared with ECG of 11-Jun-2022 09:15, No significant change Confirmed by Chai Montenegro ([id number]) on 06/09/2024 8:16:08 AM Referred By: REFERRED SELF Confirmed By: Chai Montenegro
[2024-06-09] MEDS: ENOXAPARIN INJ 40 MG/0.4 ML SYR SQ SCH (08:21)
[2024-06-09] MEDS: ROSUVASTATIN CALCIUM 10 MG TAB PO SCH (08:22)
[2024-06-09] MEDS: FLUTICASONE PROPIONATE NA SPR 16 GM BTL SCH (08:22)
[2024-06-09] MEDS: lisinopril 20 MG TAB PO SCH (08:22)
[2024-06-09] MEDS: METOPROLOL TARTRATE 25 MG TAB PO SCH (08:22)
[2024-06-09] MEDS: MULTIVITAMIN TAB PO SCH (08:22)
[2024-06-09] MEDS: CYANOCOBALAMIN (B-12) 500 MCG TABLET PO SCH (08:22)
[2024-06-09] MEDS: ASPIRIN 81 MG ECTAB PO SCH (08:22)
[2024-06-09] MEDS: LANTUS PER UNIT CHARGE SQ SCH (08:28)
--- NOTE | 2024-06-09 08:46 | Gastrointestinal Consultation ---
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 He endorses pain is identical to previous bouts of pancreatitis. Labs/imaging largely unremarkable (mild lipase elevation). Suspect mild pancreatitis given his symptomatology and history Can continue clear liquids May advance to low fat as tolerated Antiemetics PRN Analgesia PRN LR 200 mL/hr Early ambulation encouraged Please help arrange OP follow up with his established [facility] GI care team - outpatient evaluation of liver lesion - hospital discharge appt I spent a total of 60 minutes on the date of service in review of patient's record, and previously obtained information in person and appropriate medical visit, discussion and education of plan, with patient and/or caregiver, placing orders for tests/referral/procedures as medically necessary and documentation of pertinent clinical information in patient's medical records for their visit today. Thank you for allowing us to participate in the care of this patient. Please call with any acute changes, questions or concerns. Please see addendum below with additional recommendation from my supervising physician. Supervising Physician Co-Signing Physician Notes I saw and examined this patient with our nurse practitioner and agree with her assessment and plan. Possible mild pancreatitis based on patient's prior history of pancreatitis. Mild elevation in lipase supports this despite normal CT scan. Liver enzymes normal makes choledocholithiasis unlikely. Has had a prior ERCP with sphincterotomy several years ago. Pneumobilia on CT scan supports patency of prior sphincterotomy. He could have possibly passed some sludge. No indication for intervention at this time. Will treat as pancreatitis for now. Clear liquids is fine. Monitor LFTs. 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 Pt was seen and evaluated, chart reviewed. Suggests pain started in the epigastric location and radiated to his RUQ, into his back and side. There was nausea, but no vomiting. [place] similar to prior episodes of pancreatitis. Denies change in bowel habits. No black or bloody stools. He has had previous ERCP through [facility] in 2012, 2019 and 2020 most recently when he had a sphincterotomy and stenting of the major pancreatic duct but failed cannulation of the minor papilla. Suggests since the most recent ERCP in 2020 he has not had other bouts of pancreatitis. + rhinovirus WBC 10 PLT 247 Tbili 0.5 AST 15 ALT 19 ALKP 69 Lipase 124 CTAP 2024: Status of cholecystectomy with pneumobilia. Clinical correlation and further assessment are advised. The right hepatic lobe has a small hypodense lesion in segment V. It can be focal fatty infiltration. Suggest further assessment. Allergies Allergy/AdvReac Type Severity Reaction Status Date / Time adhesive AdvReac Mild BLISTERS Verified 06/09/24 02:23 canagliflozin [From Invokana] AdvReac Unknown HX Verified 06/09/24 02:23 PANCREATITIS hydrochlorothiazide AdvReac Unknown Pancreatitis Verified 06/09/24 02:23 history oxycodone [From Percocet] AdvReac Unknown Constipatio Verified 06/09/24 02:23 n pantoprazole AdvReac Unknown HX Verified 06/09/24 02:23 PANCREATITIS rosuvastatin [From Crestor] AdvReac Unknown HX Verified 06/09/24 02:23 PANCREATITIS Home Medications Medication Instructions Recorded Confirmed Type cyanocobalamin (vitamin B-12) 1,000 mcg PO QAM 03/14/19 06/09/24 History 1,000 mcg tablet lisinopril 20 mg tablet 20 mg PO QAM 03/14/19 06/09/24 History metoprolol tartrate 50 mg tablet 75 mg PO BID 03/14/19 06/09/24 History multivitamin (Multiple Vitamins 1 tab PO QAM 03/14/19 06/09/24 History tablet) nitroglycerin 0.4 mg sublingual 0.4 mg sublingual DIRECTED PRN 03/14/19 06/09/24 History tablet (Nitrostat) Chest Pain aspirin 81 mg tablet,delayed 81 mg PO QAM 03/06/20 06/09/24 History release (Martin Low Dose Aspirin) insulin glargine 100 unit/mL (3 20 unit subcut QAM 06/11/22 06/09/24 History mL) subcutaneous pen (Lantus Solostar U-100 Insulin) rosuvastatin 10 mg tablet 10 mg PO DAILY 06/11/22 06/09/24 History albuterol sulfate 90 mcg/actuation 2 puff inhalation Q4 PRN Wheezing 06/09/24 06/09/24 History aerosol inhaler coenzyme Q10 100 mg capsule (Co 100 mg PO DAILY 06/09/24 06/09/24 History Q-10) fluticasone propionate 50 2 spray intranasal QAM 06/09/24 06/09/24 History mcg/actuation nasal spray,suspension insulin aspart U-100 100 unit/mL See Rx Instructions .Route .COMPLEX 06/09/24 06/09/24 History (3 mL) subcutaneous pen (Novolog FlexPen U-100 Insulin aspart) loratadine 10 mg tablet 10 mg PO HS 06/09/24 06/09/24 History metformin 1,000 mg tablet 500 mg PO BIDM 06/09/24 06/09/24 History mv-mn-folic 200 mcg-vit K 15 1 cap PO BID 06/09/24 06/09/24 History mcg-lutein 5 mg-zeaxanthin 1 mg capsule (PreserVision AREDS 2 Plus Multivit) sodium chloride 0.65 % nasal spray 2 spray intranasal USEASDIRECTD 06/09/24 06/09/24 History PRN nasal dryness or congestion Patient History Medical History Asthma A CHILD CHF (congestive heart failure) Preserved LV systolic function per cardio Chronic diastolic heart failure Coronary artery disease s/p OR and Vfib arrest 2003 s/p CABG x 2 2003 Diabetes mellitus, type 2 Dyslipidemia GERD (gastroesophageal reflux disease) History of pancreatitis Hypertension Myocardial Infarction 06/16/2003, complicated by Vfib arrest. S/P CABG (DAVILA-LAD, SVG-PDA) Follows with Dr. Roach ([facility]). 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 Physical Exam Constitutional: WD/WN, vitals as above Respiratory: normal respiratory effort, lungs clear to auscultation Cardiovascular: RRR, no murmur, no edema Gastrointestinal (Abdomen): normal bowel sounds, soft, nontender, no hepatosplenomegaly Skin: no rashes, warm and dry Results & Data Vital Signs (Past 12 Hours) Vital Signs Temp Pulse Pulse Resp BP BP Pulse Ox 06/09/24 08:15 67 13 06/09/24 08:03 68 14 06/09/24 07:54 69 18 06/09/24 07:45 71 20 06/09/24 07:33 71 97 06/09/24 07:12 66 18 95 06/09/24 07:12 15 06/09/24 07:06 67 16 95 06/09/24 06:58 66 06/09/24 06:48 67 15 95 06/09/24 06:21 66 17 96 06/09/24 06:15 67 15 96 06/09/24 06:14 123/62 06/09/24 06:14 123/62 06/09/24 06:14 69 16 123/62 96 06/09/24 05:45 68 17 95 06/09/24 05:42 69 15 95 06/09/24 05:30 72 15 96 06/09/24 05:21 73 14 97 06/09/24 05:06 66 17 96 06/09/24 04:51 66 17 96 06/09/24 04:30 65 16 96 06/09/24 04:21 65 17 96 06/09/24 04:18 67 18 96 06/09/24 04:00 65 17 97 06/09/24 04:00 128/65 06/09/24 04:00 128/65 06/09/24 04:00 128/65 06/09/24 04:00 128/65 06/09/24 04:00 64 16 128/65 95 06/09/24 03:57 65 18 96 06/09/24 03:42 65 17 95 06/09/24 03:30 124/57 L 06/09/24 03:27 66 18 96 06/09/24 03:01 98.2 F 67 16 125/61 95 06/09/24 03:00 66 14 06/09/24 03:00 125/61 06/09/24 02:54 66 7 L 06/09/24 02:42 71 17 97 06/09/24 02:30 64 14 96 06/09/24 02:30 126/65 06/09/24 02:30 126/65 06/09/24 02:30 70 16 126/65 97 06/09/24 02:15 73 18 97 06/09/24 02:15 87 L 06/09/24 02:00 72 16 92 06/09/24 02:00 136/71 06/09/24 02:00 136/71 06/09/24 02:00 136/71 06/09/24 02:00 68 16 136/71 94 06/09/24 01:45 67 16 92 06/09/24 01:33 72 15 93 06/09/24 01:30 124/61 06/09/24 01:30 68 16 124/61 93 06/09/24 01:27 67 14 91 06/09/24 01:15 69 15 92 06/09/24 01:00 118/59 L 06/09/24 01:00 68 16 118/59 L 93 06/09/24 00:42 69 18 92 06/09/24 00:33 85 16 93 06/09/24 00:30 119/63 06/09/24 00:30 119/63 06/09/24 00:30 70 16 119/63 92 06/09/24 00:27 70 17 92 06/09/24 00:21 69 17 93 06/09/24 00:12 70 20 92 06/09/24 00:06 74 17 93 06/08/24 23:22 79 06/08/24 23:18 74 16 157/74 H 94 06/08/24 23:12 95 06/08/24 22:49 98.1 F 94 H 18 196/85 H 94 O2 Del Method O2 Flow Rate 06/09/24 08:15 06/09/24 08:03 06/09/24 07:54 06/09/24 07:45 06/09/24 07:33 06/09/24 07:12 06/09/24 07:12 06/09/24 07:06 06/09/24 06:58 06/09/24 06:48 06/09/24 06:21 06/09/24 06:15 06/09/24 06:14 06/09/24 06:14 06/09/24 06:14 Nasal Cannula 2 06/09/24 05:45 06/09/24 05:42 06/09/24 05:30 06/09/24 05:21 06/09/24 05:06 06/09/24 04:51 06/09/24 04:30 06/09/24 04:21 06/09/24 04:18 06/09/24 04:00 06/09/24 04:00 06/09/24 04:00 06/09/24 04:00 06/09/24 04:00 06/09/24 04:00 Nasal Cannula 2 06/09/24 03:57 06/09/24 03:42 06/09/24 03:30 06/09/24 03:27 06/09/24 03:01 Nasal Cannula 2 06/09/24 03:00 06/09/24 03:00 06/09/24 02:54 06/09/24 02:42 06/09/24 02:30 06/09/24 02:30 06/09/24 02:30 06/09/24 02:30 Room Air 06/09/24 02:15 06/09/24 02:15 Room Air, Nasal Cannula 06/09/24 02:00 06/09/24 02:00 06/09/24 02:00 06/09/24 02:00 06/09/24 02:00 Room Air 06/09/24 01:45 06/09/24 01:33 06/09/24 01:30 06/09/24 01:30 Room Air 06/09/24 01:27 06/09/24 01:15 06/09/24 01:00 06/09/24 01:00 Room Air 06/09/24 00:42 06/09/24 00:33 06/09/24 00:30 06/09/24 00:30 06/09/24 00:30 Room Air 06/09/24 00:27 06/09/24 00:21 06/09/24 00:12 06/09/24 00:06 06/08/24 23:22 06/08/24 23:18 Room Air 06/08/24 23:12 Room Air 06/08/24 22:49 Room Air Laboratory Results 06/09/24 06/09/24 06/09/24 Range/Units 08:20 05:30 02:19 WBC (4.8-10.8) K/ul RBC (4.70-6.10) M/uL Hgb (14.0-18.0) g/dl Hct (42.0-52.0) % MCV (80.0-100.0) fL MCH (25.0-34.0) pg MCHC (32.0-36.0) g/dL RDW Std Deviation (36.4-46.3) fL RDW Coeff of Rodolfo (11.5-14.5) % Plt Count (130-400) K/uL MPV (9.4-12.4) fL Immature Gran % (Auto) % Neut % (Auto) % Lymph % (Auto) % [place] % (Auto) % Eos % (Auto) % Baso % (Auto) % Neut # (Auto) (1.40-6.50) K/uL Lymph # (Auto) (1.20-3.40) K/uL Wayne # (Auto) (0.11-0.59) K/uL Eos # (Auto) (0.00-0.50) K/uL Baso # (Auto) (0.00-0.20) K/uL Immature Gran # (Auto) (0.01-0.20) K/uL PT (9.0-12.0) Seconds INR (0.9-1.1) Sodium (136-145) mmol/L Potassium (3.5-5.1) mmol/L Chloride (98-107) mmol/L Carbon Dioxide (21-32) mmol/L Anion Gap (3-11) BUN (6-23) mg/dl Creatinine (0.6-1.4) mg/dl Est Cr Clr Drug Dosing ml/min eGFR BUN/Creatinine Ratio (10-20) Glucose (70-99(Fasting)) mg/dl POC Glucose 223 H 96 (70-99) mg/dl Lactate (0.4-2.0) mmol/L Calcium (8.6-10.3) mg/dl Total Bilirubin (0.2-1.0) mg/dl AST (13-39) U/L ALT (7-52) U/L Alkaline Phosphatase (34-104) U/L Troponin I High Sens (0-20) pg/ml Total Protein (6.0-8.3) gm/dl Albumin (3.4-5.0) gm/dl Globulin (2.5-4.0) gm/dl Albumin/Globulin Ratio (0.9-2) Lipase (11-82) U/L Urine Color Yellow Urine Appearance Clear (Clear) Urine pH 7.0 (4.5-7.5) Ur Specific [place] 1.022 (1.000-1.030) Urine Protein Negative (Negative) Urine Glucose (UA) Negative (Negative) Urine Ketones Negative (Negative) Urine Blood Negative (Negative) Urine Nitrite Negative (Negative) Urine Bilirubin Negative (Negative) Urine Urobilinogen Negative (Negative) Ur Leukocyte Esterase Negative (Negative) Adenovirus (PCR) (NotDetected) B. pertussis DNA (PCR) (NotDetected) B.parapertussis DNA PCR (NotDetected) C. pneumoniae DNA (PCR) (NotDetected) Coronavirus OC43 (PCR) (NotDetected) Coronavirus HKU1 (PCR) (NotDetected) Coronavirus 229E (PCR) (NotDetected) SARS-CoV-2 (PCR) (NotDetected) Coronavirus NL63 (PCR) (NotDetected) Human Metapneumovir PCR (NotDetected) Influenza Type A (PCR) (NotDetected) Influenza Type B (PCR) (NotDetected) M. pneumoniae (PCR) (NotDetected) Parainfluenza 1 (PCR) (NotDetected) Parainfluenza 2 (PCR) (NotDetected) Parainfluenza 3 (PCR) (NotDetected) Parainfluenza 4 (PCR) (NotDetected) RSV (PCR) (NotDetected) Entero/Rhino (PCR) (NotDetected) 06/08/24 06/08/24 Range/Units 23:14 23:12 WBC 10.08 (4.8-10.8) K/ul RBC 4.69 L (4.70-6.10) M/uL Hgb 15.0 (14.0-18.0) g/dl Hct 42.4 (42.0-52.0) % MCV 90.4 (80.0-100.0) fL MCH 32.0 (25.0-34.0) pg MCHC 35.4 (32.0-36.0) g/dL RDW Std Deviation 39.2 (36.4-46.3) fL RDW Coeff of Rodolfo 11.9 (11.5-14.5) % Plt Count 247 (130-400) K/uL MPV 9.2 L (9.4-12.4) fL Immature Gran % (Auto) 0.2 % Neut % (Auto) 63.8 % Lymph % (Auto) 24.6 % Wayne % (Auto) 9.3 % Eos % (Auto) 1.7 % Baso % (Auto) 0.4 % Neut # (Auto) 6.43 (1.40-6.50) K/uL Lymph # (Auto) 2.48 (1.20-3.40) K/uL [place] # (Auto) 0.94 H (0.11-0.59) K/uL Eos # (Auto) 0.17 (0.00-0.50) K/uL Baso # (Auto) 0.04 (0.00-0.20) K/uL Immature Gran # (Auto) 0.02 (0.01-0.20) K/uL PT 10.3 (9.0-12.0) Seconds INR 0.9 (0.9-1.1) Sodium 137 (136-145) mmol/L Potassium 4.0 (3.5-5.1) mmol/L Chloride 103 (98-107) mmol/L Carbon Dioxide 28 (21-32) mmol/L Anion Gap 6 (3-11) BUN 15 (6-23) mg/dl Creatinine 0.98 (0.6-1.4) mg/dl Est Cr Clr Drug Dosing 66.3 ml/min eGFR 81.93 BUN/Creatinine Ratio 15.3 (10-20) Glucose 96 (70-99(Fasting)) mg/dl POC Glucose (70-99) mg/dl Lactate 0.8 (0.4-2.0) mmol/L Calcium 9.8 (8.6-10.3) mg/dl Total Bilirubin 0.5 (0.2-1.0) mg/dl AST 15 (13-39) U/L ALT 19 (7-52) U/L Alkaline Phosphatase 69 (34-104) U/L Troponin I High Sens 4.9 (0-20) pg/ml Total Protein 7.6 (6.0-8.3) gm/dl Albumin 4.1 (3.4-5.0) gm/dl Globulin 3.5 (2.5-4.0) gm/dl Albumin/Globulin Ratio 1.2 (0.9-2) Lipase 124 H (11-82) U/L Urine Color Urine Appearance (Clear) Urine pH (4.5-7.5) Ur Specific [place] (1.000-1.030) Urine Protein (Negative) Urine Glucose (UA) (Negative) Urine Ketones (Negative) Urine Blood (Negative) Urine Nitrite (Negative) Urine Bilirubin (Negative) Urine Urobilinogen (Negative) Ur Leukocyte Esterase (Negative) Adenovirus (PCR) Not Detected (NotDetected) B. pertussis DNA (PCR) Not Detected (NotDetected) B.parapertussis DNA PCR Not Detected (NotDetected) C. pneumoniae DNA (PCR) Not Detected (NotDetected) Coronavirus OC43 (PCR) Not Detected (NotDetected) Coronavirus HKU1 (PCR) Not Detected (NotDetected) Coronavirus 229E (PCR) Not Detected (NotDetected) SARS-CoV-2 (PCR) Not Detected (NotDetected) Coronavirus NL63 (PCR) Not Detected (NotDetected) Human Metapneumovir PCR Not Detected (NotDetected) Influenza Type A (PCR) Not Detected (NotDetected) Influenza Type B (PCR) Not Detected (NotDetected) M. pneumoniae (PCR) Not Detected (NotDetected) Parainfluenza 1 (PCR) Not Detected (NotDetected) Parainfluenza 2 (PCR) Not Detected (NotDetected) Parainfluenza 3 (PCR) Not Detected (NotDetected) Parainfluenza 4 (PCR) Not Detected (NotDetected) RSV (PCR) Not Detected (NotDetected) Entero/Rhino (PCR) DETECTED A (NotDetected) Diagnostic Findings Chest X-Ray 06/08/24 22:53 EXAM: XR chest 1V portable CLINICAL HISTORY: shortness of breath TECHNIQUE: Radiograph of chest was acquired. COMPARISON: none FINDINGS: The lungs are clear and well-expanded with no pulmonary infiltrate or pleural effusion. The cardiomediastinal silhouette is within normal limits. No acute osseous abnormality. Sternal sutures in situ. IMPRESSION: 1. No acute cardiopulmonary disease. Electronically signed by Gino Brown 06-09-2024 01:28 AM Abdomen/Pelvis CT 06/08/24 23:00 EXAM: CT abd pelvis IV con only CLINICAL HISTORY: RUQ and epigastric abd pain TECHNIQUE: Contrast-enhanced CT of the abdomen and pelvis was performed, with the following protocol: axial images with, and reconstructed coronal and sagittal images. Intravenous contrast was administered. One of the following dose reduction techniques was utilized for this exam: Automated exposure control, adjustment of the mA and/or kV according to patient size, and use of iterative reconstruction. COMPARISON: None. FINDINGS: Abdomen: Liver: Normal in size, shape, and density. A small, non-enhancing hypodense right hepatic lesion measuring 1.5x1.3 cm. Hepatic vasculature and biliary ducts are unremarkable. Gallbladder and Biliary System: The gallbladder is surgically removed. Pneumobilia was noted, more on the left lobe, no significant dilatation of intrahepatic biliary dilatation. The common bile duct is normal in caliber without dilation. Pancreas: Pancreatic head, body, and tail are visualized and appear normal in size and density. No pancreatic masses or calcifications were noted. The pancreatic duct is not dilated. Spleen: Normal in size, shape, and density. No splenic lesions or masses were identified. Appendix: The appendix is normal in size without fortunato appendiceal fat stranding, and without an appendicolith. No evidence of appendiceal abscess or perforation. Kidneys and Adrenal Glands: Both kidneys are normal in size, shape, and position. Cortical thickness is within normal limits. No renal calculi or hydronephrosis. Well defined left cortical renal cyst noted. Adrenal glands are unremarkable with no evidence of masses or hyperplasia. Pelvis: Urinary Bladder: Normal in contour and wall thickness. No intraluminal lesions identified. Prostate: Normal in size and contour. No focal lesions or masses identified. Seminal Vesicles: Normal in size and appearance. No abnormalities noted. Rectum and Sigmoid Colon: Normal wall thickness and no evidence of mass. Peritoneal and Retroperitoneal Structures: No free fluid or abnormal fluid collections were identified within the abdomen or pelvis. No lymphadenopathy was noted. Bowel: The visualized bowel loops are normal in caliber and appearance. No evidence of bowel obstruction or wall thickening. Bones and Soft Tissues: Pelvic bones and soft tissues are unremarkable. No fractures or abnormal masses were identified. IMPRESSION: - Status of cholecystectomy with pneumobilia. Clinical correlation and further assessment are advised. - The right hepatic lobe has a small hypodense lesion in segment V. It can be focal fatty infiltration. Suggest further assessment. Electronically signed by Suman Castro 06-09-2024 02:00 AM PG Care Time/CCT Total # of Minutes Spent Total Time Spent with Patient: Total time spent is greater than 50% in coordination of care (as documented) at patient's floor/unit and/or counseling patient: Coding Level of Care Code 18228 INT INP/OBS CARE 2/MIN Diagnoses Acute pancreatitis K85.90
[2024-06-09] MEDS ORDERED: NON-FORMULARY MEDICATION (Mv-Min-Fa-Vit K-Lutein-Zeaxant [Preservision Areds 2 Plus Mv] 20 PO SCH (09:00)
--- OUTSIDE RECORDS SUMMARY | 2024-06-09 10:25 | External Medical Summary | Summary of Care ---
Author Name Unknown Organization [facility] Address [address] [place] [address] Phone [phone] Care Team Providers Care Maintenance Supervisor Name Role Phone Artur Chambers MD Primary Care Provider + Reason for Visit * Reason Comments Acute Patient is here with complaints of sore throat, drainage, pain on R side of chest, and productive cough and a few episodes of choking. Symptoms started at the beginning of May-he was seen 05/09 for similar symptoms. He has tried cough syrup, decongestant,and nasal spray for symptoms. Patient would like a refill on Tessalon Pearls. Encounter Details Date Type Department Care Team (Late st Contact Info) Description 05/30/2024 10:00 AM EST Office Visit [facility] Cassie Jovany [address] [phone] Seng Olmos PA-C [address] [phone] LRTI (lower respiratory tract infection)*; Acute sinusitis, recurrence not specified, unspecified location Allergies Active Allergy Reactions Criticality Noted Date Comments Adhesive Tape 08/15/2003 Hydrochlorothiazide Other (Please comment) 05/2012 pancreatitis Canagliflozin Other (Please comment) 03/22/2019 Pancreatitis Empagliflozin 01/02/2022 pancreatitis documented as of this encounter (statuses as of 05/30/2024) Medications MULTIVITAMIN TABS OR one pill each day 0 4 Active NITROGLYCERIN 0.4 MG SL SUBLIndications: Aortocoronary bypass status 1 Q 5 min as needed with chest pain up to 3 doses in 15 minutes 25 11 6 Active Cyanocobalamin ER (VITAMIN B12 TR) 1000 MCG TBCRIndications: Vitamin B 12 deficiency Take 1 Tab by mouth daily. 30 Tab 8 Active Saline Nasal [place] 0.65 % Nasal Solution Administer 2 Sprays into each nostril as needed for Congestion. for nasal dryness or congestion 1 Bottle 5 9 Active aspirin enteric coated 81 MG TBEC Take 1 Tablet by mouth in the morning. Taking 325 mg for one week. 9 Active Holidu Ultra 2 w/Device Kit Use to test blood sugars once daily 1 Each 1 Active Holidu UltraSoft Lancets Use to test blood sugars once daily 100 Each 3 2 Active Cimagine Mediauch Ultra Blue In Vitro Strip (Glucose Blood)Indication s:Type 2 diabetes mellitus with hemoglobin A1c goal of less than 7.0% (HCC) USE TO CHECK BLOOD SUGARS 3 TIMES PER DAY 300 Strip 3 2 Active Loratadine 10 MG Oral Tablet (Claritin)Indica tions:Post-nasal drip Take 1 Tablet by mouth at bedtime. 4 Active Insulin Glargine Solostar 100 UNIT/ML Subcutaneous Solution Pen-injector (Lantus SoloStar)Indicat ions:Type 2 diabetes mellitus with hemoglobin A1c goal of less than 7.5% (HCC),Type 2 diabetes mellitus with hemoglobin A1c goal of less than 7.0% (HCC) Inject 30 Units under the skin daily. 30 mL 3 04/25/2024 2:03 PM EST 4 Active NovoLOG FlexPen 100 UNIT/ML Subcutaneous Solution Pen-injector (insulin aspart)Indicatio ns:Type 2 diabetes mellitus with hemoglobin A1c goal of less than 7.5% (HCC),Type 2 diabetes mellitus with hemoglobin A1c goal of less than 7.0% ([facility]) Inject 16 units Before breakfast and 10 units before supper 30 mL 3 04/25/2024 2:01 PM EST 4 Active Additional Information Patient taking differently: Novolog 16units before breakfast, 4 units with lunch and 10units before supper + CF 1:50 over 150 [see chart at bottom of MTM note 07/16/23], Reported on 05/30/2024 PreserVision AREDS 2+Multi Vit Oral Capsule Take by mouth. Active Fluticasone Propionate 50 MCG/ACT Nasal Suspension (Flonase)Indicat ions:Allergic rhinitis, unspecified seasonality, unspecified trigger Administer 2 Sprays into each nostril in the morning. 16 g 11 4 Active Metoprolol Tartrate 50 MG Oral Tablet (Lopressor)Indic ations:HTN, goal below 140/90 TAKE ONE AND ONE-HALF TABLETS BY MOUTH EVERY DAY IN THE MORNING AND TAKE ONE AND ONE-HALF TABLETS BY MOUTH EVERY DAY BEFORE BEDTIME 270 Tablet 3 05/27/2024 5:00 PM EST 4 09/01/19 25 Active Lisinopril 20 MG Oral Tablet (Prinivil)Indica tions:HTN, goal below 140/90 TAKE ONE TABLET BY MOUTH EVERY DAY IN THE MORNING 90 Tablet 3 05/28/2024 3:08 PM EST 4 09/03/19 25 Active Benzonatate 100 MG Oral Capsule (Tessalisauro Perlgeena)Indicatio ns:Acute sinusitis, recurrence not specified, unspecified location Take 1 Capsule by mouth 3 times a day as needed for Cough. Do not cut, crush, or chew. 50 Capsule 1 4 Active Additional Information Patient not taking.Reported on 05/30/2024 Ventolin HFA 108 (90 Base) MCG/ACT Inhalation Aerosol SolutionIndicati ons:Wheezing,Bro nchitis, complicated Inhale 2 Puffs by mouth every 4 hours as needed for Wheezing. 54 g 09/25/2023 2:40 PM EDT 4 Active Co Q-10 30 MG Oral Capsule Take by mouth. Ac tive Rosuvastatin Calcium 20 MG Oral Tablet (Crestor)Indicat ions:Type 2 diabetes mellitus with hemoglobin A1c goal of less than 7.5% ([facility]) Take 1 Tablet by mouth in the morning. Dose increase. 100 Tablet 3 03/25/2024 6:09 AM EST 4 Active metFORMIN HCl ER 500 MG Oral Tablet Extended Release 24 Hour (Glucophage XR)Indications:T ype 2 diabetes mellitus with hemoglobin A1c goal of less than 7.5% (HCC) Take 1 Tablet by mouth daily. Dose decrease 100 Tablet 3 04/19/2024 10:01 AM EST 5 Active Unifine Pentips 32G X 4 MM (Insulin Pen Needle)Indicatio ns:Type 2 diabetes mellitus with hemoglobin A1c goal of less than 7.5% (HCC),Type 2 diabetes mellitus with hemoglobin A1c goal of less than 7.0% (HCC) USE up to 4 times daily TO INJECT INSULIN 400 Each 3 05/05/2024 8:45 AM EST 5 Active Amoxicillin-Pot Clavulanate 875-125 MG Oral Tablet (Augmentin)Indic ations:LRTI (lower respiratory tract infection),Acute sinusitis, recurrence not specified, unspecified location Take 1 Tablet by mouth in the morning and 1 Tablet before bedtime. Do all this for 10 days. 20 Tablet 5 06/10/19 25 Active Azithromycin 250 MG Oral Tablet (Zithromax)Indic ations:LRTI (lower respiratory tract infection),Acute sinusitis, recurrence not specified, unspecified location Take 2 tabs by mouth on the first day, then 1 tab daily on days two through five 6 Tablet 5 06/05/19 25 Active predniSONE 20 MG Oral Tablet (Deltasone)Indic ations:LRTI (lower respiratory tract infection),Acute sinusitis, recurrence not specified, unspecified location Take 2 Tablets by mouth in the morning for 5 days. 10 Tablet 5 06/05/19 25 Active Benzonatate 100 MG Oral Capsule (Tessalon Perles)Indicatio ns:LRTI (lower respiratory tract infection) Take 1 Capsule by mouth 3 times a day as needed for Cough. Do not cut, crush, or chew. 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 Nonallergic rhinitis 04/08/2015 Old myocardial infarct 09/24/2007 Aortocoronary bypass status 07/19/2003 documented as of this encounter (statuses as of 05/30/2024) Resolved Problems Problem Noted Date Diagnosed Date Resolved Date Abdominal pain 02/03/2023 03/02/2024 Acute pancreatitis after end oscopic retrograde cholangiopancreatography (ERCP) 02/03/2023 08/04/2023 Atypical chest pain 02/03/2023 03/02/20 24 Congestive heart failure 02/03/202309/2022 Musculoskeletal neck pain 02/03/2023 Viral URI with cough 04/08/2015 017 Obstipation 04/08/2015 02/22/2018 Hyperlipidemia with target LDL less than 70 11/16/2012 02/20/2017 Overview (08/06/2015): ICD-10 update of inactive term HTN, GOAL BELOW 140/80 11/24/201107/11 Overview: Per HTN Protocol #27. HTN, goal below 140/90 05/02/201105/02 HTN, GOAL BELOW 130/80 05/03/200911/26 Overview (05/03/2009): Per HTN Taxonomy. Dyslipidemia, goal LDL below 70 03/26/2009 11/04/2018 Overview (03/26/2009): Per Lipid Taxonomy. Dysphagia 03/02/2009 07/06/2012 Overview (06/28/2015): ICD-10 update of inactive term Heartburn 03/02/2009 11/04/2018 Type 2 diabetes mellitus wit h hemoglobin A1c goal of less than 7.0% 02/01/2009 08/20/2017 Overview (07/31/2015): Per Diabetes Taxonomy. ICD-10 update of inactive term Stability Research Study [id number] - Dr. Moses 10/13/2008 07/20/2009 Overview (07/20/2009): Renamed Per Clinical Trials Billing Project. PROJECT: #[id number], PANTRY GOODS MAKER: Fabrizio Moses MD SUMMARY: Patients with CHD are randomized to darapladib (Lp-PLA2 inhibitor) or placebo in addition to standard of care medications to evaluate incidence of major coronary events. CONTACTS: During normal business hours, contact Clincal Research Coordinator at appropriate clinic location, after hours on-call Clinical Research Coordinator via the [facility] hospital regrind mill operator ([phone]). The study sponsor can be reached at: Stability Clinical Trial [id number] 10/13/2008 05/07/2012 Overview (07/20/2009): Renamed Per Clinical Trials Billing Project. PROJECT: #[id number], PANTRY GOODS MAKER: Fabrizio Moses MD SUMMARY: Patients with CHD are randomized to darapladib (Lp-PLA2 inhibitor) or placebo in addition to standard of care medications to evaluate incidence of major coronary events. CONTACTS: During normal business hours, contact Clincal Research Coordinator at appropriate clinic location, after hours on-call Clinical Research Coordinator via the [facility] hospital regrind mill operator ([phone]). The study sponsor can be reached at: HTN, goal below 140/90 09/24/200705/03 Overview (05/03/2009): Per HTN Taxonomy. ?Psoriasis 02/10/2007 02/20/2017 Type 2 diabetes mellitus wit h hemoglobin A1c goal of less than 7.0% 12/11/2006 02/20/2017 Overview (07/31/2015): Per Diabetes Taxonomy. ICD-10 update of inactive term Coronary atherosclerosis 05/06/2006 ADVANCE DIRECTIVE INFORMATION 12/03/2004 02/20/2017 Overview (12/03/2004): Yes, Patient instructed to provide copy of advance directive for provider to review and to be scanned into Electronic Medical Record Dyslipidemia, goal to be determined 04/02/2004 03/26/2009 Overview (03/26/2009): Per Lipid Taxonomy. Cardiac arrest 09/08/2003 08/20/2016 Cardiogenic shock 09/08/2003 08/20/2016 F/u of acute inferior myocardial infarction 09/08/2003 09/24/2007 Ventricular fibrillation 07/19/2003 Hand dermatitis 03/29/2003 02/10/2007 documented as of this encounter (statuses as of 05/30/2024) Immunizations Name Administration Dates Next Due COVID-19 mRNA, LNP-s, No Pre serve, 2-Dose Series (Moderna) 06/11/2020,05/08/2020 COVID-19, MRNA-LNP, PF, 50 M CG/0.5 mL, 12 YRS AND ABOVE, IM (MODERNA-Spikevax) 03/09/2024,01/30/2023 COVID-19, mRNA, LNP-s, PF, B ooster, 100mcg/0.5mg (Moderna) 02/20/2021 Covid-19, Mrna, Lnp-s, Pf, B ivalent, 30 Mcg, IM, 12 yrs and above (Pfizer) 02/18/2022 H1N1 2009 Influenza, IM 04/27/2009 Influenza, Whole Virus 01/07/2007 Pneumococcal Conjugate Vacc, 13 Valent (Prevnar) 08/20/2017 Pneumococcal Polysaccharide PPV23 (Pneumovax) 11/04/2018,05/06/2006 Respiratory Syncytial Virus (Rsv) Vaccine, Unspecified (Use this ONLY If the brand of RSV MAB is not able to be identified) 02/24/2023 Season Influenza, Quad, PF, Adjuvanted, 65+ Yrs, IM (FLUAD) 12/23/2019 Seasonal Influenza Vac., MDV , IM, 0.5 mL (Fluzone) 12/28/2013,01/11/2013,12/11/2011,01/21,01/22/2010,01/18/2009,01/17/2009 ,01/13/2008,02/10/2006 Seasonal Influenza, High Dos e, Trivalent, PF, IM (Fluzone HD) 12/17/2023 Seasonal Influenza, PF, 6 M & above, IM , (FluLaval or Fluzone) 02/22/2018,01/26/2017 Seasonal Influenza, Quadriva lent Hd (Fluzone Hd) 01/12/2023,01/02/2022,01/02/2021 Seasonal Influenza, Quadriva lent, No Preserve, IM 02/12/2016,01/15/2015 Seasonal Influenza, Trivalen t, Adjuvanted, 65+ YRS, PF, (Fluad) 02/08/2019 TD, Preservative Free 02/22/2018 TDAP, Age 7 and older, IM (Adacel) 09/24/2007 Varicella Zoster Vaccine (Adult) 11/16/2012 Zoster Vaccine Recombinant (Shingrix) 09/20/2019 ,03/24/2019 documented as of this encounter Social History Tobacco Use Types Packs/Day Years Used Date Smoking Tobacco: Never Smokeless Tobacco: Former Snuff Quit: 09/26/2003 Comments:snuff-many years no t since June 16, 2003 Alcohol Use Standard Drinks/Week Comments Not Currently 0 (1 standard drink = 0.6 oz pur e alcohol) AUDIT-C Answer Date Recorded Q1: How often do you have a drink containing alc ohol? Never 03/23/2020 Average Number of Drinks Not on file 020 Frequency of Binge Drinking Not on file 03/06 PHQ-2 Answer Date Recorded PHQ Adult Total Score 4 07/15/2023 Hunger Vital Sign Answer Date Recorded Within the past 12 months, y ou worried that your food would run out before you got the money to buy more. Never true 07/10/19 23 Within the past 12 months, t he food you bought just didn't last and you didn't have money to get more. 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 Not on file Not on file Not on file [employer] Not on file Not on file Not on edu e documented as of this encounter Last Filed Vital Signs Vital Sign Reading Time Taken Comments Blood Pressure 155/64 05/30/2024 10:12 AM EST Pulse 77 05/30/2024 10:12 AM EST Temperature 36.5 C (97.7 F) 05/30/2024 1 0:12 AM EST Respiratory Rate 16 05/30/2024 10:1 2 AM EST Oxygen Saturation 95% 05/30/2024 10: 12 AM EST Inhaled Oxygen Concentration - - Weight 85.1 kg (187 lb 11.2 oz) 025 10:12 AM EST Height - - Body Mass Index 31.69 05/09/2024 2:50 PM EST documented in this encounter Progress Notes * Seng Olmos PA-C - 05/30/2024 10:14 AM EST Images from the original note were not included. History of Present Illness Chet Cannon Sr. is a 73 year old male that presents for Acute (Patient is here with complaintsof sore throat, drainage, pain on R side of chest, and productive cough and a few episodes of choking. Symptoms started at the beginning of May-he was seen 05/09 for similar symptoms. He has tried cough syrup, decongestant,and nasal spray for symptoms. Patient would like a refill on Tessalon Pearls. ) Started 3 weeks ago when awoken with a choking spell, felt mucus caught in his throat. Seen at PCP office - negative viral PCR. Results for orders placed or performed in visit on 05/09/24 INFLUENZA A/B RSV SARS-COV2,PCR Result Value Ref Range SARS-CoV-2 (COVID-19) Result Negative Negative Influenza A PCR Result Negative Negative Influenza B PCR Result Negative Negative RSV PCR Result Negative Negative *Note: Due to a large number of results and/or encounters for the requested time period, some results have not been displayed. A complete set of results can be found in Results Review. Continues with significant post-nasal drip which is now causing sore throat. +sinus pressure. Developed productive cough. Mucus is thick and brown. Wheezing since yesterday. Using albuterol inhaler with some improvement. No known fever. No vomiting or diarrhea reported. Physical Exam Vitals: 05/30/24 1012 Temp: 97.7 F (36.5 C) Pulse: 77 Resp: 16 SpO2: 95% BP: 155/64 Physical Exam Vitals and nursing note reviewed. Constitutional: Appearance: He is ill-appearing. HENT: Head: Normocephalic and atraumatic. Right Ear: Tympanic membrane, ear canal and external ear normal. Left Ear: Tympanic membrane, ear canal and external ear normal. Nose: Congestion present. Mouth/Throat: Mouth: Mucous membranes are moist. Pharynx: Posterior oropharyngeal erythema present. Cardiovascular: Rate and Rhythm: Normal rate and regular rhythm. Pulmonary: Effort: Pulmonary effort is normal. Breath sounds: Wheezing present. Comments: Diminished breath sounds throughout. Musculoskeletal: Cervical back: Neck supple. Lymphadenopathy: Cervical: No cervical adenopathy. Neurological: Mental Status: He is alert and oriented to person, place, and time. I have reviewed the following results: Hemoglobin AIC Results: Lab Results Component Value Date/Time HEMOGLOBIN A1C - [facility] 8.4 (H) 03/24/2024 08:44 AM Assessment and Plan LRTI (lower respiratory tract infection) - XR CHEST 2 VIEWS - Amoxicillin-Pot Clavulanate 875-125 MG Oral Tablet (Augmentin); Take 1 Tablet by mouth in the morning and 1 Tablet before bedtime. Do all this for 10 days. - Azithromycin 250 MG Oral Tablet (Zithromax); Take 2 tabs by mouth on the first day, then 1 tab daily on days two through five - predniSONE 20 MG Oral Tablet (Deltasone); Take 2 Tablets by mouth in the morning for 5 days. May elevated blood sugar. - Benzonatate 100 MG Oral Capsule (Tessalon Perles); Take 1 Capsule by mouth 3 times a day as needed for Cough. Do not cut, crush, or chew. Continue albuterol inhaler every 4-6hrs as needed. Acute sinusitis, recurrence not specified, unspecified location - Amoxicillin-Pot Clavulanate 875-125 MG Oral Tablet (Augmentin); Take 1 Tablet by mouth in the morning and 1 Tablet before bedtime. Do all this for 10 days. - Azithromycin 250 MG Oral Tablet (Zithromax); Take 2 tabs by mouth on the first day, then 1 tab daily on days two through five - predniSONE 20 MG Oral Tablet (Deltasone); Take 2 Tablets by mouth in the morning for 5 days. May elevate blood sugar. Wrap-Up Follow Up: Return if symptoms worsen or fail to improve, for Xray today. | For: Xray today Time: I spent a total of 20-29 minutes (exact time 25 mins) on the date of service in preparation, delivery, and documentation of the care provided to Chet Cannon Sr. excluding any time spent in the performance of separately billed services. documented in this encounter Plan of Treatment Upcoming Encounters Date Type Department Care Team (Late st Contact Info) Description 07/05/2024 9:20 AM EDT [facility] [address] [place] [phone] Saloni Thomas DPM [address] [place] [address] 07/19/2024 10:00 AM EDT Nurse Only Ancillary [facility] [place] [address] [facility] [place] [address] Angela Nurse Annual Wellness [facility] [address] [facility] [place] [address] 07/26/2024 11:30 AM EDT Office Visit Cardiology, [facility] [address] [place] [address] Nando Roach MD [address] [place] [phone] 10:20 AM EDT [facility] [address] [phone] Britta [facility] [address] [address] 12/07/2024 4:00 PM EDT Office Visit General Internal Medicine [facility] [address] [facility] [place] [address] Artur Chambers MD [address] [facility] [place] [address] Scheduled Procedures Name Priority Associated Diagnoses Date/Ti me COLONOSCOPY FLEXIBLE PROXIMA L DIAGNOSTIC Recall Family history of colon cancer Health Maintenance Due Date Last Done Comments Cologuard 07/28/1996 Fecal Occult Blood Test 07/28/1996 Sigmoidoscopy 07/28/1996 Albumin/Creatinine Ratio 07/12/2024 024, 07/09/2022, 06/10/2021, Additional history exists GFR 07/12/2024 07/13/2023, 04/0 09/2022, 07/09/2022, Additional history exists Adult Wellness Visit 07/14/2024 07/15/2023, 07/09/2022, 09/09/2021 Depression Screening 07/14/2024 07/15/2023, 07/15/2023, 06/27/2014 Diabetic Foot Exam 07/14/2024 07/15/2023, 0 07/09/2022, 06/12/2021, Additional history exists COVID-19 Vaccine ( season) 2024 03/09/2024, 01/30/2023, 02/18/2022, Additional history exists HbA1c 09/22/2024 03/24/2024, 04/0 11/2023, 01/12/2023, Additional history exists Diabetic Eye Exam 09/23/2024 09/24/2023, , 08/22/2022, Additional history exists Colonoscopy 02/04/2028 02/03/2023, 03/07, 03/25/2018, Additional history exists Colorectal Cancer Screening 02/04/2028 DTap/Tdap Vaccines (3 - Td or Tdap) 02/23/2028 02/22/2018, 09/24/2007 Pneumococcal Vaccine: 50+ Years Completed 11/04/2018, 08/20/2017, 05/06/2006 Zoster Vaccines Completed 09/20/2019, 03/06, 11/16/2012 RETIRED - COLONOSCOPY-EVERY 5 YRS AGES 18-100 Discontinued 02/03/2023, 03/25/2018, 03/25/2018, Additional history exists Influenza Vaccine (FLU shot) Completed 12/17/2023, 01/12/2023, 01/02/2022, Additional history exists HPV (Gardasil) Vaccine Aged Out No lo nger eligible based on patient's age to complete this topic Hepatitis B Vaccine Aged Out No longe r eligible based on patient's age to complete this topic MENINGOCOCCAL (MENACTRA/MENVEO) Aged Out No longer eligible based on patient's age to complete this topic Meningitis B Vaccine (Bexsero/Trumemba) Aged Out No longer eligible based on patient's age to complete this topic documented as of this encounter Medical Devices Not on filedocumented as of this encounter Procedures Procedure Name Priority Date/Time Associated Diagnosis Comments XR CHEST 2 VIEWS Routine 05/30/2024 10:4 2 AM EST LRTI (lower respiratory tract infection) documented in this encounter Results * XR CHEST 2 VIEWS (05/30/2024 10:42 AM EST) Anatomical Region Laterality Modality Chest Digital Radiogra phy 05/30/2024 2:50 PM EST Impressions 05/30/2024 2:48 PM EST IMPRESSION 1. No compelling radiographic evidence of acute bacterial pneumonia or pulmonary edema. 2. Additional findings as above. Narrative 05/30/2024 2:48 PM EST EXAM XR CHEST 2 VIEWS-05/30/2024 10:42 am HISTORY Cough/chest congestion x 3 weeks; wheezing, diminished breath sounds throughout. COMPARISON XR CHEST 2 VIEWS, ACC: [id number], dated 2023-06-16 12:52:17; XR CHEST 2 VIEWS, ACC: [id number], dated 2023-02-09 11:11:30; XR CHEST 2 VIEWS, ACC: [id number], dated 2022-01-28 11:41:57 TECHNIQUE Radiography of the chest. XR CHEST 2 VIEWS FINDINGS No acute focal consolidation. No pulmonary edema. No pneumothorax or pleural effusion observed. Stable cardiomediastinal silhouette.No acute osseous abnormality. Sternotomy wires appear intact. Procedure Note Kiel Kasper MD - 05/30/2024 EXAM XR CHEST 2 VIEWS-05/30/2024 10:42 am HISTORY Cough/chest congestion x 3 weeks; wheezing, diminished breath soundsthroughout. COMPARISON XR CHEST 2 VIEWS, ACC: [id number], dated 2023-06-16 12:52:17; XR CHEST 2 VIEWS, ACC: [id number], dated 2023-02-09 11:11:30; XR CHEST 2 VIEWS, ACC: [id number], dated 2022-01-28 11:41:57 TECHNIQUE Radiography of the chest. XR CHEST 2 VIEWS FINDINGS No acute focal consolidation. No pulmonary edema. No pneumothorax orpleural effusion observed. Stable cardiomediastinal silhouette.No acuteosseous abnormality. Sternotomy wires appear intact. IMPRESSION IMPRESSION 1. No compelling radiographic evidence of acute bacterial pneumonia orpulmonary edema. 2. Additional findings as above. us Seng Olmos PA-C RADIOLOGY (RAD GENERAL) F inal Result documented in this encounter Visit Diagnoses Diagnosis LRTI (lower respiratory tract infection)- Primary Other diseases of respiratory system, not elsewhere classified Acute sinusitis, recurrence not specified, unspecified location documented in this encounter Advance Directives * Full Code (Latest Code Status on File) Date Activated Date Inactivated Comments 03/17/2022 12:14 PM 03/17/2022 5:01 PM This orde r reflects the patients wishes and were consensually agreed upon. Question Answer Comments Discussion of Advance Directives occurred with: Patient * Full Code Date Activated Date Inactivated Comments 03/17/2022 8:15 AM 03/17/2022 12:14 PM This orde r reflects the patients wishes and were consensually agreed upon. Question Answer Comments Discussion of Advance Directives occurred with: Patient Care Teams Maintenance Supervisor Relationship Specialty Start Date End Date Artur Chambers MD [address] [facility], [place] [phone] PCP - General Internal Medicine 07/06/12 documented as of this encounter"
--- OUTSIDE RECORDS SUMMARY | 2024-06-09 10:25 | External Medical Summary | Summary of Care ---
Author Name Unknown Organization [facility] Address [address] [place] [address] Phone [phone] Care Team Providers Care Layup Worker Name Role Phone Artur Chambers MD Primary Care Provider + Reason for Visit * Reason Comments Dosage Adjustment In Person (Anticoag Cl inic) Diabetes Follow-Up Encounter Details Date Type Department Care Team (Late st Contact Info) Description 05/06/2024 11:20 AM EST [facility], [place] [facility] [address] [facility] [place] [phone] [facility] [address] [facility] [place] [id number] Type 2 diabetes mellitus with hemoglobin A1c goal of less than 7.5% ([facility])* Allergies Active Allergy Reactions Criticality Noted Date Comments Adhesive Tape 08/15/2003 Hydrochlorothiazide Other (Please comment) 05/2012 pancreatitis Canagliflozin Other (Please comment) 03/22/2019 Pancreatitis Empagliflozin 01/02/2022 pancreatitis documented as of this encounter (statuses as of 05/06/2024) Medications MULTIVITAMIN TABS OR one pill each day 0 4 Active NITROGLYCERIN 0.4 MG SL SUBLIndications: Aortocoronary bypass status 1 Q 5 min as needed with chest pain up to 3 doses in 15 minutes 25 11 6 Active Cyanocobalamin ER (VITAMIN B12 TR) 1000 MCG TBCRIndications: Vitamin B 12 deficiency Take 1 Tab by mouth daily. 30 Tab 8 Active Saline Nasal [place] 0.65 % Nasal Solution Administer 2 Sprays into each nostril as needed for Congestion. for nasal dryness or congestion 1 Bottle 5 9 Active aspirin enteric coated 81 MG TBEC Take 1 Tablet by mouth in the morning. Taking 325 mg for one week. 9 Active SimpleDeal Ultra 2 w/Device Kit Use to test blood sugars once daily 1 Each 1 Active SimpleDeal UltraSoft Lancets Use to test blood sugars once daily 100 Each 3 2 Active SimpleDeal Ultra Blue In Vitro Strip (Glucose Blood)Indication [...] goal of less than 7.0% (HCC) Inject 16 units Before breakfast and 10 units before supper 30 mL 3 04/25/2024 2:01 PM EST 4 Active Additional Information Patient taking differently: Novolog 16units before breakfast, 4 units with lunch and 10units before supper + CF 1:50 over 150 [see chart at bottom of MTM note 07/16/23], Reported on 07/16/2023 PreserVision AREDS 2+Multi Vit Oral Capsule Take [...] EVERY DAY BEFORE BEDTIME 270 Tablet 3 02/26/2024 7:22 AM EST 4 09/01/19 25 Active Lisinopril 20 MG Oral Tablet (Prinivil)Indica tions:HTN, goal below 140/90 TAKE ONE TABLET BY MOUTH EVERY DAY IN THE MORNING 90 Tablet 3 02/29/2024 6:49 AM EST 4 09/03/19 25 Active Benzonatate 100 MG Oral Capsule (Tessalon Perlgeena)Indicatio ns:Acute sinusitis, recurrence not specified, unspecified location Take 1 Capsule by mouth 3 times a day as needed for Cough. Do not cut, crush, or chew. 50 Capsule 1 4 Active Ventolin HFA 108 (90 Base) MCG/ACT Inhalation [...] 7.5% (HCC) Take 1 Tablet by mouth in the [...] 3 05/05/2024 8:45 AM EST 5 Active documented as of this encounter (statuses as of 05/06/2024) Active Problems Problem Noted Date Diagnosed Date Chronic diastolic heart failure 02/03/2023 Presence of aortocoronary bypass graft Type 2 diabetes mellitus wit h mild [...] deficiency 02/22/2018 Coronary artery disease invo lving [place] coronary artery of [place] heart without angina pectoris 08/20/2017 Type 2 diabetes mellitus wit h hemoglobin A1c goal of less than 7.5% 08/20/2017 H/O acute pancreatitis 02/20/2017 HTN, goal below 140/90 06/11/2015 Overview: Per HTN Protocol #27. Nonallergic rhinitis 04/08/2015 Old myocardial infarct 09/24/2007 Aortocoronary bypass status 07/19/2003 documented as of this encounter (statuses as of 05/06/2024) Resolved Problems Problem Noted Date Diagnosed Date Resolved Date Abdominal pain 02/03/2023 03/02/2024 Acute pancreatitis after end oscopic retrograde cholangiopancreatography (ERCP) 02/03/2023 08/04/2023 Atypical chest pain 02/03/2023 03/02/20 Congestive heart failure 02/03/202309/2022 Musculoskeletal neck pain [...] Renamed Per Clinical Trials Billing Project. PROJECT: #[id number], CHEESEMAKING LABORER: Fabrizio Moses MD SUMMARY: Patients with CHD are randomized to darapladib (Lp-PLA2 inhibitor) or placebo in addition to standard of care medications to evaluate incidence of major coronary events. CONTACTS: During normal business hours, contact Clincal Research Coordinator at appropriate clinic location, after hours on-call Clinical Research Coordinator via the [facility] welding machine operator electro gas ([phone]). The study sponsor can be reached at: [employer] Clinical Trial [id number] 10/13/2008 05/07/2012 Overview (07/20/2009): Renamed Per Clinical Trials Billing Project. PROJECT: #[id number], CHEESEMAKING LABORER: Fabrizio Moses MD SUMMARY: Patients with CHD are randomized to darapladib (Lp-PLA2 inhibitor) or placebo in addition to standard of care medications to evaluate incidence of major coronary events. CONTACTS: During normal business hours, contact Clincal Research Coordinator at appropriate clinic location, after hours on-call Clinical Research Coordinator via the [facility] welding machine operator electro gas ([phone]). 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 Medication Therapy Disease Management [facility] - Diabetes Management Progress Note Chet Cannon Sr., identified by name and date of , is a 73 year old male being seen for diabetes management/education. Patient presents for return diabetic visit. DIABETES: Current diabetic medications: DEC Metformin ER 500mg once daily INC: Lantus 26 units daily in the morning INC Novolog 13 units before breakfast, 4 units with lunch and 11 units before supper + 2 units withsnacks + CF 1:30 over 150 [see chart at bottom of MTM note] eGFR >90 as of 07/13/2023 Medication Injection Site: Abdomen Lifestyle: Diet: unchanged Glucose Review/SMBG: Readings obtained from patient device Hypoglycemia: Does your blood sugar go below 70 mg/dL? No Hyperglycemia symptoms present: none Recent Labs Units 03/24/24 0844 07/13/23 0901 01/12/23 1038 HEMOGLOBIN A1C - [facility] % 8.4* 8.4* 8.5* Recent Labs Units 07/13/23 0901 07/10/22 0920 07/09/22 1006 ESTIMATED GLOMERULAR FILTRATION RATE - [facility] mL/min >90 >90 >90 CREATININE - [facility] mg/dL 0.9 0.9 0.9 HYPERTENSION: Patient on ACEi/ARB: yes BP Readings from Last 3 Encounters: 03/02/24 132/58 09/04/23 108/50 08/27/23 128/82 Blood pressure at goal: yes HYPERLIPIDEMIA: Recent Labs Units 03/24/24 0844 07/13/23 0901 07/10/22 0920 LDL CHOLESTEROL (CALCULATED) - [facility] mg/dL 100 87 80 Does patient have clinical ASCVD? Yes, is patient LDL less than 55 mg/dL? No: rosuvastatin increased since FLP checked HEALTH MAINTENANCE REVIEW: Health Maintenance Due Topic Date Due COVID-19 Vaccine () 12/06/2023 Albumin/Creatinine Ratio 07/12/2024 ASSESSMENT & PLAN: ICD-10-CM 1. Type 2 diabetes mellitus with hemoglobin A1c goal of less than 7.5% ([facility]) E11.9 Considerations: - hx of acute pancreatitis + flare up after Jardiance use - AVOID use of SGLT2s and GLPs - , Leandra, accompanies to appts - metformin dose limited by tolerability BG Readings - Blood sugars uncontrolled. Improved from last visit-- TIR is 35%, average sugar is 209. Reviewed download with patient and . Will repeat A1c in another 2-3 months Medications - Reviewed current regimen, patient is adherent to regimen. He has started taking a supplement that was advertised to help with his sugars. States he will get his money back if BG does not improve on the supplement. He started it 1 week ago. Will wait to make changes until 3 months of being on this supplement per patient request. He is grateful of the metformin dose reduction-- has now been tolerating well. Has plenty of insulin at home-- pt requested that I reach out to him prior to refilling. Diet, Exercise, Lifestyle - No significant lifestyle changes since last visit. Discussed with patient. Patient is agreeable to SMBG with Dexcom g7 daily. Patient aware to contact clinic if any hypoglycemia before next visit. MEDICATION CHANGES: no change Diabetic Medications: Metformin ER 500mg once daily Lantus 26 units daily in the morning Novolog 13 units before breakfast, 4 units with lunch and 11 units before supper + 2 units with snacks + CF 1:30 over 150 [see chart at bottom of MTM note 03/23/24] eGFR >90 as of 07/13/2023 HEALTH MAINTENANCE INTERVENTIONS: Labs: A1c, LIPID PANEL, BMP Immunizations: Up to Date Foot Exam: Up to Date Eye Exam: Up to Date Annual Wellness Visit: Up to Date FOLLOW UP: Return to clinic in 12 weeks 2024 I spent a total of 20-29 minutes (exact time 28 mins) on the date of service in preparation, delivery, and documentation of the care provided to Chet Samantha Cannon Sr. excluding any time spent in the performance of separately billed services. Noelle Mena [facility] Clinical Pharmacist - [employer] Supervisor Medication Therapy Management Clinic 05/06/2024, 11:20 AM documented in this encounter Plan of Treatment Upcoming Encounters Date Type Department Care Team (Late st Contact Info) Description 07/05/2024 9:20 AM EDT Office Visit Podiatry Zabrina Humphrey [place] [address] [place] [phone] Saloni Thomas DPM [address] [place] [phone] 07/19/2024 10:00 AM EDT Nurse Only Ancillary [place] [address] [place] [phone] Angela Nurse Annual Wellness [place] [place] [address] 07/26/2024 11:30 AM EDT Office Visit Cardiology, [facility] [address] [place] [address] Nando Roach MD [address] [place] [phone] 10:20 AM EDT Office Visit Pharmacy, [place] [facility] [address] [facility] [place] [phone] Britta [facility] [address] [place] [address] 12/07/2024 4:00 PM EDT Office Visit [facility] [address] [place] [address] Artur Chambers MD [address] [place] [address] Scheduled Orders Name Type Priority Associated Diagnoses Orde r Schedule HEMOGLOBIN A1C Lab Routine Type 2 diabetes mellitus with hemoglobin A1c goal of less than 7.5% (HCC) Expected: 07/15/2024 (Approximate), Expires: 05/06/2025 LIPID PANEL WITH DIRECT LDL IF TG IS HIGH Lab Routine Type 2 diabetes mellitus with hemoglobin A1c goal of less than 7.5% (HCC) Expected: 07/15/2024 (Approximate), Expires: 05/06/2025 BASIC METABOLIC PANEL Lab Routine Type 2 diabetes mellitus with hemoglobin A1c goal of less than 7.5% (HCC) Expected: 07/15/2024 (Approximate), Expires: 05/06/2025 ALBUMIN / CREATININE RATIO, URINE Lab Routine Type 2 diabetes mellitus with hemoglobin A1c goal of less than 7.5% (HCC) Expected: 07/15/2024 (Approximate), Expires: 05/06/2025 Scheduled Procedures Name Priority Associated Diagnoses Date/Ti me COLONOSCOPY FLEXIBLE PROXIMA L DIAGNOSTIC Recall Family history of colon cancer Health Maintenance Due Date Last Done Comments Cologuard 07/28/1996 Fecal Occult Blood Test 07/28/1996 Sigmoidoscopy 07/28/1996 COVID-19 Vaccine ( season) 2023 01/30/2023, 02/18/2022, 02/20/2021, Additional history exists Albumin/Creatinine Ratio 07/12/2024 024, 07/09/2022, 06/10/2021, Additional history exists GFR 07/12/2024 07/13/2023, 04/0 09/2022, 07/09/2022, Additional history exists Adult Wellness Visit 07/14/2024 07/15/2023, 07/09/2022, 09/09/2021 Depression Screening 07/14/2024 07/15/2023, 07/15/2023, 06/27/2014 Diabetic Foot Exam 07/14/2024 07/15/2023, 0 07/09/2022, 06/12/2021, Additional history exists HbA1c 09/22/2024 03/24/2024, 04/0 [...] Not on filedocumented as of this encounter Visit Diagnoses Diagnosis Type 2 diabetes mellitus with hemoglobin A1c goal of less than 7.5% ([facility])- Primary documented in this encounter Advance Directives * [...] Advance Directives occurred with: Patient Care Teams Layup Worker Relationship Specialty Start Date End Date Artur Chambers MD [address] [facility] [place] [address] PCP - General Internal Medicine 07/06/12 documented as of this encounter
--- OUTSIDE RECORDS SUMMARY | 2024-06-09 10:25 | External Medical Summary | Summary of Care ---
Author Name Unknown Organization [facility] Address [address] [place] [address] Phone [phone] Care Team Providers Care Evaluation Specialist Name Role Phone Artur Chambers MD Primary Care Provider + Reason for Visit * Reason Comments Medication Refill Encounter Details Date Type Department Care Team (Late st Contact Info) Description 05/01/2024 Refill Pharmacy, [address] [address] Artur Chambers MD [address] [place] [id number] Type 2 diabetes mellitus with hemoglobin A1c goal of less than 7.5% ([facility]); Type 2 diabetes mellitus with hemoglobin A1c goal of less than 7.0% ([facility]) Allergies Active Allergy Reactions Criticality Noted Date Comments Adhesive Tape 08/15/2003 Hydrochlorothiazide Other (Please comment) 05/2012 pancreatitis Canagliflozin Other (Please comment) 03/22/2019 Pancreatitis Empagliflozin 01/02/2022 pancreatitis documented as of this encounter (statuses as of 05/02/2024) Medications MULTIVITAMIN TABS OR one pill each day 0 08/24/19 04 Active NITROGLYCERIN 0.4 MG SL SUBLIndications: Aortocoronary bypass status 1 Q 5 min as needed with chest pain up to 3 doses in 15 minutes 25 11 06/19/19 06 Active Cyanocobalamin ER (VITAMIN B12 TR) 1000 MCG TBCRIndications: Vitamin B 12 deficiency Take 1 Tab by mouth daily. 30 Tab 08/28/19 18 Active Saline Nasal [place] 0.65 % Nasal Solution Administer 2 Sprays into each nostril as needed for Congestion. for nasal dryness or congestion 1 Bottle 5 11/05/19 19 Active aspirin enteric coated 81 MG TBEC Take 1 Tablet by mouth in the morning. Taking 325 mg for one week. 12/30/19 19 Active Personal Style Finder Ultra 2 w/Device Kit Use to test blood sugars once daily 1 Each 12/13/19 21 Active Personal Style Finder UltraSoft Lancets Use to test blood sugars once daily 100 Each 3 05/21/19 22 Active Personal Style Finder Ultra Blue In Vitro Strip (Glucose Blood)Indication s:Type 2 diabetes mellitus with hemoglobin A1c goal of less than 7.0% (HCC) USE TO CHECK BLOOD SUGARS 3 TIMES PER DAY 300 Strip 3 06/11/19 22 Active Loratadine 10 MG Oral Tablet (Claritin)Indica tions:Post-nasal drip Take 1 Tablet by mouth at bedtime. 04/15/19 24 Active Insulin Glargine Solostar 100 UNIT/ML Subcutaneous Solution Pen-injector (Lantus SoloStar)Indicat ions:Type 2 diabetes mellitus with hemoglobin A1c goal of less than 7.5% (HCC),Type 2 diabetes mellitus with hemoglobin A1c goal of less than 7.0% (HCC) Inject 30 Units under the skin daily. 30 mL 3 04/25/2024 2:03 PM EST 05/22/19 24 Active NovoLOG FlexPen 100 UNIT/ML Subcutaneous Solution Pen-injector (insulin aspart)Indicatio ns:Type 2 diabetes mellitus with hemoglobin A1c goal of less than 7.5% (HCC),Type 2 diabetes mellitus with hemoglobin A1c goal of less than 7.0% (HCC) Inject 16 units Before breakfast and 10 units before supper 30 mL 3 04/25/2024 2:01 PM EST 05/22/19 24 Active Additional Information Patient taking differently: Novolog [...] nostril in the morning. 16 g 11 08/27/19 24 Active Metoprolol Tartrate 50 MG Oral Tablet (Lopressor)Indic ations:HTN, goal below 140/90 TAKE ONE AND ONE-HALF TABLETS BY MOUTH EVERY DAY IN THE MORNING AND TAKE ONE AND ONE-HALF TABLETS BY MOUTH EVERY DAY BEFORE BEDTIME 270 Tablet 3 02/26/2024 7:22 AM EST 09/01/19 24 025 Active Lisinopril 20 MG Oral Tablet (Prinivil)Indica tions:HTN, goal below 140/90 TAKE ONE TABLET BY MOUTH EVERY DAY IN THE MORNING 90 Tablet 3 02/29/2024 6:49 AM EST 09/03/19 24 025 Active Benzonatate 100 MG Oral Capsule (Tesdavid Jack)Indicatio ns:Acute sinusitis, recurrence not specified, unspecified location Take 1 Capsule by mouth 3 times a day as needed for Cough. Do not cut, crush, or chew. 50 Capsule 1 09/04/19 24 Active Ventolin HFA 108 (90 Base) MCG/ACT Inhalation Aerosol SolutionIndicati ons:Wheezing,Bro nchitis, complicated Inhale 2 Puffs by mouth every 4 hours as needed for Wheezing. 54 g 09/25/2023 2:40 PM EDT 09/25/19 24 Active Co Q-10 30 MG Oral Capsule Take by mouth. Ac tive Rosuvastatin Calcium 20 MG Oral Tablet (Crestor)Indicat ions:Type 2 diabetes mellitus with hemoglobin A1c goal of less than 7.5% (HCC) Take 1 Tablet by mouth in the morning. Dose increase. 100 Tablet 3 03/25/2024 6:09 AM EST 03/24/20 24 Active metFORMIN HCl ER 500 MG Oral Tablet Extended Release 24 Hour (Glucophage XR)Indications:T ype 2 diabetes mellitus with hemoglobin A1c goal of less than 7.5% (HCC) Take 1 Tablet by mouth daily. Dose decrease 100 Tablet 3 04/19/2024 10:01 AM EST 04/14/19 25 Active Unifine Pentips 32G X 4 MM (Insulin Pen Needle)Indicatio ns:Type 2 diabetes mellitus with hemoglobin A1c goal of less than 7.5% (HCC),Type 2 diabetes mellitus with hemoglobin A1c goal of less than 7.0% (HCC) USE up to 4 times daily TO INJECT INSULIN 400 Each 3 05/02/19 25 Active Insulin Pen Needle 32G X 4 MMIndications:Ty pe 2 diabetes mellitus with hemoglobin A1c goal of less than 7.5% (HCC),Type 2 diabetes mellitus with hemoglobin A1c goal of less than 7.0% (HCC) USE up to 4 times daily TO INJECT INSULIN 400 Each 3 01/25/2024 6:53 AM EDT 03/27/20 23 025 Discontin ued(Refil l) documented as of this encounter (statuses as of 05/02/2024) Active Problems Problem Noted Date Diagnosed Date [...] deficiency 02/22/2018 Coronary artery disease invo lving [place] coronary artery [place] heart without angina pectoris 08/20/2017 Type 2 diabetes mellitus wit h hemoglobin A1c goal of less than 7.5% 08/20/2017 H/O acute pancreatitis 02/20/2017 HTN, goal below 140/90 06/11/2015 Overview: Per HTN Protocol #27. Nonallergic rhinitis 04/08/2015 Old myocardial infarct 09/24/2007 Aortocoronary bypass status 07/19/2003 documented as of this encounter (statuses as of 05/02/2024) Resolved Problems Problem Noted Date Diagnosed Date [...] Renamed Per Clinical Trials Billing Project. PROJECT: #[id number], IT SOLUTIONS SALES CONSULTANT: Fabrizio Moses MD SUMMARY: Patients with CHD are randomized to darapladib (Lp-PLA2 inhibitor) or placebo in addition to standard of care medications to evaluate incidence of major coronary events. CONTACTS: During normal business hours, contact Clincal Research Coordinator at appropriate clinic location, after hours on-call Clinical Research Coordinator via the [facility] catering truck operator ([phone]). The study sponsor can be reached at: [facility] Clinical Trial [id number] 10/13/2008 05/07/2012 Overview (07/20/2009): Renamed Per Clinical Trials Billing Project. PROJECT: #[id number], IT SOLUTIONS SALES CONSULTANT: Fabrizio Moses MD SUMMARY: Patients with CHD are randomized to darapladib (Lp-PLA2 inhibitor) or placebo in addition to standard of care medications to evaluate incidence of major coronary events. CONTACTS: During normal business hours, contact Clincal Research Coordinator at appropriate clinic location, after hours on-call Clinical Research Coordinator via the [facility] catering truck operator ([phone]). 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 Not on file Not on file Not on edu e documented as of this encounter Miscellaneous Notes * Telephone Encounter - Abigail Rebolledo [facility] - 05/02/2024 7:23 AM EST Signed Prescriptions: Disp Refills Unifine Pentips 32G X 4 MM (Insulin Pen Ne*400 Ea*3 Sig: USE up to 4 times daily TO INJECT INSULINAuthorizing Provider: ARTUR CHAMBERS User: ABIGAIL REBOLLEDO documented in this encounter Plan of Treatment Upcoming Encounters Date Type Department Care Team (Late st Contact Info) Description 05/06/2024 11:20 AM EST Office Visit Pharmacy, [facility] [address] [place] [phone] [facility] [address] [address] 07/05/2024 9:20 AM EDT [facility] [address] [place] [phone] Saloni Thomas DPM [address] [place] [address] 07/19/2024 10:00 AM EDT Nurse Only [facility] [place] [address] [place] [address] Angela, Nurse Annual Wellness [place] [address] [address] [place] [address] 07/26/2024 11:30 AM EDT [facility] [address] [place] [address] Nando Roach MD [address] [place] [address] 12/07/2024 4:00 PM EDT Office Visit [facility] [place] [address] [place] [address] Artur Chambers MD [address] [place] [address] Scheduled Procedures Name Priority Associated Diagnoses Date/Ti [...] A1c goal of less than 7.5% (HCC) Type 2 diabetes mellitus with hemoglobin A1c goal of less than 7.0% (HCC) documented in this encounter Advance Directives * [...] Advance Directives occurred with: Patient Care Teams Evaluation Specialist Relationship Specialty Start Date End Date Artur Chambers MD [address] [place] [address] PCP - General Internal Medicine 07/06/12 documented as of this encounter
--- OUTSIDE RECORDS SUMMARY | 2024-06-09 10:25 | External Medical Summary | Summary of Care ---
Author Name Unknown Organization [facility] Address [address] [place] [address] Phone [phone] Care Team Providers Care Electricians Top Helper Name Role Phone Artur Chambers MD Primary Care Provider + Reason for Visit * Reason Comments Acute Encounter Details Date Type Department Care Team (Late st Contact Info) Description 05/09/2024 3:00 PM EST Office Visit Family Practice [facility] [address] [place] [address] Soraida Dewitt MD [address] [place] [address] Viral URI with cough*; Coronary artery disease involving inaja coronary artery of inaja heart without angina pectoris; Type 2 diabetes mellitus with hemoglobin A1c goal of less than 7.5% ([facility]) Allergies Active Allergy Reactions Criticality Noted Date Comments Adhesive Tape 08/15/2003 Hydrochlorothiazide Other (Please comment) 05/2012 pancreatitis Canagliflozin Other (Please comment) 03/22/2019 Pancreatitis Empagliflozin 01/02/2022 pancreatitis documented as of this encounter (statuses as of 05/25/2024) Medications MULTIVITAMIN TABS OR one pill each day 0 4 Active NITROGLYCERIN 0.4 MG SL SUBLIndications: Aortocoronary bypass status 1 Q 5 min as needed with chest pain up to 3 doses in 15 minutes 25 11 6 Active Cyanocobalamin ER (VITAMIN B12 TR) 1000 MCG TBCRIndications: Vitamin B 12 deficiency Take 1 Tab by mouth daily. 30 Tab 8 Active Saline Nasal [place] 0.65 % Nasal Solution Administer 2 Sprays into each nostril as needed for Congestion. for nasal dryness or congestion 1 Bottle 5 9 Active aspirin enteric coated 81 MG TBEC Take 1 Tablet by mouth in the morning. Taking 325 mg for one week. 9 Active [employer] Ultra 2 w/Device Kit Use to test blood sugars once daily 1 Each 1 Active [employer] UltraSoft Lancets Use to test blood sugars once daily 100 Each 3 2 Active [employer]ox Semicon[employer] Ultra Blue In Vitro Strip (Glucose Blood)Indication [...] bottom of MTM note 07/16/23], Reported on 05/09/2024 PreserVision AREDS 2+Multi Vit Oral Capsule Take [...] Active Benzonatate 100 MG Oral Capsule (Tessalisauro Jack)Indicatio ns:Acute sinusitis, recurrence not specified, unspecified [...] as of this encounter (statuses as of 05/25/2024) Active Problems Problem Noted Date Diagnosed Date [...] deficiency 02/22/2018 Coronary artery disease invo lving inaja coronary artery of inaja heart without angina pectoris 08/20/2017 Type 2 diabetes mellitus wit h hemoglobin A1c goal of less than 7.5% 08/20/2017 H/O acute pancreatitis 02/20/2017 HTN, goal below 140/90 06/11/2015 Overview: Per HTN Protocol #27. Nonallergic rhinitis 04/08/2015 Old myocardial infarct 09/24/2007 Aortocoronary bypass status 07/19/2003 documented as of this encounter (statuses as of 05/25/2024) Resolved Problems Problem Noted Date Diagnosed Date [...] Renamed Per Clinical Trials Billing Project. PROJECT: #[id number], OWNER OPERATOR TANKER TRUCK DRIVER: Fabrizio Moses MD SUMMARY: Patients with CHD are randomized to darapladib (Lp-PLA2 inhibitor) or placebo in addition to standard of care medications to evaluate incidence of major coronary events. CONTACTS: During normal business hours, contact Clincal Research Coordinator at appropriate clinic location, after hours on-call Clinical Research Coordinator via the [facility] hospital beading machine operator ([phone]). The study sponsor can be reached at: Stability Clinical Trial [id number] 10/13/2008 05/07/2012 Overview (07/20/2009): Renamed Per Clinical Trials Billing Project. PROJECT: #[id number], OWNER OPERATOR TANKER TRUCK DRIVER: Fabrizio Moses MD SUMMARY: Patients with CHD are randomized to darapladib (Lp-PLA2 inhibitor) or placebo in addition to standard of care medications to evaluate incidence of major coronary events. CONTACTS: During normal business hours, contact Clincal Research Coordinator at appropriate clinic location, after hours on-call Clinical Research Coordinator via the [facility] hospital beading machine operator ([phone]). 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 Not on file Not on file conroy - electric Not on file Not on file Not on edu e documented as of this encounter Last Filed Vital Signs Vital Sign Reading Time Taken Comments Blood Pressure 122/60 05/09/2024 2:50 PM EST Pulse 84 05/09/2024 2:50 PM EST Temperature 36.8 C (98.2 F) 05/09/2024 2:50 PM ES T Respiratory Rate 16 05/09/2024 2:50 PM EST Oxygen Saturation 93% 05/09/2024 2:50 PM EST Inhaled Oxygen Concentration - - Weight 84.9 kg (187 lb 1.9 oz) 05/09/2024 2:50 P M EST Height 163.9 cm (5' 4.53") 05/09/2024 2:50 PM ES T Body Mass Index 31.6 05/09/2024 2:50 PM EST documented in this encounter Progress Notes * Soraida Dewitt MD - 05/09/2024 3:02 PM EST Subjective Chief Complaint Patient presents with Acute HPI: Chet Cannon Sr. is a 73 year old male. Patient is accompanied by his . The following issues were addressed today: Patient presents today with c/o cough and choking that woke him suddenly this morning. States he couldn't breathe and took him a while to catch his breath. Now feels some congestion and drainage, chest tightness, body aches, headache. Tried albuterol inhaler this morning and it helped. Denies feveror chills. Has a history of childhood asthma, now just uses albuterol PRN. Review of Systems: See HPI Objective BP 122/60 | Pulse 84 | Temp 98.2 F (36.8 C) (Tympanic) | Resp 16 | Ht 5' 4.53" (1.639 m) | Wt 187 lb 1.9 oz (84.9 kg) | SpO2 93% | BMI 31.60 kg/m | BSA 1.97 m Wt Readings from Last 3 Encounters: 05/09/24 187 lb 1.9 oz (84.9 kg) 03/02/24 185 lb 12.8 oz (84.3 kg) 09/04/23 184 lb (83.5 kg) BP Readings from Last 3 Encounters: 05/09/24 122/60 03/02/24 132/58 09/04/23 108/50 General: Well-appearing, no acute distress Head: Normocephalic and atraumatic Eyes: No conjunctival injection, no scleral icterus, extraocular movements are intact Ears: External ear unremarkable, canals normal and tympanic membranes clear bilaterally Nose: Nasal mucosa pink and moist, nares patent bilaterally Throat/Mouth: Oral mucosa pink and moist, tongue normal in appearance without lesions and with symmetrical movement, pharynx normal in appearance Cardiovascular: Regular rate and rhythm, no murmur Respiratory: Good respiratory effort, breath sounds equal and clear to auscultation bilaterally Neurological: Alert and oriented, no focal deficits noted Psychiatric: Appropriate mood and affect Assessment & Plan 1. Viral URI with cough Continue supportive care. Patient encouraged to rest and maintain adequate hydration. Can use OTC pain relievers and saline nasal rinse as needed. Patient advised to monitor symptoms and seek medicalattention if experiencing high fever, worsening symptoms after 7-10 days, difficulty breathing, or chest pain. The importance of infection control measures to prevent spread were reviewed. No antibiotics currently indicated. Swab for flu/COVID/RSV collected and sent. - INFLUENZA A/B RSV SARS-COV2,PCR 2. Coronary artery disease involving inaja coronary artery of inaja heart without angina pectoris Stable. Continue current medications. 3. Type 2 diabetes mellitus with hemoglobin A1c goal of less than 7.5% (HCC) Uncontrolled, most recent Hgb A1c slightly above goal at 8.4%. Continue current medication. At increased risk for complicated infection, discussed with patient. Return if symptoms worsen or fail to improve. This note was electronically signed by Soraida Dewitt MD documented in this encounter Nursing Notes * Kerrie Hidalgo LPN - 05/09/2024 2:47 PM EST Patient presents in office today with C/O cough, sinus congestion, drainage. Started last night. documented in this encounter Plan of Treatment Upcoming Encounters Date Type Department Care Team (Late st Contact Info) Description 07/05/2024 9:20 AM EDT Office Visit Podiatry [facility] [address] [place] [phone] Saloni Thomas DPM [address] [place] [address] 07/19/2024 10:00 AM EDT Nurse Only Ancillary [facility] Angela [address] [place] [address] Angela, Nurse Annual Wellness [facility] [address] [place] [address] 07/26/2024 11:30 AM EDT [facility] [address] [place] [address] Nando Roach MD [address] [place] [address] 2024 10:20 AM EDT Office Visit Pharmacy, [address] [place] [phone] Britta [facility] [address] [facility] [place] [address] 12/07/2024 4:00 PM EDT Office Visit General Internal Medicine [facility] [address] [facility] [place] [address] Artur Chambers MD [address] [facility] [place] [address] Scheduled Procedures Name Priority Associated Diagnoses Date/Ti [...] Procedure Name Priority Date/Time Associated Diagnosis Comments INFLUENZA A/B RSV SARS-COV2,PCR Routine 05/09/2024 4:00 PM EST Viral URI with cough documented in this encounter Results * INFLUENZA A/B RSV SARS-COV2,PCR (05/09/2024 4:00 PM EST) SARS-CoV-2 (COVID-19) Result Negative Negative 05/10/2024 11:10 AM EST LABORATORY [facility] Comment: No SARS-CoV2 Coronavirus RNA detected by PCR (amplified probe). This automated test was developed and its performance characteristics determined by [facility]. It has not been cleared or approved by the U.S. Food and Drug Administration (FDA). FDA does not require this test to go thru premarket FDA review. This test is used for clinical purposes. It should not be regarded as investigational or for research. This laboratory is certified under the Clinical Laboratory Improvement Amendments (CLIA) as qualified to perform high complexity clinical laboratory testing. This test is a nucleic acid amplification test (NAAT), a reverse transcriptase polymerase chain reaction (RT-PCR) test, or a Centers for Disease Control- acceptable equivalent. The test is performed in a high complexity Clinical Laboratory Improvement Amendments-(CLIA) certified laboratory. The test is acceptable for SARS-CoV-2 diagnosis, surveillance, and travel within the [place] and to most countries. Please check with local testing authorities about requirements before travel. The validation of bronchial specimens, tracheal aspirates, and sputum for this assay was developed and performance characteristics determined by [facility]. The validation of alternate specimen types has not been cleared or approved by the U.S. Food and Drug Administration (FDA). It has been determined that such clearance or approval is not necessary. Influenza A PCR Result Negative Negative 05/10/2024 11:10 AM EST LABORATORY [facility] Comment:No Influenza A RNA d etected by PCR (amplified probe) Influenza B PCR Result Negative Negative 05/10/2024 11:10 AM EST LABORATORY [facility] Comment:No Influenza B RNA d etected by PCR (amplified probe) RSV PCR Result Negative Negative 05/10/2024 11:10 AM EST LABORATORY [facility] Comment:No Respiratory Syncy tial Virus RNA detected by PCR (amplified probe) Upper Respiratory Mid-turbinate nasal swab / Unknown Non-blood Collection / Unknown 05/09/2024 4:00 PM EST 05/09/2024 4:07 PM EST Soraida Dewitt MD LAB MICRO - GENERAL ORDERABLES Final Result LABORATORY [facility] [address] [place] [address] documented in this encounter Visit Diagnoses Diagnosis Viral URI with cough- Primary Acute upper respiratory infections of unspecified site Coronary artery disease involving inaja coronary artery of inaja heart without angina pectoris Type 2 diabetes mellitus with hemoglobin A1c goal of less than 7.5% (HCC) documented in this encounter Advance Directives [...] Advance Directives occurred with: Patient Care Teams Electricians Top Helper Relationship Specialty Start Date End Date Artur Chambers MD [address] [place] [address] PCP - General Internal Medicine 07/06/12 documented as of this encounter
--- OUTSIDE RECORDS SUMMARY | 2024-06-09 10:25 | External Medical Summary ---
Author Name Unknown Address Unknown Organization [id number]:LABORATORY [facility] - [address] [facility] [address] Laboratory Report Ordering Provider Test Date Status ESTRELLITA BENOIT 05/09/2024 16:00:37 Final Observation Date Value Abnormality Reference (Units ) Status SARS Coronavirus 2 05/09/2024 16:00:37 Negative N egative Final No SARS-CoV2 Coronavirus RNA detected by PCR (amplified probe).
This automated test was developed and its performance characteristics determined by [facility]. It has not been cleared or approved [...] (RT-PCR) test, or a Centers for Disease Control-acceptable equivalent. The test is performed in a high complexity Clinical Laboratory Improvement Amendments-(CLIA) certified laboratory. The test is acceptable for SARS-CoV-2 diagnosis, surveillance, and travel within the [place] and to most countries. Please check with local testing authorities about requirements before travel.

The validation of bronchial specimens, tracheal aspirates, and sputum for this assay was developed and performance characteristics determined by [facility]. The validation of alternate specimen types has not been cleared or approved by the U.S. Food and Drug Administration (FDA). It has been determined that such clearance or approval is not necessary. Influenza virus A RNA [Prese nce] in Specimen by JACK with probe detection 05/09/2024 16:00:37 Negative Negative Final No Influenza A RNA detected by PCR (amplified probe) Influenza virus B RNA [Prese nce] in Specimen by JACK with probe detection 05/09/2024 16:00:37 Negative Negative Final No Influenza B RNA detected by PCR (amplified probe) Respiratory syncytial virus RNA [Identifier] in Specimen by JACK with probe detection 05/09/2024 16:00:37 Negative Negative Final No Respiratory Syncytial Vir us RNA detected by PCR (amplified probe) Performing Location LABORATORY [address] [place] [address] [facility] [address]
--- OUTSIDE RECORDS SUMMARY | 2024-06-09 10:26 | External Medical Summary ---
Author Name Unknown Address Unknown Organization [id number]:LABORATORY [facility] - [address] [facility] [place] [address] Laboratory Report Ordering Provider Test Date Status DO SHEELANIGELTEIN 03/24/2024 08:44:31 Final Observation Date Value Abnormality Reference (Units ) Status Triglyceride 03/24/2024 08:44:31 155 <=174 ( mg/dL) Final Triglyceride Reference Range s (mg/dL):
<150 Acceptable
150-174 Borderline high
175-499 High
>=500 Very high Cholesterol 03/24/2024 08:44:31 175 <200 (mg /dL) Final Total Cholesterol Reference Ranges (mg/dL):
<200 Desirable
200-239 Borderline high
>=240 High HDL 03/24/2024 08:44:31 44 >39 (mg/dL ) Final HDL Cholesterol Reference Ra nges (mg/dL):
>=60 High (Desirable)
<50 Low (Undesirable) For Females
<40 Low (Undesirable) For Males NON-HDL CHOLESTEROL 03/24/2024 08:44:31 131 <=159 (mg/dL) Final Non-HDL Cholesterol Referenc e Range (mg/dL):
<100 Target level for high risk ASCVD patient
<130 Optimal for general population
130-159 Near optimal for general population
160-189 Borderline High
190-219 High
>=220 Very High LDL, (calculated) 03/24/2024 08:44:31 100 <= 129 (mg/dL) Final LDL Cholesterol Reference Ra nges (mg/dL):
<70 Target level for high risk ASCVD patient
<100 Optimal for general population
100-129 Near optimal for general population
130-159 Borderline high
160-189 High
>=190 Very high Performing Location LABORATORY [facility] - [address] [facility] [address]
--- OUTSIDE RECORDS SUMMARY | 2024-06-09 10:26 | External Medical Summary ---
Author Name Unknown Address Unknown Organization [id number]:LABORATORY [facility] [place] - [address] [place] [address] Laboratory Report Ordering Provider Test Date Status AMAURY HAYES 03/24/2024 08:44:31 Final Observation Date Value Abnormality Reference (Units ) Status HbA1C 03/24/2024 08:44:31 8.4 Above high normal 4. 0-5.6 (%) Final The use of HbA1c to monitor glycemic status is based on normal hemoglobin and HbA composition. This test should not be used in patients with abnormal hemoglobin that affects the half life of the red blood cell or the in vivo glycation rates. Glucose, estimated average 03/24/2024 08:44:31 194 Above high normal <126 (mg/dL) Shaw rodriguez Performing Location LABORATORY [facility] [place] - [address] [place] [address]
--- OUTSIDE RECORDS SUMMARY | 2024-06-09 10:26 | External Medical Summary | Summary of Care ---
Author Name Unknown Organization [facility] Address [address] [place] [address] Phone [phone] Care Team Providers Care Physical Education Instructor Name Role Phone Artur Chambers MD Primary Care Provider + Encounter Details Date Type Department Care Team (Late st Contact Info) Description 04/25/2024 Population Health External Data Unspecified Department Allergies Active Allergy Reactions Criticality Noted Date Comments Adhesive Tape 08/15/2003 Hydrochlorothiazide Other (Please comment) 05/2012 pancreatitis Canagliflozin Other (Please comment) 03/22/2019 Pancreatitis Empagliflozin 01/02/2022 pancreatitis documented as of this encounter (statuses as of 04/25/2024) Medications MULTIVITAMIN TABS OR one pill each day 0 4 Active NITROGLYCERIN 0.4 MG SL SUBLIndications: Aortocoronary bypass status 1 Q 5 min as needed with chest pain up to 3 doses in 15 minutes 25 11 6 Active Cyanocobalamin ER (VITAMIN B12 TR) 1000 MCG TBCRIndications: Vitamin B 12 deficiency Take 1 Tab by mouth daily. 30 Tab 8 Active Saline Nasal Gage 0.65 % Nasal Solution Administer 2 Sprays into each nostril as needed for Congestion. for nasal dryness or congestion 1 Bottle 5 9 Active aspirin enteric coated 81 MG TBEC Take 1 Tablet by mouth in the morning. Taking 325 mg for one week. 9 Active [employer] Ultra 2 w/Device Kit Use to test blood sugars once daily 1 Each 1 Active [employer] UltraSoft Lancets Use to test blood sugars once daily 100 Each 3 2 Active [employer] Ultra Blue In Vitro Strip (Glucose Blood)Indication s:Type 2 diabetes mellitus with hemoglobin A1c goal of less than 7.0% (HCC) USE TO CHECK BLOOD SUGARS 3 TIMES PER DAY 300 Strip 3 2 Active Insulin Pen Needle 32G X 4 MMIndications:Ty pe 2 diabetes mellitus with hemoglobin A1c goal of less than 7.5% (HCC),Type 2 diabetes mellitus with hemoglobin A1c goal of less than 7.0% (HCC) USE up to 4 times daily TO INJECT INSULIN 400 Each 3 01/25/2024 6:53 AM EDT 3 Active Loratadine 10 MG Oral Tablet (Claritin)Indica [...] 25 Active Benzonatate 100 MG Oral Capsule (Tesdavid [...] 3 04/19/2024 10:01 AM EST 5 Active documented as of this encounter (statuses as of 04/25/2024) Active Problems Problem Noted Date Diagnosed Date [...] deficiency 02/22/2018 Coronary artery disease invo lving emmonak coronary artery of emmonak heart without angina pectoris 08/20/2017 Type 2 diabetes mellitus wit h hemoglobin A1c goal of less than 7.5% 08/20/2017 H/O acute pancreatitis 02/20/2017 HTN, goal below 140/90 06/11/2015 Overview: Per HTN Protocol #27. Nonallergic rhinitis 04/08/2015 Old myocardial infarct 09/24/2007 Aortocoronary bypass status 07/19/2003 documented as of this encounter (statuses as of 04/25/2024) Resolved Problems Problem Noted Date Diagnosed Date [...] Diabetes Taxonomy. ICD-10 update of inactive term [facility] Research Study [id number] - Dr. Moses 10/13/2008 07/20/2009 Overview (07/20/2009): Renamed Per Clinical Trials Billing Project. PROJECT: #[id number], PAPER CUTTING MACHINE OPERATOR: Fabrizio Moses MD SUMMARY: Patients with CHD are randomized to darapladib (Lp-PLA2 inhibitor) or placebo in addition to standard of care medications to evaluate incidence of major coronary events. CONTACTS: During normal business hours, contact Clincal Research Coordinator at appropriate clinic location, after hours on-call Clinical Research Coordinator via the [facility] hospital apple peeler operator ([phone]). The study sponsor can be reached at: [facility] Clinical Trial [id number] 10/13/2008 05/07/2012 Overview (07/20/2009): Renamed Per Clinical Trials Billing Project. PROJECT: #[id number], PAPER CUTTING MACHINE OPERATOR: Fabrizio Moses MD SUMMARY: Patients with CHD are randomized to darapladib (Lp-PLA2 inhibitor) or placebo in addition to standard of care medications to evaluate incidence of major coronary events. CONTACTS: During normal business hours, contact Clincal Research Coordinator at appropriate clinic location, after hours on-call Clinical Research Coordinator via the [facility] hospital apple peeler operator ([phone]). 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 Not on file Not on file conroy - electric Not on file Not on file Not on edu e documented as of this encounter Plan of Treatment Upcoming Encounters Date Type Department Care Team (Late st Contact Info) Description 05/06/2024 11:20 AM EST Office [facility] [address] [facility] [phone] [facility] [address] [facility] [place] [address] 07/05/2024 9:20 AM EDT Office Visit Podiatry [facility] [address] [place] [phone] Saloni Thomas DPM [address] [place] [address] 07/19/2024 10:00 AM EDT Nurse Only Ancillary [place] [address] [place] [address] Angela, Nurse Annual Wellness [facility] [address] [facility] [place] [address] 07/26/2024 11:30 AM EDT [facility] [address] [place] [address] Nando Roach MD [address] [place] [address] 12/07/2024 4:00 PM EDT Office Visit General Internal Medicine [facility] [address] [facility] [place] [address] Artur Chambers MD [address] [facility] [place] [address] Scheduled Procedures Name Priority Associated Diagnoses Date/Ti [...] Not on filedocumented as of this encounter Advance Directives * Full Code [...] Advance Directives occurred with: Patient Care Teams Physical Education Instructor Relationship Specialty Start Date End Date Artur Chambers MD [address] [place], [place] [address] PCP - General Internal Medicine 07/06/12 documented as of this encounter
--- OUTSIDE RECORDS SUMMARY | 2024-06-09 10:26 | External Medical Summary | Summary of Care ---
Author Name Unknown Organization [facility] Address [address] [place] [address] Phone [phone] Care Team Providers Care Property Staff Accountant Name Role Phone Artur Chambers MD Primary Care Provider + Reason for Visit * Reason Comments Diabetic Foot Care Encounter Details Date Type Department Care Team (Late st Contact Info) Description 04/05/2024 9:40 AM EST [facility] [address] [facility] [place] [address] Saloni Thomas DPM [address] [place] [address] [id number] Encounter for other procedures for purposes other than remedying health state*; Onychomycosis; Type 2 diabetes mellitus with hemoglobin A1c goal of less than 7.5% ([facility]) Allergies Active Allergy Reactions Criticality Noted Date Comments Adhesive Tape 08/15/2003 Hydrochlorothiazide Other (Please comment) 05/2012 pancreatitis Canagliflozin Other (Please comment) 03/22/2019 Pancreatitis Empagliflozin 01/02/2022 pancreatitis documented as of this encounter (statuses as of 04/05/2024) Medications MULTIVITAMIN TABS OR one pill each day 0 4 Active NITROGLYCERIN 0.4 MG SL SUBLIndications: Aortocoronary bypass status 1 Q 5 min as needed with chest pain up to 3 doses in 15 minutes 25 11 6 Active Cyanocobalamin ER (VITAMIN B12 TR) 1000 MCG TBCRIndications: Vitamin B 12 deficiency Take 1 Tab by mouth daily. 30 Tab 8 Active Saline Nasal [place] 0.65 % Nasal Solution Administer 2 Sprays into each nostril as needed for Congestion. for nasal dryness or congestion 1 Bottle 5 9 Active aspirin enteric coated 81 MG TBEC Take 1 Tablet by mouth in the morning. Taking 325 mg for one week. 9 Active Tagrule Ultra 2 w/Device Kit Use to test blood sugars once daily 1 Each 1 Active Tagrule UltraSoft Lancets Use to test blood sugars once daily 100 Each 3 2 Active Tagrule Ultra Blue In Vitro Strip (Glucose Blood)Indication [...] under the skin daily. 30 mL 3 01/18/2024 8:29 AM EDT 4 Active NovoLOG FlexPen 100 UNIT/ML Subcutaneous Solution Pen-injector (insulin aspart)Indicatio ns:Type 2 diabetes mellitus with hemoglobin A1c goal of less than 7.5% (HCC),Type 2 diabetes mellitus with hemoglobin A1c goal of less than 7.0% (HCC) Inject 16 units Before breakfast and 10 units before supper 30 mL 3 01/18/2024 8:29 AM EDT 4 Active Additional Information Patient taking differently: Novolog 16units before breakfast, 4 units with lunch and 10units before supper + CF 1:50 over 150 [see chart at bottom of MTM note 07/16/23], Reported on 07/16/2023 metFORMIN HCl ER 500 MG Oral Tablet Extended Release 24 Hour (Glucophage XR)Indications:T ype 2 diabetes mellitus with hemoglobin A1c goal of less than 7.5% ([facility]) Take 1 Tablet by mouth 2 times a day with morning and evening meals. Dose decrease 180 Tablet 3 01/29/2024 9:31 AM EDT 4 Active PreserVision AREDS 2+Multi Vit Oral Capsule Take [...] Benzonatate 100 MG Oral Capsule (Tessalon Perles)Indicatio ns:Acute sinusitis, recurrence not specified, unspecified location [...] than 7.5% ([facility]) Take 1 Tablet by mouth in the morning. Dose increase. 100 Tablet 3 03/25/2024 6:09 AM EST 4 Active documented as of this encounter (statuses as of 04/05/2024) Active Problems Problem Noted Date Diagnosed Date [...] deficiency 02/22/2018 Coronary artery disease invo lving [place] coronary artery of [place] heart without angina pectoris 08/20/2017 Type 2 diabetes mellitus wit h hemoglobin A1c goal of less than 7.5% 08/20/2017 H/O acute pancreatitis 02/20/2017 HTN, goal below 140/90 06/11/2015 Overview: Per HTN Protocol #27. Nonallergic rhinitis 04/08/2015 Old myocardial infarct 09/24/2007 Aortocoronary bypass status 07/19/2003 documented as of this encounter (statuses as of 04/05/2024) Resolved Problems Problem Noted Date Diagnosed Date [...] Renamed Per Clinical Trials Billing Project. PROJECT: #[id number], BAND LOG MILL AND CARRIAGE OPERATOR: Fabrizio Moses MD SUMMARY: Patients with CHD are randomized to darapladib (Lp-PLA2 inhibitor) or placebo in addition to standard of care medications to evaluate incidence of major coronary events. CONTACTS: During normal business hours, contact Clincal Research Coordinator at appropriate clinic location, after hours on-call Clinical Research Coordinator via the [facility] drill press operator helper ([phone]). The study sponsor can be reached at: Stability Clinical Trial [id number] 10/13/2008 05/07/2012 Overview (07/20/2009): Renamed Per Clinical Trials Billing Project. PROJECT: #[id number], BAND LOG MILL AND CARRIAGE OPERATOR: Fabrizio Moses MD SUMMARY: Patients with CHD are randomized to darapladib (Lp-PLA2 inhibitor) or placebo in addition to standard of care medications to evaluate incidence of major coronary events. CONTACTS: During normal business hours, contact Clincal Research Coordinator at appropriate clinic location, after hours on-call Clinical Research Coordinator via the [facility] drill press operator helper ([phone]). 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 : 1950 Date: 04/05/2024 CHIEF COMPLAINT: Diabetic Check/Nail Care HISTORY OF PRESENT ILLNESS: This patient is a 73 year old male who presents today for a diabetic check and nails care. Pt states he is currently a diabetic and states his BS was not checked this morning. Pt states he is overall doing well and has not complaints of numbness/tingling in his hands or feet. Pt denies any other complaints at this time. Pt denies any recent changes in his medical history. Past Medical History: Diagnosis Date Acute pancreatitis after endoscopic retrograde cholangiopancreatography (ERCP) Both eyes affected by mild nonproliferative diabetic retinopathy with macular edema, associated with type 2 diabetes mellitus (HCC) 09/02/2022 Cardiac arrest (HCC) 09/08/2003 Cardiogenic shock (HCC) 09/08/2003 Cyst of left kidney 02/26/2021 Diastolic dysfunction 08/23/2019 Dyslipidemia, goal LDL below 70 03/26/2009 Eye trauma ? Blunt eye trauma stick in eye?eye Fatty liver 08/17/2020 HTN, goal below 140/80 11/24/2011 Mixed hyperlipidemia 11/04/2018 Musculoskeletal neck pain Old myocardial infarct 09/24/2007 Type 2 diabetes mellitus with hemoglobin A1c goal of less than 7.5% (HCC) 08/20/2017 Ventricular fibrillation (HCC) 07/19/2003 Vitamin B12 deficiency 02/22/2018 Past Surgical History: Procedure Laterality Date BACK/FLANK SUBQ TUMOR REMOVAL, UNDER 3 CM N/A 03/06/2022 EXCISION SOFT TISSUE TUMOR BACK OR FLANK performed by Madan Valera MD at OR [facility] CABG, ARTERY-VEIN, TWO 06/30/2003 Off-pump cab x 2 - [place] COLONOSCOPY, DIAGNOSTIC (RECTUM) 03/25/2018 COLONOSCOPY FLEXIBLE PROXIMAL DIAGNOSTIC performed by Madan Valera MD at ENDOSCOPY [facility] COLORECTAL CANCER SCREEN; COLON 10/13/2007 wnl, repeat in 5 yrs COLORECTAL CANCER SCREEN; COLON 03/08/2013 COLONOSCOPY CA SCRN HI RISK performed by Madan Valera MD at OR [facility] EGD, FLEXIBLE, DIAGNOSTIC 11/28/2013 mild inflammation/ESOPHAGOGASTRODUODENOSCOPY (EGD), FLEXIBLE, TRANSORAL, DIAGNOSTIC performed by Gabriela Verde DO at ENDOSCOPY [facility] EGD, FLEXIBLE, DIAGNOSTIC 08/07/2015 [facility] EGD, FLEXIBLE, DIAGNOSTIC 02/09/2018 hiatal hernia/ESOPHAGOGASTRODUODENOSCOPY (EGD), FLEXIBLE, TRANSORAL, DIAGNOSTIC performed by Rukhsana Verde DO at ENDOSCOPY [facility] EGD, FLEXIBLE, DIAGNOSTIC 04/20/2019 normal / ESOPHAGOGASTRODUODENOSCOPY (EGD), FLEXIBLE, TRANSORAL, DIAGNOSTIC performed by Gabriela Verde DO at ENDOSCOPY [facility] EGD, FLEXIBLE, W/BIOPSY 02/27/2009 Dr. Valera - chronic inflammatory changes - 02/27/2009 Dr. Valera EGD, FLEXIBLE,W/ENDOSCOPIC US 05/18/2020 gastritis, gastric polyp, CBD sludge & dilation / [facility] EGD, W/ENDOSCOPIC US 12/17/2011 UPPER GI ENDOSCOPY ENDOSCOPIC ULTRASOUND performed by Gabriela Verde DO at [facility] EGD, W/ENDOSCOPIC US 04/16/2012 UPPER GI ENDOSCOPY ENDOSCOPIC ULTRASOUND performed by Gabriela Verde DO at [facility]--no specific changes noted on biopsies EGD, W/ENDOSCOPIC US 04/20/2019 fatty liver / ESOPHAGOGASTRODUODENOSCOPY (EGD), FLEXIBLE, TRANSORAL, ENDOSCOPIC ULTRASOUND performed by Gabriela Verde DO at ENDOSCOPY [facility] ERCP 09/30/2019 biliary sludge / [facility] ERCP 05/18/2020 normal / [facility] ERCP, DIAGNOSTIC, SPECIMEN COLLECTION 04/20/2019 ENDOSCOPIC RETROGRADE CHOLANGIOPANCREATOGRAPHY (ERCP) DIAGNOSTIC performed by Gabriela Verde DO at ENDOSCOPY [facility] ERCP, DIAGNOSTIC, SPECIMEN COLLECTION N/A 06/27/2020 ENDOSCOPIC RETROGRADE CHOLANGIOPANCREATOGRAPHY (ERCP) DIAGNOSTIC performed by Jordan Townsend DO [facility] ERCP, DIAGNOSTIC, SPECIMEN COLLECTION N/A 08/08/2020 ENDOSCOPIC RETROGRADE CHOLANGIOPANCREATOGRAPHY (ERCP) DIAGNOSTIC performed by Jordan Townsend DO [facility] ERCP, DIAGNOSTIC, SPECIMEN COLLECTION N/A 08/31/2020 ENDOSCOPIC RETROGRADE CHOLANGIOPANCREATOGRAPHY (ERCP) DIAGNOSTIC performed by DO Mathew ConnNDOSCOPY [facility] FLUORO ERCP 01/06/2013 KNEE ARTHROSCOPY, DIAGNOSTIC 1995 Knee Scope,Diagnostic KNEE ARTHROSCOPY/ARTHROPLASTY Right 11/28/2019 KNEE ARTHROSCOPY/MENISCECTOMY Left 03/17/2022 LEFT ARTHROSCOPY KNEE MEDIAL OR LATERAL MENISCECTOMY performed by Christos Feliciano MD at [facility] LAPAROSCOPY; CHOLECYSTECTOMY Cholecystectomy, Laproscopic REPAIR INITIAL INGUINAL HERNIA REDUCIBLE AGE 5 OR MORE 05/14/2012 Repair of right indirect inguinal hernia with mesh 05/14/12 Dr. Valera at [facility] TENDON SHEATH INCISION, FINGER 09/05/2004 index and middle finger on left hand TENDON SHEATH INCISION, FINGER 1989 Dr. leos right right and little finger , left ring finger cyst UMBIL HERNIA REPAIR (INCARCERATED) AGE 5+YR 01/21/2016 repair of umbilical hernia and left indirect inguinal hernia [facility] Dr. 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 30 Tab 0 Saline Nasal [place] 0.65 % Nasal Solution Administer 2 Sprays into each nostril as needed for Congestion. for nasal dryness or congestion 1 Bottle 5 aspirin enteric coated 81 MG TBEC Take 1 Tablet by mouth in the morning. Taking 325 mg for one week. Oxxyuch Ultra 2 w/Device Kit Use to test blood sugars once daily 1 Each 0 OneTouch UltraSoft Lancets Use to test blood sugars once daily 100 Each 3 OneTouch Ultra Blue In Vitro Strip (Glucose Blood) USE TO CHECK BLOOD SUGARS 3 TIMES PER DAY 300 Strip 3 Insulin Pen Needle 32G X 4 MM USE up to 4 times daily TO INJECT INSULIN 400 Each 3 Loratadine 10 MG Oral Tablet (Claritin) Take 1 Tablet by mouth at bedtime. Insulin Glargine Solostar 100 UNIT/ML Subcutaneous Solution Pen-injector (Lantus SoloStar) Inject 30 Units under the skin daily. 30 mL 3 NovoLOG FlexPen 100 UNIT/ML Subcutaneous Solution Pen-injector (insulin aspart) Inject 16 units Before breakfast and 10 units before supper (Patient taking differently: Novolog 16 units before breakfast, 4 units with lunch and 10 units before supper + CF 1:50 over 150 [see chart at bottom of MT note 07/16/23]) 30 mL 3 metFORMIN HCl ER 500 MG Oral Tablet Extended Release 24 Hour (Glucophage XR) Take 1 Tablet by mouth2 times a day with morning and evening meals. Dose decrease 180 Tablet 3 PreserVision AREDS 2+Multi Vit Oral Capsule Take by mouth. Fluticasone Propionate 50 MCG/ACT Nasal Suspension (Flonase) Administer 2 Sprays into each nostril in the morning. 16 g 11 Metoprolol Tartrate 50 MG Oral Tablet (Lopressor) TAKE ONE AND ONE-HALF TABLETS BY MOUTH EVERY DAY IN THE MORNING AND TAKE ONE AND ONE-HALF TABLETS BY MOUTH EVERY DAY BEFORE BEDTIME 270 Tablet 3 Lisinopril 20 MG Oral Tablet (Prinivil) TAKE ONE TABLET BY MOUTH EVERY DAY IN THE MORNING 90 Tablet3 Benzonatate 100 MG Oral Capsule (Tessalon Perles) Take 1 Capsule by mouth 3 times a day as needed for Cough. Do not cut, crush, or chew. 50 Capsule 1 Ventolin HFA 108 (90 Base) MCG/ACT Inhalation Aerosol Solution Inhale 2 Puffs by mouth every 4 hours as needed for Wheezing. 54 g 0 Co Q-10 30 MG Oral Capsule Take by mouth. Rosuvastatin Calcium 20 MG Oral Tablet (Crestor) Take 1 Tablet by mouth in the morning. Dose increase. 100 Tablet 3 No current facility-administered medications for this visit. ALLERGIES: Review of patient's allergies indicates: Allergen Reactions Adhesive Tape Hydrochlorothiazide Other (Please comment) pancreatitis Invokana [Canagliflozin] Other (Please comment) Pancreatitis Jardiance [Empagliflozin] pancreatitis REVIEW OF SYSTEMS: CONSTITUTIONAL: No change in weight, No weakness, No fatigue and No fevers, sweats, or chills EYE: No recent significant change in vision and No eye pain, redness, discharge EARS: No ear pain and No recent change in hearing NOSE: No history of frequent colds or sinusitis and No nasal stuffiness PULMONARY: No cough, sputum, or hemoptysis and No recent change in breathing CARDIOVASCULAR: No chest pain, No palpitations and No syncope EXTREMITIES: No pain, redness or swelling on the joints SKIN/INTEGUMENTARY: No edema, No rash and No itching NEUROLOGIC: Normal balance, No headaches, No seizures and No weakness FOCUSED PODIATRIC EXAM: Vitals: There were no vitals filed for this visit. General: Patient is awake alert oriented to person place time. No apparent distress. Vascular: DP/PT pulses palpable, ivon. CFT < 3 sec 1-5, ivon. No edema noted, ivon. Temperature gradient is normal warm to cold, ivon. Neurologic: Protective sensation intact to light touch, ivon. Sensation to sharp/dull is intact, ivon. Proprioception is intact, ivon. Vibratory sensation intact, ivon. Protective sensation to 5.07 monofilament is intact, ivon. There is no babinski response elicited, ivon. Ankle clonus is absent, ivon. Dermatological: Skin is normal in appearance with no open lesions or interdigital macerations, ivon. Nails 1-5, ivon are normal in length and slightly thickened. Pedal hair is noted, ivon. Musculoskeletal: No POP noted, ivon. No pain with active or passive ROM of the digits or ankle joint, ivon. Muscle strength is 5/5 for all muscle groups of the lower extremity, ivon. DIAGNOSTIC STUDIES: None ASSESSMENT: 1. Encounter for other procedures for purposes other than remedying health state 2. Onychomycosis 3. DM2 PLAN: - Discussed with pt the importance of maintaining a controlled blood sugar and to check his feet daily. - Nails 1-5, ivon were trimmed with a nail nipper. - Continue wearing good supportive shoes. - Pt to RTC in 3 months for further care. Instructed pt to call sooner with any problems or questions. Saloni Thomas DPM documented in this encounter Nursing Notes * Haily Garcia LPN - 04/05/2024 9:20 AM EST Pt presents for routine diabetic nail care, no foot pain. BSG 152 this morning. documented in this encounter Plan of Treatment Upcoming Encounters Date Type Department Care Team (Late st Contact Info) Description 05/06/2024 11:20 AM EST Office Visit Pharmacy, [facility] [address] [phone] [facility] [address] [facility] [place] [phone] 07/05/2024 9:20 AM EDT [facility] [address] [facility] [place] [address] Saloni Thomas DPM [address] [facility] [place] [address] 07/19/2024 10:00 AM EDT Nurse Only [facility] [address] [facility] [place] [address] Angela, Nurse Annual Wellness [place] [address] [place] [id number] 07/26/2024 11:30 AM EDT [facility] [address] [facility] [place] [address] Nando Roach MD [address] [facility] [place] [address] 12/07/2024 4:00 PM EDT Office Visit General Internal [facility] [address] [facility] [place] [address] Artur Chambers MD [address] [facility] [place] [address] Scheduled Procedures Name Priority Associated Diagnoses Date/Ti [...] as of this encounter Visit Diagnoses Diagnosis Encounter for other procedures for purposes other than remedying health state- Primary Onychomycosis Dermatophytosis of nail Type 2 diabetes mellitus with hemoglobin A1c goal of less than 7.5% ([facility]) documented in this encounter Advance Directives * [...] Advance Directives occurred with: Patient Care Teams Property Staff Accountant Relationship Specialty Start Date End Date Artur Chambers MD [address] [place] [address] PCP - General Internal Medicine 07/06/12 documented as of this encounter
--- OUTSIDE RECORDS SUMMARY | 2024-06-09 10:26 | External Medical Summary | Summary of Care ---
Author Name Unknown Organization [facility] Address [address] [place] [address] Phone [phone] Care Team Providers Care Warehouse Puller Name Role Phone Artur Chambers MD Primary Care Provider + Reason for Visit * Reason Comments Outpatient Testing Encounter Details Date Type Department Care Team (Late st Contact Info) Description 03/24/2024 8:40 AM EST Laboratory Laboratory, [address] [facility] [address] [place] [address] [place], Laboratory [address] [facility] [place] [id number] Type 2 diabetes mellitus with hemoglobin A1c goal of less than 7.5% ([facility]); Mixed hyperlipidemia Allergies Active Allergy Reactions Criticality Noted Date Comments Adhesive Tape 08/15/2003 Hydrochlorothiazide Other (Please comment) 05/2012 pancreatitis Canagliflozin Other (Please comment) 03/22/2019 Pancreatitis Empagliflozin 01/02/2022 pancreatitis documented as of this encounter (statuses as of 03/24/2024) Medications MULTIVITAMIN TABS OR one pill each day 0 08/24/19 04 Active NITROGLYCERIN 0.4 MG SL SUBLIndications:Ao rtocoronary bypass status 1 Q 5 min as needed with chest pain up to 3 doses in 15 minutes 25 11 06/19/19 06 Active Cyanocobalamin ER (VITAMIN B12 TR) 1000 MCG TBCRIndications:Vi tamin B 12 deficiency Take 1 Tab by mouth daily. 30 Tab 08/28/19 18 Active Saline Nasal [place] 0.65 % Nasal Solution Administer 2 Sprays into each nostril as needed for Congestion. for nasal dryness or congestion 1 Bottle 5 11/05/19 19 Active aspirin enteric coated 81 MG TBEC Take 1 Tablet by mouth in the morning. Taking 325 mg for one week. 12/30/19 19 Active Telogis Ultra 2 w/Device Kit Use to test blood sugars once daily 1 Each 12/13/19 21 Active Telogis UltraSoft Lancets Use to test blood sugars once daily 100 Each 3 05/21/19 22 Active Telogis Ultra Blue In Vitro Strip (Glucose Blood)Indications: Type 2 diabetes mellitus with hemoglobin A1c goal of less than 7.0% (HCC) USE TO CHECK BLOOD SUGARS 3 TIMES PER DAY 300 Strip 3 06/11/19 22 Active Insulin Pen Needle 32G X 4 MMIndications:Type 2 diabetes mellitus with hemoglobin A1c goal of less than 7.5% (HCC),Type 2 diabetes mellitus with hemoglobin A1c goal of less than 7.0% (HCC) USE up to 4 times daily TO INJECT INSULIN 400 Each 3 01/25/2024 6:53 AM EDT 03/27/20 23 Active Loratadine 10 MG Oral Tablet (Claritin)Indicati ons:Post-nasal drip Take 1 Tablet by mouth at bedtime. 04/15/19 24 Active Insulin Glargine Solostar 100 UNIT/ML Subcutaneous Solution Pen-injector (Lantus SoloStar)Indicatio ns:Type 2 diabetes mellitus with hemoglobin A1c goal of less than 7.5% (HCC),Type 2 diabetes mellitus with hemoglobin A1c goal of less than 7.0% (HCC) Inject 30 Units under the skin daily. 30 mL 3 01/18/2024 8:29 AM EDT 05/22/19 24 Active NovoLOG FlexPen 100 UNIT/ML Subcutaneous Solution Pen-injector (insulin aspart)Indications :Type 2 diabetes mellitus with hemoglobin A1c goal of less than 7.5% (HCC),Type 2 diabetes mellitus with hemoglobin A1c goal of less than 7.0% ([facility]) Inject 16 units Before breakfast and 10 units before supper 30 mL 3 01/18/2024 8:29 AM EDT 05/22/19 24 Active Additional Information Patient taking differently: Novolog 16units before breakfast, 4 units with lunch and 10units before supper + CF 1:50 over 150 [see chart at bottom of MTM note 07/16/23], Reported on 07/16/2023 metFORMIN HCl ER 500 MG Oral Tablet Extended Release 24 Hour (Glucophage XR)Indications:Typ e 2 diabetes mellitus with hemoglobin A1c goal of less than 7.5% ([facility]) Take 1 Tablet by mouth 2 times a day with morning and evening meals. Dose decrease 180 Tablet 3 01/29/2024 9:31 AM EDT 07/16/19 Active PreserVision AREDS 2+Multi Vit Oral Capsule Take by mouth. Activ e Fluticasone Propionate 50 MCG/ACT Nasal Suspension (Flonase)Indicatio ns:Allergic rhinitis, unspecified seasonality, unspecified trigger Administer 2 Sprays into each nostril in the morning. 16 g 11 08/27/19 24 Active Metoprolol Tartrate 50 MG Oral Tablet (Lopressor)Indicat ions:HTN, goal below 140/90 TAKE ONE AND ONE-HALF TABLETS BY MOUTH EVERY DAY IN THE MORNING AND TAKE ONE AND ONE-HALF TABLETS BY MOUTH EVERY DAY BEFORE BEDTIME 270 Tablet 3 02/26/2024 7:22 AM EST 09/01/19 24 025 Active Lisinopril 20 MG Oral Tablet (Prinivil)Indicati ons:HTN, goal below 140/90 TAKE ONE TABLET BY MOUTH EVERY DAY IN THE MORNING 90 Tablet 3 02/29/2024 6:49 AM EST 09/03/19 24 025 Active Benzonatate 100 MG Oral Capsule (Tessalon Perles)Indications :Acute sinusitis, recurrence not specified, unspecified location Take 1 Capsule by mouth 3 times a day as needed for Cough. Do not cut, crush, or chew. 50 Capsule 1 09/04/19 24 Active Ventolin HFA 108 (90 Base) MCG/ACT Inhalation Aerosol SolutionIndication s:Wheezing,Bronchi tis, complicated Inhale 2 Puffs by mouth every 4 hours as needed for Wheezing. 54 g 09/25/2023 2:40 PM EDT 06/21/20 24 Active Co Q-10 30 MG Oral Capsule Take by mouth. Activ e Rosuvastatin Calcium 10 MG Oral Tablet (Crestor)Indicatio ns:Mixed hyperlipidemia TAKE ONE TABLET BY MOUTH EVERY DAY IN THE MORNING 100 Tablet 2 01/11/2024 1:41 PM EDT 01/11/20 24 Active documented as of this encounter (statuses as of 03/24/2024) Active Problems Problem Noted Date Diagnosed Date [...] deficiency 02/22/2018 Coronary artery disease invo lving [place] coronary artery of [place] heart without angina pectoris 08/20/2017 Type 2 diabetes mellitus wit h hemoglobin A1c goal of less than 7.5% 08/20/2017 H/O acute pancreatitis 02/20/2017 HTN, goal below 140/90 06/11/2015 Overview: Per HTN Protocol #27. Nonallergic rhinitis 04/08/2015 Old myocardial infarct 09/24/2007 Aortocoronary bypass status 07/19/2003 documented as of this encounter (statuses as of 03/24/2024) Resolved Problems Problem Noted Date Diagnosed Date [...] Renamed Per Clinical Trials Billing Project. PROJECT: #[id number], BACK UP SCAN COORDINATOR: Fabrizio Moses MD SUMMARY: Patients with CHD are randomized to darapladib (Lp-PLA2 inhibitor) or placebo in addition to standard of care medications to evaluate incidence of major coronary events. CONTACTS: During normal business hours, contact Clincal Research Coordinator at appropriate clinic location, after hours on-call Clinical Research Coordinator via the [facility] hospital gravure press set up operator ([phone]). The study sponsor can be reached at: Stability Clinical Trial [id number] 10/13/2008 05/07/2012 Overview (07/20/2009): Renamed Per Clinical Trials Billing Project. PROJECT: #[id number], BACK UP SCAN COORDINATOR: Fabrizio Moses MD SUMMARY: Patients with CHD are randomized to darapladib (Lp-PLA2 inhibitor) or placebo in addition to standard of care medications to evaluate incidence of major coronary events. CONTACTS: During normal business hours, contact Clincal Research Coordinator at appropriate clinic location, after hours on-call Clinical Research Coordinator via the [facility] hospital gravure press set up operator ([phone]). 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 Not on file Not on file Not on edu e documented as of this encounter Plan of Treatment Upcoming Encounters Date Type Department Care Team (Late st Contact Info) Description 04/05/2024 9:40 AM EST Office Visit Podiatry [facility] [address] [place] [address] Saloni Thomas DPM [address] [place] [address] 05/06/2024 11:20 AM EST Office Visit Pharmacy, Britta Nguyen [address] [place] [phone] [facility] [address] [place] [address] [place] [address] 07/19/2024 10:00 AM EDT Nurse Only Ancillary [place], Wing [address] [facility] [place] [address] Angela Nurse Annual Wellness [facility] [address] [facility] [place] [address] 07/26/2024 11:30 AM EDT Office Visit Cardiology, [facility] [address] [place] [address] Nando Roach MD [address] [place] [address] 12/07/2024 4:00 PM EDT Office Visit General Internal Medicine [facility] Wing [address] [facility] [place] [address] Artur Chambers MD [address] [facility] [place] [address] Pending Results Name Type Priority Associated Diagnoses Date /Time HEMOGLOBIN A1C Lab Routine Type 2 diabetes mellitus with hemoglobin A1c goal of less than 7.5% ([facility]) 03/24/2024 8:44 AM EST LIPID PANEL WITH DIRECT LDL IF TG IS HIGH Lab Routine Mixed hyperlipidemia 03/24/2024 8:44 AM EST Scheduled Procedures Name Priority Associated Diagnoses Date/Ti me COLONOSCOPY FLEXIBLE PROXIMA L DIAGNOSTIC Recall Family history of colon cancer Health Maintenance Due Date Last Done Comments Cologuard 07/28/1996 Fecal Occult Blood Test 07/28/1996 Sigmoidoscopy 07/28/1996 COVID-19 Vaccine ( season) 2023 01/30/2023, 02/18/2022, 02/20/2021, Additional history exists HbA1c 01/12/2024 07/13/2023, 1012/2022, 07/09/2022, Additional history exists Albumin/Creatinine Ratio 07/12/2024 024, 07/09/2022, 06/10/2021, Additional history exists GFR 07/12/2024 07/13/2023, 040 09/2022, 07/09/2022, Additional history exists Adult Wellness Visit 07/14/2024 07/15/2023, 07/09/2022, 09/09/2021 Depression Screening 07/14/2024 07/15/2023, 07/15/2023, 06/27/2014 Diabetic Foot Exam 07/14/2024 07/15/2023, 0 07/09/2022, 06/12/2021, Additional history exists Diabetic Eye Exam 09/23/2024 09/24/2023, , 08/22/2022, Additional history exists Colonoscopy 02/04/2028 02/03/2023, 03/07, 03/25/2018, Additional history exists Colorectal Cancer Screening 02/04/2028 DTap/Tdap Vaccines (3 - Td or Tdap) 02/23/2028 02/22/2018, 09/24/2007 Pneumococcal Vaccine: 65+ Years Completed 11/04/2018, 08/20/2017, 05/06/2006 Zoster Vaccines [...] A1c goal of less than 7.5% (HCC) Mixed hyperlipidemia documented in this encounter Advance Directives * [...] Advance Directives occurred with: Patient Care Teams Warehouse Puller Relationship Specialty Start Date End Date Artur Chambers MD [address] [facility] [place] [address] PCP - General Internal Medicine 07/06/12 documented as of this encounter
--- OUTSIDE RECORDS SUMMARY | 2024-06-09 10:27 | External Medical Summary | Summary of Care ---
Author Name Unknown Organization [facility] Address [address] [place] [address] Phone [phone] Care Team Providers Care Electrical Maintenance Technician Name Role Phone Artur Mckeon MD Primary Care Provider + Reason for Visit * Reason Comments Medication Refill Encounter Details Date Type Department Care Team (Late st Contact Info) Description 01/09/2024 Refill General Internal Medicine [facility] [address] [place] [address] Artur Mckeon MD [address] [place] [address] Mixed hyperlipidemia Allergies Active Allergy Reactions Criticality Noted Date Comments Adhesive Tape 08/15/2003 Hydrochlorothiazide Other (Please comment) 05/2012 pancreatitis Canagliflozin Other (Please comment) 03/22/2019 Pancreatitis Empagliflozin 01/02/2022 pancreatitis documented as of this encounter (statuses as of 01/11/2024) Medications Medication Sig Dispensed Refills Start Date End Date Status MULTIVITAMIN TABS OR one pill each day 0 08/24/2003 Active NITROGLYCERIN 0.4 MG SL SUBLIndications:Aor tocoronary bypass status 1 Q 5 min as needed with chest pain up to 3 doses in 15 minutes 25 11 06/18/2005 Active Additional Information Patient not taking.Reported on 06/26/2023 Cyanocobalamin ER (VITAMIN B12 TR) 1000 MCG TBCRIndications:Vit diehl B 12 deficiency Take 1 Tab by mouth daily. 30 Tab 08/27/2017 Active Saline Nasal [place] 0.65 % Nasal Solution Administer 2 Sprays into each nostril as needed for Congestion. for nasal dryness or congestion 1 Bottle 5 11/04/2018 Active aspirin enteric coated 81 MG TBEC Take 1 Tablet by mouth in the morning. Taking 325 mg for one week. 12/29/2018 Active Headspace Ultra 2 w/Device Kit Use to test blood sugars once daily 1 Each 12/12/2020 Active Headspace UltraSoft Lancets Use to test blood sugars once daily 100 Each 3 05/21/2021 Active Headspace Ultra Blue In Vitro Strip (Glucose Blood)Indications:T ype 2 diabetes mellitus with hemoglobin A1c goal of less than 7.0% (HCC) USE TO CHECK BLOOD SUGARS 3 TIMES PER DAY 300 Strip 3 06/10/2021 Active Insulin Pen Needle 32G X 4 MMIndications:Type 2 diabetes mellitus with hemoglobin A1c goal of less than 7.5% (HCC),Type 2 diabetes mellitus with hemoglobin A1c goal of less than 7.0% (HCC) USE up to 4 times daily TO INJECT INSULIN 400 Each 3 03/27/2023 Active Loratadine 10 MG Oral Tablet (Claritin)Indicatio ns:Post-nasal drip Take 1 Tablet by mouth at bedtime. 04/15/2023 Active Additional Information Patient not taking.Reported on 07/15/2023 Insulin Glargine Solostar 100 UNIT/ML Subcutaneous Solution Pen-injector (Lantus SoloStar)Indication s:Type 2 diabetes mellitus with hemoglobin A1c goal of less than 7.5% (HCC),Type 2 diabetes mellitus with hemoglobin A1c goal of less than 7.0% (HCC) Inject 30 Units under the skin daily. 30 mL 3 05/22/2023 Active NovoLOG FlexPen 100 UNIT/ML Subcutaneous Solution Pen-injector (insulin aspart)Indications: Type 2 diabetes mellitus with hemoglobin A1c goal of less than 7.5% (HCC),Type 2 diabetes mellitus with hemoglobin A1c goal of less than 7.0% (HCC) Inject 16 units Before breakfast and 10 units before supper 30 mL 3 05/22/2023 Active Additional Information Patient taking differently: Novolog 16units before breakfast, 4 units with lunch and 10units before supper + CF 1:50 over 150 [see chart at bottom of MTM note 07/16/23], Reported on 07/16/2023 metFORMIN HCl ER 500 MG Oral Tablet Extended Release 24 Hour (Glucophage XR)Indications:Type 2 diabetes mellitus with hemoglobin A1c goal of less than 7.5% ([facility]) Take 1 Tablet by mouth 2 times a day with morning and evening meals. Dose decrease 180 Tablet 3 07/16/2023 Active PreserVision AREDS 2+Multi Vit Oral Capsule Take by mouth. Active Fluticasone Propionate 50 MCG/ACT Nasal Suspension (Flonase)Indication s:Allergic rhinitis, unspecified seasonality, unspecified trigger Administer 2 Sprays into each nostril in the morning. 16 g 11 08/27/2023 Active Metoprolol Tartrate 50 MG Oral Tablet (Lopressor)Indicati ons:HTN, goal below 140/90 TAKE ONE AND ONE-HALF TABLETS BY MOUTH EVERY DAY IN THE MORNING AND TAKE ONE AND ONE-HALF TABLETS BY MOUTH EVERY DAY BEFORE BEDTIME 270 Tablet 3 09/01/2023 5 Active Lisinopril 20 MG Oral Tablet (Prinivil)Indicatio ns:HTN, goal below 140/90 TAKE ONE TABLET BY MOUTH EVERY DAY IN THE MORNING 90 Tablet 3 09/03/2023 5 Active Benzonatate 100 MG Oral Capsule (Tessalon Perles)Indications: Acute sinusitis, recurrence not specified, unspecified location Take 1 Capsule by mouth 3 times a day as needed for Cough. Do not cut, crush, or chew. 50 Capsule 1 09/04/2023 Active Ventolin HFA 108 (90 Base) MCG/ACT Inhalation Aerosol SolutionIndications :Wheezing,Bronchiti s, complicated Inhale 2 Puffs by mouth every 4 hours as needed for Wheezing. 54 g 09/25/2023 Active Co Q-10 30 MG Oral Capsule Take by mouth. Active Rosuvastatin Calcium 10 MG Oral Tablet (Crestor)Indication s:Mixed hyperlipidemia TAKE ONE TABLET BY MOUTH EVERY DAY IN THE MORNING 100 Tablet 2 01/11/2024 Active Rosuvastatin Calcium 10 MG Oral Tablet (Crestor)Indication s:Mixed hyperlipidemia TAKE ONE TABLET BY MOUTH EVERY DAY IN THE MORNING 100 Tablet 1 06/29/2023 4 Discontinu ed(Refill) documented as of this encounter (statuses as of 01/11/2024) Active Problems Problem Noted Date Diagnosed Date Abdominal pain 02/03/2023 Atypical chest pain 02/03/2023 Chronic diastolic heart failure 02/03/2023 Presence of [...] deficiency 02/22/2018 Coronary artery disease invo lving [place] coronary artery of [place] heart without angina pectoris 08/20/2017 Type 2 diabetes mellitus wit h hemoglobin A1c goal of less than 7.5% 08/20/2017 H/O acute pancreatitis 02/20/2017 HTN, goal below 140/90 06/11/2015 Overview: Per HTN Protocol #27. Nonallergic rhinitis 04/08/2015 Old myocardial infarct 09/24/2007 Aortocoronary bypass status 07/19/2003 documented as of this encounter (statuses as of 01/11/2024) Resolved Problems Problem Noted Date Diagnosed Date Resolved Date Acute pancreatitis after end oscopic retrograde cholangiopancreatography (ERCP) 02/03/2023 08/04/2023 Congestive heart failure 02/03/202309/2022 Musculoskeletal neck pain 02/03/2023 Viral URI with cough 04/08/2015 017 Obstipation 04/08/2015 02/22/2018 Hyperlipidemia with target LDL less than 70 11/16/2012 02/20/2017 Overview: ICD-10 update of inactive term HTN, GOAL BELOW 140/80 11/24/201107/11 Overview: Per HTN Protocol #27. HTN, goal below 140/90 05/02/201105/02 HTN, GOAL BELOW 130/80 05/03/200911/26 Overview: Per HTN Taxonomy. Dyslipidemia, goal LDL below 70 03/26/2009 11/04/2018 Overview: Per Lipid Taxonomy. Dysphagia 03/02/2009 07/06/2012 Overview: ICD-10 update of inactive term Heartburn 03/02/2009 11/04/2018 Type 2 diabetes mellitus wit h hemoglobin A1c goal of less than 7.0% 02/01/2009 08/20/2017 Overview: Per Diabetes Taxonomy. ICD-10 update of inactive term [facility] Research Study [phone] [id number] - Dr. Moses 10/13/2008 07/20/2009 Overview: Renamed Per Clinical Trials Billing Project. PROJECT: #[id number], HEALTHCARE CORPORATE ACCOUNT DIRECTOR: Fabrizio Moses MD SUMMARY: Patients with CHD are randomized to darapladib (Lp-PLA2 inhibitor) or placebo in addition to standard of care medications to evaluate incidence of major coronary events. CONTACTS: During normal business hours, contact Clincal Research Coordinator at appropriate clinic location, after hours on-call Clinical Research Coordinator via the [facility] scalp treatment operator ([phone]). The study sponsor can be reached at: Stability Clinical Trial [id number] 10/13/2008 05/07/2012 Overview: Renamed Per Clinical Trials Billing Project. PROJECT: #[id number], HEALTHCARE CORPORATE ACCOUNT DIRECTOR: Fabrizio Moses MD SUMMARY: Patients with CHD are randomized to darapladib (Lp-PLA2 inhibitor) or placebo in addition to standard of care medications to evaluate incidence of major coronary events. CONTACTS: During normal business hours, contact Clincal Research Coordinator at appropriate clinic location, after hours on-call Clinical Research Coordinator via the [facility] scalp treatment operator ([phone]). The study sponsor can be reached at: HTN, goal below 140/90 09/24/200705/03 Overview: Per HTN Taxonomy. ?Psoriasis 02/10/2007 02/20/2017 Type 2 diabetes mellitus wit h hemoglobin A1c goal of less than 7.0% 12/11/2006 02/20/2017 Overview: Per Diabetes Taxonomy. ICD-10 update of inactive term Coronary atherosclerosis 05/06/2006 ADVANCE DIRECTIVE INFORMATION 12/03/2004 02/20/2017 Overview: Yes, Patient instructed to provide copy of advance directive for provider to review and to be scanned into Electronic Medical Record Dyslipidemia, goal to be determined 04/02/2004 03/26/2009 Overview: Per Lipid Taxonomy. Cardiac arrest 09/08/2003 08/20/2016 Cardiogenic shock 09/08/2003 08/20/2016 F/u of acute inferior myocardial infarction 09/08/2003 09/24/2007 Ventricular fibrillation 07/19/2003 Hand dermatitis 03/29/2003 02/10/2007 documented as of this encounter (statuses as of 01/11/2024) Immunizations Name Administration Dates Next Due COVID-19 mRNA, LNP-s, No Pre serve, 2-Dose Series (Moderna) 06/11/2020,05/08/2020 COVID-19, MRNA-LNP, 23-24, P F, 50 MCG/0.5 mL, 12 YRS AND ABOVE, IM (MODERNA-Spikevax) 01/30/2023 COVID-19, mRNA, LNP-s, PF, B ooster, 100mcg/0.5mg (Moderna) 02/20/2021 Covid-19, Mrna, Lnp-s, Pf, B ivalent, 30 Mcg, IM, 12 yrs and above (Pfizer) 02/18/2022 H1N1 2009 Influenza, IM 04/27/2009 Influenza, Whole Virus 01/07/2007 Pneumococcal Conjugate Vacc, 13 Valent (Prevnar) 08/20/2017 Pneumococcal Polysaccharide PPV23 (Pneumovax) 11/04/2018,05/06/2006 Respiratory Syncytial Virus (Rsv) Vaccine, Unspecified 02/24/2023 Season Influenza, Quad, PF, Adjuvanted, 65+ [...] Answer Date Recorded PHQ Adult Total Score 1 07/09/2022 Hunger Vital Sign Answer Date Recorded Within [...] Assigned at Male 11/04/2018 9:03 AM EDT Gender Identity Male 11/04/2018 9:03 AM EDT Sexual Orientation Straight 11/04/2018 9: 03 AM EDT Job Start Date Occupation Industry Not on file Not on file Not on file documented as of this encounter Miscellaneous Notes * Telephone Encounter - Renetta Carter [facility] - 01/11/2024 9:04 AM EDTSigned Prescriptions: Disp Refills Rosuvastatin Calcium 10 MG Oral Tablet (Cr*100 Ta*2 Sig: TAKE ONE TABLET BY MOUTH EVERY DAY IN THE MORNINGAuthorizing Provider: ARTUR MCKEON User: RENETTA CARTER documented in this encounter Plan of Treatment Upcoming Encounters Date Type Department Care Team (Late st Contact Info) Description 01/28/2024 2:30 PM EDT Office Visit Pharmacy, [address] [address] [facility] [place] [address] 03/02/2024 12:00 PM EST Office Visit General Internal Medicine [facility] [address] [place] [address] Artur Mckeon MD [address] [place] [address] 04/05/2024 9:40 AM EST Office Visit Podiatry [facility] [address] [place] [address] Saloni Thomas DPM 132 [facility] [place] [address] 07/19/2024 10:00 AM EDT Nurse Only Ancillary [facility] [address] [place] [address] Angela, Nurse Annual Wellness [address] [place] [address] 07/26/2024 11:30 AM EDT Office Visit Cardiology, [facility] [address] [place] [address] Nando Roach MD [address] [place] [address] Scheduled Procedures Name Priority Associated Diagnoses Date/Ti me COLONOSCOPY FLEXIBLE PROXIMA L DIAGNOSTIC Recall Family history of colon cancer Health Maintenance Due Date Last Done Comments Cologuard 07/28/1996 Fecal Occult Blood Test 07/28/1996 Sigmoidoscopy 07/28/1996 COVID-19 Vaccine ( season) 2023 01/30/2023, 02/18/2022, 02/20/2021, Additional history exists HbA1c 01/12/2024 07/13/2023, 12/2022, 07/09/2022, Additional history exists Albumin/Creatinine Ratio 07/12/2024 024, 07/09/2022, 06/10/2021, Additional history exists GFR 07/12/2024 07/13/2023, 09/2022, 07/09/2022, Additional history exists Adult Wellness [...] as of this encounter Visit Diagnoses Diagnosis Mixed hyperlipidemia documented in this encounter Advance [...] Advance Directives occurred with: Patient Care Teams Electrical Maintenance Technician Relationship Specialty Start Date End Date Artur Mckeon MD [address] [place] [address] PCP - General Internal Medicine 07/06/12 documented as of this encounter
--- OUTSIDE RECORDS SUMMARY | 2024-06-09 10:27 | External Medical Summary | Summary of Care ---
Author Name Unknown Organization [facility] Address [address] [place] [address] Phone [phone] Care Team Providers Care Iron Miner Name Role Phone Artur Chambers MD Primary Care Provider + Reason for Visit * Reason Onset Date Comments Dosage Adjustment In Person (Anticoag Clinic) Diabetes Follow-Up Medication Administration 12/17/2023 Flu an d/or Pneumo Inj Encounter Details Date Type Department Care Team (Late st Contact Info) Description 12/17/2023 2:30 PM EDT Office Visit Pharmacy, [place] [address] [place] [address] [facility] [address] [place] [address] Type 2 diabetes mellitus with hemoglobin A1c goal of less than 7.5% ([facility]; Need for prophylactic vaccination and inoculation against influenza Allergies Active Allergy Reactions Criticality Noted Date Comments Adhesive Tape 08/15/2003 Hydrochlorothiazide Other (Please comment) 05/2012 pancreatitis Canagliflozin Other (Please comment) 03/22/2019 Pancreatitis Empagliflozin 01/02/2022 pancreatitis documented as of this encounter (statuses as of 12/17/2023) Medications Medication Sig Dispensed Refills Start Date End Date Status MULTIVITAMIN TABS OR one pill each day 0 08/24/2003 Active NITROGLYCERIN 0.4 MG SL SUBLIndications:Aort ocoronary bypass status 1 Q 5 min as needed with chest pain up to 3 doses in 15 minutes 25 11 06/18/2005 Active Additional Information Patient not taking.Reported on 06/26/2023 Cyanocobalamin ER (VITAMIN B12 TR) 1000 MCG TBCRIndications: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 30 Tab 08/27/2017 Active Saline Nasal [place] 0.65 % Nasal Solution Administer 2 Sprays into each nostril as needed for Congestion. for nasal dryness or congestion 1 Bottle 5 11/04/2018 Active aspirin enteric coated 81 MG TBEC Take 1 Tablet by mouth in the morning. Taking 325 mg for one week. 12/29/2018 Active MyWishBoard Ultra 2 w/Device Kit Use to test blood sugars once daily 1 Each 12/12/2020 Active MyWishBoard UltraSoft Lancets Use to test blood sugars once daily 100 Each 3 05/21/2021 Active MyWishBoard Ultra Blue In Vitro Strip (Glucose Blood)Indications:Ty pe 2 diabetes mellitus with hemoglobin A1c [...] 03/27/2023 Active Loratadine 10 MG Oral Tablet (Claritin)Indication s:Post-nasal drip Take 1 Tablet by mouth at bedtime. 04/15/2023 Active Additional Information Patient not taking.Reported on 07/15/2023 Insulin Glargine Solostar 100 UNIT/ML Subcutaneous Solution Pen-injector (Lantus SoloStar)Indications :Type 2 diabetes mellitus with hemoglobin A1c goal of less than 7.5% (HCC),Type 2 diabetes mellitus with hemoglobin A1c goal of less than 7.0% (HCC) Inject 30 Units under the skin daily. 30 mL 3 05/22/2023 Active NovoLOG FlexPen 100 UNIT/ML Subcutaneous Solution Pen-injector (insulin aspart)Indications:T ype 2 diabetes mellitus with hemoglobin A1c [...] of MTM note 07/16/23], Reported on 07/16/2023 Rosuvastatin Calcium 10 MG Oral Tablet (Crestor)Indications :Mixed hyperlipidemia TAKE ONE TABLET BY MOUTH EVERY DAY IN THE MORNING 100 Tablet 1 06/29/2023 Active metFORMIN HCl ER 500 MG Oral Tablet Extended Release 24 Hour (Glucophage XR)Indications:Type 2 diabetes mellitus with hemoglobin A1c goal of less than 7.5% ([facility]) Take 1 Tablet by mouth 2 times a day with morning and evening meals. Dose decrease 180 Tablet 3 07/16/2023 Active PreserVision AREDS 2+Multi Vit Oral Capsule Take by mouth. Active Fluticasone Propionate 50 MCG/ACT Nasal Suspension (Flonase)Indications :Allergic rhinitis, unspecified seasonality, unspecified trigger Administer 2 Sprays into each nostril in the morning. 16 g 11 08/27/2023 Active Metoprolol Tartrate 50 MG Oral Tablet (Lopressor)Indicatio ns:HTN, goal below 140/90 TAKE ONE AND ONE-HALF TABLETS BY MOUTH EVERY DAY IN THE MORNING AND TAKE ONE AND ONE-HALF TABLETS BY MOUTH EVERY DAY BEFORE BEDTIME 270 Tablet 3 09/01/2023 5 Active Lisinopril 20 MG Oral Tablet (Prinivil)Indication s:HTN, goal below 140/90 TAKE ONE TABLET BY MOUTH EVERY DAY IN THE MORNING 90 Tablet 3 09/03/2023 5 Active Benzonatate 100 MG Oral Capsule (Tessalon Perles)Indications:A cute sinusitis, recurrence not specified, unspecified location Take 1 Capsule by mouth 3 times a day as needed for Cough. Do not cut, crush, or chew. 50 Capsule 1 09/04/2023 Active Ventolin HFA 108 (90 Base) MCG/ACT Inhalation Aerosol SolutionIndications: Wheezing,Bronchitis, complicated Inhale 2 Puffs by mouth every 4 hours as needed for Wheezing. 54 g 09/25/2023 Active documented as of this encounter (statuses as of 12/17/2023) Active Problems Problem Noted Date Diagnosed Date [...] deficiency 02/22/2018 Coronary artery disease invo lving [place] coronary artery of [place] heart without angina pectoris 08/20/2017 Type 2 diabetes mellitus wit h hemoglobin A1c goal of less than 7.5% 08/20/2017 H/O acute pancreatitis 02/20/2017 HTN, goal below 140/90 06/11/2015 Overview: Per HTN Protocol #27. Nonallergic rhinitis 04/08/2015 Old myocardial infarct 09/24/2007 Aortocoronary bypass status 07/19/2003 documented as of this encounter (statuses as of 12/17/2023) Resolved Problems Problem Noted Date Diagnosed Date [...] Diabetes Taxonomy. ICD-10 update of inactive term [facility] Research Study [id number] - Dr. Moses 10/13/2008 07/20/2009 Overview: Renamed Per Clinical Trials Billing Project. PROJECT: #[id number], ZIPPER SETTER: Fabrizio Moses MD SUMMARY: Patients with CHD are randomized to darapladib (Lp-PLA2 inhibitor) or placebo in addition to standard of care medications to evaluate incidence of major coronary events. CONTACTS: During normal business hours, contact Clincal Research Coordinator at appropriate clinic location, after hours on-call Clinical Research Coordinator via the [facility] hospital dinkey motor operator ([phone]). The study sponsor can be reached at: Stability Clinical Trial [id number] 10/13/2008 05/07/2012 Overview: Renamed Per Clinical Trials Billing Project. PROJECT: #[id number], ZIPPER SETTER: Fabrizio Moses MD SUMMARY: Patients with CHD are randomized to darapladib (Lp-PLA2 inhibitor) or placebo in addition to standard of care medications to evaluate incidence of major coronary events. CONTACTS: During normal business hours, contact Clincal Research Coordinator at appropriate clinic location, after hours on-call Clinical Research Coordinator via the [facility] hospital dinkey motor operator ([phone]). The study sponsor can be reached at: [...] as of this encounter (statuses as of 12/17/2023) Immunizations Name Administration Dates Next Due COVID-19 [...] Adjuvanted, 65+ Yrs, IM (FLUAD) 12/23/2019 Seasonal Influenza, High Dos e, Trivalent, PF, IM (Fluzone HD) 12/17/2023 Seasonal Influenza, PF, 6 M & above, IM , (FluLaval or Fluzone) 02/22/2018,01/26/2017 Seasonal Influenza, Quadriva lent Hd (Fluzone Hd) 01/12/2023,01/02/2022,01/02/2021 Seasonal Influenza, Quadriva lent, No Preserve, IM 02/12/2016,01/15/2015 Seasonal Influenza, Trivalen t, (IIV3), with Preserv, (Fluzone) 12/28/2013,01/11/2013,12/11/2011,01/21,01/22/2010,01/18/2009,01/17/2009 ,01/13/2008,02/10/2006 Seasonal Influenza, Trivalen t, Adjuvanted, 65+ YRS, [...] on file documented as of this encounter Progress Notes * Noelle Mena, [facility] - 12/17/2023 2:27 PM EDT Images from the original note were not included. Medication Therapy Disease Management Clinic - Diabetes Management Progress Note Chet Cannon Sr., identified by name and date of , is a 73 year old male being seen for diabetes management/education. Patient presents for return diabetic visit. DIABETES: Current diabetic medications: Metformin ER 500mg twice daily INC Lantus 22 units daily in the morning DEC: Novolog 13 units before breakfast, 4 units with lunch and 11 units before supper + CF 1:40 over 150 [see chart at bottom of MTM note 11/04/23] eGFR >90 as of 07/13/2023 Medication Injection Site: Abdomen Lifestyle: Diet: unchanged Glucose Review/SMBG: Readings obtained from patient device Hypoglycemia: Does your blood sugar go below 70 mg/dL? Yes, not lately Hyperglycemia symptoms present: none Recent Labs Units 07/13/23 0901 01/12/23 1038 07/09/22 1006 HEMOGLOBIN A1C - [facility] % 8.4* 8.5* 8.8* Recent Labs Units 07/13/23 0901 07/10/22 0920 07/09/22 1006 ESTIMATED GLOMERULAR FILTRATION RATE - [facility] mL/min >90 >90 >90 CREATININE - [facility] mg/dL 0.9 0.9 0.9 HYPERTENSION: Patient on ACEi/ARB: yes BP Readings from Last 3 Encounters: 09/04/23 108/50 08/27/23 128/82 08/04/23 130/62 Blood pressure at goal: yes HYPERLIPIDEMIA: Recent Labs Units 07/13/23 0901 07/10/22 0920 LDL CHOLESTEROL (CALCULATED) - [facility] mg/dL 87 80 Does patient have clinical ASCVD? Yes, is patient LDL less than 55 mg/dL? No: repeat cholesterol panel first before determining next steps HEALTH MAINTENANCE REVIEW: Health Maintenance Due Topic Date Due Influenza Vaccine (FLU shot) (1) 12/06/2023 COVID-19 Vaccine ( season) 2023 HbA1c 01/12/2024 ASSESSMENT & PLAN: ICD-10-CM 1. Type 2 diabetes mellitus with hemoglobin A1c goal of less than 7.5% (HCC) E11.9 2. Need for prophylactic vaccination and inoculation against influenza Z23 Considerations: - hx of acute pancreatitis + flare up after Jardiance use - AVOID use of SGLT2s and GLPs - , Leandra, accompanies to appts - metformin dose limited by tolerability BG Readings - Blood sugars variable, but improved overall. No low blood sugars. Pt having issues with dexcom sensors staying on- we reviewed alternative sites for him to wear it. A1c is ordered to becompleted at next routine lab work- abdelrahman TIR is 50%, which is better than it had been at last visit. Medications - Reviewed current regimen, patient is adherent to regimen. Encouraged patient to use the snack column on his chart when he eats higher carb snacks in the evening. Otherwise, no changes to dosing etc. Diet, Exercise, Lifestyle - No significant lifestyle changes since last visit. Discussed with patient. Patient is agreeable to SMBG with dexcom daily. Patient aware to contact clinic if any hypoglycemia before next visit. MEDICATION CHANGES: no change Diabetic Medications: Metformin ER 500mg twice daily Lantus 22 units daily in the morning Novolog 13 units before breakfast, 4 units with lunch and 11 units before supper + 2 units with snacks + CF 1:40 over 150 [see chart at bottom of MTM note 12/17/23] eGFR >90 as of 07/13/2023 HEALTH MAINTENANCE INTERVENTIONS: Labs: Up to Date Immunizations: Facilitated Administration Of: Influenza Foot Exam: Up to Date Eye Exam: Up to Date Annual Wellness Visit: Up to Date FOLLOW UP: Return to clinic in 6 weeks 01/28/2024 I spent a total of 30-39 minutes (exact time 32 mins) on the date of service in preparation, delivery, and documentation of the care provided to Chet Cannon Sr. excluding any time spent in the performance of separately billed services. Noelle Mena [facility] Clinical Pharmacist - Structural Engineering Drafting Officer Medication Therapy Management Clinic 12/17/2023, 2:27 PM 12/17/23 Fast Acting Insulin: Novolog To find insulin dose: 1) Find the ROW in which pre-meal blood sugar is in (on LEFT of chart) 2) Find COLUMN which represents which meal you are eating 3) Go across row from step 1 and go down column from step 2 4) Where the row and column cross - that is the dose of fast acting insulin Blood Sugar levels Am meal Lunch PM Meal Snack 70 to 109 12 3 10 0 110 to 149 13 4 11 0 150 to 189 13 4 11 0 190 to 229 14 5 12 2 230 to 269 15 6 13 3 270 to 309 16 7 14 4 310 to 349 17 8 15 5 350 to 389 18 9 16 6 390 to 429 19 10 17 7 Lantus 22 units daily Parameters fixed 13 4 11 1 rafia 40 over 150 PRE - ADMINISTRATION DOCUMENTATION Are you experiencing any cold symptoms or fever? No Have you had Guillain-Luna Syndrome (an illness that causes paralysis) within the last 6 weeks? No Have you had the flu shot in the past? YES Have you ever had a reaction to the flu shot? No Noelle Mena [facility], 12/17/2023 2:54 PM Immunization Administration Documentation Time Out Procedure Performed: Yes Patient Identified (Ask Name/Date of ): Yes Does the patient have a fever greater than 101 degrees today? No Patient allergic to latex? No VFC Stock: No Immunization(s) verified: Yes, Immunization Name: Flu, VIS Sheet(s) given: Yes Verified Side and Site: Yes Verified Shot(s) with Parent(s)/Patient: Yes documented in this encounter Plan of Treatment Upcoming Encounters Date Type Department Care Team (Late st Contact Info) Description 12/29/2023 9:40 AM EDT Office Visit Podiatry [facility] [address] [address] Saloni Thomas DPM [address] [place] [address] 12/30/2023 11:45 AM EDT Office Visit [facility]opaedics, [facility] [address] [facility] [address] Christos Feliciano [facility] [address] [facility] [phone] 01/28/2024 2:30 PM EDT Office Visit Pharmacy, [place] [address] [place] [address] [facility] [address] [place] [address] 03/02/2024 12:00 PM EST Office Visit General Internal Medicine [facility] [place] [address] [place] [address] Artur Chambers MD [address] [facility] [place] [address] 04/25/2024 11:00 AM EST Office Visit Cardiology, [facility] [address] [place] [address] Nando Roach MD [address] [place] [address] 07/19/2024 10:00 AM EDT Nurse Only Ancillary [facility] [place] [address] [facility] [place] [address] Angela, Nurse Annual Wellness [address] [place] [address] Scheduled Procedures Name Priority Associated Diagnoses Date/Ti [...] hemoglobin A1c goal of less than 7.5% (HCC)- Primary Need for prophylactic vaccination and inoculation against influenza documented in this encounter Advance Directives * [...] Advance Directives occurred with: Patient Care Teams Iron Miner Relationship Specialty Start Date End Date Artur Chambers MD [address] [facility] [place] [address] PCP - General Internal Medicine 07/06/12 documented as of this encounter
--- OUTSIDE RECORDS SUMMARY | 2024-06-09 10:27 | External Medical Summary | Summary of Care ---
Author Name Unknown Organization [facility] Address [address] [place] [address] Phone [phone] Care Team Providers Care Engineer Chief Name Role Phone Artur Chambers MD Primary Care Provider + Reason for Visit * Reason Comments Dosage Adjustment In Person (Anticoag Cl inic) Diabetes Follow-Up Encounter Details Date Type Department Care Team (Latest Contact Info) Description 03/23/2024 1:00 PM EST Office Visit Pharmacy, [place] [address] [facility] [place] [phone] [facility] [address] [place], [place] [id number] Type 2 diabetes mellitus with hemoglobin A1c goal of less than 7.5% ([facility])*; Mixed hyperlipidemia Allergies Active Allergy Reactions Criticality Noted Date Comments Adhesive Tape 08/15/2003 Hydrochlorothiazide Other (Please comment) 05/2012 pancreatitis Canagliflozin Other (Please comment) 03/22/2019 Pancreatitis Empagliflozin 01/02/2022 pancreatitis documented as of this encounter (statuses as of 03/23/2024) Medications MULTIVITAMIN TABS OR one pill each [...] 30 Tab 08/28/19 18 Active Saline Nasal [place] 0.65 % Nasal Solution Administer 2 Sprays into each nostril as needed for Congestion. for nasal dryness or congestion 1 Bottle 5 11/05/19 19 Active aspirin enteric coated 81 MG TBEC Take 1 Tablet by mouth in the morning. Taking 325 mg for one week. 12/30/19 19 Active Compact Imaging Ultra 2 w/Device Kit Use to test blood sugars once daily 1 Each 12/13/19 21 Active [employer] Imaging UltraSoft Lancets Use to test blood sugars once daily 100 Each 3 05/21/19 22 Active Compact Imaging Ultra Blue In Vitro Strip (Glucose Blood)Indications: [...] hemoglobin A1c goal of less than 7.5% ([facility]) Take 1 Tablet by mouth 2 [...] as of this encounter (statuses as of 03/23/2024) Active Problems Problem Noted Date Diagnosed Date [...] deficiency 02/22/2018 Coronary artery disease invo lving [place] coronary artery of [place] heart without angina pectoris 08/20/2017 Type 2 diabetes mellitus wit h hemoglobin A1c goal of less than 7.5% 08/20/2017 H/O acute pancreatitis 02/20/2017 HTN, goal below 140/90 06/11/2015 Overview: Per HTN Protocol #27. Nonallergic rhinitis 04/08/2015 Old myocardial infarct 09/24/2007 Aortocoronary bypass status 07/19/2003 documented as of this encounter (statuses as of 03/23/2024) Resolved Problems Problem Noted Date Diagnosed Date [...] Renamed Per Clinical Trials Billing Project. PROJECT: #[id number], RESIDENT PHYSICIAN IN RADIOLOGY: Fabrizio Moses MD SUMMARY: Patients with CHD are randomized to darapladib (Lp-PLA2 inhibitor) or placebo in addition to standard of care medications to evaluate incidence of major coronary events. CONTACTS: During normal business hours, contact Clincal Research Coordinator at appropriate clinic location, after hours on-call Clinical Research Coordinator via the [facility] clarifier operator helper ([phone]). The study sponsor can be reached at: Stability Clinical Trial [id number] 10/13/2008 05/07/2012 Overview (07/20/2009): Renamed Per Clinical Trials Billing Project. PROJECT: #[id number], RESIDENT PHYSICIAN IN RADIOLOGY: Fabrizio Moses MD SUMMARY: Patients with CHD are randomized to darapladib (Lp-PLA2 inhibitor) or placebo in addition to standard of care medications to evaluate incidence of major coronary events. CONTACTS: During normal business hours, contact Clincal Research Coordinator at appropriate clinic location, after hours on-call Clinical Research Coordinator via the [facility] clarifier operator helper ([phone]). The study sponsor can be reached at: [...] as of this encounter (statuses as of 03/23/2024) Immunizations Name Administration Dates Next Due COVID-19 [...] file Not on file Not on file COATING MANAGER Not on file Not on file Not on file SENIOR ADMINISTRATIVE ASSISTANT Not on file Not on file Not on file conroy - electric Not on file Not on file Not on edu e documented as of this encounter Progress Notes * Noelle Mena, [facility] - 03/23/2024 12:54 PM EST Images from the original note were not included. Medication Therapy Disease Management Clinic - Diabetes Management Progress Note Chet Winheavenly Darling., identified by name and date of , is a 73 year old male being seen for diabetes management/education. Patient presents for return diabetic visit. DIABETES: Current diabetic medications: Metformin ER 500mg twice daily RESTART: Lantus 22 units daily in the morning [...] LDL less than 55 mg/dL? No: repeat FLP tomorrow; consider rosuvastatin 20 mg daily HEALTH MAINTENANCE REVIEW: Health Maintenance Due Topic Date Due COVID-19 Vaccine ( season) 2023 HbA1c 01/12/2024 ASSESSMENT & PLAN: ICD-10-CM 1. Type 2 diabetes mellitus with hemoglobin A1c goal of less than 7.5% (HCC) E11.9 2. Mixed hyperlipidemia E78.2 Considerations: - hx of acute pancreatitis + flare up after Jardiance use - AVOID use of SGLT2s and GLPs - , Leandra, accompanies to appts - metformin dose limited by tolerability BG Readings - Blood sugars uncontrolled. Reviewed with patient that BG levels of 80 and 90 do not require him to eat/correct. Reviewed that his BG is averaging 223 and this can lead to eye damage etc. Encouraged patient to not correct blood sugar until/unless it drops into the 70s. Medications - Reviewed current regimen, patient is adherent to regimen. Still struggling with tolerating metformin. Will try off of it for 2 weeks, if no resolution of diarrhea, return to 2 tablets daily. If some or all resolution of diarrhea, then patient should restart 1 tablet of metformin only and keep MTM posted. Will increase lantus and novolog dosing. Will check FLP tomorrow and consider increasing statin to target LDL less than 55 Diet, Exercise, Lifestyle - encouraged patient to incorporate protein in his meals . Discussed withpatient . Patient is agreeable to SMBG with dexcom g7 daily. Patient aware to contact clinic if any hypoglycemia before next visit. MEDICATION CHANGES: yes, see below; preferred pharmacy[facility] Diabetic Medications: HOLD Metformin ER 500mg twice daily INC: Lantus 26 units daily in the morning INC Novolog 13 units before breakfast, 4 units with lunch and 11 units before supper + 2 units withsnacks + CF 1:30 over 150 [see chart at bottom of MTM note] eGFR >90 as of 07/13/2023 HEALTH MAINTENANCE INTERVENTIONS: Labs: Ordered & Scheduled: HgA1c and Lipid Panel Immunizations: Up to Date Foot Exam: Up to Date Eye Exam: Up to Date Annual Wellness Visit: Up to Date FOLLOW UP: Return to clinic in 6 weeks 05/06/2024 I spent a total of 30-39 minutes (exact time 36 mins) on the date of service in preparation, delivery, and documentation of the care provided to Chet Cannon Sr. excluding any time spent in the performance of separately billed services. Noelle Mena RPh Clinical Pharmacist - Digital Retoucher Medication Therapy Management Clinic 03/23/2024, 12:54 PM 03/23/24 Fast Acting Insulin: Novolog To find insulin [...] of fast acting insulin Blood Sugar levels AM Meal Lunch PM Meal No food, but sugar is high 70 to 149 13 4 11 2 150 to 179 13 4 11 2 180 to 209 14 5 12 3 210 to 239 15 6 13 4 240 to 269 16 7 14 5 270 to 299 17 8 15 6 300 to 329 18 9 16 7 330 to 359 19 10 17 8 360 to 389 20 11 18 9 390 to 419 21 12 19 10 420 and higher 22 13 20 11 Parameters fixed 13 4 11 2 rafia 30 over 150 documented in this encounter Plan of Treatment Upcoming Encounters Date Type Department Care Team (Late st Contact Info) Description 04/05/2024 9:40 AM EST Office Visit Podiatry [facility] [address] [place] [address] Saloni Thomas DPJoselin [address] [place] [address] 05/06/2024 11:20 AM EST Office Visit Pharmacy, [facility] [address] [facility] [place] [phone] [facility] [address] [place], [place] [address] [address] 07/19/2024 10:00 AM EDT Nurse Only Ancillary [facility] [place] [address] [facility] [place] [address] Angela Nurse Annual Wellness [facility] [address] [facility] [place] [address] 07/26/2024 11:30 AM EDT Office Visit Cardiology, [facility] [address] [facility] [place] [address] Nando Roach MD [address] [facility] [place] [address] 12/07/2024 4:00 PM EDT Office Visit General Internal Medicine [facility] [place] [address] [place] [address] Artur Chambers MD [address] [facility] [place] [address] Scheduled Orders Name Type Priority Associated Diagnoses Orde r Schedule HEMOGLOBIN A1C Lab Routine Type 2 diabetes mellitus with hemoglobin A1c goal of less than 7.5% (HCC) Expected: 03/24/2024 (Approximate), Expires: 03/23/2025 LIPID PANEL WITH DIRECT LDL IF TG IS HIGH Lab Routine Type 2 diabetes mellitus with hemoglobin A1c goal of less than 7.5% (HCC) Mixed hyperlipidemia Expected: 03/24/2024 (Approximate), Expires: 03/23/2025 Scheduled Procedures Name Priority Associated Diagnoses Date/Ti [...] goal of less than 7.5% (HCC)- Primary Mixed hyperlipidemia documented in this encounter Advance [...] Advance Directives occurred with: Patient Care Teams Engineer Chief Relationship Specialty Start Date End Date Artur Chambers MD [address] [place] [address] PCP - General Internal Medicine 07/06/12 documented as of this encounter
--- OUTSIDE RECORDS SUMMARY | 2024-06-09 10:27 | External Medical Summary | Summary of Care ---
Author Name Unknown Organization [facility] Address [address] [place] [address] Phone [phone] Care Team Providers Care Php Programmer Name Role Phone Artur Chambers MD Primary Care Provider + Reason for Visit * Reason Comments Dosage Adjustment In Person (Anticoag Cl inic) Diabetes Management Encounter Details Date Type Department Care Team (Late st Contact Info) Description 01/28/2024 2:30 PM EDT Office Visit Pharmacy, [place] [address] [place] [address] [facility] [address] [place] [address] Type 2 diabetes mellitus with hemoglobin A1c goal of less than 7.5% ([facility])* Allergies Active Allergy Reactions Criticality Noted Date Comments Adhesive Tape 08/15/2003 Hydrochlorothiazide Other (Please comment) 05/2012 pancreatitis Canagliflozin Other (Please comment) 03/22/2019 Pancreatitis Empagliflozin 01/02/2022 pancreatitis documented as of this encounter (statuses as of 01/28/2024) Medications Medication Sig Dispensed Refills Start Date [...] daily. 30 Tab 08/27/2017 Active Saline Nasal [place] 0.65 % Nasal Solution Administer 2 Sprays into each nostril as needed for Congestion. for nasal dryness or congestion 1 Bottle 5 11/04/2018 Active aspirin enteric coated 81 MG TBEC Take 1 Tablet by mouth in the morning. Taking 325 mg for one week. 12/29/2018 Active Textronics Ultra 2 w/Device Kit Use to test blood sugars once daily 1 Each 12/12/2020 Active [employer]ronics UltraSoft Lancets Use to test blood sugars once daily 100 Each 3 05/21/2021 Active [employer]ronics Ultra Blue In Vitro Strip (Glucose Blood)Indications:Ty [...] 7.5% (HCC) Take 1 Tablet by mouth 2 times [...] Active Rosuvastatin Calcium 10 MG Oral Tablet (Crestor)Indications :Mixed hyperlipidemia TAKE ONE TABLET BY MOUTH EVERY DAY IN THE MORNING 100 Tablet 2 01/11/2024 Active documented as of this encounter (statuses as of 01/28/2024) Active Problems Problem Noted Date Diagnosed Date [...] deficiency 02/22/2018 Coronary artery disease invo lving b[place] coronary artery of [place] heart without angina pectoris 08/20/2017 Type 2 diabetes mellitus wit h hemoglobin A1c goal of less than 7.5% 08/20/2017 H/O acute pancreatitis 02/20/2017 HTN, goal below 140/90 06/11/2015 Overview: Per HTN Protocol #27. Nonallergic rhinitis 04/08/2015 Old myocardial infarct 09/24/2007 Aortocoronary bypass status 07/19/2003 documented as of this encounter (statuses as of 01/28/2024) Resolved Problems Problem Noted Date Diagnosed Date [...] Renamed Per Clinical Trials Billing Project. PROJECT: #[id number], COMPOSER TEACHING ARTIST: Fabrizio Moses MD SUMMARY: Patients with CHD are randomized to darapladib (Lp-PLA2 inhibitor) or placebo in addition to standard of care medications to evaluate incidence of major coronary events. CONTACTS: During normal business hours, contact Clincal Research Coordinator at appropriate clinic location, after hours on-call Clinical Research Coordinator via the [facility] [place] hospital production machine operator ([phone]). The study sponsor can be reached at: Stability Clinical Trial [id number] 10/13/2008 05/07/2012 Overview: Renamed Per Clinical Trials Billing Project. PROJECT: #[id number], COMPOSER TEACHING ARTIST: Fabrizio Moses MD SUMMARY: Patients with CHD are randomized to darapladib (Lp-PLA2 inhibitor) or placebo in addition to standard of care medications to evaluate incidence of major coronary events. CONTACTS: During normal business hours, contact Clincal Research Coordinator at appropriate clinic location, after hours on-call Clinical Research Coordinator via the [facility] hospital production machine operator ([phone]). The study sponsor can be reached at: [...] as of this encounter (statuses as of 01/28/2024) Immunizations Name Administration Dates Next Due COVID-19 [...] as of this encounter Progress Notes * Lynsey Benoit, [facility] - 01/28/2024 2:28 PM EDT Images from the original note were not included. Medication Therapy Disease Management [facility] - Diabetes Management Progress Note Chet Cannon Sr., identified by name and date of , is a 73 year old male being seen for diabetes management/education. Patient presents for return diabetic visit. DIABETES: Current diabetic medications: Metformin ER 500mg twice daily Lantus 22 units daily in the morning - Patient is taking 20 units Novolog 13 units before breakfast, 4 units with lunch and 11 units before supper + 2 units with snacks + CF 1:40 over 150 [see chart at bottom of MTM note] eGFR >90 as of 07/13/2023 Medication Injection Site: Abdomen Lifestyle: Diet: unchanged Glucose Review/SMBG: Readings obtained from patient device Hypoglycemia: Does your blood sugar go below 70 mg/dL? No, 83 was the lowest. Does Feel low at about 100 and considers lows to be 80-90. Advised that a technical true low is less than 70. Hyperglycemia symptoms present: none Recent Labs Units [...] patient LDL less than 55 mg/dL? No: Plan to increase statin at next appontment HEALTH MAINTENANCE REVIEW: Health Maintenance Due Topic Date Due COVID-19 Vaccine ( season) 2023 HbA1c 01/12/2024 ASSESSMENT & PLAN: ICD-10-CM 1. Type 2 diabetes mellitus with hemoglobin A1c goal of less than 7.5% ([facility]) E11.9 Considerations: - hx of acute pancreatitis + flare up after Jardiance use - AVOID use of SGLT2s and GLPs - , Leandra, accompanies to appts - metformin dose limited by tolerability BG Readings - Blood sugars uncontrolled. Patient had a steroid knee injection on 12/29. Right after the MTM appointment on 12/16 his numbers were in a controlled range. Since getting the injection he has been seeing high numbers. He also states that he has not been as active and is under a decent amount of stress with a recent in the family. States that when he is in the 90s or 80s he will 'correct' as he does not like to feel low. Follow up with correction techniques at next appointment. Medications - Reviewed current regimen, patient is semi adherent to regimen. Patient takes his medications as instructed and does not miss doses. However, he thought that his Lantus dose was set at 20 units. Advised him to increase his lantus dose to 22 units and to let us know if the blood sugars do not come down. Diet, Exercise, Lifestyle - No significant lifestyle changes since last visit. Patient is agreeable to SMBG daily with Dexcom Patient aware to contact clinic if any hypoglycemia before next visit. MEDICATION CHANGES: No Diabetic Medications: Metformin ER 500mg twice daily RESTART: Lantus 22 units daily in the morning Novolog 13 units before breakfast, 4 units with lunch and 11 units before supper + 2 units with snacks + CF 1:40 over 150 [see chart at bottom of MTM note] eGFR >90 as of 07/13/2023 HEALTH MAINTENANCE INTERVENTIONS: Labs: Plan for POC A1c at next visit Immunizations: Due for covid Foot Exam: Up to Date Eye Exam: Up to Date Annual Wellness Visit: Up to Date FOLLOW UP: Return to clinic in 8 weeks 03/23/2024 I spent a total of 30-39 minutes (exact time 32 mins) on the date of service in preparation, delivery, and documentation of the care provided to Chet Cannon Sr. excluding any time spent in the performance of separately billed services. Lynsey Benoit RPh Clinical Pharmacist - Developer Relations Manager Medication Therapy Management [facility] 01/28/2024, 2:29 PM ###### Fast Acting Insulin: Novolog Blood Sugar levels Am meal Lunch PM Meal No Food 30 to 69 11 2 9 0 70 to 109 12 3 10 1 110 to 149 13 4 11 2 150 to 189 13 4 11 2 190 to 229 14 5 12 3 230 to 269 15 6 13 4 270 to 309 16 7 14 5 310 to 349 17 8 15 6 350 to 389 18 9 16 7 390 to 429 19 10 17 8 430 to 469 20 11 18 9 470 to 509 21 12 19 10 510 to 549 22 13 20 11 550 to 589 23 14 21 12 590 to 629 24 15 22 13 630 to 669 25 16 23 14 670 to 709 26 17 24 15 710 to 749 27 18 25 16 750 to 789 28 19 26 17 790 to 829 29 20 27 18 830 to 869 30 21 28 19 870 to 909 31 22 29 20 910 to 949 32 23 30 21 950 to 989 33 24 31 22 Parameters fixed 13 4 11 2 rafia 40 over 150 documented in this encounter Plan of Treatment Upcoming Encounters Date Type Department Care Team (Late st Contact Info) Description 03/02/2024 12:00 PM EST Office Visit [facility] Internal [facility] [place] [address] [place] [address] Artur Chambers MD [address] [place] [address] 03/23/2024 1:00 PM EST Office Visit Pharmacy, [address] [address] [facility] [address] [place] [address] 04/05/2024 9:40 AM EST Office Visit Podiatry [facility] [address] [place] [address] Saloni Thomas DPM [address] [place] [address] 07/19/2024 10:00 AM EDT Nurse Only Ancillary [facility] [address] [place] [address] Angela, Nurse Annual Wellness [facility] [address] [place] [address] 07/26/2024 11:30 AM EDT Office Visit Cardiology, [facility] [address] [place] [address] Nando Roach MD 132 [facility] [place] [address] Scheduled Procedures Name Priority Associated Diagnoses Date/Ti [...] goal of less than 7.5% (HCC)- Primary documented in this encounter Advance Directives [...] Advance Directives occurred with: Patient Care Teams Php Programmer Relationship Specialty Start Date End Date Artur Chambers MD [address] [place] [address] PCP - General Internal Medicine 07/06/12 documented as of this encounter
--- OUTSIDE RECORDS SUMMARY | 2024-06-09 10:27 | External Medical Summary | Summary of Care ---
Author Name Unknown Organization [facility] Address [address] [place] [address] Phone [phone] Care Team Providers Care Emergency Room Rn Name Role Phone Artur Chambers MD Primary Care Provider + Encounter Details Date Type Department Care Team (Late st Contact Info) Description 03/08/2024 Orders Only PATIENT PORTAL DO NOT DELETE THIS DEPT USED BY [place]OPE[place] [id number] Allergies Active Allergy Reactions Criticality Noted Date Comments Adhesive Tape 08/15/2003 Hydrochlorothiazide Other (Please comment) 05/2012 pancreatitis Canagliflozin Other (Please comment) 03/22/2019 Pancreatitis Empagliflozin 01/02/2022 pancreatitis documented as of this encounter (statuses as of 03/08/2024) Medications MULTIVITAMIN TABS OR one pill each [...] 30 Tab 08/28/19 18 Active Saline Nasal [place] 0.65 % Nasal Solution Administer 2 Sprays into each nostril as needed for Congestion. for nasal dryness or congestion 1 Bottle 5 11/05/19 19 Active aspirin enteric coated 81 MG TBEC Take 1 Tablet by mouth in the morning. Taking 325 mg for one week. 12/30/19 19 Active [employer] Ultra 2 w/Device Kit Use to test blood sugars once daily 1 Each 12/13/19 21 Active [employer] UltraSoft Lancets Use to test blood sugars once daily 100 Each 3 05/21/19 22 Active [employer] Ultra Blue In Vitro Strip (Glucose Blood)Indications: [...] Tablet 3 01/29/2024 9:31 AM EDT 07/16/19 24 Active PreserVision AREDS 2+Multi Vit Oral Capsule [...] as of this encounter (statuses as of 03/08/2024) Active Problems Problem Noted Date Diagnosed Date [...] deficiency 02/22/2018 Coronary artery disease invo lving [place] coronary artery of [place] heart without angina pectoris 08/20/2017 Type 2 diabetes mellitus wit h hemoglobin A1c goal of less than 7.5% 08/20/2017 H/O acute pancreatitis 02/20/2017 HTN, goal below 140/90 06/11/2015 Overview: Per HTN Protocol #27. Nonallergic rhinitis 04/08/2015 Old myocardial infarct 09/24/2007 Aortocoronary bypass status 07/19/2003 documented as of this encounter (statuses as of 03/08/2024) Resolved Problems Problem Noted Date Diagnosed Date [...] Diabetes Taxonomy. ICD-10 update of inactive term [facility] Research Study [id number] - Dr. Moses 10/13/2008 07/20/2009 Overview (07/20/2009): Renamed Per Clinical Trials Billing Project. PROJECT: #[id number], DEBONING TEAM LEADER: Fabrizio Moses MD SUMMARY: Patients with CHD are randomized to darapladib (Lp-PLA2 inhibitor) or placebo in addition to standard of care medications to evaluate incidence of major coronary events. CONTACTS: During normal business hours, contact Clincal Research Coordinator at appropriate clinic location, after hours on-call Clinical Research Coordinator via the [facility] [place] ultrasonic welding machine operator ([phone]). The study sponsor can be reached at: [facility] Clinical Trial [id number] 10/13/2008 05/07/2012 Overview (07/20/2009): Renamed Per Clinical Trials Billing Project. PROJECT: #[id number], DEBONING TEAM LEADER: Fabrizio Moses MD SUMMARY: Patients with CHD are randomized to darapladib (Lp-PLA2 inhibitor) or placebo in addition to standard of care medications to evaluate incidence of major coronary events. CONTACTS: During normal business hours, contact Clincal Research Coordinator at appropriate clinic location, after hours on-call Clinical Research Coordinator via the [facility] hospital ultrasonic welding machine operator ([phone]). The study sponsor can be reached at: [...] as of this encounter (statuses as of 03/08/2024) Immunizations Name Administration Dates Next Due COVID-19 [...] file Not on file Not on file SIGHTSEEING GUIDE Not on file Not on file Not on file CLINICAL QUALITY MANAGER Not on file Not on file Not on file conroy - electric Not on file Not on file Not on edu e documented as of this encounter Plan of Treatment Upcoming Encounters Date Type Department Care Team (Late st Contact Info) Description 03/23/2024 1:00 PM EST [facility] [address] [facility] [phone] [facility] [address] [facility] [address] 04/05/2024 9:40 AM EST Office Visit Podiatry [facility] [address] [facility] [place] [address] Saloni Thomas DPM 132 [facility] [place] [address] 07/19/2024 10:00 AM EDT Nurse Only Ancillary [place] [address] [place] [address] Angela Nurse Annual Well[facility] [address] [place] [address] 07/26/2024 11:30 AM EDT Office Visit Cardiology, [facility] [address] [place] [address] Nando Roach MD [address] [place] [address] 12/07/2024 4:00 PM EDT Office Visit General Internal Medicine [facility] [address] [facility] [place] [address] Artur Chambers MD 200 [facility] [place] [address] Scheduled Procedures Name Priority Associated Diagnoses Date/Ti me COLONOSCOPY FLEXIBLE PROXIMA L DIAGNOSTIC Recall Family history of colon cancer Health Maintenance Due Date Last Done Comments Cologuard 07/28/1996 Fecal Occult Blood Test 07/28/1996 Sigmoidoscopy 07/28/1996 COVID-19 Vaccine ( season) 2023 01/30/2023, 02/18/2022, 02/20/2021, Additional history exists HbA1c 01/12/2024 07/13/2023, 100 12/2022, 07/09/2022, Additional history exists Albumin/Creatinine Ratio [...] Advance Directives occurred with: Patient Care Teams Emergency Room Rn Relationship Specialty Start Date End Date Artur Chambers MD [address] [place] [address] PCP - General Internal Medicine 07/06/12 documented as of this encounter
--- OUTSIDE RECORDS SUMMARY | 2024-06-09 10:27 | External Medical Summary | Summary of Care ---
Author Name Unknown Organization [facility] Address [address] [place] [address] Phone [phone] Care Team Providers Care Electrifier Operator Name Role Phone Artur Chambers MD Primary Care Provider + Reason for Visit * Reason Comments Re-Check Encounter Details Date Type Department Care Team (Latest Contact Info) Description 03/02/2024 12:00 PM EST Office Visit General Internal Medicine [facility] [address] [place] [address] Artur Chambers MD [address] [place] [address] HTN, goal below 140/90*; Both eyes affected by mild nonproliferative diabetic retinopathy with macular edema, associated with type 2 diabetes mellitus (HCC); Mixed hyperlipidemia; Type 2 diabetes mellitus with hemoglobin A1c goal of less than 7.5% ([facility]); Type 2 diabetes mellitus with both eyes affected by mild nonproliferative retinopathy without macular edema, with long-term current use of insulin (HCC); Vitamin B12 deficiency; Screening for prostate cancer Allergies Active Allergy Reactions Criticality Noted Date Comments Adhesive Tape 08/15/2003 Hydrochlorothiazide Other (Please comment) 05/2012 pancreatitis Canagliflozin Other (Please comment) 03/22/2019 Pancreatitis Empagliflozin 01/02/2022 pancreatitis documented as of this encounter (statuses as of 03/02/2024) Medications MULTIVITAMIN TABS OR one pill each [...] 30 Tab 08/28/19 18 Active Saline Nasal [place] 0.65 % Nasal Solution Administer 2 Sprays into each nostril as needed for Congestion. for nasal dryness or congestion 1 Bottle 5 11/05/19 19 Active aspirin enteric coated 81 MG TBEC Take 1 Tablet by mouth in the morning. Taking 325 mg for one week. 12/30/19 19 Active Antria Ultra 2 w/Device Kit Use to test blood sugars once daily 1 Each 12/13/19 21 Active Samuels Sleepuch UltraSoft Lancets Use to test blood sugars once daily 100 Each 3 05/21/19 22 Active Samuels Sleepuch Ultra Blue In Vitro Strip (Glucose Blood)Indications: [...] as of this encounter (statuses as of 03/02/2024) Active Problems Problem Noted Date Diagnosed Date [...] deficiency 02/22/2018 Coronary artery disease invo lving [place] coronary artery of [place] heart without angina pectoris 08/20/2017 Type 2 diabetes mellitus wit h hemoglobin A1c goal of less than 7.5% 08/20/2017 H/O acute pancreatitis 02/20/2017 HTN, goal below 140/90 06/11/2015 Overview: Per HTN Protocol #27. Nonallergic rhinitis 04/08/2015 Old myocardial infarct 09/24/2007 Aortocoronary bypass status 07/19/2003 documented as of this encounter (statuses as of 03/02/2024) Resolved Problems Problem Noted Date Diagnosed Date [...] Renamed Per Clinical Trials Billing Project. PROJECT: #[id number], CATALYST CONCENTRATION OPERATOR: Fabrizio Moses MD SUMMARY: Patients with CHD are randomized to darapladib (Lp-PLA2 inhibitor) or placebo in addition to standard of care medications to evaluate incidence of major coronary events. CONTACTS: During normal business hours, contact Clincal Research Coordinator at appropriate clinic location, after hours on-call Clinical Research Coordinator via the [facility] hospital coder operator ([phone]). The study sponsor can be reached at: [facility] Clinical Trial [id number] 10/13/2008 05/07/2012 Overview (07/20/2009): Renamed Per Clinical Trials Billing Project. PROJECT: #[id number], CATALYST CONCENTRATION OPERATOR: Fabrizio Moses MD SUMMARY: Patients with CHD are randomized to darapladib (Lp-PLA2 inhibitor) or placebo in addition to standard of care medications to evaluate incidence of major coronary events. CONTACTS: During normal business hours, contact Clincal Research Coordinator at appropriate clinic location, after hours on-call Clinical Research Coordinator via the [facility] hospital coder operator ([phone]). 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 Not on file Not on file Not on edu e documented as of this encounter Last Filed Vital Signs Vital Sign Reading Time Taken Comments Blood Pressure 132/58 03/02/2024 11:47 AM EST Pulse 80 03/02/2024 11:47 AM EST Temperature 35.8 C (96.5 F) 03/02/2024 1 1:47 AM EST Respiratory Rate - - Oxygen Saturation 96% 03/02/2024 11: 47 AM EST Inhaled Oxygen Concentration - - Weight 84.3 kg (185 lb 12.8 oz) 024 11:47 AM EST Height 167.6 cm (5' 5.98") 03/02/2024 1 1:47 AM EST Body Mass Index 30 03/02/2024 11:47 AM EST documented in this encounter Progress Notes * Artur Chambers MD - 03/02/2024 12:05 PM EST Chief Complaint Patient presents with Re-Check SUBJECTIVE: Chet Cannon SrDora is a 73 year old male with PMH as below who presents for f/u HTN, lipids, DM. No cp, sob ,durán, feels good. Sugars stable, working with mtm on this. No n/v/d. Mood is good. 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 Nonallergic rhinitis HTN, goal below 140/90 H/O acute pancreatitis Coronary artery disease involving [place] coronary artery of [place] heart without angina pectoris Type 2 diabetes mellitus with hemoglobin A1c goal of less than 7.5% (HCC) Vitamin B12 deficiency Mixed hyperlipidemia Gastroesophageal reflux disease without esophagitis Diastolic dysfunction Fatty liver Cyst of left kidney Both eyes affected by mild nonproliferative diabetic retinopathy with macular edema, associated with type 2 diabetes mellitus (HCC) Type 2 diabetes mellitus with mild nonproliferative retinopathy of both eyes without macular edema (HCC) Encounter for long-term (current) insulin use (HCC) Chronic diastolic heart failure (HCC) Presence of aortocoronary bypass graft Current Outpatient Medications Medication Sig Dispense Refill MULTIVITAMIN TABS OR one pill each day 0 NITROGLYCERIN 0.4 MG SL SUBL 1 Q 5 min as needed with chest pain up to 3 doses in 15 minutes 25 11 Cyanocobalamin ER (VITAMIN B12 TR) 1000 MCG TBCR Take 1 Tab by mouth daily. 30 Tab 0 aspirin enteric coated 81 MG TBEC Take 1 Tablet by mouth in the morning. Taking 325 mg for one week. Loratadine 10 MG Oral Tablet (Claritin) Take 1 Tablet by mouth at bedtime. Insulin Glargine Solostar 100 UNIT/ML Subcutaneous Solution Pen-injector (Lantus SoloStar) Inject 30 Units under the skin daily. 30 mL 3 metFORMIN HCl ER 500 MG Oral Tablet Extended Release 24 Hour (Glucophage XR) Take 1 Tablet by mouth2 times a day with morning and evening meals. Dose decrease 180 Tablet 3 Fluticasone Propionate 50 MCG/ACT Nasal Suspension (Flonase) [...] cut, crush, or chew. 50 Capsule 1 Co Q-10 30 MG Oral Capsule Take by mouth. Saline Nasal [place] 0.65 % Nasal Solution Administer 2 Sprays into each nostril as needed for Congestion. for nasal dryness or congestion 1 Bottle 5 Stratus5Touch Ultra 2 w/Device Kit Use to test blood sugars once daily 1 Each 0 Stratus5Touch UltraSoft Lancets Use to test blood sugars once daily 100 Each 3 Stratus5Touch Ultra Blue In Vitro Strip (Glucose Blood) USE TO CHECK BLOOD SUGARS 3 TIMES PER DAY 300 Strip 3 Insulin Pen Needle 32G X 4 MM USE up to 4 times daily TO INJECT INSULIN 400 Each 3 NovoLOG FlexPen 100 UNIT/ML Subcutaneous Solution Pen-injector (insulin aspart) Inject 16 units Before breakfast and 10 units before supper (Patient taking differently: Novolog 16 units before breakfast, 4 units with lunch and 10 units before supper + CF 1:50 over 150 [see chart at bottom of [facility] note 07/16/23]) 30 mL 3 PreserVision AREDS 2+Multi Vit Oral Capsule Take by mouth. Ventolin HFA 108 (90 Base) MCG/ACT Inhalation Aerosol Solution Inhale 2 Puffs by mouth every 4 hours as needed for Wheezing. 54 g 0 Rosuvastatin Calcium 10 MG Oral Tablet (Crestor) TAKE ONE TABLET BY MOUTH EVERY DAY IN THE MORNING 100 Tablet 2 No current facility-administered medications for this visit. Review of patient's allergies indicates: Allergen Reactions Adhesive Tape Hydrochlorothiazide Other (Please comment) pancreatitis Invokana [Canagliflozin] Other (Please comment) Pancreatitis Jardiance [Empagliflozin] pancreatitis Health Maintenance Due Topic Date Due COVID-19 Vaccine ( season) 2023 HbA1c 01/12/2024 ROS: CONSTITUTIONAL: No weakness, No fatigue, and No fevers, sweats, or chills PULMONARY: No cough, sputum, or hemoptysis, No wheezing, No rales, No shortness of breath, and No recent change in breathing CARDIOVASCULAR: No chest pain, No shortness of breath, No dyspnea on exertion, No orthopnea, No paroxysmal nocturnal dyspnea, No edema, No palpitations, and No syncope GASTROINTESTINAL: No abdominal pain, No change in bowel habits, No significant heartburn, No significant change in appetite, No nausea, vomiting, diarrhea, or constipation, No hematemesis, No blood in stools or black tarry stools, No abdominal bloating or early satiety, and No dysphagia ALL OTHER SYSTEMS NEGATIVE I reviewed social, PMH, PSH, and family history and updated where needed. 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: [employer] Occupation: [employer] Tobacco Use Smoking status: Never Smokeless tobacco: Former Types: Snuff Quit date: 09/26/2003 Tobacco comments: snuff-many years not since June 16, 2003 Vaping Use Vaping status: Never Used Substance and Sexual Activity Alcohol use: Not Currently Drug use: No Sexual activity: Yes Other Topics Concern Service Not Asked Blood Transfusions Yes Comment: 2003 Caffeine Concern Not Asked Occupational Exposure Not Asked Hobby Hazards Not Asked Sleep Concern Not Asked Stress Concern Not Asked Weight Concern Not Asked Special Diet Not Asked Back Care Not Asked Exercise Not Asked Bike Helmet Not Asked Seat Belt Not Asked Self-Exams Not Asked Social History Narrative Lives with Leandra, 53 years.. 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 Social Needs Financial Resource Strain: Not on file Food Insecurity: No Food Insecurity (07/09/2022) Hunger Vital Sign Worried About Running Out of Food in the Last Year: Never true Ran Out of Food in the Last Year: Never true Transportation Needs: Not on file Social Connections: Not on file Housing Stability: Not on file Past Medical History: Diagnosis Date Acute pancreatitis [...] FLANK performed by Madan Valera MD at [facility] CABG, ARTERY-VEIN, TWO 06/30/2003 Off-pump cab x 2 - [place] COLONOSCOPY, DIAGNOSTIC (RECTUM) 03/25/2018 COLONOSCOPY FLEXIBLE PROXIMAL DIAGNOSTIC performed by Madan Valera MD at [facility] COLORECTAL CANCER SCREEN; COLON 10/13/2007 wnl, repeat in 5 yrs COLORECTAL CANCER SCREEN; COLON 03/08/2013 COLONOSCOPY CA SCRN HI RISK performed by Madan Valera MD at [facility] EGD, FLEXIBLE, DIAGNOSTIC 11/28/2013 mild inflammation/ESOPHAGOGASTRODUODENOSCOPY (EGD), FLEXIBLE, TRANSORAL, DIAGNOSTIC performed by Gabriela Verde DO at [facility] EGD, FLEXIBLE, DIAGNOSTIC 08/07/2015 [facility] EGD, FLEXIBLE, DIAGNOSTIC 02/09/2018 hiatal hernia/ESOPHAGOGASTRODUODENOSCOPY (EGD), FLEXIBLE, TRANSORAL, DIAGNOSTIC performed by Rukhsana Verde DO at [facility] EGD, FLEXIBLE, DIAGNOSTIC 04/20/2019 normal / ESOPHAGOGASTRODUODENOSCOPY (EGD), FLEXIBLE, TRANSORAL, DIAGNOSTIC performed by Gabriela Verde DO at [facility] EGD, FLEXIBLE, W/BIOPSY 02/27/2009 Dr. Valera - chronic inflammatory changes - 02/27/2009 Dr. Valera EGD, FLEXIBLE,W/ENDOSCOPIC US 05/18/2020 gastritis, gastric polyp, CBD sludge & dilation / [facility] EGD, W/ENDOSCOPIC US 12/17/2011 UPPER GI ENDOSCOPY ENDOSCOPIC ULTRASOUND performed by Gabriela Verde DO at [facility] EGD, W/ENDOSCOPIC US 04/16/2012 UPPER GI ENDOSCOPY ENDOSCOPIC ULTRASOUND performed by Gabriela Verde DO at [facility]--no specific changes noted on biopsies EGD, W/ENDOSCOPIC US 04/20/2019 fatty liver / ESOPHAGOGASTRODUODENOSCOPY (EGD), FLEXIBLE, TRANSORAL, ENDOSCOPIC ULTRASOUND performed by Gabriela Verde DO at [facility] ERCP 09/30/2019 biliary sludge / [facility] ERCP 05/18/2020 normal / [facility] ERCP, DIAGNOSTIC, SPECIMEN COLLECTION 04/20/2019 ENDOSCOPIC RETROGRADE CHOLANGIOPANCREATOGRAPHY (ERCP) DIAGNOSTIC performed by Gabriela Verde DO at [facility] ERCP, DIAGNOSTIC, SPECIMEN COLLECTION N/A 06/27/2020 ENDOSCOPIC RETROGRADE CHOLANGIOPANCREATOGRAPHY (ERCP) DIAGNOSTIC performed by Jordan Townsend DO at[facility]OSCOPY [facility] ERCP, DIAGNOSTIC, SPECIMEN COLLECTION N/A 08/08/2020 ENDOSCOPIC RETROGRADE CHOLANGIOPANCREATOGRAPHY (ERCP) DIAGNOSTIC performed by Jordan Townsend DO atENDOSCOPY [facility] ERCP, DIAGNOSTIC, SPECIMEN COLLECTION N/A 08/31/2020 ENDOSCOPIC RETROGRADE CHOLANGIOPANCREATOGRAPHY (ERCP) DIAGNOSTIC performed by Jordan Townsend DO atENDOSCOPY [facility] FLUORO ERCP 01/06/2013 KNEE ARTHROSCOPY, DIAGNOSTIC 1995 Knee Scope,Diagnostic KNEE ARTHROSCOPY/ARTHROPLASTY Right 11/28/2019 KNEE ARTHROSCOPY/MENISCECTOMY Left 03/17/2022 LEFT ARTHROSCOPY KNEE MEDIAL OR LATERAL MENISCECTOMY performed by Christos Feliciano MD at [facility] LAPAROSCOPY; CHOLECYSTECTOMY Cholecystectomy, Laproscopic REPAIR INITIAL INGUINAL HERNIA REDUCIBLE AGE 5 OR MORE 05/14/2012 Repair of right indirect inguinal hernia with mesh 05/14/12 Dr. Valera at [facility] TENDON SHEATH INCISION, FINGER 09/05/2004 index and middle finger on left hand TENDON SHEATH INCISION, FINGER 1989 Dr. leos right right and little finger , left ring finger cyst UMBIL HERNIA REPAIR (INCARCERATED) AGE 5+YR 01/21/2016 repair of umbilical hernia and left indirect inguinal hernia [facility] Dr. Valera 01/21/16 Family History Problem Relation Name Age of Onset Cancer Brother colon-age 60 Diabetes Mother Cancer Father age 44 unknown type Eye Problems None Denies FH: AMD, glaucoma, RD's or Blindness Other (denies fh skin disease or melanoma) Other OBJECTIVE: PHYSICAL EXAM: BP 132/58 (BP Site: Left Arm, BP Position: Sitting, BP Cuff Size: Regular) | Pulse 80 | Temp 96.5 F (35.8 C) (Tympanic) | Ht 5' 5.98" (1.676 m) | Wt 185 lb 12.8 oz (84.3 kg) | SpO2 96% | BMI 30.00 kg/m | BSA 1.98 m General: alert, healthy, and no distress Head: Normocephalic, No masses, lesions, tenderness or abnormalities Eye Exam: conjunctiva are pink and non-injected, sclera clear Heart: regular rate & rhythm, no murmur, no gallops, PMI non-displaced, S-1 normal, and S-2 normal Lungs: normal respiratory rate and rhythm, lungs clear to auscultation Psych: normal affect, no flight of ideas or tangential thought, good eye contact, no pressured speech ASSESSMENT: (I10) HTN, goal below 140/90 (primary encounter diagnosis) (E11.3213) Both eyes affected by mild nonproliferative diabetic retinopathy with macular edema, associated with type 2 diabetes mellitus ([facility]) (E78.2) Mixed hyperlipidemia (E11.9) Type 2 diabetes mellitus with hemoglobin A1c goal of less than 7.5% ([facility]) (E11.3293, Z79.4) Type 2 diabetes mellitus with both eyes affected by mild nonproliferative retinopathy without macular edema, with long-term current use of insulin ([facility]) (E53.8) Vitamin B12 deficiency (Z12.5) Screening for prostate cancer PLAN: HTN, goal below 140/90 (Primary) Cont lisinopril, metoprolol Both eyes affected by mild nonproliferative diabetic retinopathy with macular edema, associated with type 2 diabetes mellitus ([facility]) Follow A1c Sees optho Mixed hyperlipidemia - LIPID PANEL WITH DIRECT LDL IF TG IS HIGH; Future; Expected date: 03/02/2024 - COMPREHENSIVE METABOLIC PANEL; Future; Expected date: 08/30/2024 - LIPID PANEL WITH DIRECT LDL IF TG IS HIGH; Future; Expected date: 08/30/2024 Cont crestor Labs soon and in 6 months Type 2 diabetes mellitus with hemoglobin A1c goal of less than 7.5% ([facility]) - HEMOGLOBIN A1C; Future; Expected date: 08/30/2024 - ALBUMIN / CREATININE RATIO, URINE; Future; Expected date: 08/30/2024 Cont metformin, insulin Await A1c Type 2 diabetes mellitus with both eyes affected by mild nonproliferative retinopathy without macular edema, with long-term current use of insulin (HCC) As above Vitamin B12 deficiency - VITAMIN B12; Future; Expected date: 08/30/2024 Screening for prostate cancer - PSA; Future; Expected date: 08/30/2024 Follow Up: Return in about 6 months (around 08/30/2024), or if symptoms worsen or fail to improve, for Fasting Labs Soon, Fasting Labs 2-5 Days Before Next Visit. | For: Fasting Labs Soon, Fasting Labs 2-5 Days Before Next Visit Artur Chambers MD documented in this encounter Nursing Notes * Shelbie Ma CMA - 03/02/2024 11:47 AM EST Chet Cannon Sr. presents for 6 month recheck. He denies any concerns at this time. Vaccine reconciliation completed. Medications & HM reviewed. documented in this encounter Plan of Treatment Upcoming Encounters Date Type Department Care Team (Late st Contact Info) Description 03/23/2024 1:00 PM EST [facility] [address] [facility] [phone] [facility] [address] [place] [address] [place] [address] 04/05/2024 9:40 AM EST Office Visit [facility] [address] [facility] [place] [address] Saloni Thomas DPM [address] [facility] [place] [address] 07/19/2024 10:00 AM EDT Nurse Only Ancillary [place] [place] [address] [place] [address] [place], Nurse Annual Wellness [facility] [address] [facility] [place] [address] 07/26/2024 11:30 AM EDT Office Visit Cardiology, [facility] [address] [place] [address] Nando Roach MD [address] [place] [address] 12/07/2024 4:00 PM EDT Office Visit General Internal Medicine [facility] [address] [facility] [place] [address] Artur Chambers MD [address] [facility] [place] [address] Scheduled Orders Name Type Priority Associated Diagnoses Orde r Schedule LIPID PANEL WITH DIRECT LDL IF TG IS HIGH Lab Routine Mixed hyperlipidemia Expected: 03/02/2024, Expires: 03/02/2025 COMPREHENSIVE METABOLIC PANEL Lab Routine Mixed hyperlipidemia Expected: 08/30/2024 (Approximate), Expires: 03/02/2025 LIPID PANEL WITH DIRECT LDL IF TG IS HIGH Lab Routine Mixed hyperlipidemia Expected: 08/30/2024, Expires: 03/02/2025 HEMOGLOBIN A1C Lab Routine Type 2 diabetes mellitus with hemoglobin A1c goal of less than 7.5% (HCC) Expected: 08/30/2024 (Approximate), Expires: 03/02/2025 PSA Lab Routine Screening for prostate cancer Expected: 08/30/2024 (Approximate), Expires: 03/02/2025 VITAMIN B12 Lab Routine Vitamin B12 deficiency Expected: 08/30/2024 (Approximate), Expires: 03/02/2025 ALBUMIN / CREATININE RATIO, URINE Lab Routine Type 2 diabetes mellitus with hemoglobin A1c goal of less than 7.5% (HCC) Expected: 08/30/2024 (Approximate), Expires: 03/02/2025 Scheduled Procedures Name Priority Associated Diagnoses Date/Ti [...] as of this encounter Visit Diagnoses Diagnosis HTN, goal below 140/90- Primary Unspecified essential hypertension Both eyes affected by mild nonproliferative diabetic retinopathy with macular edema, associated with type 2 diabetes mellitus (HCC) Mixed hyperlipidemia Type 2 diabetes mellitus with hemoglobin A1c goal of less than 7.5% (HCC) Type 2 diabetes mellitus with both eyes affected by mild nonproliferative retinopathy without macular edema, with long-term current use of insulin (HCC) Vitamin B12 deficiency Other B-complex deficiencies Screening for prostate cancer Special screening for malignant neoplasm of prostate documented in this encounter Advance Directives * [...] Advance Directives occurred with: Patient Care Teams Electrifier Operator Relationship Specialty Start Date End Date Artur Chambers MD [address] [place] [address] PCP - General Internal Medicine 07/06/12 documented as of this encounter
--- OUTSIDE RECORDS SUMMARY | 2024-06-09 10:27 | External Medical Summary | Summary of Care ---
Author Name Unknown Organization [facility] Address [address] [place] [address] Phone [phone] Care Team Providers Care [employer]ung[employer] Name Role Phone Artur Chambers MD Primary Care Provider + Reason for Visit * Reason Comments Diabetic Foot Care Encounter Details Date Type Department Care Team (Late st Contact Info) Description 12/29/2023 9:40 AM EDT Office Visit Podiatry [facility] [address] [facility] [place] [address] Saloni Thomas DPM [address] [place] [address] Encounter for other procedures for purposes other than remedying health state*; Onychomycosis; Type 2 diabetes mellitus with hemoglobin A1c goal of less than 7.5% ([facility]) Allergies Active Allergy Reactions Criticality Noted Date Comments Adhesive Tape 08/15/2003 Hydrochlorothiazide Other (Please comment) 05/2012 pancreatitis Canagliflozin Other (Please comment) 03/22/2019 Pancreatitis Empagliflozin 01/02/2022 pancreatitis documented as of this encounter (statuses as of 12/29/2023) Medications Medication Sig Dispensed Refills Start Date [...] daily. 30 Tab 08/27/2017 Active Saline Nasal [place] 0.65 % Nasal Solution Administer 2 Sprays into each nostril as needed for Congestion. for nasal dryness or congestion 1 Bottle 5 11/04/2018 Active aspirin enteric coated 81 MG TBEC Take 1 Tablet by mouth in the morning. Taking 325 mg for one week. 12/29/2018 Active eMeter Ultra 2 w/Device Kit Use to test blood sugars once daily 1 Each 12/12/2020 Active eMeter UltraSoft Lancets Use to test blood sugars once daily 100 Each 3 05/21/2021 Active eMeter Ultra Blue In Vitro Strip (Glucose Blood)Indications:Ty [...] MG Oral Capsule Take by mouth. Active documented as of this encounter (statuses as of 12/29/2023) Active Problems Problem Noted Date Diagnosed Date [...] deficiency 02/22/2018 Coronary artery disease invo lving nikolski coronary artery of nikolski heart without angina pectoris 08/20/2017 Type 2 diabetes mellitus wit h hemoglobin A1c goal of less than 7.5% 08/20/2017 H/O acute pancreatitis 02/20/2017 HTN, goal below 140/90 06/11/2015 Overview: Per HTN Protocol #27. Nonallergic rhinitis 04/08/2015 Old myocardial infarct 09/24/2007 Aortocoronary bypass status 07/19/2003 documented as of this encounter (statuses as of 12/29/2023) Resolved Problems Problem Noted Date Diagnosed Date [...] Diabetes Taxonomy. ICD-10 update of inactive term [facility] Research Study [id number] - Dr. Moses 10/13/2008 07/20/2009 Overview: Renamed Per Clinical Trials Billing Project. PROJECT: #[id number], ASSISTANT PASTRY CHEF: Fabrizio Moses MD SUMMARY: Patients with CHD are randomized to darapladib (Lp-PLA2 inhibitor) or placebo in addition to standard of care medications to evaluate incidence of major coronary events. CONTACTS: During normal business hours, contact Clincal Research Coordinator at appropriate clinic location, after hours on-call Clinical Research Coordinator via the [facility] hospital processing operator ([phone]). The study sponsor can be reached at: Stability Clinical Trial [id number] 10/13/2008 05/07/2012 Overview: Renamed Per Clinical Trials Billing Project. PROJECT: #[id number], ASSISTANT PASTRY CHEF: Fabrizio Moses MD SUMMARY: Patients with CHD are randomized to darapladib (Lp-PLA2 inhibitor) or placebo in addition to standard of care medications to evaluate incidence of major coronary events. CONTACTS: During normal business hours, contact Clincal Research Coordinator at appropriate clinic location, after hours on-call Clinical Research Coordinator via the [facility] hospital processing operator ([phone]). The study sponsor can be reached at: [...] as of this encounter (statuses as of 12/29/2023) Immunizations Name Administration Dates Next Due COVID-19 [...] of this encounter Progress Notes * Saloni Thomas, DOREEN - 12/29/2023 9:30 AM EDT Podiatry Established Patient Note [facility] Name: Chet Cannon Sr. : 1950 Date: 12/29/2023 CHIEF COMPLAINT: Diabetic Check/Nail Care HISTORY OF [...] performed by Madan Valera MD at OR [facility] CABG, ARTERY-VEIN, TWO 06/30/2003 Off-pump cab x 2 - [place] COLONOSCOPY, DIAGNOSTIC (RECTUM) 03/25/2018 COLONOSCOPY FLEXIBLE PROXIMAL DIAGNOSTIC performed by Madan Valera MD at ENDOSCOPY [facility] COLORECTAL CANCER SCREEN; COLON 10/13/2007 wnl, repeat in 5 yrs COLORECTAL CANCER SCREEN; COLON 03/08/2013 COLONOSCOPY CA SCRN HI RISK performed by Madan Valera MD at [facility] EGD, FLEXIBLE, DIAGNOSTIC 11/28/2013 mild inflammation/ESOPHAGOGASTRODUODENOSCOPY (EGD), FLEXIBLE, TRANSORAL, DIAGNOSTIC performed by Gabriela Verde DO at ENDOSCOPY [facility] EGD, FLEXIBLE, DIAGNOSTIC 08/07/2015 sm HH/[facility] EGD, FLEXIBLE, DIAGNOSTIC 02/09/2018 hiatal hernia/ESOPHAGOGASTRODUODENOSCOPY (EGD), FLEXIBLE, TRANSORAL, DIAGNOSTIC performed by Rukhsana Verde DO at ENDOSCOPY [facility] EGD, FLEXIBLE, DIAGNOSTIC 04/20/2019 normal / ESOPHAGOGASTRODUODENOSCOPY (EGD), FLEXIBLE, TRANSORAL, DIAGNOSTIC performed by Gabriela Verde DO at ENDOSCOPY [facility] EGD, FLEXIBLE, W/BIOPSY 02/27/2009 Dr. Valera - chronic inflammatory changes - 02/27/2009 Dr. Valera EGD, FLEXIBLE,W/ENDOSCOPIC US 05/18/2020 gastritis, gastric polyp, CBD sludge & dilation / [facility] EGD, W/ENDOSCOPIC US 12/17/2011 UPPER GI ENDOSCOPY ENDOSCOPIC ULTRASOUND performed by Gabriela Verde DO at [facility] EGD, W/ENDOSCOPIC US 04/16/2012 UPPER GI ENDOSCOPY ENDOSCOPIC ULTRASOUND performed by Gabriela Verde DO at [facility]--no specific changes noted on biopsies EGD, W/ENDOSCOPIC US 04/20/2019 fatty liver / ESOPHAGOGASTRODUODENOSCOPY (EGD), FLEXIBLE, TRANSORAL, ENDOSCOPIC ULTRASOUND performed by Gabriela Verde DO at ENDOSCOPY [facility] ERCP 09/30/2019 biliary sludge / [facility] ERCP 05/18/2020 normal / [facility] ERCP, DIAGNOSTIC, SPECIMEN COLLECTION 04/20/2019 ENDOSCOPIC RETROGRADE CHOLANGIOPANCREATOGRAPHY (ERCP) DIAGNOSTIC performed by Gabriela Verde DO at ENDOSCOPY [facility] ERCP, DIAGNOSTIC, SPECIMEN COLLECTION N/A 06/27/2020 ENDOSCOPIC RETROGRADE CHOLANGIOPANCREATOGRAPHY (ERCP) DIAGNOSTIC performed by Jordan Townsend DO atENDOSCOPY [facility] ERCP, DIAGNOSTIC, SPECIMEN COLLECTION N/A 08/08/2020 ENDOSCOPIC RETROGRADE CHOLANGIOPANCREATOGRAPHY (ERCP) DIAGNOSTIC performed by Jordan Townsend DO atENDOSCOPY [facility] ERCP, DIAGNOSTIC, SPECIMEN COLLECTION N/A 08/31/2020 ENDOSCOPIC RETROGRADE CHOLANGIOPANCREATOGRAPHY (ERCP) DIAGNOSTIC performed by Jordan Townsend DO atENDOSCOPY [facility] FLUORO ERCP 01/06/2013 KNEE ARTHROSCOPY, DIAGNOSTIC 1995 Knee Scope,Diagnostic KNEE ARTHROSCOPY/ARTHROPLASTY Right 11/28/2019 KNEE ARTHROSCOPY/MENISCECTOMY Left 03/17/2022 LEFT ARTHROSCOPY KNEE MEDIAL OR LATERAL MENISCECTOMY performed by Christos Feliciano MD at [facility] LAPAROSCOPY; CHOLECYSTECTOMY Cholecystectomy, Laproscopic REPAIR INITIAL INGUINAL HERNIA REDUCIBLE AGE 5 OR MORE 05/14/2012 Repair of right indirect inguinal hernia with mesh 05/14/12 Dr. Valera at [facility] TENDON SHEATH INCISION, FINGER 09/05/2004 index and middle finger on left hand TENDON SHEATH INCISION, FINGER 1989 Dr. leos right right and little finger , left ring finger cyst UMBIL HERNIA REPAIR (INCARCERATED) AGE 5+YR 01/21/2016 repair of umbilical hernia and left indirect inguinal hernia [facility] Dr. 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 30 Tab 0 Saline Nasal [place] 0.65 % Nasal Solution Administer 2 Sprays into each nostril as needed for Congestion. for nasal dryness or congestion 1 Bottle 5 aspirin enteric coated 81 MG TBEC Take 1 Tablet by mouth in the morning. Taking 325 mg for one week. eMeter Ultra 2 w/Device Kit Use to test blood sugars once daily 1 Each 0 [employer] UltraSoft Lancets Use to test blood sugars once daily 100 Each 3 [employer] ([place]) LimitedTouch Ultra Blue In Vitro Strip (Glucose Blood) USE TO CHECK BLOOD SUGARS 3 TIMES PER DAY 300 Strip 3 Insulin Pen Needle 32G X 4 MM USE up to 4 times daily TO INJECT INSULIN 400 Each 3 Loratadine 10 MG Oral Tablet (Claritin) Take 1 Tablet by mouth at bedtime. (Patient not taking: Reported on 07/15/2023) Insulin Glargine Solostar 100 UNIT/ML Subcutaneous Solution [...] [see chart at bottom of MTM note 07/16/23]) 30 mL 3 Rosuvastatin Calcium 10 MG Oral Tablet (Crestor) TAKE ONE TABLET BY MOUTH EVERY DAY IN THE MORNING 100 Tablet 1 metFORMIN HCl ER 500 MG Oral Tablet [...] as needed for Wheezing. 54 g 0 No current facility-administered medications for this visit. [...] Nursing Notes * Haily Garcia LPN - 12/29/2023 9:29 AM EDT Pt presents for routine diabetic nail care, no pain in feet. BSG 226 this morning documented in this encounter Plan of Treatment Upcoming Encounters Date Type Department Care Team (Late st Contact Info) Description 12/30/2023 11:45 AM EDT Office Visit Orthopaedics, [facility] [address] [place] [address] Christos Feliciano MD [address] [place] [address] 01/28/2024 2:30 PM EDT [facility] [place] [address] [facility] [address] [facility] [address] [facility] [address] 03/02/2024 12:00 PM EST Office Visit General Internal Medicine [facility] [place] [address] [place], [place] [address] Artur Chambers MD [address] [place] [address] 04/05/2024 9:40 AM EST Office Visit Podiatry [facility] [address] [place] [address] Saloni Thomas DPM [address] [place] [address] 07/19/2024 10:00 AM EDT Nurse Only [facility] [address] [place] [address] Angela Nurse Annual Wellness [facility] [address] [facility] [place] [address] 07/26/2024 11:30 AM EDT Office Visit Cardiology, [facility] [address] [place] [address] Nando Roach MD [address] [place] [address] Scheduled Procedures Name Priority Associated Diagnoses Date/Ti [...] Advance Directives occurred with: Patient Care Teams [employer] Relationship Specialty Start Date End Date Artur Chambers MD [address] [place] [address] PCP - General Internal Medicine 07/06/12 documented as of this encounter
--- OUTSIDE RECORDS SUMMARY | 2024-06-09 10:27 | External Medical Summary | Summary of Care ---
Author Name Unknown Organization [facility] Address [address] [place] [address] Phone [phone] Care Team Providers Care Couples Therapist Name Role Phone Artur Chambers MD Primary Care Provider + Reason for Visit * Reason Comments Follow Up Right knee pain Encounter Details Date Type Department Care Team (Latest Contact Info) Description 12/30/2023 11:45 AM EDT Office Visit Orthopaedics, [facility] [address] [place] [address] Christos Feliciano MD [address] [place] [address] Primary osteoarthritis of right knee*; Internal derangement of left knee; Tear of medial meniscus of right knee, current, unspecified tear type, initial encounter Allergies Active Allergy Reactions Criticality Noted Date Comments Adhesive Tape 08/15/2003 Hydrochlorothiazide Other (Please comment) 05/2012 pancreatitis Canagliflozin Other (Please comment) 03/22/2019 Pancreatitis Empagliflozin 01/02/2022 pancreatitis documented as of this encounter (statuses as of 12/30/2023) Medications Medication Sig Dispensed Refills Start Date [...] daily. 30 Tab 08/27/2017 Active Saline Nasal Harmony 0.65 % Nasal Solution Administer 2 Sprays into each nostril as needed for Congestion. for nasal dryness or congestion 1 Bottle 5 11/04/2018 Active aspirin enteric coated 81 MG TBEC Take 1 Tablet by mouth in the morning. Taking 325 mg for one week. 12/29/2018 Active Jamclouds Ultra 2 w/Device Kit Use to test blood sugars once daily 1 Each 12/12/2020 Active Jamclouds UltraSoft Lancets Use to test blood sugars once daily 100 Each 3 05/21/2021 Active Jamclouds Ultra Blue In Vitro Strip (Glucose Blood)Indications:Ty [...] hemoglobin A1c goal of less than 7.0% ([facility]) Inject 16 units Before breakfast and [...] goal of less than 7.5% ([facility]) Take 1 Tablet by mouth 2 [...] MG Oral Capsule Take by mouth. Active Hospital, Clinic, or Other Facility Administered Medication Ordered Dose Route Frequency Start Date End Date Status lidocaine 1% 1 mL - triamcinolone acetonide 40 mg/mL 1 mL inj 2 mLIndications:Primary osteoarthritis of right knee 2 mL IJ ONCE 12/30/2023 12/30/2023 Ended documented as of this encounter (statuses as of 12/30/2023) Active Problems Problem Noted Date Diagnosed Date [...] deficiency 02/22/2018 Coronary artery disease invo lving [place]osh[place] coronary artery of shosh[place]paiute heart without angina pectoris 08/20/2017 Type 2 diabetes mellitus wit h hemoglobin A1c goal of less than 7.5% 08/20/2017 H/O acute pancreatitis 02/20/2017 HTN, goal below 140/90 06/11/2015 Overview: Per HTN Protocol #27. Nonallergic rhinitis 04/08/2015 Old myocardial infarct 09/24/2007 Aortocoronary bypass status 07/19/2003 documented as of this encounter (statuses as of 12/30/2023) Resolved Problems Problem Noted Date Diagnosed Date [...] Renamed Per Clinical Trials Billing Project. PROJECT: #, SOCIAL SERVICE LIAISON: Fabrizio Moses MD SUMMARY: Patients with CHD are randomized to darapladib (Lp-PLA2 inhibitor) or placebo in addition to standard of care medications to evaluate incidence of major coronary events. CONTACTS: During normal business hours, contact Clincal Research Coordinator at appropriate clinic location, after hours on-call Clinical Research Coordinator via the [facility] hospital curing press operator ([phone]). The study sponsor can be reached at: Stability Clinical Trial [id number] 10/13/2008 05/07/2012 Overview: Renamed Per Clinical Trials Billing Project. PROJECT: #[id number], SOCIAL SERVICE LIAISON: Fabrizio Moses MD SUMMARY: Patients with CHD are randomized to darapladib (Lp-PLA2 inhibitor) or placebo in addition to standard of care medications to evaluate incidence of major coronary events. CONTACTS: During normal business hours, contact Clincal Research Coordinator at appropriate clinic location, after hours on-call Clinical Research Coordinator via the [facility] hospital curing press operator ([phone]). The study sponsor can be reached at: [...] as of this encounter (statuses as of 12/30/2023) Immunizations Name Administration Dates Next Due COVID-19 [...] as of this encounter Progress Notes * Christos Feliciano MD - 12/30/2023 12:00 PM EDT I have reviewed the advanced practitioner's documentation on the date of service referenced in note, and I agree with, and take responsibility for the plan of care. I have seen and examined the patient on the date of service. Right knee diffuse pain with some increased pain at the medial joint line. Joint space preserved onx-rays. Calcified posterior horn of the medial meniscus tear. We will proceed with a shot today, and if it does not improve, he will call and we will pick a surgery date for a partial meniscectomy. Christos Feliciano MD Orthopaedic Surgery * Qian Hilario PA-C - 12/30/2023 11:36 AM EDTAssociated Order(s): LG Joint Inj/Arthro: R knee Post-Procedure Diagnose(s): Primary osteoarthritis of right knee ORTHOPAEDICS 12/30/2023 CHIEF COMPLAINT: Right knee pain HISTORY OF PRESENT ILLNESS: 12/30/2023: Chet returns today with right knee pain. He reports pain across the anterior aspect ofthe knee. He denies locking or catching. He denies numbness/tingling. Anticoagulation / Antiplatelet: Baby ASA Bleeding / clotting disorders: None Cardiac: Hx of CABG Tobacco use: None Occupation: Retired ROS: 10-point review of systems negative except as written in HPI PAST MEDICAL HISTORY: Past Medical History: Diagnosis Date Acute pancreatitis [...] fibrillation (HCC) 07/19/2003 Vitamin B12 deficiency 02/22/2018 PAST SURGICAL HISTORY: Past Surgical History: Procedure Laterality Date BACK/FLANK SUBQ TUMOR REMOVAL, UNDER 3 CM N/A 03/06/2022 EXCISION SOFT TISSUE TUMOR BACK OR FLANK performed by Madan Valera MD at [facility] CABG, ARTERY-VEIN, TWO 06/30/2003 Off-pump cab x 2 - [place] COLONOSCOPY, DIAGNOSTIC (RECTUM) 03/25/2018 COLONOSCOPY FLEXIBLE PROXIMAL DIAGNOSTIC performed by Madan Valera MD at ENDOSCOPY [facility] COLORECTAL CANCER SCREEN; COLON 10/13/2007 wnl, repeat in 5 yrs COLORECTAL CANCER SCREEN; COLON 03/08/2013 COLONOSCOPY CA SCRN HI RISK performed by Madan Valera MD at OR [facility] EGD, FLEXIBLE, DIAGNOSTIC 11/28/2013 mild inflammation/ESOPHAGOGASTRODUODENOSCOPY (EGD), FLEXIBLE, TRANSORAL, DIAGNOSTIC performed by Gabriela Verde DO at ENDOSCOPY [facility] EGD, FLEXIBLE, DIAGNOSTIC 08/07/2015 [facility] EGD, FLEXIBLE, DIAGNOSTIC 02/09/2018 hiatal hernia/ESOPHAGOGASTRODUODENOSCOPY (EGD), FLEXIBLE, TRANSORAL, DIAGNOSTIC performed by Rukhsana Verde DO at ENDOSCOPY [facility] EGD, FLEXIBLE, DIAGNOSTIC 04/20/2019 normal / ESOPHAGOGASTRODUODENOSCOPY (EGD), FLEXIBLE, TRANSORAL, DIAGNOSTIC performed by Gabriela Verde DO at ENDOSCOPY [facility] EGD, FLEXIBLE, W/BIOPSY 02/27/2009 Dr. Valera - chronic inflammatory changes - 02/27/2009 Dr. Valera EGD, FLEXIBLE,W/ENDOSCOPIC US 05/18/2020 gastritis, gastric polyp, CBD sludge & dilation / [facility] EGD, W/ENDOSCOPIC US 12/17/2011 UPPER GI ENDOSCOPY ENDOSCOPIC ULTRASOUND performed by Gabriela Verde DO at [facility] EGD, W/ENDOSCOPIC US 04/16/2012 UPPER GI ENDOSCOPY ENDOSCOPIC ULTRASOUND performed by Gabriela Verde DO at [facility]--no specific changes noted on biopsies EGD, W/ENDOSCOPIC US 04/20/2019 fatty liver / ESOPHAGOGASTRODUODENOSCOPY (EGD), FLEXIBLE, TRANSORAL, ENDOSCOPIC ULTRASOUND performed by Gabriela Verde DO at ENDOSCOPY [facility] ERCP 09/30/2019 biliary sludge / [facility] ERCP 05/18/2020 normal / [facility] ERCP, DIAGNOSTIC, SPECIMEN COLLECTION 04/20/2019 ENDOSCOPIC RETROGRADE CHOLANGIOPANCREATOGRAPHY (ERCP) DIAGNOSTIC performed by Gabriela Verde DO at ENDOSCOPY [facility] ERCP, DIAGNOSTIC, SPECIMEN COLLECTION N/A 06/27/2020 ENDOSCOPIC RETROGRADE CHOLANGIOPANCREATOGRAPHY (ERCP) DIAGNOSTIC performed by Jordan Townsend DO [facility] ERCP, DIAGNOSTIC, SPECIMEN COLLECTION N/A 08/08/2020 ENDOSCOPIC RETROGRADE CHOLANGIOPANCREATOGRAPHY (ERCP) DIAGNOSTIC performed by Jordan Townsend DO [facility] ERCP, DIAGNOSTIC, SPECIMEN COLLECTION N/A 08/31/2020 ENDOSCOPIC RETROGRADE CHOLANGIOPANCREATOGRAPHY (ERCP) DIAGNOSTIC performed by Jordan Townsend DO [facility] FLUORO ERCP 01/06/2013 KNEE ARTHROSCOPY, DIAGNOSTIC 1996 Knee Scope,Diagnostic KNEE ARTHROSCOPY/ARTHROPLASTY Right 11/28/2019 KNEE ARTHROSCOPY/MENISCECTOMY Left 03/17/2022 LEFT ARTHROSCOPY KNEE MEDIAL OR LATERAL MENISCECTOMY performed by Christos Feliciano MD at [facility] LAPAROSCOPY; CHOLECYSTECTOMY Cholecystectomy, Laproscopic REPAIR INITIAL INGUINAL HERNIA REDUCIBLE AGE 5 OR MORE 05/14/2012 Repair of right indirect inguinal hernia with mesh 05/14/12 Dr. Valera at [facility] TENDON SHEATH INCISION, FINGER 09/05/2004 index and middle finger on left hand TENDON SHEATH INCISION, FINGER 1989 Dr. leos right right and little finger , left ring finger cyst UMBIL HERNIA REPAIR (INCARCERATED) AGE 5+YR 01/21/2016 repair of umbilical hernia and left indirect inguinal hernia [facility] Dr. Valera 01/21/16 FAMILY HISTORY: Non-contributory as related to current complaints SOCIAL HISTORY: Social History Tobacco Use Smoking status: Never Smokeless tobacco: Former Types: Snuff Quit date: 09/26/2003 Tobacco comments: snuff-many years not since June 16, 2003 Vaping Use Vaping status: Never Used Substance Use Topics Alcohol use: Not Currently Drug use: No MEDICATIONS: Reviewed in EPIC ALLERGIES: Adhesive tape, Hydrochlorothiazide, Invokana [canagliflozin], and Jardiance [empagliflozin] VITAL SIGNS: There were no vitals filed for this visit. BP Readings from Last 3 Encounters: 09/04/23 108/50 08/27/23 128/82 08/04/23 130/62 PHYSICAL EXAM: Cardiovascular: Regular rate, extremities well perfused, normal capillary refill, no peripheral edema Pulmonary: Normal respiratory rate, breathing unlabored, symmetric chest rise, no audible wheezes, Neuro/Psych: Normal variation in mood and affect. Follows normal progression of thought. Grossly moves all extremities. Coordination grossly intact. Musculoskeletal: Right knee Appearance: Symmetric without gross deformity Range of motion: 0-130 Patella: Crepitus with patellar grind ACL: Stable PCL: Stable Medial: No laxity with valgus stress at 0 and 30 flexion Lateral: No laxity with varus stress at 0 and 30 flexion Meniscus: Positive Lidia, medial and lateral joint line tenderness Strength - Plantarflexion - 5/5 Dorsiflexion - 5/5 IMAGING: I have independently viewed the images from an orthopaedic standpoint and reviewed available radiology reports. X rays show mild arthritis. MRI IMPRESSION (06/17/22) 1. Horizontal undersurface tear posterior horn of the medial meniscus. 2. Meniscal degeneration posterior root attachment of the lateral meniscus. 3. Mild patellofemoral and medial compartment chondrosis. 4. Small, ruptured Mckeon's cyst. 5. Mild edema in the proximal calf musculature could represent muscle strain. ASSESSMENT: Chet Singh Davis Quezada is a 73 year old year old male who presents with symptomatic rightknee arthritis. PLAN: Discussed with the patient the natural history of knee pain. We discussed multiple treatment options including conservative care, physical therapy, injections, and surgery. Through shared decision-making the patient elected to proceed with CS injection today. LG Joint Inj/Arthro: R knee on 12/30/2023 12:07 PM Indications: pain Details: 22 G needle, anterolateral approach Outcome: tolerated well, no immediate complications Procedure, treatment alternatives, risks and benefits explained, specific risks discussed. Consent was given by the patient. Immediately prior to procedure a time out was called to verify the correctpatient, procedure, equipment, litigation support analyst and site/side marked as required. Patient was prepped and draped in the usual sterile fashion. Follow up: As needed X-rays at next visit: N/A Qian Hilario PA-C Orthopaedic Surgery Sports Medicine documented in this encounter Plan of Treatment Upcoming Encounters Date Type Department Care Team (Late st Contact Info) Description 01/28/2024 2:30 PM EDT Office Visit Pharmacy, [place] [address] [place] [address] [facility] [address] [place] [address] 03/02/2024 12:00 PM EST Office Visit General Internal Medicine [address] [place] [address] Artur Chambers MD [address] [place] [address] [place] [address] 04/05/2024 9:40 AM EST [facility] [place] [address] Saloni Thomas DPM [address] [facility] [place] [address] 07/19/2024 10:00 AM EDT Nurse Only Ancillary [address] [place] [address] Angela, Nurse Annual Wellness [address] [place] [address] 07/26/2024 11:30 AM EDT Office Visit Cardiology, [facility] [address] [place] [address] Nando Roach MD [address] [place] [id number] Pending Results Name Type Priority Associated Diagnoses Date /Time XR KNEE 3 VIEWS Medical Imaging Routine Tear of medial meniscus of right knee, current, unspecified tear type, initial encounter 12/30/2023 11:44 AM EDT Scheduled Procedures Name Priority Associated Diagnoses Date/Ti [...] 06/10/2021, Additional history exists GFR 07/12/2024 07/13/2023, 0 09/2022, 07/09/2022, Additional history exists Adult Wellness [...] Procedure Name Priority Date/Time Associated Diagnosis Comments PA ARTHROCENTESIS ASPIR&/INJ MAJOR JT/BURSA W/O US Routine 12/30/2023 12:07 PM EDT Primary osteoarthritis of right knee documented in this encounter Results * PA ARTHROCENTESIS ASPIR&/INJ MAJOR JT/BURSA W/O US (12/30/2023 12:07 PM EDT) Narrative Christos Feliciano MD - 12/30/2023 12:07 PM EDT Christos Feliciano MD 12/30/2023 1:55 PM LG Joint Inj/Arthro: R knee on 12/30/2023 12:07 PM Indications: pain Details: 22 G needle, anterolateral approach Outcome: tolerated well, no immediate complications Procedure, treatment alternatives, risks and benefits explained, specific risks discussed. Consent was given by the patient. Immediately prior to procedure a time out was called to verify the correct patient, procedure, equipment, litigation support analyst and site/side marked as required. Patient was prepped and draped in the usual sterile fashion. Qian Hilario PA-C PROCDOC FORM documented in this encounter Visit Diagnoses Diagnosis Primary osteoarthritis of right knee- Primary Primary localized osteoarthrosis, lower leg Internal derangement of left knee Unspecified internal derangement of knee Tear of medial meniscus of right knee, current, unspecified tear type, initial encounter documented in this encounter Administered Medications Inactive Administered Medications - up to 3 most recent administrations Medication Order MAR Action Action Date Dose Rate Site lidocaine 1% 1 mL - triamcinolone acetonide 40 mg/mL 1 mL inj 2 mL 2 mL, Injection, ONCE, On Thu12/30/23 at 1245, For 1 dose, Lidocaine 1% 1mL Triamcinolone Acetonide 40 mg/mL 1 mL (Final concentration = 20 mg/mL) REFRIGERATE and SHAKE WELL Given 12/30/2023 12:02 PM EDT 2 mL Knee Right documented in this encounter Advance Directives * [...] Advance Directives occurred with: Patient Care Teams Couples Therapist Relationship Specialty Start Date End Date Artur Chambers MD [address] [place] [address] PCP - General Internal Medicine 07/06/12 documented as of this encounter
--- OUTSIDE RECORDS SUMMARY | 2024-06-09 10:28 | External Medical Summary | Summary of Care ---
Author Name Unknown Organization [facility] Address [address] [place] [address] Phone [phone] Care Team Providers Care Drill Operator Name Role Phone Artur Chambers MD Primary Care Provider + Reason for Visit * Reason Onset Date Comments Appointment 12/17/2023 Encounter Details Date Type Department Care Team (Late st Contact Info) Description 12/17/[address] [address] [facility] [address] [place] [address] Appointment Allergies Active Allergy Reactions Criticality Noted Date [...] daily. 30 Tab 08/27/2017 Active Saline Nasal Garber 0.65 % Nasal Solution Administer 2 Sprays into each nostril as needed for Congestion. for nasal dryness or congestion 1 Bottle 5 11/04/2018 Active aspirin enteric coated 81 MG TBEC Take 1 Tablet by mouth in the morning. Taking 325 mg for one week. 12/29/2018 Active Chevia Ultra 2 w/Device Kit Use to test blood sugars once daily 1 Each 12/12/2020 Active Chevia UltraSoft Lancets Use to test blood sugars once daily 100 Each 3 05/21/2021 Active Chevia Ultra Blue In Vitro Strip (Glucose Blood)Indications:Ty [...] hemoglobin A1c goal of less than 7.5% ([facility]) Take 1 Tablet by mouth 2 times [...] deficiency 02/22/2018 Coronary artery disease invo lving [place] coronary artery of pe[place] heart without angina pectoris 08/20/2017 Type 2 [...] Renamed Per Clinical Trials Billing Project. PROJECT: #[id number], STORE DETECTIVE: Fabrizio Moses MD SUMMARY: Patients with CHD are randomized to darapladib (Lp-PLA2 inhibitor) or placebo in addition to standard of care medications to evaluate incidence of major coronary events. CONTACTS: During normal business hours, contact Clincal Research Coordinator at appropriate clinic location, after hours on-call Clinical Research Coordinator via the [facility] hospital swing ride operator ([phone]). The study sponsor can be reached at: [facility] Clinical Trial [id number] 10/13/2008 05/07/2012 Overview: Renamed Per Clinical Trials Billing Project. PROJECT: #[id number], STORE DETECTIVE: Fabrizio Moses MD SUMMARY: Patients with CHD are randomized to darapladib (Lp-PLA2 inhibitor) or placebo in addition to standard of care medications to evaluate incidence of major coronary events. CONTACTS: During normal business hours, contact Clincal Research Coordinator at appropriate clinic location, after hours on-call Clinical Research Coordinator via the [facility] hospital swing ride operator ([phone]). The study sponsor can be reached at: [...] 2009 Influenza, IM 04/27/2009 Influenza, Whole Virus 01/07/2007,01/26/1998 Pneumococcal Conjugate Vacc, 13 Valent (Prevnar) 08/20/2017 [...] Trivalen t, (IIV3), with Preserv, (Fluzone) 12/28/2013,01/11/2013,12/11/2011,01/21,01/22/2010,01/18/2009,01/17/2009 ,01/13/2008,02/10/2006,02/18/2005,12/2002 Seasonal Influenza, Trivalen t, Adjuvanted, 65+ YRS, [...] encounter Miscellaneous Notes * Telephone Encounter - Cody Mccray OSA - 12/17/2023 3:03 PM EDT Patient has been scheduled on: RETURN CARDIOLOGY at 11:00 AM (30 min)Arrive by 10:45 AM Thursday April 25, 2024 Appointment Provider:Nando Roach MD in CARDIOLOGY [facility] * Telephone Encounter - Noelle Mena RPh - 12/17/2023 2:50 PM EDT Pt requesting appt with Dr. Roach as per note from June after seeing Madan Gomez PA-C. Please contact patient to schedule. Thanks! Noelle Mena, PharmD, BCACP Clinical Pharmacist Medication Therapy Disease Management 12/17/2023, 2:51 PM documented in this encounter Plan of Treatment Upcoming Encounters Date Type Department Care Team (Late st Contact Info) Description 12/29/2023 9:40 AM EDT Office [facility] [place] [address] Saloni Thomas DPM [address] [place] [address] 12/30/2023 11:45 AM EDT Office Visit Orthopaedics, [facility] [address] [facility] [place] [address] Christos Feliciano MD [address] [facility] [place] [phone] 01/28/2024 2:30 PM EDT Office Visit Pharmacy, [address] [place] [address] [facility] [address] [place] [facility] [place] [address] 03/02/2024 12:00 PM EST Office Visit General Internal Medicine [facility] [address] [place] [address] Artur Chambers MD [address] [facility] [place] [address] 04/25/2024 11:00 AM EST [facility], [facility] [place] [address] Nando Roach MD [address] [place] [address] 07/19/2024 10:00 AM EDT Nurse Only Ancillary [facility] [place] [address] [place] [address] Angela, Nurse Annual Wellness [address] [facility] [place] [address] Scheduled Procedures Name Priority Associated Diagnoses Date/Ti me COLONOSCOPY FLEXIBLE PROXIMA L DIAGNOSTIC Recall Family history of colon cancer Health Maintenance Due Date Last Done Comments Cologuard 07/28/1996 Fecal Occult Blood Test 07/28/1996 Sigmoidoscopy 07/28/1996 COVID-19 Vaccine ( season) 2023 01/30/2023, 02/18/2022, 02/20/2021, Additional history exists HbA1c 01/12/2024 07/13/2023, 12/2022, 07/09/2022, Additional history exists Albumin/Creatinine Ratio 07/12/20242 024, 07/09/2022, 06/10/2021, Additional history exists GFR [...] Advance Directives occurred with: Patient Care Teams Drill Operator Relationship Specialty Start Date End Date Artur Chambers MD [address] [facility] [place] [address] PCP - General Internal Medicine 07/06/12 documented as of this encounter
--- OUTSIDE RECORDS SUMMARY | 2024-06-09 10:28 | External Medical Summary | Summary of Care ---
Author Name Unknown Organization [facility] Address [address] [place] [address] Phone [phone] Care Team Providers Care College Professor Name Role Phone Artur Chambers MD Primary Care Provider + Reason for Visit * Reason Onset Date Comments Appointment 12/17/2023 Encounter Details Date Type Department Care Team (Late st Contact Info) Description 12/17/[address] [address] [facility] [address] [place] [address] Appointment Allergies Active Allergy Reactions Criticality Noted [...] daily. 30 Tab 08/27/2017 Active Saline Nasal [place] 0.65 % Nasal Solution Administer 2 Sprays into each nostril as needed for Congestion. for nasal dryness or congestion 1 Bottle 5 11/04/2018 Active aspirin enteric coated 81 MG TBEC Take 1 Tablet by mouth in the morning. Taking 325 mg for one week. 12/29/2018 Active Angstro Ultra 2 w/Device Kit Use to test blood sugars once daily 1 Each 12/12/2020 Active Angstro UltraSoft Lancets Use to test blood sugars once daily 100 Each 3 05/21/2021 Active Angstro Ultra Blue In Vitro Strip (Glucose Blood)Indications:Ty [...] hemoglobin A1c goal of less than 7.5% ([facility]) Take 1 Tablet by mouth 2 times [...] deficiency 02/22/2018 Coronary artery disease invo lving [place] coronary artery of [place] heart without angina pectoris 08/20/2017 Type [...] Renamed Per Clinical Trials Billing Project. PROJECT: #[id number], TERRITORY SALES MANAGER MEDICAL: Fabrizio Moses MD SUMMARY: Patients with CHD are randomized to darapladib (Lp-PLA2 inhibitor) or placebo in addition to standard of care medications to evaluate incidence of major coronary events. CONTACTS: During normal business hours, contact Clincal Research Coordinator at appropriate clinic location, after hours on-call Clinical Research Coordinator via the [facility] hospital field laboratory operator ([phone]). The study sponsor can be reached at: [facility] Clinical Trial [id number] 10/13/2008 05/07/2012 Overview: Renamed Per Clinical Trials Billing Project. PROJECT: #[id number], TERRITORY SALES MANAGER MEDICAL: Fabrizio Moses MD SUMMARY: Patients with CHD are randomized to darapladib (Lp-PLA2 inhibitor) or placebo in addition to standard of care medications to evaluate incidence of major coronary events. CONTACTS: During normal business hours, contact Clincal Research Coordinator at appropriate clinic location, after hours on-call Clinical Research Coordinator via the [facility] hospital field laboratory operator ([phone]). The study sponsor can be reached at: [...] encounter Miscellaneous Notes * Telephone Encounter - Noelle Mena [facility] - 12/17/2023 2:50 PM EDT Pt requesting [...] 12/29/2023 9:40 AM EDT Office Visit Podiatry [facility] [address] [facility] [place] [address] Saloni Thomas DPM [address] [place] [address] 12/30/2023 11:45 AM EDT Office Visit Orthopaedics, [facility] [address] [place] [address] Christos Feliciano MD [address] [place] [id number] 01/28/2024 2:30 PM EDT Office Visit Pharmacy, [address] [address] [facility] [address] [place] [address] 03/02/2024 12:00 PM EST Office Visit General Internal Medicine [place] [address] [facility] [place] [address] Artur Chambers MD [address] [facility] [place] [address] 04/25/2024 11:00 AM EST Office Visit Cardiology, [facility] [address] [place] [address] Nando Roach MD [address] [place] [address] 07/19/2024 10:00 AM EDT Nurse Only Ancillary [facility] [address] [place] [address] Angela Nurse Annual Wellness [facility] [address] [place] [address] Scheduled Procedures Name Priority Associated Diagnoses Date/Ti [...] Advance Directives occurred with: Patient Care Teams College Professor Relationship Specialty Start Date End Date Artur Chambers MD [address] [facility] [place] [place] [address] PCP - General Internal Medicine 07/06/12 documented as of this encounter
[2024-06-09] MEDS: oxyCODONE HCL IR 5 MG TAB (IMMEDIATE RELEASE) PO PRN (12:59)
--- NOTE | 2024-06-09 15:59 | Communication Note ---
Date of Service: June 09, 2024 evaluated at bedside reports nausea at this time but no pain--suspects that oxycodone contributed to current situation does note he tolerated liquid diet earlier in the day reviewed GI notes: continue treatment for mild pancreatitis #acute pancreatitis continue as tolerated diet advancement Antiemetics PRN Analgesia PRN continue LR 200 mL/hr will need GI follow up for - outpatient evaluation of liver lesion - hospital discharge appt
[2024-06-09] MEDS ORDERED: traMADol HCL 50 MG TABLET PO PRN (16:35)
[2024-06-09] MEDS: LACTATED RINGER'S 1,000 ML IV SCH (16:57)
[2024-06-09] MEDS: MoRPHine SULFATE 2 MG/ML CARP IV PRN (16:59)
[2024-06-09] MEDS: ACETAMINOPHEN 500 MG TAB PO SCH (16:59)
[2024-06-09] MEDS: PROMETHAZINE 6.25 MG/50.25 ML BAG IV PRN (19:20)
[2024-06-09] MEDS: LORATADINE 10 MG TAB PO SCH (20:54)
[2024-06-10 06:19] LABS: Hematocrit (blood only) 37.6 % (42.0-52.0); Hemoglobin 12.9 g/dl (14.0-18.0); Mean Corpuscular Hemoglobin 31.9 pg (25.0-34.0); Mean Corpuscular Hgb Conc 34.3 g/dL (32.0-36.0); Mean Corpuscular Volume 92.8 fL (80.0-100.0); Mean Platelet Volume 9.2 fL (9.4-12.4); Platelet Count 183 K/uL (130-400); RDW Coefficient of Variation 11.9 % (11.5-14.5); RDW Standard Deviation 41.1 fL (36.4-46.3); Red Blood Count 4.05 M/uL (4.70-6.10); White Blood Count 6.51 K/ul (4.8-10.8)
[2024-06-10 06:49] LABS: Albumin Globulin Ratio 1.2 (0.9-2); Albumin Level 3.4 gm/dl (3.4-5.0); BUN Creatinine Ratio 10.8 (10-20); Bilirubin,Total 0.6 mg/dl (0.2-1.0); Calcium 8.9 mg/dl (8.6-10.3); Creatinine Clr Calc Pharmacy 78.3 ml/min; Globulin 2.9 gm/dl (2.5-4.0); Magnesium 1.7 mg/dl (1.7-2.4); Phosphorus 2.8 mg/dl (2.5-4.9); Total Protein 6.3 gm/dl (6.0-8.3)
--- NOTE | 2024-06-10 09:35 | Gastroenterology Progress Note ---
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 He endorses pain is identical to previous bouts of pancreatitis. Labs/imaging largely unremarkable (mild lipase elevation). Suspect mild pancreatitis given his symptomatology and history. He is feeling improved and wishes for dietary advancement. May advance to low fat as tolerated Antiemetics PRN Analgesia PRN Early ambulation encouraged Please help arrange OP follow up with his established [facility] GI care team - outpatient evaluation of liver lesion - hospital discharge appt Recall GI as needed. I spent a total of 40 minutes on the date of service in review of patient's record, and previously obtained information in person and appropriate medical visit, discussion and education of plan, with patient and/or caregiver, placing orders for tests/referral/procedures as medically necessary and documentation of pertinent clinical information in patient's medical records for their visit today. Admission and Anticipated Discharge Date Admission Date: June 09, 2024 Supervising Physician Co-Signing Physician Notes I saw and examined this patient with our nurse practitioner and agree with her assessment and plan. Showing some signs of clinical improvement with less abdominal pain. Has had some dyspeptic symptoms with diet advancement. Would continue to advance his diet as tolerated to low-fat diet. Hopefully discharge within the next 24 hours if can tolerate eating. Subjective Pt was seen and evaluated, chart reviewed. ABD symptoms improved - wishes to advance diet. No nausea/vomiting. Review of Systems Review of Systems: All other findings negative except as noted in HPI. Physical Exam Constitutional: WD/WN, vitals as above Respiratory: normal respiratory effort Gastrointestinal (Abdomen): normal bowel sounds, soft, nontender, no hepatosplenomegaly Skin: no rashes, warm and dry Results & Data Results & Data Vital Signs (Past 12 Hours) Vital Signs Temp Pulse Resp BP Pulse Ox O2 Del Method 06/10/24 08:00 97.5 F L 78 16 164/80 H 95 Room Air Laboratory Results 06/10/24 06/10/24 06/09/24 Range/Units 07:39 06:01 20:30 WBC 6.51 (4.8-10.8) K/ul RBC 4.05 L (4.70-6.10) M/uL Hgb 12.9 L (14.0-18.0) g/dl Hct 37.6 L (42.0-52.0) % MCV 92.8 (80.0-100.0) fL MCH 31.9 (25.0-34.0) pg MCHC 34.3 (32.0-36.0) g/dL RDW Std Deviation 41.1 (36.4-46.3) fL RDW Coeff of Rodolfo 11.9 (11.5-14.5) % Plt Count 183 (130-400) K/uL MPV 9.2 L (9.4-12.4) fL Sodium 141 (136-145) mmol/L Potassium 4.0 (3.5-5.1) mmol/L Chloride 107 (98-107) mmol/L Carbon Dioxide 29 (21-32) mmol/L Anion Gap 5 (3-11) BUN 9 (6-23) mg/dl Creatinine 0.83 (0.6-1.4) mg/dl Est Cr Clr Drug Dosing 78.3 ml/min eGFR 92.99 BUN/Creatinine Ratio 10.8 (10-20) Glucose 99 (70-99(Fasting)) mg/dl POC Glucose 95 187 H (70-99) mg/dl Calcium 8.9 (8.6-10.3) mg/dl Phosphorus 2.8 (2.5-4.9) mg/dl Magnesium 1.7 (1.7-2.4) mg/dl Total Bilirubin 0.6 (0.2-1.0) mg/dl AST 15 (13-39) U/L ALT 18 (7-52) U/L Alkaline Phosphatase 62 (34-104) U/L Total Protein 6.3 (6.0-8.3) gm/dl Albumin 3.4 (3.4-5.0) gm/dl Globulin 2.9 (2.5-4.0) gm/dl Albumin/Globulin Ratio 1.2 (0.9-2) 06/09/24 06/09/24 Range/Units 16:20 11:43 WBC (4.8-10.8) K/ul RBC (4.70-6.10) M/uL Hgb (14.0-18.0) g/dl Hct (42.0-52.0) % MCV (80.0-100.0) fL MCH (25.0-34.0) pg MCHC (32.0-36.0) g/dL RDW Std Deviation (36.4-46.3) fL RDW Coeff of Rodolfo (11.5-14.5) % Plt Count (130-400) K/uL MPV (9.4-12.4) fL Sodium (136-145) mmol/L Potassium (3.5-5.1) mmol/L Chloride (98-107) mmol/L Carbon Dioxide (21-32) mmol/L Anion Gap (3-11) BUN (6-23) mg/dl Creatinine (0.6-1.4) mg/dl Est Cr Clr Drug Dosing ml/min eGFR BUN/Creatinine Ratio (10-20) Glucose (70-99(Fasting)) mg/dl POC Glucose 164 H 162 H (70-99) mg/dl Calcium (8.6-10.3) mg/dl Phosphorus (2.5-4.9) mg/dl Magnesium (1.7-2.4) mg/dl Total Bilirubin (0.2-1.0) mg/dl AST (13-39) U/L ALT (7-52) U/L Alkaline Phosphatase (34-104) U/L Total Protein (6.0-8.3) gm/dl Albumin (3.4-5.0) gm/dl Globulin (2.5-4.0) gm/dl Albumin/Globulin Ratio (0.9-2) PG Care Time/CCT Total # of Minutes Spent Total Time Spent with Patient: Total time spent is greater than 50% in coordination of care (as documented) at patient's floor/unit and/or counseling patient: Coding Level of Care Code 47844 SUB INP/OBS CARE 2/35MIN Diagnoses Acute pancreatitis K85.90
--- NOTE | 2024-06-10 15:13 | Hospitalist Progress Note ---
Date of Service June 10, 2024 Assessment & Plan (1) Acute pancreatitis: Plan: Recurrent pancreatitis History of pancreatic divisum as per records Patient presented with abdominal pain radiating to back, lipase elevated. Admitting CTAP:The right hepatic lobe has a small hypodense lesion in segment V. It can be focal fatty infiltration. Suggest further assessment. Patient reports resolution of his abdominal pain, reports improvement in his nausea and vomiting. Continue with antiemetics, analgesia, encourage ambulation. Advance diet as tolerated. Patient was advanced to soft diet, reports no increasing abdominal pain but reports some nausea, and does not feel comfortable going home today. GI evaluated, recommends outpatient GI evaluation for liver lesion. Rhinovirus URTI: Noted positive on 06/08, patient on room air, hemodynamically stable, continue supportive care. Other chronic medical conditions: Continue with/resume home meds as and when able. chronic systolic heart failure secondary to ischemic cardiomyopathy (EF 45, 2020), patient euvolemic. coronary artery disease status post CABG history of VF hypertension, stable hyperlipidemia, on statin Rx DM2 insulin requiring, suboptimal control as of recent hemoglobin A1c of 8.09 March 2024 hx NAFLD Rhinovirus infection, month-long cough symptoms status post antibiotic/ steroid Rx Diarrhea rule out C. difficile given recent antibiotic Rx DVT prophylaxis. Lovenox subcu Full code Patient's Ms. Leandra Cannon, contact #[phone]. Text document was generated using [employer] voice recognition software. It may contain grammatical or spelling errors. Kindly contact undersigned for clarification of any documentation item in question. Admission and Anticipated Discharge Date Admission Date: June 09, 2024 Subjective Patient was seen and examined at bedside, chart reviewed. Patient was sitting up in bed, on room air, NAD, resting comfortably. Patient has been tolerating clear liquid diet, reports resolution of abd pain back to 0. Denies nausea or vomiting. Patient denies any fever/sore throat/cough/chest pain. Physical Exam Physical Exam: GENERAL: Comfortable, pleasant, obese, no respiratory distress SKIN: Normal color, warm HEENT: Alopecia, bespectacled, pink palpebral conjunctivae, no ptosis, moist buccal mucosa NECK : Supple, no tenderness CHEST : CTA, no tenderness HEART : RRR, no obvious murmurs ABDOMEN: No distention, No epigastric tenderness EXTREMITIES : No LE swelling/tenderness, no other conspicuous deformities noted NEUROLOGIC : Coherent, no facial asymmetry, no other gross focality Results & Data Results & Data Vital Signs (Past 12 Hours) Vital Signs Temp Pulse Pulse Resp BP Pulse Ox O2 Del Method 06/10/24 14:34 36.6 C 72 16 173/73 H 94 Room Air 06/10/24 12:14 36.6 C 88 17 148/82 H 96 Room Air 06/10/24 08:00 36.4 C L 78 16 164/80 H 95 Room Air
[2024-06-11] MEDS: SIMETHICONE 80 MG CHEW PO ONE
[2024-06-11 06:17] LABS: Hematocrit (blood only) 37.9 % (42.0-52.0); Hemoglobin 12.8 g/dl (14.0-18.0); Mean Corpuscular Hemoglobin 31.1 pg (25.0-34.0); Mean Corpuscular Hgb Conc 33.8 g/dL (32.0-36.0); Mean Platelet Volume 9.1 fL (9.4-12.4); Platelet Count 169 K/uL (130-400); RDW Coefficient of Variation 11.9 % (11.5-14.5); RDW Standard Deviation 39.8 fL (36.4-46.3); Red Blood Count 4.12 M/uL (4.70-6.10); White Blood Count 4.84 K/ul (4.8-10.8)
[2024-06-11 06:32] LABS: BUN Creatinine Ratio 10.9 (10-20); Calcium 8.6 mg/dl (8.6-10.3); Creatinine Clr Calc Pharmacy 70.6 ml/min; Magnesium 1.6 mg/dl (1.7-2.4); Phosphorus 2.9 mg/dl (2.5-4.9); Potassium 3.8 mmol/L (3.5-5.1)
--- NOTE | 2024-06-11 08:14 | Gastroenterology Progress Note ---
Date of Service June 11, 2024 Assessment & Plan (1) Abdominal pain: Plan: Initially suspected the pain to be related to mild pancreatitis. However he continues to have discomfort. CT scan revealed a normal-appearing pancreas his lipase was only mildly elevated. If he continues to have pain we will consider upper endoscopy on Thursday if still hospitalized. Admission and Anticipated Discharge Date Admission Date: June 09, 2024 Subjective Tolerated regular food however is still complaining of upper abdominal pain. No shortness of breath no chest pain. Physical Exam Physical Exam: No acute distress Respiratory rate regular Cardiac rhythm regular Abdomen soft, obese tender upper abdomen. No rebound no guarding. Results & Data Results & Data Vital Signs (Past 12 Hours) Vital Signs Temp Pulse Resp BP Pulse Ox O2 Del Method 06/11/24 07:37 36.6 C 65 18 173/72 H 94 Room Air PG Care Time/CCT Total # of Minutes Spent Total Time Spent with Patient: Total time spent is greater than 50% in coordination of care (as documented) at patient's floor/unit and/or counseling patient: Coding Level of Care Code 85998 SUB INP/OBS CARE 2/35MIN Diagnoses Abdominal pain R10.9
[2024-06-11] MEDS ORDERED: CALCIUM CARBONATE 500 MG CHEWABLE TAB PO PRN (08:54)
[2024-06-11] MEDS: MAGNESIUM SULFATE / D5W 1 GM/100 ML BAG IV ONE (09:52)
[2024-06-11] MEDS: FAMOTIDINE 40 MG TABLET PO ONE (12:32)
--- NOTE | 2024-06-11 14:59 | Hospitalist Progress Note ---
Date of Service June 11, 2024 Assessment & Plan (1) Acute pancreatitis: Plan: Recurrent pancreatitis History of pancreatic divisum as per records Patient presented with abdominal pain radiating to back, lipase elevated. Admitting CTAP:The right hepatic lobe has a small hypodense lesion in segment V. It can be focal fatty infiltration. Suggest further assessment. Patient reports resolution of his abdominal pain, reports improvement in his nausea and vomiting. Continue with antiemetics, analgesia, encourage ambulation. GI evaluated, recommends outpatient GI evaluation for liver lesion. Will trend lipase in AM Likely Acid peptic disease: pt had abd dicomfort since evening of 06/10 diff than that from presentation, worse w/ food, relieved w/ tums, will put him on fabiola pepcid, monitor for improvement. GI following. Rhinovirus URTI: Noted positive on 06/08, patient on room air, hemodynamically stable, continue supportive care. Other chronic medical conditions: Continue with/resume home meds as and when able. chronic systolic heart failure secondary to ischemic cardiomyopathy (EF 45, 2020), patient euvolemic. 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 difficile given recent antibiotic Rx DVT prophylaxis. Lovenox subcu Full code Patient's Ms. Leandra Cannon, contact #[phone]. Text document was generated using [employer] voice recognition software. It may contain grammatical or spelling errors. Kindly contact undersigned for clarification of any documentation item in question. Admission and Anticipated Discharge Date Admission Date: June 09, 2024 Subjective Patient was seen and examined at bedside, chart reviewed. Patient was lying in bed, on room air, NAD, resting comfortably. Pt reports upper belly discomfort diff than at presentation, no radiation to back this time, worse w/ food, relieved w/ tums. Will put him on fabiola tums, put him back on clear diet for now, will monitor for abd pain pattern. Patient denies any fever/sore throat/cough/chest pain. Physical Exam Physical Exam: GENERAL: Comfortable, pleasant, obese, no respiratory distress SKIN: Normal color, warm HEENT: Alopecia, bespectacled, pink palpebral conjunctivae, no ptosis, moist buccal mucosa NECK : Supple, no tenderness CHEST : CTA, no tenderness HEART : RRR, no obvious murmurs ABDOMEN: No distention, epigastric discomfort on exam. EXTREMITIES : No LE swelling/tenderness, no other conspicuous deformities noted NEUROLOGIC : Coherent, no facial asymmetry, no other gross focality Results & Data Results & Data Vital Signs (Past 12 Hours) Vital Signs Temp Pulse Resp BP Pulse Ox O2 Del Method 06/11/24 14:18 36.8 C 66 18 134/66 96 Room Air 06/11/24 07:37 36.6 C 65 18 173/72 H 94 Room Air
[2024-06-11] MEDS: FAMOTIDINE 20 MG TAB PO SCH (20:35)
[2024-06-12 05:46] LABS: Hemoglobin 13.6 g/dl (14.0-18.0); Mean Corpuscular Hemoglobin 30.8 pg (25.0-34.0); Mean Corpuscular Volume 90.5 fL (80.0-100.0); Mean Platelet Volume 9.2 fL (9.4-12.4); Platelet Count 188 K/uL (130-400); RDW Coefficient of Variation 11.8 % (11.5-14.5); RDW Standard Deviation 39.2 fL (36.4-46.3); Red Blood Count 4.42 M/uL (4.70-6.10); White Blood Count 4.88 K/ul (4.8-10.8)
[2024-06-12 06:03] LABS: BUN Creatinine Ratio 9.8 (10-20); Calcium 9.3 mg/dl (8.6-10.3); Creatinine Clr Calc Pharmacy 70.6 ml/min; Magnesium 1.8 mg/dl (1.7-2.4); Potassium 3.8 mmol/L (3.5-5.1)
[2024-06-12 07:19] VITALS: BP 152/74; RESP 18; TEMP 97.9; O2SAT 95
--- NOTE | 2024-06-12 08:59 | Gastroenterology Progress Note ---
Date of Service June 12, 2024 Assessment & Plan (1) Abdominal pain: Plan: Much improved today doing better. Advance diet as tolerated. Possible discharge today if continues to improve. Call if any further issues. Admission and Anticipated Discharge Date Admission Date: June 09, 2024 Subjective Feels much better today. No abdominal pain no shortness of breath no chest pain. Physical Exam Physical Exam: No acute distress Respiratory rate regular Cardiac rhythm regular Abdomen soft nontender Results & Data Results & Data Vital Signs (Past 12 Hours) Vital Signs Temp Pulse Resp BP Pulse Ox O2 Del Method 06/12/24 07:18 36.6 C 67 18 152/74 H 95 Room Air 06/11/24 20:28 36.5 C 67 16 158/68 H 98 Room Air Laboratory Results Laboratory Results - last 48 hr 06/10/24 06/10/24 06/10/24 11:46 16:38 20:06 WBC RBC Hgb Hct MCV MCH MCHC RDW Std Deviation RDW Coeff of Rodolfo Plt Count MPV Sodium Potassium Chloride Carbon Dioxide Anion Gap BUN Creatinine Est Cr Clr Drug Dosing eGFR BUN/Creatinine Ratio Glucose POC Glucose 123 H 82 176 H Calcium Phosphorus Magnesium Lipase 06/11/24 06/11/24 06/11/24 05:47 07:36 11:34 WBC 4.84 RBC 4.12 L Hgb 12.8 L Hct 37.9 L MCV 92.0 MCH 31.1 MCHC 33.8 RDW Std Deviation 39.8 RDW Coeff of Rodolfo 11.9 Plt Count 169 MPV 9.1 L Sodium 139 Potassium 3.8 Chloride 108 H Carbon Dioxide 27 Anion Gap 4 BUN 10 Creatinine 0.92 Est Cr Clr Drug Dosing 70.6 eGFR 88.38 BUN/Creatinine Ratio 10.9 Glucose 87 POC Glucose 98 193 H Calcium 8.6 Phosphorus 2.9 Magnesium 1.6 L Lipase 06/11/24 06/11/24 06/12/24 16:33 20:30 05:24 WBC 4.88 RBC 4.42 L Hgb 13.6 L Hct 40.0 L MCV 90.5 MCH 30.8 MCHC 34.0 RDW Std Deviation 39.2 RDW Coeff of Rodolfo 11.8 Plt Count 188 MPV 9.2 L Sodium 138 Potassium 3.8 Chloride 107 Carbon Dioxide 27 Anion Gap 4 BUN 9 Creatinine 0.92 Est Cr Clr Drug Dosing 70.6 eGFR 88.38 BUN/Creatinine Ratio 9.8 L Glucose 123 H POC Glucose 100 H 176 H Calcium 9.3 Phosphorus Magnesium 1.8 Lipase 19 06/12/24 07:25 WBC RBC Hgb Hct MCV MCH MCHC RDW Std Deviation RDW Coeff of Rodolfo Plt Count MPV Sodium Potassium Chloride Carbon Dioxide Anion Gap BUN Creatinine Est Cr Clr Drug Dosing eGFR BUN/Creatinine Ratio Glucose POC Glucose 129 H Calcium Phosphorus Magnesium Lipase PG Care Time/CCT Total # of Minutes Spent Total Time Spent with Patient: Total time spent is greater than 50% in coordination of care (as documented) at patient's floor/unit and/or counseling patient: Coding Level of Care Code 66495 SUB INP/OBS CARE 2/35MIN Diagnoses Abdominal pain R10.9
--- NOTE | 2024-06-12 15:16 | Discharge Summary ---
Date of Service June 12, 2024 Admission HPI Per Admitting Provider History obtained from patient and records. Medical history significant for chronic systolic heart failure secondary to ischemic cardiomyopathy (EF 45, 2020), coronary artery disease status post CABG, history of VF, hypertension, hyperlipidemia, DM2 insulin requiring, NAFLD, GERD, recurrent pancreatitis, pancreatic divisum as per records. Last confinement August 2020 for recurrent pancreatitis following outpatient ERCP. Patient with 1 month history of cough symptoms, choking spells associated with achy right-sided chest pain, SOB symptoms. Outpatient COVID-19, influenza, RSV test negative. Patient completed outpatient prednisone and antibiotic Rx. Cough symptoms productive of white sputum not any worse as per patient. Last night, patient noted achy epigastric pain going to his right back reminiscent of pancreatitis attack. No recent EtOH or fatty food intake intake No fever, no chills. Loose watery stools at home. MEDICAL HISTORY: As above. SURGICAL HISTORY: CABG, Cholecystectomy, knee surgery, hernia repair, hand surgery FAMILY HISTORY: colon cancer, DM PERSONAL AND SOCIAL HISTORY: Nonsmoker. No chronic intake of alcoholic beverages. 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 Admission Exam Per Admitting Provider GENERAL: Comfortable, slightly uncomfortable, pleasant, obese, no respiratory distress SKIN: Normal color, warm HEENT: Alopecia, bespectacled, pink palpebral conjunctivae, no ptosis, dry buccal mucosa NECK : Supple, no tenderness CHEST : CTA, no tenderness HEART : RRR, no obvious murmurs ABDOMEN: Some distention, epigastric tenderness EXTREMITIES : No LE swelling/tenderness, no other conspicuous deformities noted NEUROLOGIC : Coherent, no facial asymmetry, no other gross focality Principal Diagnosis Recurrent pancreatitis History of pancreatic divisum as per records Likely acid peptic disease Discharge Exam GENERAL: Comfortable, pleasant, obese, no respiratory distress SKIN: Normal color, warm HEENT: Alopecia, bespectacled, pink palpebral conjunctivae, no ptosis, moist buccal mucosa NECK : Supple, no tenderness CHEST : CTA, no tenderness HEART : RRR, no obvious murmurs ABDOMEN: No distention, No epigastric discomfort on exam. EXTREMITIES : No LE swelling/tenderness, no other conspicuous deformities noted NEUROLOGIC : Coherent, no facial asymmetry, no other gross focality Discharge Data Allergies Allergy/AdvReac Type Severity Reaction Status Date / Time adhesive AdvReac Mild BLISTERS Verified 06/09/24 02:23 canagliflozin [From Invokana] AdvReac Unknown HX Verified 06/09/24 02:23 PANCREATITIS hydrochlorothiazide AdvReac Unknown Pancreatitis Verified 06/09/24 02:23 history oxycodone [From Percocet] AdvReac Unknown Constipatio Verified 06/09/24 02:23 n pantoprazole AdvReac Unknown HX Verified 06/09/24 02:23 PANCREATITIS rosuvastatin [From Crestor] AdvReac Unknown HX Verified 06/09/24 02:23 PANCREATITIS Consultations 06/09/24 02:10 ED Decision to Admit Stat 06/09/24 03:23 Consult Gastroenterology Routine Ordered Studies 06/08/24 23:00 CT Abd and Pelvis [CT abd pelvis IV con only] Stat Hospital Course (1) Acute pancreatitis: Recurrent pancreatitis History of pancreatic divisum as per records Patient presented with abdominal pain radiating to back, lipase elevated. Admitting CTAP:The right hepatic lobe has a small hypodense lesion in segment V. It can be focal fatty infiltration. Suggest further assessment. Patient reports resolution of his abdominal pain, reports improvement in his nausea and vomiting. Lipase trended down to normal, patient reports feeling better. GI evaluated, recommends outpatient GI evaluation for liver lesion. Likely Acid peptic disease: pt had abd dicomfort since evening of 06/10 diff than that from presentation, worse w/ food, relieved w/ tums, Now improved with the scheduled pepcid, patient to follow-up with GI upon discharge. Rhinovirus URTI: Noted positive on 06/08, patient on room air, hemodynamically stable, continue supportive care. Other chronic medical conditions: Continue with/resume home meds as and when able. chronic systolic heart failure secondary to ischemic cardiomyopathy (EF 45, 2020), patient euvolemic. 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 difficile given recent antibiotic Rx DVT prophylaxis. Lovenox subcu Full code Patient's Ms. Leandra Cannon, contact #[phone]. Follow-up with your primary care physician within a week time and likely you will need labs CBC/CMP/magnesium/phosphorus. You were evaluated and managed for recurrent pancreatitis and possible acid peptic disease. You have been started on famotidine which appears to improve your abdominal discomfort. You will likely benefit from outpatient upper endoscopy, recommend that you establish with GI physician in 2 to 4 weeks time upon discharge, coordinate with your PCP office to set up the referral. Recommend that you follow-up with GI physician upon discharge for your right liver lobe lesion, coordinate with your PCP office to set up the referral. Take your medications as prescribed. Please make sure that you are able to get your medications today by calling your pharmacy before you leave the hospital so that your treatment continuity is not broken. Text document was generated using ROKT recognition software. It may contain grammatical or spelling errors. Kindly contact undersigned for clarification of any documentation item in question. Home Health Attestation I certify that this patient is under my care and that I, or a physicians bilingual sales assistant working with me, had a face to-face encounter that meets the home health [id number] encounter requirements with this patient. The encounter with the patient was in whole, or in part, for the following medical condition, which is the primary reason for home health care (list medical condition): I certify that, based on my findings, the following services are medically necessary home health services: My clinical findings support the need for the above services because: Further, I certify that my clinical findings support that this patient is homebound (i.e. absences from home require considerable and taxing effort and are for medical reasons or anabaptist services or infrequently or of short duration when for other reasons) because: Certification for Home Health Services: Based on the above findings, I certify that this patient is confined to the home and needs intermittent fci care, physical therapy and/or speech therapy or continues to need occupational therapy. The patient is under my care, and I have initiated the establishment of the plan of care. This patient will be followed by a physician who will periodically review the plan of care. Total Time Total Time Spent Total Time Spent (In Minutes): 35 Discharge Plan Discharge Items Patient Disposition: Home - Self-Care Reason For Visit: PANCREATITIS Discharge Diagnosis: Recurrent pancreatitis History of pancreatic divisum as per records Likely acid peptic disease Activity: Resume your previous activity Non-emergency contact: Primary Care Provider Call non-emergency contact if: you have any medication questions and your symptoms worsen Follow-up/Referrals: Artur Chambers MD [Primary Care Provider] - Diet: Low Fat Diet Texture: Dental soft (bite-sized) Addtl Attending Provider Instructions: Follow-up with your primary care physician within a week time and likely you will need labs CBC/CMP/magnesium/phosphorus. You were evaluated and managed for recurrent pancreatitis and possible acid peptic disease. You have been started on famotidine which appears to improve your abdominal discomfort. You will likely benefit from outpatient upper endoscopy, recommend that you establish with GI physician in 2 to 4 weeks time upon discharge, coordinate with your PCP office to set up the referral. Recommend that you follow-up with GI physician upon discharge for your right liver lobe lesion, coordinate with your PCP office to set up the referral. Take your medications as prescribed. Please make sure that you are able to get your medications today by calling your pharmacy before you leave the hospital so that your treatment continuity is not broken. Pending Studies at Discharge: No Stand-Alone Forms: [employer], Smoking Cessation Medications and DC Order Prescriptions: New famotidine 20 mg Tablet 20 mg PO BID Qty: 60 0RF Continued cyanocobalamin (vitamin B-12) 1,000 mcg Tablet 1,000 mcg PO QAM lisinopril 20 mg tablet 20 mg PO QAM metoprolol tartrate 50 mg tablet 75 mg PO BID Rx Instructions: TAKE ONE AND ONE HALF TABLETS TWICE DAILY multivitamin [Multiple Vitamins] Tablet 1 tab PO QAM nitroglycerin [Nitrostat] 0.4 mg Tablet, Sublingual 0.4 mg sublingual DIRECTED PRN (Reason: Chest Pain) Rx Instructions: PLACE ONE TABLET UNDER THE TONGUE EVERY 5 MINUTES FOR UP TO 3 DOSES OVER 15 MINUTES IF NEEDED FOR CHEST PAIN aspirin [Martin Low Dose Aspirin] 81 mg Tablet,Delayed Release (Dr/Ec) 81 mg PO QAM rosuvastatin 10 mg tablet 10 mg PO DAILY insulin glargine [Lantus Solostar U-100 Insulin] 100 unit/mL (3 mL) insulin pen 20 unit SUBCUT QAM metformin 1,000 mg tablet 500 mg PO BIDM Rx Instructions: TAKE THIS MEDICATION WITH MORNING AND EVENING MEAL [place] Nasal 0.65 % [place],Non-Aerosol 2 spray INTRANASAL USEASDIRECTD PRN (Reason: nasal dryness or congestion ) albuterol sulfate 90 mcg/actuation HFA aerosol inhaler 2 puff INHALATION Q4 PRN (Reason: Wheezing) fluticasone propionate 50 mcg/actuation spray,suspension 2 spray INTRANASAL QAM loratadine 10 mg Tablet 10 mg PO HS coenzyme Q10 [Co Q-10] 100 mg Capsule 100 mg PO DAILY insulin aspart U-100 [Novolog FlexPen U-100 Insulin] 100 unit/mL (3 mL) insulin pen See Rx Instructions .ROUTE .COMPLEX Rx Instructions: inject 14-15units before breakfast and 11-12 units before supper PreserVision AREDS 2 Plus MV 200 mcg-15 mcg- 5 mg-1 mg Capsule 1 cap PO BID Discharge Orders: Discharge Order (Routine); Ordered 06/12/24 Ordered By: Nina Macedo Admission Data Admit Date/Time: 06/09/24 02:18 Attending Provider: Nina Macedo Admit Provider: Gilbert Marquez Primary Care Provider: Artur Chambers Other Providers: Gilbert Marquez; Lisa Yo; Kev Ruff; Abbey Marinelli; Kerrie Yang; Jaycee Chung; Betty Holguin; Balta Olivares; Gabriela Verde; Tariq Wolff; Maria Elena Temple; Cecille Ibarra; Maday Hutton; Jaclyn Wong; Katie Rush; Shan Bahgat; Shun Aragon; Patricia Jaime; Gerard Kapadia Jr; Connor Hong; John Taylor; Jeronimo Anthony; Bigg Koenig; Ro Palacio; Sav Pacheco I; Alyssa Denson; Ramsey Kim; Shankar Lawson
[2024-06-12 15:45] VITALS: PULSE 88
== END 2024-06-12 16:17 | disposition home or self-care (01) | DRG 439 ==
LOC: ED 22:47 → EDINP 06-09 02:18 → SUATTDRO 06-09 02:18 → 3E 06-09 03:01